=== PATIENT | male | born 1965 | race Caucasian/White ===

== ENCOUNTER 2020-06-18 17:11 | Emergency (ER) | payer OTHER ==
--- OUTSIDE RECORDS SUMMARY | 2020-06-18 17:13 | XMS REPORT | Continuity of Care Document ---
:1965 Author Organization [facility] t Address [address] [place] [address] Care Team Providers Name Role Phone Unavailable Unavailable Unavailable Payers Payer Name Policy Type Policy Number Effective Date Expiration Date S ource Problems This patient has no known problems. Allergies, Adverse Reactions, Alerts Allergy Allergy Status Severity Reaction(s) Onset Inactive Treating Comm ents Source Name Type Date Date Clinician No Known DA Active U 2018-0 [facility] [place] [facility] No Known DA Active U 2018-0 [facility] [place] [facility] Medications This patient has no known medications. Procedures This patient has no known procedures. Results Test Description Test Time Test Comments Results Result Comments Source GLUBED 2019-03-26 11:51:00 Test Item Value Reference Range Interpretation Comme nts GLUBED (test code = GLUBED) 164 mg/dL 60-125 H [id number] 07:07:00 Test Item Value Reference Range Interpretation Comments GLUBED (test code = GLUBED) 126 mg/dL 60-125 H
--- NOTE | 2020-06-18 19:21 | ER ---
Nurse's Notes [facility] Name: Arnold Roach Age: 55 yrs Sex: Male : 1965 Arrival Date: 06/18/2020 Time: 17:14 Bed Waiting Private MD: Diagnosis: Presentation: 06/18 17:21 Chief complaint: Patient states: Blood work done 06/15/2020. Potassium was high as per ca1 doctor. Complains palpitations been a while worse Thursday. Coronavirus screen: Client denies travel out of the [place] in the last 14 days. At this time, the client does not indicate any symptoms associated with coronavirus-19. Ebola Screen: Patient negative for fever greater than or equal to 101.5 degrees Fahrenheit, and additional compatible Ebola Virus Disease symptoms Patient denies exposure to infectious person. Patient denies travel to an Ebola-affected area in the 21 days before illness onset. No symptoms or risks identified at this time. Initial Sepsis Screen: Does the patient meet any 2 criteria? No. Patient's initial sepsis screen is negative. Does the patient have a suspected source of infection? No. Patient's initial sepsis screen is negative. Risk Assessment: Do you want to hurt yourself or someone else? Patient reports no desire to harm self or others. Onset of symptoms was June 18, 2020. 17:21 Method Of Arrival: Ambulatory ca1 17:21 Acuity: JOJO 3 ca1 Historical: - Allergies: 17:24 No Known Allergies; ca1 - PMHx: 17:24 Hypertension; Diabetes - NIDDM; ca1 - PSHx: 17:24 Orchiectomy; Knee surgery; shoulder Surgery; Appendectomy; ca1 - Immunization history:: Flu vaccine is up to date. - Social history:: Smoking status: Patient reports the use of cigarette tobacco products, smokes one-half pack cigarettes per day. Assessment: 18:50 Reassessment: pt not in lobby at this time. iw Vital Signs: 17:21 BP 139 / 90; Pulse 95; Resp 16 S; Temp 98.1(TE); Pulse Ox 95% on R/A; Weight 97.52 kg; ca1 Height 5 ft. 8 in. (172.72 cm) (M); Pain 0/10; 17:21 Body Mass Index 32.69 (97.52 kg, 172.72 cm) ca1 ED Course: 17:14 Patient arrived in ED. as 17:23 Triage completed. ca1 17:24 Arm band placed on right wrist. ca1 Administered Medications: No medications were administered Outcome: 19:19 Eloped from waiting room, before seeing physician Time discovered patient gone: iw June 18, 2020 at 19:20 19:20 Patient left the ED. iw Signatures: Darlyn Valdez as Brittany Corral, RN RN iw Holli Oh RN RN ca1
[2020-06-18 22:48] VITALS: BP 139/90; TEMP 98.1; O2SAT 95
--- NOTE | 2020-06-19 12:56 | EKG ---
Test Date: 2020-06-18 Test Time: 17:26:30 Value Stream Coach: MEASUREMENT RESULTS: Intervals: Rate: 90 WI: 160 QRSD: 92 QT: 354 QTc: 433 [place]: P: 71 WI: 160 QRS: 47 T: 87 INTERPRETIVE STATEMENTS: Normal sinus rhythm Normal ECG Compared to ECG 04/04/2004 01:29:00 No significant changes Electronically Signed On 06-19-20 12:53:28 DRUPAL ARCHITECT by Agapito Smith
== END 2020-06-18 19:20 | disposition left against medical advice (07) ==
LOC: ER 17:11
DX: E87.5 Hyperkalemia (principal); Z53.21 Procedure and treatment not carried out due to patient leaving prior to being seen by health care provider
CPT/HCPCS: 93005; 99281

== ENCOUNTER 2022-03-30 09:46 | Emergency (ER) | payer OTHER ==
--- OUTSIDE RECORDS SUMMARY | 2022-03-30 09:48 | XMS REPORT | Continuity of Care Document ---
:1965 Author Organization [facility] t Address [facility] [place] [address] Care Team Providers Name Role Phone MIA CHAVEZ Primary Care Physician Unavailable Shantelle Attending Clinician Unavailable DERIAN CHOU Attending Clinician Unavailable Shantelle Admitting Clinician Unavailable DERIAN CHOU Admitting Clinician Unavailable Payers Payer Name Policy Type Policy Number Effective Date Expiration Date [place] - [id number] [facility] 00:00:00 PLAN (EPO) DERIC VASQUEZ FROM [id number] [facility] 00:00:00 Problems This patient has no known problems. Allergies, Adverse Reactions, Alerts Allergy Allergy Status Severity Reaction(s) Onset Inactive Treating Comm ents Source Name Type Date Date Clinician No Known DA Active U [facility] 12[facility] [place] [facility] 00:[facility] No Known DA Active U 0 [facility] [place] [facility] 00:[facility]: [facility] NO KNOWN Drug Active [facility] Medications This patient has no known medications. Procedures This patient has no known procedures. Encounters Start End Encounter Admission Attending Care Care Encounter Source Date/Time Date/Time Type Type Clinicians Facility Department ID 2022-02-14 2022-02-14 Outpatient Tony AOSM AOSM [id number] Maggi 00:00:00 00:00:00 Gayle [id number] [facility] 2022-01-13 2022-01-13 Outpatient FOG_Burke_R AOSM AOSM [id number] Maggi 00:00:00 00:00:00 Gayle [id number] [facility] 2022-01-07 2022-01-07 Outpatient FOG_Burke_R AOSM AOSM [id number] Maggi 00:00:00 00:00:00 Gayle [id number] [facility] 2021-12-06 2021-12-06 Outpatient FOG_Burke_R AOSM AOSM [id number] Maggi 05:00:00 05:00:00 Gayle [id number] [facility] 2021-11-01 2021-11-01 Outpatient FOG_Burke_R AOSM AOSM [id number] Maggi 05:57:00 05:57:00 Gayle [id number] [facility] 2020-06-19 2020-06-19 [id number] [facility] 10:49:00 14:19:00 DERIAN tena [facility] Results Test Description Test Time Test Comments Results Result Comments Source GLUBED 2019-03-26 11:51:00 Test Item Value Reference Range Interpretation Comme nts GLUBED (test code = GLUBED) 164 mg/dL 60-125 H [id number] 07:07:00 Test Item Value Reference Range Interpretation Comments GLUBED (test code = GLUBED) 126 mg/dL 60-125 H
[2022-03-30] MEDS ORDERED: ONDANSETRON 4 MG/2 ML VIAL ONE (10:12)
[2022-03-30] MEDS ORDERED: MORPHINE 4 MG/ML SYR ONE ×2 (10:12→10:47)
[2022-03-30 10:16] LABS: Hematocrit 50.7 % (39.6-49.0); Lymphocytes % 9.3 % (15.3-44.8); MCV 89.3 fL (80-100); MPV 7.9 fL (7.6-11.3); RBC Red Blood Cell Count 5.67 M/uL (4.33-5.43)
[2022-03-30 10:20] LABS: Protime INR 0.97
[2022-03-30] MEDS ORDERED: LABETALOL 20 MG/4ML SYRINGE IV ONE (10:24)
[2022-03-30] MEDS ORDERED: FAMOTIDINE 20 MG/2 ML VIAL IV ONE (10:24)
[2022-03-30 10:37] LABS: Bilirubin Direct 0.2 mg/dL (0-0.2); Bilirubin Total 0.9 mg/dL (0.2-1.0); Protein, Total 7.2 g/dL (6.4-8.2)
[2022-03-30 10:38] LABS: Magnesium 2.2 mg/dL (1.8-2.4); Troponin High Sensitivity 4155.9 pg/mL (<58.9)
--- NOTE | 2022-03-30 10:44 | RAD REPORT ---
EXAM DESCRIPTION: CTAngio Aorta For Dissection - 03/30/2022 10:20 am CLINICAL HISTORY: cp COMPARISON: No comparisonsNo comparisons TECHNIQUE: CTA of the chest, abdomen, and pelvis was performed with IV contrast.MIPs were created. All CT scans are performed using dose optimization technique as appropriate and may include automated exposure control or mA/KV adjustment according to patient size. FINDINGS: Thorax: Chest Wall: No abnormal mass Lungs: No acute abnormality. Tiny subpleural nodule in the right middle lobe is almost certainly brody gn. Pleura: No effusions or pneumothorax. Marnie/Mediastinum: No lymphadenopathy. Aorta/Pulmonary Arteries: Unremarkable Heart: Normal size. Scattered coronary artery calcifications . Abdomen/Pelvis: Liver: No acute abnormality or suspicious lesions. Hepatic steatosis Biliary: No biliary ductal dilatation. Stomach: No significant focal abnormality. Duodenum: No significant focal abnormality. Pancreas: No significant abnormality. Spleen: No significant abnormality. Adrenal: No suspicious lesions. Kidney/ureter: No hydronephrosis. No renal calculi. Nonspecific perinephric stranding. Retroperitoneum: No retroperitoneal adenopathy. Vascular: No aneurysm. Bowel: Prior appendectomy. Diverticulosis without diverticulitis. Peritoneum: No ascites or free air.Small fat containing umbilical hernia. Bladder: Grossly unremarkable. Reproductive: No adnexal masses. Bones: No acute fracture. Disc height loss at L5-S1. IMPRESSION: No evidence of aortic aneurysm, aortic dissection, or pulmonary embolus. No other acute findings identified. Incidental findings as noted above.
[2022-03-30] MEDS ORDERED: HEPARIN 5000 UNIT/ML 1 ML VIAL ONE (10:46)
[2022-03-30] MEDS ORDERED: METOPROLOL TAR 50 MG TAB ONE (10:47)
[2022-03-30] MEDS ORDERED: ASPIRIN 81 MG CHEWABLE TABLET ONE (10:47)
[2022-03-30] MEDS ORDERED: CLOPIDOGREL 75 MG TABLET ONE (10:47)
[2022-03-30] MEDS ORDERED: ATORVASTATIN 20 MG TAB ONE (10:48)
[2022-03-30] MEDS ORDERED: HEPARIN/D5W 25,000 UNIT/500 ML BAG IV ONE (10:48)
[2022-03-30] MEDS ORDERED: METOPROLOL TARTRATE 5 MG/5 ML INJ IV ONE ×2 (10:48→11:34)
--- NOTE | 2022-03-30 10:51 | ER ---
Nurse's Notes [facility] Name: Arnold Roach Age: 56 yrs Sex: Male : 1965 Arrival Date: 03/30/2022 Time: 09:47 Bed 2 Private MD: Kamran Grande E Diagnosis: Non ST elevation MS;Unstable angina;Type 2 diabetes mellitus with hyperglycemia;Tobacco abuse counseling;Tobacco use Presentation: 03/30 10:02 Chief complaint: Patient states: mid/ upper back pain that began last night. Woke up ss this morning with pain in chest. PT states, "It feels like somebody is standing on it." Is worse when taking a deep breath. Coronavirus screen: Client denies travel out of the [place] in the last 14 days. Ebola Screen: Patient denies exposure to infectious person. Patient denies travel to an Ebola-affected area in the 21 days before illness onset. Initial Sepsis Screen: Does the patient meet any 2 criteria? No. Patient's initial sepsis screen is negative. Does the patient have a suspected source of infection? No. Patient's initial sepsis screen is negative. Risk Assessment: Do you want to hurt yourself or someone else? Patient reports no desire to harm self or others. Onset of symptoms was March 29, 2022. 10:02 Method Of Arrival: Ambulatory ss 10:02 Acuity: JOJO 2 ss Historical: - Allergies: 10:03 No Known Allergies; ss - Home Meds: 11:42 sitagliptin-metformin oral [Active]; losartan oral [Active]; jl7 - PMHx: 10:03 Diabetes - NIDDM; Hypertension; BPH; ss - Immunization history:: Client reports having NOT received the Covid vaccine. - Social history:: Smoking status: Patient reports the use of cigarette tobacco products, smokes one pack cigarettes per day. - Family history:: not pertinent. Screenin:35 Abuse screen: Denies threats or abuse. Denies injuries from another. Nutritional jl7 screening: No deficits noted. Tuberculosis screening: No symptoms or risk factors identified. Fall Risk IV access (20 points). Total Ruiz Fall Scale indicates No Risk (0-24 pts). Assessment: 10:00 Reassessment: [facility] at bedside to transport pt. General: Appears in no apparent jl7 distress. uncomfortable, Behavior is calm, cooperative, appropriate for age. Pain: Complains of pain in mid-sternal area Pain does not radiate. Pain currently is 7 out of 10 on a pain scale. Quality of pain is described as pressure, Pain began 2-3 days ago. Is continuous. Neuro: Level of Consciousness is awake, alert, obeys commands, Oriented to person, place, time, situation. Cardiovascular: Patient's skin is warm and dry. Rhythm is regular. Respiratory: Airway is patent Respiratory effort is even, unlabored, Respiratory pattern is regular, symmetrical. Derm: Skin is pink, warm \\T\\ dry. 10:14 Reassessment: pt to CT. jl7 10:15 Reassessment: Dr. Bryan notified of repeat BP, gave VO to administer 5 mg labetalol jl7 IVP then 5 mg labetalol IVP five minutes after the first if needed. Pt will be medicated on return from CT. Vital Signs: 10:02 BP 135 / 93; Pulse 107; Resp 18; Pulse Ox 97% on R/A; Weight 95.25 kg; Height 5 ft. 9 ss in. (175.26 cm); Pain 7/10; 10:10 BP 125 / 88; Pulse 102; Resp 15; Temp 97.7; Pulse Ox 95% on R/A; Pain 7/10; jl7 10:22 BP 126 / 88; Pulse 105; Resp 19; Pulse Ox 95% ; Pain 6/10; jl7 10:42 BP 117 / 79; Pulse 95; Resp 15; Pulse Ox 95% ; jl7 10:59 BP 122 / 91; Pulse 101; Resp 15; Pulse Ox 95% ; Pain 5/10; jl7 11:05 BP 131 / 99; Pulse 98; Resp 17; Pulse Ox 94% ; jl7 11:19 BP 123 / 89; Pulse 92; Resp 18; Pulse Ox 95% on R/A; jl7 11:30 BP 115 / 87; Pulse 94; Resp 15 S; Pulse Ox 97% on 2 lpm NC; Pain 3/10; jl7 11:45 BP 111 / 82; Pulse 84; Resp 16; Pulse Ox 97% on 2 lpm NC; jl7 10:02 Body Mass Index 31.01 (95.25 kg, 175.26 cm) ED Course: 09:47 Patient arrived in ED. am2 09:47 Kamran Grande MD is Private Physician. am2 09:50 Joel Bryan MD is Attending Physician. claribel 10:00 Patient has correct armband on for positive identification. Placed in gown. Bed in low jl7 position. Call light in reach. Side rails up X 1. Client placed on continuous cardiac and pulse oximetry monitoring. NIBP monitoring applied. Warm blanket given. 10:03 Triage completed. ss 10:03 Arm band placed on right wrist. ss 10:09 Vivian Neff RN is Primary Nurse. jl7 10:10 Initial lab(s) drawn, by ED staff, sent to lab. EKG done, by ED staff, reviewed by asia Bryan MD COVID swab sent to lab. 10:10 Patient maintains SpO2 saturation greater than 95% on room air. jl7 10:14 Inserted saline lock: 18 gauge in left antecubital area, using aseptic technique. Blood ss collected. 10:22 CT Aorta for Dissection In Process Unspecified. EDMS 10:36 XRAY Chest (1 view) In Process Unspecified. EDMS 10:47 initiated a transfer with Ismael Rose Rn form the [facility]. eb 11:03 connected the call worker person installation manager for [facility] with Dr. Bryan for patient eb transfer consultation. 11:37 administrative approval given by Ismael Rose Rn/ Patient has been accepted to [facility] CCU 1 2414/ Dr. Rod Fisher has accepted the patient in transfer/ report to be called to [phone]. 11:59 No provider procedures requiring assistance completed. Patient transferred, IV remains jl7 in place. intact, No redness/swelling at site. Administered Medications: 10:14 Drug: morphine 4 mg Route: IVP; Infused Over: 4 mins; Site: left antecubital; jl7 10:30 Follow up: Response: No adverse reaction; Pain is decreased jl7 10:14 Drug: Zofran (Ondansetron) 4 mg Route: IVP; Site: left antecubital; jl7 12:01 Follow up: Response: No adverse reaction jl7 10:25 Drug: Labetalol 10 mg {Note: administered [address] Bryan[address] Route: IV; Rate: jl7 per protocol; Infused Over: 2 mins; Site: left antecubital; 10:30 Follow up: Response: No adverse reaction; IV Status: Completed infusion 10:25 Drug: Pepcid (famotidine) 20 mg Route: IVP; Site: left antecubital; jl7 12:02 Follow up: Response: No adverse reaction 7 10:55 Drug: Heparin (MS-Bolus No thrombolytic) - HEParin 60 units/kg {Co-Signature: ll1 jl7 (Alejandra Serrano RN).} Route: IVP; Site: left antecubital; 12:01 Follow up: Response: No adverse reaction 11:04 Drug: Aspirin Chewable Tablet 324 mg Route: PO; 7 12:00 Follow up: Response: No adverse reaction 11:05 Drug: PlaVIX (clopidogrel) 300 mg Route: PO; 12:01 Follow up: Response: No adverse reaction 11:08 Drug: Heparin (MS Drip) 12 units/kg/hr - (HEParin 83413 units, D5W 500 ml) 7 {Co-Signature: ll1 (Alejandra Serrano RN).} Route: IV; Rate: calculated rate; Site: right hand; 12:01 Follow up: Response: No adverse reaction; IV Status: Infusion continued upon transfer 11:09 Drug: Lopressor (metoprolol) 5 mg Route: IVP; Site: left antecubital; 12:01 Follow up: Response: No adverse reaction 11:13 Drug: morphine 4 mg Route: IVP; Infused Over: 4 mins; Site: left antecubital; 7 11:20 Follow up: Response: No adverse reaction; Pain is decreased 11:18 Drug: Lopressor (metoprolol TARTRATE) 50 mg Route: PO; 12:01 Follow up: Response: No adverse reaction 7 11:18 Drug: Lipitor (atorvastatin) 40 mg Route: PO; 7 12:00 Follow up: Response: No adverse reaction 11:26 Not Given (Physician Discretion): Labetalol 10 mg IV at per protocol once 11:35 Drug: Lopressor (metoprolol) 5 mg Route: IVP; Site: left antecubital; 7 11:59 Follow up: Response: No adverse reaction jl7 11:35 Drug: NS 0.9% 500 ml Route: IV; Rate: bolus; Site: left antecubital; jl7 11:58 Follow up: IV Status: Infusion continued upon transfer jl7 11:41 Not Given (Patient Refused): Nicoderm CQ Patch 21 mg/24 hr 1 patches Transdermal once 7 11:57 Drug: NS 0.9% 1000 ml Route: IV; Rate: 125 ml/hr; Site: left antecubital; jl7 11:58 Follow up: IV Status: Infusion continued upon transfer jl7 11:57 Not Given (Patient Refused): Zofran (Ondansetron) 4 mg IVP once; over 2 minutes jl7 11:57 Not Given (Patient Refused): Semglee Pen Injector 100 unit/mL 25 units Sub-Q once 7 Medication: 10:35 VIS not applicable for this client. 7 Outcome: 10:51 ER care complete, transfer ordered by MD. sanford 12:05 Transferred by helicopter to [facility], Transfer form completed. jl7 12:05 Condition: stable 12:05 Discharge instructions given to patient, Instructed on the need for transfer, Demonstrated understanding of instructions. 12:05 Patient left the ED. 7 Signatures: Dispatcher [employer] EDMS Joel Bryan MD MD cha Smirch, Shelby, RN RN Vivian Pardo RN RN jl7 Annabel Albarran Elizabeth eb Lynsay Lewis RN ll1 Corrections: (The following items were deleted from the chart) 10:36 10:25 Labetalol 10 mg IV at per protocol in left antecubital over 2 mins jl7 jl7
--- NOTE | 2022-03-30 10:51 | EDPHYS ---
Physician Documentation [facility] Name: Arnold Roach Age: 56 yrs Sex: Male : 1965 Arrival Date: 03/30/2022 Time: 09:47 Bed 2 Private MD: Kamran Grande E ED Physician Joel Bryan HPI: 03/30 10:19 This 56 yrs old Male presents to ER via Ambulatory with complaints of Chest claribel Pain. 10:19 The patient or guardian reports chest pain that is located primarily in the substernal claribel area, anterior chest wall, bilaterally. Onset: last night, 1 day(s) ago. The pain radiates to back. Associated signs and symptoms: Pertinent positives: shortness of breath. The chest pain is described as a heaviness, causing indigestion. Duration: The patient or guardian reports a single episode, that is still ongoing, and worsening. Modifying factors: The symptoms are alleviated by nothing. the symptoms are aggravated by nothing. Severity of pain: At its worst the pain was mild moderate in the emergency department the pain is unchanged. The patient has not experienced similar symptoms in the past. Historical: - Allergies: 10:03 No Known Allergies; ss - Home Meds: 11:42 sitagliptin-metformin oral [Active]; losartan oral [Active]; jl7 - PMHx: 10:03 Diabetes - NIDDM; Hypertension; BPH; ss - Immunization history:: Client reports having NOT received the Covid vaccine. - Social history:: Smoking status: Patient reports the use of cigarette tobacco products, smokes one pack cigarettes per day. - Family history:: not pertinent. ROS: 10:19 Constitutional: Negative for fever, chills, and weight loss, Eyes: Negative for injury, claribel pain, redness, and discharge, ENT: Negative for injury, pain, and discharge, Neck: Negative for injury, pain, and swelling, Abdomen/GI: Negative for abdominal pain, nausea, vomiting, diarrhea, and constipation, Back: Negative for injury and pain, : Negative for injury, bleeding, discharge, and swelling, MS/Extremity: Negative for injury and deformity, Skin: Negative for injury, rash, and discoloration, Neuro: Negative for headache, weakness, numbness, tingling, and seizure, Psych: Negative for depression, anxiety, suicide ideation, homicidal ideation, and hallucinations, Allergy/Immunology: Negative for hives, rash, and allergies, Endocrine: Negative for neck swelling, polydipsia, polyuria, polyphagia, and marked weight changes, Hematologic/Lymphatic: Negative for swollen nodes, abnormal bleeding, and unusual bruising. 10:19 Cardiovascular: Positive for chest pain, of the chest. 10:19 Respiratory: Positive for shortness of breath, at rest. Exam: 10:19 Constitutional: This is a well developed, well nourished patient who is awake, alert, claribel and in no acute distress. Head/Face: Normocephalic, atraumatic. Eyes: Pupils equal round and reactive to light, extra-ocular motions intact. Lids and lashes normal. Conjunctiva and sclera are non-icteric and not injected. Cornea within normal limits. Periorbital areas with no swelling, redness, or edema. ENT: Nares patent. No nasal discharge, no septal abnormalities noted. Tympanic membranes are normal and external auditory canals are clear. Oropharynx with no redness, swelling, or masses, exudates, or evidence of obstruction, uvula midline. Mucous membranes moist. Neck: Trachea midline, no thyromegaly or masses palpated, and no cervical lymphadenopathy. Supple, full range of motion without nuchal rigidity, or vertebral point tenderness. No Meningismus. Chest/axilla: Normal chest wall appearance and motion. Nontender with no deformity. No lesions are appreciated. Cardiovascular: Regular rate and rhythm with a normal S1 and S2. No gallops, murmurs, or rubs. Normal PMI, no JVD. No pulse deficits. Respiratory: Lungs have equal breath sounds bilaterally, clear to auscultation and percussion. No rales, rhonchi or wheezes noted. No increased work of breathing, no retractions or nasal flaring. Abdomen/GI: Soft, non-tender, with normal bowel sounds. No distension or tympany. No guarding or rebound. No evidence of tenderness throughout. Back: No spinal tenderness. No costovertebral tenderness. Full range of motion. Male : Normal genitalia with no discharge or lesions. Skin: Warm, dry with normal turgor. Normal color with no rashes, no lesions, and no evidence of cellulitis. MS/ Extremity: Pulses equal, no cyanosis. Neurovascular intact. Full, normal range of motion. Neuro: Awake and alert, GCS 15, oriented to person, place, time, and situation. Cranial nerves II-XII grossly intact. Motor strength 5/5 in all extremities. Sensory grossly intact. Cerebellar exam normal. Normal gait. Psych: Awake, alert, with orientation to person, place and time. Behavior, mood, and affect are within normal limits. 10:19 ECG was reviewed by the Attending Physician. 10:57 ECG was reviewed by the Attending Physician. claribel Vital Signs: 10:02 BP 135 / 93; Pulse 107; Resp 18; Pulse Ox 97% on R/A; Weight 95.25 kg; Height 5 ft. 9 ss in. (175.26 cm); Pain 7/10; 10:10 BP 125 / 88; Pulse 102; Resp 15; Temp 97.7; Pulse Ox 95% on R/A; Pain 7/10; jl7 10:22 BP 126 / 88; Pulse 105; Resp 19; Pulse Ox 95% ; Pain 6/10; jl7 10:42 BP 117 / 79; Pulse 95; Resp 15; Pulse Ox 95% ; jl7 10:59 BP 122 / 91; Pulse 101; Resp 15; Pulse Ox 95% ; Pain 5/10; jl7 11:05 BP 131 / 99; Pulse 98; Resp 17; Pulse Ox 94% ; jl7 11:19 BP 123 / 89; Pulse 92; Resp 18; Pulse Ox 95% on R/A; jl7 11:30 BP 115 / 87; Pulse 94; Resp 15 S; Pulse Ox 97% on 2 lpm NC; Pain 3/10; jl7 11:45 BP 111 / 82; Pulse 84; Resp 16; Pulse Ox 97% on 2 lpm NC; jl7 10:02 Body Mass Index 31.01 (95.25 kg, 175.26 cm) ss MDM: 09:50 Patient medically screened. claribel 10:22 Differential diagnosis: abnormal EKG, acute myocardial infarction, acute pericarditis, claribel Cholelithiasis costochondritis, esophagitis, gastritis, hiatal hernia, pancreatitis, pericarditis, pneumothorax, pulmonary embolus, stable angina, thoracic aortic disection, unstable angina. HEART Score: History: Slightly Suspicious (0), ECG: Non specific repolarization disturbance / LBTB / PM (1), Age: > 45 and < 65 years (1), Risk Factors: > or = 3 Risk factors for atherosclerotic disease (2), [Hypercholesterolemia] [Hypertension] [+ Family HX] [Obesity] Troponin: < or = 1 x Normal Limit (0). The patient was given aspirin in the Emergency Department. The patient's deep vein thrombosis risk score was calculated as follows: Total Score: 0. This patient was found to be at low risk for a deep vein thrombosis by using the Well's assessment criteria. The patient's pulmonary embolism risk score was calculated as follows: the patients heart rate is greater than 100 beats per minute (1.5 Pts) Total Score: 3-6 points. This patient was found to be at moderate risk for a pulmonary embolism by using the Well's assessment criteria. XAVI Risk Score: 1 - Three or more CAD risk factors, 1 - ASA use in past 7 days, TOTAL SCORE = 2. Data reviewed: vital signs, nurses notes, lab test result(s), EKG, radiologic studies, CT scan, plain films. Data interpreted: speech correction assistant: rate is 107 beats/min, rhythm is regular, Pulse oximetry: on room air is 107 %. Test interpretation: by ED physician or midlevel provider: ECG, plain radiologic studies. Counseling: I had a detailed discussion with the patient and/or guardian regarding: the historical points, exam findings, and any diagnostic results supporting the discharge/admit diagnosis, lab results, radiology results. 03/30 10:03 Order name: Basic Metabolic Panel; Complete Time: 10:48 03/30 10:03 Order name: CBC with Diff; Complete Time: 10:39 03/30 10:03 Order name: LFT's; Complete Time: 10:48 03/30 10:03 Order name: Magnesium; Complete Time: 10:48 03/30 10:03 Order name: NT PRO-BNP; Complete Time: 10:48 03/30 10:03 Order name: PT-INR; Complete Time: 10:39 03/30 10:03 Order name: Troponin HS; Complete Time: 10:48 03/30 10:03 Order name: XRAY Chest (1 view); Complete Time: 11:04 03/30 10:03 Order name: CT Aorta for Dissection; Complete Time: 10:48 03/30 10:03 Order name: SARS RAPID; Complete Time: 11:03/30 10:03 Order name: Lipase; Complete Time: 10:48 03/30 10:03 Order name: EKG; Complete Time: 10:03 03/30 10:03 Order name: Cardiac monitoring; Complete Time: 10:03/30 10:03 Order name: EKG - Nurse/Tech; Complete Time: 10:03/30 10:03 Order name: IV Saline Lock; Complete Time: 10:03/30 10:03 Order name: Labs collected and sent; Complete Time: 10:03/30 10:03 Order name: O2 Per Protocol; Complete Time: 10:03/30 10:03 Order name: O2 Sat Monitoring; Complete Time: 10: [facility] 03/30 10:48 Order name: EKG; Complete Time: 10:48 [facility] 03/30 10:48 Order name: EKG - Nurse/Tech; Complete Time: 11:26 03/30 10:52 Order name: NPO; Complete Time: 11:21 [facility] EC:19 Rate is 106 beats/min. Rhythm is regular. QRS [place] is Normal. HI interval is normal. claribel QRS interval is normal. QT interval is normal. No Q waves. T waves are Normal. No ST changes noted. Clinical impression: Sinus tachycardia and No evidence of ischemia. Interpreted by me. Reviewed by me. 10:57 Rate is 97 beats/min. Rhythm is regular. QRS [place] is Normal. HI interval is normal. QRS claribel interval is normal. QT interval is normal. No Q waves. T waves are Normal. Clinical impression: Abnormal EKG without significant change. Interpreted by me. Reviewed by me. Administered Medications: 10:14 Drug: morphine 4 mg Route: IVP; Infused Over: 4 mins; Site: left antecubital; jl7 10:30 Follow up: Response: No adverse reaction; Pain is decreased jl7 10:14 Drug: Zofran (Ondansetron) 4 mg Route: IVP; Site: left antecubital; jl7 12:01 Follow up: Response: No adverse reaction jl7 10:25 Drug: Labetalol 10 mg {Note: administered [address] Bryan.} Route: IV; Rate: jl7 per protocol; Infused Over: 2 mins; Site: left antecubital; 10:30 Follow up: Response: No adverse reaction; IV Status: Completed infusion 7 10:25 Drug: Pepcid (famotidine) 20 mg Route: IVP; Site: left antecubital; jl7 12:02 Follow up: Response: No adverse reaction 7 10:55 Drug: Heparin (AL-Bolus No thrombolytic) - HEParin 60 units/kg {Co-Signature: ll1 jl7 (Alejandra Serrano RN).} Route: IVP; Site: left antecubital; 12:01 Follow up: Response: No adverse reaction 7 11:04 Drug: Aspirin Chewable Tablet 324 mg Route: PO; 7 12:00 Follow up: Response: No adverse reaction 7 11:05 Drug: PlaVIX (clopidogrel) 300 mg Route: PO; 12: Follow up: Response: No adverse reaction 7 11:08 Drug: Heparin (AL Drip) 12 units/kg/hr - (HEParin 79401 units, D5W 500 ml) 7 {Co-Signature: ll1 (Alejandra Serrano RN).} Route: IV; Rate: calculated rate; Site: right hand; 12: Follow up: Response: No adverse reaction; IV Status: Infusion continued upon transfer 7 11:09 Drug: Lopressor (metoprolol) 5 mg Route: IVP; Site: left antecubital; 12: Follow up: Response: No adverse reaction 7 11:13 Drug: morphine 4 mg Route: IVP; Infused Over: 4 mins; Site: left antecubital; jl7 11:20 Follow up: Response: No adverse reaction; Pain is decreased 11:18 Drug: Lopressor (metoprolol TARTRATE) 50 mg Route: PO; 7 12: Follow up: Response: No adverse reaction 7 11:18 Drug: Lipitor (atorvastatin) 40 mg Route: PO; jl7 12:00 Follow up: Response: No adverse reaction 7 11:26 Not Given (Physician Discretion): Labetalol 10 mg IV at per protocol once 11:35 Drug: Lopressor (metoprolol) 5 mg Route: IVP; Site: left antecubital; jl7 11:59 Follow up: Response: No adverse reaction 11:35 Drug: NS 0.9% 500 ml Route: IV; Rate: bolus; Site: left antecubital; jl7 11:58 Follow up: IV Status: Infusion continued upon transfer jl7 11:41 Not Given (Patient Refused): Nicoderm CQ Patch 21 mg/24 hr 1 patches Transdermal once 7 11:57 Drug: NS 0.9% 1000 ml Route: IV; Rate: 125 ml/hr; Site: left antecubital; jl7 11:58 Follow up: IV Status: Infusion continued upon transfer jl7 11:57 Not Given (Patient Refused): Zofran (Ondansetron) 4 mg IVP once; over 2 minutes jl7 11:57 Not Given (Patient Refused): Semglee Pen Injector 100 unit/mL 25 units Sub-Q once jl7 Disposition Summary: 03/30/22 10:51 Transfer Ordered Transfer Location: [facility] claribel Reason: Higher level of care claribel Condition: Serious claribel Problem: new claribel Symptoms: have worsened claribel Accepting Physician: to [facility](03/30/22 12:05) jl7 Diagnosis - Non ST elevation [place] claribel - Unstable angina claribel - Type 2 diabetes mellitus with hyperglycemia claribel - Tobacco abuse counseling claribel - Tobacco use claribel Forms: - Medication Reconciliation Form claribel - SBAR form claribel Signatures: Dispatcher [employer] EDJoel Chen MD MD cha Smirch, Shelby RN RN Vivian Pardo RN RN jl7 Alejandra Serrano RN ll1 Corrections: (The following items were deleted from the chart) 12:05 10:51 to [facility] claribel betancourt
--- NOTE | 2022-03-30 10:53 | RAD REPORT ---
EXAM DESCRIPTION: RAD - Chest Single View - 03/30/2022 10:34 am CLINICAL HISTORY: Chest pain COMPARISON: CHEST SINGLE VIEW dated 09/28/2013; CHEST SINGLE VIEW dated 04/03/2004 FINDINGS: Lines: None. Lungs: No evidence of edema or pneumonia. Pleural: No significant pleural effusions or pneumothorax. Cardiac: The heart size is within normal limits. Mediastinum: Within normal limits. Bones: No acute fractures. Other: None IMPRESSION: No acute cardiopulmonary disease.
[2022-03-30 10:57] LABS: SARS-CoV-2 Antigen Rapid Res Negative (Negative)
[2022-03-30] MEDS ORDERED: NICOTINE 21 MG/PAT TD ONE (11:33)
[2022-03-30] MEDS ORDERED: INSULIN GLARGINE 100 UNIT/ML SQ ONE (11:34)
[2022-03-30] MEDS ORDERED: NA CHLORIDE 0.9% 1,000 ML ONE (11:34)
[2022-03-30 12:26] VITALS: TEMP 97.7
[2022-03-30 12:38] VITALS: O2SAT 97
[2022-03-30 12:39] VITALS: BP 111/82
--- NOTE | 2022-03-31 15:09 | EKG ---
Test Date: 2022-03-30 Test Time: 09:58:18 Sports Equipment Repairer: DEVON MEASUREMENT RESULTS: Intervals: Rate: 106 DE: 148 QRSD: 98 QT: 320 QTc: 425 [place]: P: 74 DE: 148 QRS: 54 T: 78 INTERPRETIVE STATEMENTS: Sinus tachycardia Otherwise normal ECG Compared to ECG 06/18/2020 17:26:30 Sinus rhythm no longer present Electronically Signed On 03-31-22 15:07:51 TILE TRIMMER by Flo Smith
--- NOTE | 2022-03-31 15:09 | EKG ---
Test Date: 2022-03-30 Test Time: 10:54:00 Director Of Business Systems: NNAMDI MEASUREMENT RESULTS: Intervals: Rate: 97 AL: 148 QRSD: 96 QT: 330 QTc: 419 [place]: P: 75 AL: 148 QRS: 56 T: 86 INTERPRETIVE STATEMENTS: Normal sinus rhythm Normal ECG Compared to ECG 03/30/2022 09:58:18 Sinus tachycardia no longer present Electronically Signed On 03-31-22 15:07:[address]/MEDICAL INTERPRETER by Flo Smith
== END 2022-03-30 12:05 | disposition short-term general hospital (02) ==
LOC: ER 09:46
DX: I21.4 Non-ST elevation (NSTEMI) myocardial infarction (principal); I20.0 Unstable angina; I10 Essential (primary) hypertension; E11.65 Type 2 diabetes mellitus with hyperglycemia; F17.210 Nicotine dependence, cigarettes, uncomplicated; Z71.6 Tobacco abuse counseling; Z20.822 Contact with and (suspected) exposure to COVID-19
CPT/HCPCS: 96365; 93005 ×2; 85025; 80048; 36415; 83735; 85610; 80076; 84484; 83690; 83880; 71275; 74175; 71045; 96375; 99285; 87811; Q9967; J1644 ×2; J7030; J2405

== ENCOUNTER 2022-10-11 23:30 | Emergency (ER) | payer OTHER ==
--- OUTSIDE RECORDS SUMMARY | 2022-10-11 23:47 | XMS REPORT | Continuity of Care Document ---
:1965 Author Organization [facility] t Address [address] [place] [address] Care Team Providers Name Role Phone MIA CHAVEZ Primary Care Physician Unavailable CEDRIC BALL Attending Clinician Unavailable SRAVANTHI GAMING Attending Clinician Unavailable Benjamin Cox MD Attending Clinician MARYLU IRELAND Attending Clinician Unavailable Steve Arshad NP Attending Clinician Cedric Ball MD Attending Clinician Carine Stone RN Attending Clinician Unavailable MARCUS LLANES Attending Clinician Unavailable Marcus Llanes Attending Clinician STEVE ARSHAD Attending Clinician Unavailable Jia Parmar RN Attending Clinician Paoc Kaur Attending Clinician Myrna Poole RN Attending Clinician Unavailable JD-JIE, SUNG IN Attending Clinician Unavailable Gloria Rosas MD Attending Clinician Dilip CLINTON, Germaine Cox Attending Clinician Reginaldo CLINTON, Westley Ortiz Attending Clinician Shanna CLINTON, Rivas In Attending Clinician Franca CLINTON, Sage Attending Clinician Rufino Vyas Attending Clinician Sravanthi Gaming Attending Clinician Linda CLINTON, Joss Sandy Attending Clinician [phone] Husam CLINTON, Leonidas Robles Attending Clinician [phone] Riccardo CLINTON, Miguel Attending Clinician Ron CLINTON, Medardo Grant Attending Clinician Reginaldo Bolaños MD Attending Clinician Shantelle Attending Clinician Unavailable DERIAN CHOU Attending Clinician Unavailable GLORIA ROSAS Admitting Clinician Unavailable Shantelle Admitting Clinician Unavailable DERIAN CHOU Admitting Clinician Unavailable Payers Payer Name Policy Type Policy Number Effective Date Expiration Date Gio WALTONMINNATabitha FRYBURG [id number] 2021 00:00:00 CHRISTINA [id number] 2021 [facility] 00:00:00 [facility]RISTINA [facility] [id number] 2021 [facility] 00:00:00 PLAN (EPO) DERIC ISABELLEESTELA FROM [id number] 2020 [facility] 00:00:00 Problems Condition Condition Condition Status Onset Resolution Last Treating Co mments Source Name Details Category Date Date Treatment Clinician Date Essential Essential Disease Active 2021-[address] [facility] tremor tremor 2-19 [facility] Gastroesop Gastroesop Disease Active 2021-[address] hageal hageal 2-19 [facility] reflux reflux 00:00: Medical disease disease 00 Center Generalize Generalize Disease Active 2021-[address] d anxiety d anxiety 2-19 [facility] disorder disorder 00:00: Medica l 00 Center Hypothyroi Hypothyroi Disease Active 2021-[address] dism dism 07-06 [facility] Overweight Overweight Disease Active 2021-[address] with body with body 07-06 [facility] mass index mass index 00:00: Me dical (BMI) (BMI) 00 Center 25.0-29.9 25.0-29.9 Tobacco Tobacco Disease Active 2021-[address] [facility] [address] user user 07-06 [facility] Center GUNJAN GUNJAN Disease Active 2021-05 Last [facility] (obstructi (obstructi 07-06 [facility] ve sleep ve sleep 00:00: t & Plan: of apnea) apnea) 00 Formattin Medicin g of this e note might be different from the original. Here for GUNJAN evaluatio n.Diagnos ed with severe GUNJAN in 2013 (AHI 72.7 events/hr , SpO2 miguel 50%). He is on CPAP at 16 cmh2O since then. Reports good subjectiv e complianc e till he was admitted to the hospitl for NSTEMI s/p CABG, hospital course complicat ed by cardiac arrest (x2) and cardiogen eic shock. He then was released from the hospital and could not tolerate his CPAP. He is using her CPAP at 12 cmH2O.[place] nload showed excellent use and control of obstructi ve events with a CPAP at 16 cmH2O. I notices air leaks, I advised to use chin strap.I reviewed his CPAP settings and his RAMP is off. 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 [facility] 00:00: Medical (03/31/22) (03/31/22) 00 Ce nter Hypogonadi Hypogonadi Disease Active [facility] sm 2 [facility] Center Essential Essential Disease Active [facility] hypertensi hypertensi 1-27 [facility] on on 00:00: Medical 00 Center Diverticul Diverticul Disease Active [facility] ar disease ar disease 12-20 [facility] of colon of colon 00:00: Medica l 00 Center Type 2 Type [address] [facility] diabetes diabetes nce 12-20 [facility] mellitus mellitus 00:00: Medica l without without 00 Center complicati complicati on on Obstructiv Obstructiv Disease Active [facility] e sleep e sleep 06-18 [facility] apnea on apnea on 00:00: Medica l CPAP CPAP 00 Center Coronary Coronary Disease Active [facility] artery artery [facility] disease disease Medical involving involving Cent er coronary coronary bypass bypass graft of graft of [place] heart with 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 pectoris Acute Acute Disease Active [facility] respirator respirator [facility] y y Medical insufficie insufficie Ce nter ncy ncy Hyperglyce Hyperglyce Disease Active [facility] Acute Acute Disease Active [facility] blood loss blood loss [facility] anemia anemia [facility] Center Allergies, Adverse Reactions, Alerts Allergy Allergy Status Severity Reaction(s) Onset Inactive Treating Comm ents Source Name Type Date Date Clinician No Known DA Active [facility]09 [place] [facility] No Known DA Active [facility] 12[facility]08 [place] [facility] 00:[facility]: [facility]ope [facility] 00 dic [facility]osp[facility] l NO KNOWN Drug Active [facility] NO KNOWN Allergy Active [facility] Family History Family Member Diagnosis Comments Start Date Stop Date Source Natural father Cancer [facility] Natural mother Cancer [facility] Social History Social Habit Start Date Stop Date Quantity Comments Source History of tobacco Cigarette Smoker [facility] use of Medicine Alcohol intake 2022-08-04 2022-08-04 Ex-drinker [facility] Col lege 00:00:00 00:00:00 (finding) of Medicine Tobacco use and 2022-05-05 2022-05-05 Former smokeless [facility] exposure 00:00:00 00:00:00 tobacco user of Medicine History SDMS 2022-05-05 2022-05-05 2 [facility] Physical Activity 00:00:00 00:00:00 of [facility] DPW History [facility] 2022-05-05 2022-05-05 5 [facility] Physical Activity 00:00:00 00:00:00 of [facility] cine MPS Cigarettes smoked 2022-04-28 2022-04-[address] [facility] current (pack per 00:00:00 00:00:00 Medical Center day) - Reported Cigarette 2022-04-28 2022-04-[address] [facility] pack-years 00:00:00 00:00:00 Medical Center Sex Ass[birth year] M [facility] Co llege 00:00:00 00:00:00 of Medicine Smoking Status Start Date Stop Date Source Ex-smoker 2022-05-05 00:00:00 2022-05-05 00:00:00 [facility] ollege of Medicine Medications Ordered Filled Start Stop Current Ordering Indication Dosage Frequency Signature Comments Components Source Medication Medication Date Date Medication? Clinician (SIG) Name Name ondansetron Yes ondansetro [facility] (ZOFRAN) 8 3-20 n HCl 8 mg Col lege mg tablet 10:47: tablet of 45 Medicin e ondansetron Yes ondansetro [facility] (ZOFRAN) 8 3-20 n HCl 8 mg Col [facility] mg tablet 10:47: tablet of 45 Medicin e metformin Yes [id number] 1000mg Take 2 [facility] (GLUCOPHAGE 3-20 Tablets by Co llege -XR) 500 MG 00:00: mouth of XR tablet 00 daily. Medicin e Insulin Yes [id number] Inject up [facility] Detemir 3-20 to 30 College (LEVEMIR 00:00: units into of FLEXTOUCH) 00 the skin Medic in 100 UNIT/ML every 7 e SOPN days mexiletine Yes 150mg Take 1 [facility] (MEXITIL) 3-20 capsule by [facility] 150 MG 00:00: mouth two of capsule 00 times Medicin daily. e metformin Yes [id number] 1000mg Take 2 [facility] (GLUCOPHAGE 3-20 Tablets by Co llege -XR) 500 MG 00:00: mouth of XR tablet 00 daily. Medicin e Insulin Yes [id number] Inject up [facility] Detemir 3-20 to 30 College (LEVEMIR 00:00: units into of FLEXTOUCH) 00 the skin Medic in 100 UNIT/ML every 7 e SOPN days Insulin 2022- No [id number] 15U Inject 15 [facility] Detemir 2-01 03-20 Units into Colle (LEVEMIR 00:00: 00:00 the skin of FLEXTOUCH) 00 :00 daily for Medi lefty 100 UNIT/ML 90 days. e SOPN amiodarone Yes 200mg Q.5D Take [address] [facility] (PACERONE) 1-30 tablet [facility] 200 MG 00:00: (200 mg Medical tablet 00 total) by Center mouth 2 (two) times daily. amiodarone Yes 200mg Q.5D Take [address] [facility] (PACERONE) 1-30 tablet [facility] 200 MG 00:00: (200 mg Medical tablet 00 total) by Center mouth 2 (two) times daily. metoprolol 2023- No 25mg Q.5D Take [address] [facility] succinate 1-30 01-30 tablet (25 [facility] (Toprol XL) 00:00: 23:59 mg total) Medical 25 MG 24 hr 00 :00 by mouth 2 Ce nter tablet (two) times daily. furosemide 2023- No 40mg Q.5D Take [address] [facility] (Lasix) 40 1-30 01-30 tablet (40 [facility] MG tablet 00:00: 23:59 mg total) Me dical 00 :00 by mouth 2 Center (two) times daily. metoprolol 2023- No 25mg Q.5D Take [address] succinate 1-30 01-30 tablet (25 [facility] (Toprol XL) 00:00: 23:59 mg total) Medical 25 MG 24 hr 00 :00 by mouth 2 Ce nter tablet (two) times daily. furosemide 2023- No 40mg Q.5D Take [address] [facility] (Lasix) 40 1-30 01-30 tablet (40 [facility] MG tablet 00:00: 23:59 mg total) Me dical 00 :00 by mouth 2 Center (two) times daily. spironolact 2022- No 25mg QD Take [address] [facility] one 1-30 12-21 tablet (25 [facility] (ALDACTONE) 00:00: 23:59 mg total) Medical 25 MG 00 :00 by mouth Center tablet daily for 325 days. rosuvastati 2022-0 2022- No 20mg QD Take [address] [facility] n (CRESTOR) 1-30 12-21 tablet (20 L [facility]kes 20 MG 00:00: 23:59 mg total) Medica l tablet 00 :00 by mouth Center nightly for 325 days. apixaban 0 2022- No 5mg Q.5D Take [address] [facility] (ELIQUIS) 5 -30 12-21 tablet (5 [facility] mg Tab 00:00: 23:59 mg total) Medic al tablet 00 :00 by mouth 2 Center (two) times daily for 325 days. spironolact 2022- No 25mg QD Take [address] [facility] one 1-30 12-21 tablet (25 [facility] (ALDACTONE) 00:00: 23:59 mg total) Medical 25 MG 00 :00 by mouth Center tablet daily for 325 days. rosuvastati 2022-0 2022- No 20mg QD Take [address] [facility] n (CRESTOR) 1-30 12-21 tablet (20 L [facility] 20 MG 00:00: 23:59 mg total) Medica l tablet 00 :00 by mouth Center nightly for 325 days. apixaban 0 2022- No 5mg Q.5D Take [address] [facility] (ELIQUIS) 5 1-30 12-21 tablet (5 [facility] mg Tab 00:00: 23:59 mg total) Medic al tablet 00 :00 by mouth 2 Center (two) times daily for 325 days. clopidogreL 2022- No 75mg QD Take [address] [facility] (PLAVIX) 75 1-30 04-30 tablet (75 [facility] mg tablet 00:00: 23:59 mg total) Me dical 00 :00 by mouth Center daily for 90 days. clopidogreL 2022-0 2022- No 75mg QD Take [address] [facility] (PLAVIX) 75 1-30 04-30 tablet (75 [facility] mg tablet 00:00: 23:59 mg total) Me dical 00 :00 by mouth Center daily for 90 days. tamsulosin 2022-0 Yes .4mg QD Take 0.[address] [facility] (FLOMAX) 1-18 mg by [facility] 0.4 mg Cap 13:53: mouth Medica l 24 hr 06 daily. [place] capsule omeprazole 2022-0 Yes 40mg QD Take [address] (PriLOSEC) 1-18 by mouth [facility] 40 MG 13:53: daily. Medical capsule [address] [place] [address] tamsulosin 2022-0 Yes .4mg QD Take 0.[address] (FLOMAX) 1-18 mg by [facility] 0.4 mg Cap 13:53: mouth Medica l 24 hr 06 daily. [place] capsule omeprazole 2022-0 Yes 40mg QD Take [address] (PriLOSEC) 1-18 by mouth [facility] 40 MG 13:53: daily. Medical capsule [address] [place] [address] tamsulosin 0 Yes .4mg QD Take 0.[address] (FLOMAX) 1-18 mg by [facility] 0.4 mg Cap 13:53: mouth Medica l 24 hr 06 daily. [place] capsule omeprazole 2022-0 Yes 40mg QD Take [address] (PriLOSEC) 1-18 by mouth [facility] 40 MG 13:53: daily. Medical capsule [address] [place] [address] empaglifloz 2021-05 Yes 25mg QD Take [address] [facility] in 2-30 by mouth [facility] (Jardiance) 00:00: daily. Medi linsey 25 mg 00 Center tablet semaglutide 2021-05 Yes .25mg Inject [facility] (Ozempic) 2-30 0.25 mg [facility] 0.25 mg or 00:00: subcutaneo M edical 0.5 mg(2 00 usly every Cente r mg/1.5 mL) 7 days PnIj Inject 0.25mg into the skin every 7 days. If tolerating well after 4 doses, increase to 0.5mg every 7 days.. empaglifloz 2021-05 Yes 25mg QD Take [address] [facility] in 2-30 by mouth [facility] (Jardiance) 00:00: daily. Medi linsey 25 mg 00 Center tablet semaglutide 2021-05 Yes .25mg Inject [facility] (Ozempic) 2-30 0.25 mg [facility] 0.25 mg or 00:00: subcutaneo M edical 0.5 mg(2 00 usly every Cente r mg/1.5 mL) 7 days PnIj Inject 0.25mg into the skin every 7 days. If tolerating well after 4 doses, increase to 0.5mg every 7 days.. empaglifloz 2021-05 Yes 25mg QD Take [address] [facility] in 2-30 by mouth [facility] (Jardiance) 00:00: daily. Medi linsey 25 mg 00 Center tablet semaglutide 2021-05 Yes .25mg Inject [facility] (Ozempic) 2-30 0.25 mg [facility] 0.25 mg or 00:00: subcutaneo M edical 0.5 mg(2 00 usly every Cente r mg/1.5 mL) 7 days PnIj Inject 0.25mg into the skin every 7 days. If tolerating well after 4 doses, increase to 0.5mg every 7 days.. Empaglifloz 2021-05 Yes [id number] 25mg Take 25 mg [facility] in 2-30 by mouth College (JARDIANCE) 00:00: daily. of 25 MG TABS 00 Medicin e Semaglutide 2021-05 Yes [id number] Inject [facility] (OZEMPIC) 2-30 0.25mg College 0.25 or 0.5 00:00: into the of mg/dose 00 skin every Medici n injection 7 days. If e tolerating well after 4 doses, increase to 0.5mg every 7 days. Empaglifloz 2021-05 Yes [id number] 25mg Take 25 mg [facility] in 2-30 by mouth [facility] (JARDIANCE) 00:00: daily. of 25 MG TABS 00 Medicin e Semaglutide 2021-05 Yes [id number] Inject [facility] (OZEMPIC) 2-30 0.25mg College 0.25 or 0.5 00:00: into the of mg/dose 00 skin every Medici n injection 7 days. If e tolerating well after 4 doses, increase to 0.5mg every 7 days. Empaglifloz 2021-05 Yes [id number] 25mg Take 25 mg [facility] in 2-30 by mouth College (JARDIANCE) 00:00: daily. of 25 MG TABS 00 Medicin e Semaglutide 2021-05 Yes [id number] Inject [facility] (OZEMPIC) 2-30 0.25mg College 0.25 or 0.5 00:00: into the of mg/dose 00 skin every Medici n injection 7 days. If e tolerating well after 4 doses, increase to 0.5mg every 7 days. Testosteron 2021-05- No [id number] 75mg Inject 75 [facility] e Cypionate 2-30 01-30 mg into [facility] 200 MG/ML 00:00: 05:59 the muscle o f SOLN 00 :00 every 7 Medicin days for e 30 days. testosteron 2021-05- No 75mg Inject [address] [facility] e cypionate 2-30 01-29 mg [facility] (DEPOTESTOT 00:00: 23:59 intramuscu Medical ERONE 00 :00 larly Center CYPIONATE) every 7 200 mg/mL days. injection testosteron 2021-05- No 75mg Inject [address] [facility] e cypionate 2-30 01-29 mg [facility] (DEPOTESTOT 00:00: 23:59 intramuscu Medical ERONE 00 :00 larly Center CYPIONATE) every 7 200 mg/mL days. injection testosteron 2021-05- No 75mg Inject [address] [facility] [facility] e cypionate 2-30 01-29 mg [facility] (DEPOTESTOT 00:00: 23:59 intramuscu Medical ERONE 00 :00 larly Center CYPIONATE) every 7 200 mg/mL days. injection sildenafiL 2021-05 Yes 1{tbl} Take [address] [facility] (VIAGRA) 50 2-29 tablet by [facility] MG tablet 00:00: mouth as Medi linsey 00 needed. Center sildenafiL 2021-05 Yes 1{tbl} Take [address] [facility] (VIAGRA) 50 2-29 tablet by Evon es MG tablet 00:00: mouth as Medi linsey 00 needed. Center sildenafiL 2021-05 Yes 1{tbl} Take [address] [facility] (VIAGRA) 50 2-29 tablet by Evon es MG tablet 00:00: mouth as Medi linsey 00 needed. [place] ondansetron 2021-05 Yes ondansetro [facility] (ZOFRAN) 8 2-19 n HCl 8 mg Col lege mg tablet 15:14: tablet of 28 Medicin e ondansetron 2021-05 Yes ondansetro [facility] (ZOFRAN) 8 2-19 n HCl 8 mg Col [facility]ge mg tablet 15:14: tablet of 28 Medicin e atorvastati 2021-05- No atorvastat [facility] n (LIPITOR) 2-19 12-19 in 20 mg Col [facility]ge 20 MG 15:13: 00:00 tablet of tablet 00 :00 TAKE 1 Medicin TABLET BY e MOUTH EVERY DAY atorvastati 2021-05 Yes atorvastat [facility] n (LIPITOR) 2-19 in 20 mg [facility] 20 MG 11:25: tablet of tablet 04 TAKE 1 Medicin TABLET BY e MOUTH EVERY DAY ondansetron 2021-05 Yes ondansetro [facility] (ZOFRAN) 8 2-19 n HCl 8 mg Col lege mg tablet 11:25: tablet of 04 Medicin e budesonide- 2021-05- No 2{puff} Q.5D Inhale [address] [facility] formoteroL 2-19 12-19 puffs by Luke s (Symbicort) 00:00: 23:59 mouth via Medical 80-4.5 00 :00 inhaler 2 Center mcg/actuati (two) on inhaler times daily. furosemide 2021-05- No 40mg Q.5D Take [address] [facility] (Lasix) 40 2-19 12-19 tablet (40 [facility] MG tablet 00:00: 23:59 mg total) Me dical 00 :00 by mouth 2 Center (two) times daily. budesonide- 2021-05- No 2{puff} Q.5D Inhale [address] [facility] formoteroL 2-19 12-19 puffs by Luke s (Symbicort) 00:00: 23:59 mouth via Medical 80-4.5 00 :00 inhaler 2 Center mcg/actuati (two) on inhaler times daily. budesonide- 2021-05- No 2{puff} Q.5D Inhale [address] [facility] formoteroL 2-19 12-19 puffs by Luke s (Symbicort) 00:00: 23:59 mouth via Medical 80-4.5 00 :00 inhaler 2 Center mcg/actuati (two) on inhaler times daily. furosemide 2021-05- No 40mg Q.5D Take [address] [facility] (Lasix) 40 07-06-30 tablet (40 [facility] MG tablet 00:00: 00:00 mg total) Me dical 00 :00 by mouth 2 Center (two) times daily. furosemide 2021-05 No 40mg Q.5D Take [address] [facility] (Lasix) 40 07-06-30 tablet (40 [facility] MG tablet 00:00: 00:00 mg total) Me dical 00 :00 by mouth 2 Center (two) times daily. empaglifloz 2021-05- No 1{tbl} Q.5D Take [address] in-metformi 2-12 12-12 tablet by [facility] [place] 15:22: 00:00 mouth 2 Medical (Synjardy) 49 :00 (two) Center 12.5-1,000 times mg Tab daily. empaglifloz 2021-05- No 1{tbl} Q.5D Take [address] in-metformi 2-12 12-12 tablet by [facility] [place] 15:22: 00:00 mouth 2 Medical (Synjardy) 49 :00 (two) Center 12.5-1,000 times mg Tab daily. empaglifloz 2021-05- No 1{tbl} Q.5D Take [address] in-metformi 2-12 12-12 tablet by [facility] [place] 15:22: 00:00 mouth 2 Medical (Synjardy) 49 :00 (two) Center 12.5-1,000 times mg Tab daily. empaglifloz 2021-05- No 1{tbl} Q.5D Take [address] in-metformi 2-12 12-12 tablet by [facility] [place] 15:22: 00:00 mouth 2 Medical (Synjardy) 49 :00 (two) Center 12.5-1,000 times mg Tab daily. tamsulosin 2021-05 Yes .4mg QD Take 0.[address] [facility] (FLOMAX) 2-12 mg by [facility] 0.4 mg Cap 14:28: mouth Medica l 24 hr 33 daily. [place] capsule omeprazole 2021-05 Yes 40mg QD Take [address] (PriLOSEC) 2-12 by mouth [facility] 40 MG 14:28: daily. Medical capsule 33 [facility] 2021-05- No 10mg QD Take [address] [facility] (SINGULAIR) 2-12 12-12 by mouth Evon es 10 mg 14:28: 00:00 nightly. Medical tablet 06 :00 [facility] 2021-05- No 10mg QD Take [address] [facility] (SINGULAIR) 2-12 12-12 by mouth Evon es 10 mg 14:28: 00:00 nightly. Medical tablet 06 :00 [facility] 2021-05- No 10mg QD Take [address] [facility] (SINGULAIR) 2-12 12-12 by mouth Evon es 10 mg 14:28: 00:00 nightly. Medical tablet 06 :00 [facility] 2021-05- No 10mg QD Take [address] [facility] (SINGULAIR) 2-12 12-12 by mouth Evon es 10 mg 14:28: 00:00 nightly. Medical tablet 06 :00 [place] fLUoxetine 2021-05- No 10mg QD Take [address] [facility] (PROzac) 10 2-12 12-12 by mouth Evon es MG capsule 14:24: 00:00 daily. Medi linsey 21 :00 [place] fLUoxetine 2021-05- No 10mg QD Take [address] [facility] (PROzac) 10 2-12 12-12 by mouth Evon es MG capsule 14:24: 00:00 daily. Medi linsey 21 :00 [place] fLUoxetine 2021-05- No 10mg QD Take [address] [facility] (PROzac) 10 2-12 12-12 by mouth Evon es MG capsule 14:24: 00:00 daily. Medi linsey 21 :00 [place] fLUoxetine 2021-05- No 10mg QD Take [address] [facility] (PROzac) 10 2-12 12-12 by mouth Evon es MG capsule 14:24: 00:00 daily. Medi linsey 21 :00 [place] pen needle, 2021-05 Yes 1U Q.5D [address] [facility] diabetic 32 2-12 Miscellane [facility] gauge x 00:00: ous route Medic al 05/21" Ndle 00 2 (two) Center times daily. pen needle, 2021-05 Yes 1U Q.5D 1 Units by [facility] 32 2-12 Miscellane [facility]ura kes gauge x 00:00: ous route Medic al 05/21" Ndle 00 2 (two) Center times daily. pen needle, 2021-05 Yes 1U Q.5D 1 Units by [facility] 32 2-12 Miscellane [facility] k[facility] gauge x 00:00: ous route Medic al 05/21" Ndle 00 2 (two) Center times daily. pen needle, 2021-05 Yes 1U Q.5D 1 Units by [facility] 32 2-12 Miscellane [facility]ura kes gauge x 00:00: ous route Medic al 05/21" Ndle 00 2 (two) Center times daily. omeprazole 2021-05 Yes 40mg Take 40 mg [facility] (PRILOSEC) 2-12 by mouth. [facility] 40 MG 00:00: of capsule 00 Medicin e omeprazole 2021-05 Yes 40mg Take 1 [facility] (PRILOSEC) 2-12 capsule by Col [facility]ge 40 MG 00:00: mouth. of capsule 00 Medicin e omeprazole 2021-05 Yes 40mg Take 1 [facility] (PRILOSEC) 2-12 capsule by Col [facility]ge 40 MG 00:00: mouth. of capsule 00 Medicin e omeprazole 2021-05 Yes 40mg Take 40 mg [facility] (PRILOSEC) 2-12 by mouth. [facility] 40 MG 00:00: of capsule 00 Medicin e omeprazole 2021-05 Yes 40mg Take 40 mg [facility] (PRILOSEC) 2-12 by mouth. [facility] 40 MG 00:00: of capsule 00 Medicin e metoprolol 2021-05- No 25mg Take 25 mg [facility] (TOPROL-XL) 06-29 by mouth Col lege 25 MG XL 00:00: 05:59 two times of tablet 00 :00 daily. Medicin e metoprolol 2021-05- No 25mg Take 1 [facility] (TOPROL-XL) 06-29 Tablet by Co llege 25 MG XL 00:00: 05:59 mouth two of tablet 00 :00 times Medicin daily. e metoprolol 2021-05- No 25mg Take 1 [facility] (TOPROL-XL) 06-29 Tablet by Co llege 25 MG XL 00:00: 05:59 mouth two of tablet 00 :00 times Medicin daily. e metoprolol 2021-05- No 25mg Take 25 mg [facility] (TOPROL-XL) 06-29 by mouth. Co llege 25 MG XL 00:00: 05:59 of tablet 00 :00 Medicin e metoprolol 2021-05- No 25mg Take 25 mg [facility] (TOPROL-XL) 06-29 by mouth Col lege 25 MG XL 00:00: 05:59 two times of tablet 00 :00 daily. Medicin e metoprolol 2021-05- No 25mg Q.5D Take [address] [facility] succinate 06-29 tablet (25 [facility] (Toprol XL) 00:00: 23:59 mg total) Medical 25 MG 24 hr 00 :00 by mouth 2 Ce nter tablet (two) times daily. metoprolol 2021-05- No 25mg Q.5D Take [address] [facility] succinate 06-29 tablet (25 [facility] (Toprol XL) 00:00: 23:59 mg total) Medical 25 MG 24 hr 00 :00 by mouth 2 Ce nter tablet (two) times daily. Insulin 2021-05- No 10U Inject 10 [facility] Detemir 06-29-13 Units into Colle ge (LEVEMIR 00:00: 04:59 the skin. of FLEXTOUCH) 00 :00 Medicin 100 UNIT/ML e SOPN Insulin 2021-05- No 10U Inject 10 [facility] Detemir 06-29-13 Units into Colle ge (LEVEMIR 00:00: 04:59 the skin. of FLEXTOUCH) 00 :00 Medicin 100 UNIT/ML e SOPN Insulin 2021-05- No 10U Inject 10 [facility] Detemir 06-29-13 Units into Colle ge (LEVEMIR 00:00: 04:59 the skin. of FLEXTOUCH) 00 :00 Medicin 100 UNIT/ML e SOPN insulin 2021-05 No 10U QD Inject 0.[address] [facility] detemir 2-12 03-12 mLs (10 [facility] U-100 00:00: 23:59 Units Medical (Levemir 00 :00 total) Center FlexTouch subcutaneo U-100 usly every Insuln) 100 morning unit/mL (3 for 90 mL) InPn days. injection insulin 2021-05 No 10U QD Inject 0.[address] [facility] detemir 2-12 03-12 mLs (10 [facility] U-100 00:00: 23:59 Units Medical (Levemir 00 :00 total) Center FlexTouch subcutaneo U-100 usly every Insuln) 100 morning unit/mL (3 for 90 mL) InPn days. injection insulin 2021-05 No 10U QD Inject 0.[address] [facility] detemir 2-12 03-12 mLs (10 [facility] U-100 00:00: 23:59 Units Medical (Levemir 00 :00 total) Center FlexTouch subcutaneo U-100 usly every Insuln) 100 morning unit/mL (3 for 90 mL) InPn days. injection insulin 2021-05 No 10U QD Inject 0.[address] [facility] detemir 2-12 03-12 mLs (10 [facility] 00:00: 23:59 Units Medical (Levemir 00 :00 total) Center FlexTouch subcutaneo U-100 usly every Insuln) 100 morning unit/mL (3 for 90 mL) InPn days. injection metoprolol 2021-05 No 25mg Q.5D Take [address] [facility] succinate 06-29 01-30 tablet (25 [facility] (Toprol XL) 00:00: 00:00 mg total) Medical 25 MG 24 hr 00 :00 by mouth 2 Ce nter tablet (two) times daily. metoprolol 2021-05 No 25mg Q.5D Take [address] [facility] succinate 06-29-30 tablet (25 [facility] (Toprol XL) 00:00: 00:00 mg total) Medical 25 MG 24 hr 00 :00 by mouth 2 Ce nter tablet (two) times daily. losartan- 2021-05- No 1{tbl} QD Take [address] drochloroth 06-19 tablet by [facility] kes iazide 18:41: 00:00 mouth Medical (HYZAAR) 05 :00 daily. Center 100-12.5 mg per tablet aspirin 81 2021-05- No 81mg QD Take [address] [facility] MG EC 06-19 by mouth [facility] tablet 18:41: 00:00 daily. Medical 05 :00 [place] losartan- 2021-05- No 1{tbl} QD Take [address] drochloroth 06-19 tablet by [facility] kes iazide 18:41: 00:00 mouth Medical (HYZAAR) 05 :00 daily. Center 100-12.5 mg per tablet aspirin 81 2021-05- No 81mg QD Take [address] [facility] MG EC 06-19 by mouth [facility] tablet 18:41: 00:00 daily. Medical 05 :00 [place] losartan- 2021-05- No 1{tbl} QD Take [address] drochloroth 06-19 tablet by [facility] k[facility] iazide 18:41: 00:00 mouth Medical (HYZAAR) 05 :00 daily. [place] 100-12.5 mg per tablet aspirin 81 2021-05- No 81mg QD Take [address] [facility] MG EC 06-19 by mouth [facility] tablet 18:41: 00:00 daily. Medical 05 :00 [place] losartan- 2021-05- No 1{tbl} QD Take [address] drochloroth 06-19 tablet by [facility] kes iazide 18:41: 00:00 mouth Medical (HYZAAR) 05 :00 daily. Center 100-12.5 mg per tablet aspirin 81 2021-05- No 81mg QD Take [address] [facility] MG EC 06-19 by mouth [facility] tablet 18:41: 00:00 daily. Medical 05 :00 [place] clopidogreL 2021-05 Yes 75mg QD Take [address] [facility] (PLAVIX) 75 2-02 tablet (75 [facility] mg tablet 00:00: mg total) Med ical 00 by mouth Center daily. spironolact 2021-05 Yes 25mg QD Take [address] [facility] one 2-02 tablet (25 [facility] (ALDACTONE) 00:00: mg total) M edical 25 MG 00 by mouth Center tablet daily. colchicine 2021-05 Yes .3mg Take 0.[address] [facility] (COLCRYS) 2-02 tablets [facility] 0.6 mg 00:00: (0.3 mg Medical tablet 00 total) by Center mouth every other day. clopidogreL 2021-05 Yes 75mg QD Take [address] [facility] (PLAVIX) 75 2-02 tablet (75 [facility] mg tablet 00:00: mg total) Med ical 00 by mouth Center daily. spironolact 2021-05 Yes 25mg QD Take [address] [facility] one 2-02 tablet (25 [facility] (ALDACTONE) 00:00: mg total) M edical 25 MG 00 by mouth Center tablet daily. colchicine 2021-05 Yes .3mg Take 0.[address] [facility] (COLCRYS) 2-02 tablets [facility] 0.6 mg 00:00: (0.3 mg Medical tablet 00 total) by Center mouth every other day. colchicine 2021-05 Yes .3mg Take 0.[address] [facility] (COLCRYS) 2-02 tablets [facility] 0.6 mg 00:00: (0.3 mg Medical tablet 00 total) by Center mouth every other day. colchicine 2021-05 Yes .3mg Take 0.[address] [facility] (COLCRYS) 2-02 tablets [facility] 0.6 mg 00:00: (0.3 mg Medical tablet 00 total) by Center mouth every other day. clopidogreL 2021-05- No 75mg QD Take [address] [facility] (PLAVIX) 75 2-02 -30 tablet (75 [facility] mg tablet 00:00: 00:00 mg total) Me dical 00 :00 by mouth Center daily. spironolact 2021-05- No 25mg QD Take [address] [facility] one 2-02 01-30 tablet (25 [facility] (ALDACTONE) 00:00: 00:00 mg total) Medical 25 MG 00 :00 by mouth Center tablet daily. clopidogreL 2021-05- No 75mg QD Take [address] [facility] (PLAVIX) 75 2-02 -30 tablet (75 [facility] mg tablet 00:00: 00:00 mg total) Me dical 00 :00 by mouth Center daily. spironolact 2021-05- No 25mg QD Take [address] [facility] one 2-02 -30 tablet (25 [facility] (ALDACTONE) 00:00: 00:00 mg total) Medical 25 MG 00 :00 by mouth Center tablet daily. apixaban 2021-05 Yes 5mg Q.5D Take [address] [facility] (ELIQUIS) 5 2-01 tablet (5 [facility] mg Tab 00:00: mg total) Medica l tablet 00 by mouth 2 Center (two) times daily. rosuvastati 2021-05 Yes 20mg QD Take [address] [facility] n (CRESTOR) 2-01 tablet (20 [facility] k[facility] 20 MG 00:00: mg total) Medical tablet 00 by mouth Center nightly. amiodarone 2021-05 Yes 200mg Q.5D Take [address] [facility] (PACERONE) 2-01 tablet [facility] 200 MG 00:00: (200 mg Medical tablet 00 total) by Center mouth 2 (two) times daily. mexiletine 2021-05 Yes 150mg Take [address] [facility] (MEXITIL) 2-01 capsule [facility] 150 MG 00:00: (150 mg Medical capsule 00 total) by Center mouth every 12 (twelve) hours. furosemide 2021-05 Yes 40mg QD Take [facility] (LASIX[facility] 40 2-01 tablet (40 [facility] MG tablet 00:00: mg total) Med ical 00 by mouth Center daily. apixaban 2021-05 Yes 5mg Q.5D Take [address] [facility] (ELIQUIS) 5 2-01 tablet (5 [facility] mg Tab 00:00: mg total) Medica l tablet 00 by mouth 2 Center (two) times daily. rosuvastati 2021-05 Yes 20mg QD Take [address] [facility] n (CRESTOR) 2-01 tablet (20 [facility] 20 MG 00:00: mg total) Medical tablet 00 by mouth Center nightly. amiodarone 2021-05 Yes 200mg Q.5D Take [address] [facility] (PACERONE) 2-01 tablet [facility] 200 MG 00:00: (200 mg Medical tablet 00 total) by Center mouth 2 (two) times daily. mexiletine 2021-05 Yes 150mg Take [address] [facility] (MEXITIL) 2-01 capsule [facility] 150 MG 00:00: (150 mg Medical capsule 00 total) by Center mouth every 12 (twelve) hours. mexiletine 2021-05 Yes 150mg Take [address] [facility] (MEXITIL) 2- capsule [facility] 150 MG 00:00: (150 mg Medical capsule 00 total) by Center mouth every 12 (twelve) hours. mexiletine 2021-05 Yes 150mg Take [address] [facility] (MEXITIL) 2- capsule [facility] 150 MG 00:00: (150 mg Medical capsule 00 total) by Center mouth every 12 (twelve) hours. hydrocodone 2021-05 Yes [facility] -acetaminop 2- [facility]) 00:00: of 5-325 mg 00 Medicin tablet e hydrocodone 2021-05 Yes [facility] -acetaminop 2- [facility]) 00:00: of 5-325 mg 00 Medicin tablet e hydrocodone 2021-05 Yes [facility] -acetaminop 2- [facility]) 00:00: of 5-325 mg 00 Medicin tablet e hydrocodone 2021-05- No [facility] -acetaminop 2-08-04 [facility]) 00:00: 00:00 of 5-325 mg 00 :00 Medicin tablet e hydrocodone 2021-05- No [facility] -acetaminop 2-08-04 [facility]) 00:00: 00:00 of 5-325 mg 00 :00 Medicin tablet e apixaban 2021-05- No 5mg Q.5D Take [address] [facility] (ELIQUIS) 5 06-18 tablet (5 [facility] mg Tab 00:00: 00:00 mg total) Medic al tablet 00 :00 by mouth 2 Center (two) times daily. rosuvastati 2021-05- No 20mg QD Take [address] [facility] n (CRESTOR) 06-18 tablet (20 [facility] 20 MG 00:00: 00:00 mg total) Medica l tablet 00 :00 by mouth Center nightly. amiodarone 2021-05- No 200mg Q.5D Take [address] [facility] (PACERONE) 06-18 tablet [facility] 200 MG 00:00: 00:00 (200 mg Medical tablet 00 :00 total) by Center mouth 2 (two) times daily. apixaban 2021-05 No 5mg Q.5D Take [address] [facility] (ELIQUIS) 5 06-18 tablet (5 [facility] mg Tab 00:00: 00:00 mg total) Medic al tablet 00 :00 by mouth 2 Center (two) times daily. rosuvastati 2021-05 No 20mg QD Take [address] [facility] n (CRESTOR) 06-18 tablet (20 [facility] 20 MG 00:00: 00:00 mg total) Medica l tablet 00 :00 by mouth Center nightly. amiodarone 2021-05 No 200mg Q.5D Take [address] [facility] (PACERONE) 06-18 tablet [facility] 200 MG 00:00: 00:00 (200 mg Medical tablet 00 :00 total) by Center mouth 2 (two) times daily. furosemide 2021-05 No 40mg QD Take [address] [facility] (LASIX) 40 06-18 tablet (40 [facility] MG tablet 00:00: 00:00 mg total) Me dical 00 :00 by mouth Center daily. furosemide 2021-05 No 40mg QD Take [address] [facility] (LASIX) 40 06-18 tablet (40 [facility] MG tablet 00:00: 00:00 mg total) Me dical 00 :00 by mouth Center daily. furosemide 2021-05 No 40mg QD Take [address] [facility] (LASIX) 40 06-18 tablet (40 [facility] MG tablet 00:00: 00:00 mg total) Me dical 00 :00 by mouth Center daily. metoprolol 2021-05 No 50mg QD Take [address] [facility] succinate 06-18 tablets [facility] (TOPROL-XL) 00:00: 00:00 (50 mg Med ical 25 MG 24 hr 00 :00 total) by [address] tablet mouth daily Hold for SBP <90. metoprolol 2021-05- No 50mg QD Take [address] [facility] succinate 06-18 tablets [facility] (TOPROL-XL) 00:00: 00:00 (50 mg Med ical 25 MG 24 hr 00 :00 total) by [address] tablet mouth daily Hold for SBP <90. metoprolol 2021-05 No 50mg QD Take [address] [facility] succinate 2- 12-12 tablets [facility] (TOPROL-XL) 00:00: 00:00 (50 mg Med ical 25 MG 24 hr 00 :00 total) by [address] tablet mouth daily Hold for SBP <90. metoprolol 2021-05 50mg QD Take [address] [facility] succinate 2- 12-12 tablets [facility] (TOPROL-XL) 00:00: 00:00 (50 mg Med ical 25 MG 24 hr 00 :00 total) by [address] tablet mouth daily Hold for SBP <90. HYDROcodone 2021-05 1{tbl} Take [address] -acetaminop 2-11 tablet by Aura kirkpatrick (NORCO 00:00: 23:59 mouth Medic al 5-325) 00 :00 every 6 Center 5-325 mg (six) per tablet hours as needed for Pain for up to 10 days. Max Daily Amount: 4 tablets HYDROcodone 2021-05 No 1{tbl} Take [address] -acetaminop 2-11 tablet by Aura kirkpatrick (NORCO 00:00: 23:59 mouth Medic al 5-325) 00 :00 every 6 Center 5-325 mg (six) per tablet hours as needed for Pain for up to 10 days. Max Daily Amount: 4 tablets HYDROcodone 2021-05 No 1{tbl} Take [address] -acetaminop 2-05 29-11 tablet by Aura kirkpatrick (NORCO 00:00: 23:59 mouth Medic al 5-325) 00 :00 every 6 Center 5-325 mg (six) per tablet hours as needed for Pain for up to 10 days. Max Daily Amount: 4 tablets HYDROcodone 2021-05 No 1{tbl} Take [address] -acetaminop 2-01 12-11 tablet by Aura kirkpatrick (NORCO 00:00: 23:59 mouth Medic al 5-325) 00 :00 every 6 Center 5-325 mg (six) per tablet hours as needed for Pain for up to 10 days. Max Daily Amount: 4 tablets amiodarone 2022-1 2022- No 200mg Q.5D Take [address] [facility] (PACERONE) 06-18 tablet [facility] 200 MG 00:00: 00:00 (200 mg Medical tablet 00 :00 total) by Center mouth 2 (two) times daily. metoprolol 2021-05- No 50mg QD Take [address] [facility] succinate 06-18 tablets [facility] (TOPROL-XL) 00:00: 00:00 (50 mg Med ical 25 MG 24 hr 00 :00 total) by [address] [facility] tablet mouth daily. mexiletine 2021-05- No 150mg Take [address] [facility] (MEXITIL) 06-18 capsule [facility] 150 MG 00:00: 00:00 (150 mg Medical capsule 00 :00 total) by Center mouth every 12 (twelve) hours. furosemide 2021-05- No 40mg Q.5D Take [address] [facility] (LASIX) 40 06-18 tablet (40 [facility] kes MG tablet 00:00: 00:00 mg total) Me dical 00 :00 by mouth 2 Center (two) times daily. mexiletine 2021-05 No 150mg Take [address] [facility] (MEXITIL) 06-18 capsule [facility] 150 MG 00:00: 00:00 (150 mg Medical capsule 00 :00 total) by Center mouth every 12 (twelve) hours. amiodarone 2021-05- No 200mg Q.5D Take [address] [facility] (PACERONE) 06-18 tablet [facility] 200 MG 00:00: 00:00 (200 mg Medical tablet 00 :00 total) by Center mouth 2 (two) times daily. furosemide 2021-05- No 40mg QD Take [address] [facility] (LASIX) 40 06-18 tablet (40 [facility] MG tablet 00:00: 00:00 mg total) Me dical 00 :00 by mouth Center daily. amiodarone 2021-05- No 200mg Q.5D Take [address] [facility] (PACERONE) 06-18 tablet [facility] 200 MG 00:00: 00:00 (200 mg Medical tablet 00 :00 total) by Center mouth 2 (two) times daily. metoprolol 2021-05- No 50mg QD Take [address] [facility] succinate 06-18 tablets [facility] (TOPROL-XL) 00:00: 00:00 (50 mg Med ical 25 MG 24 hr 00 :00 total) by [address] [facility] tablet mouth daily. mexiletine 2021-05- No 150mg Take [address] [facility] (MEXITIL) 06-18 capsule [facility] 150 MG 00:00: 00:00 (150 mg Medical capsule 00 :00 total) by Center mouth every 12 (twelve) hours. furosemide 2021-05- No 40mg Q.5D Take [address] [facility] (LASIX) 40 06-18 tablet (40 [facility] kes MG tablet 00:00: 00:00 mg total) Me dical 00 :00 by mouth 2 Center (two) times daily. mexiletine 2021-05 No 150mg Take [address] [facility] (MEXITIL) 06-18 capsule [facility] 150 MG 00:00: 00:00 (150 mg Medical capsule 00 :00 total) by Center mouth every 12 (twelve) hours. amiodarone 2021-05- No 200mg Q.5D Take [address] [facility] (PACERONE) 06-18 tablet [facility] 200 MG 00:00: 00:00 (200 mg Medical tablet 00 :00 total) by Center mouth 2 (two) times daily. furosemide 2021-05 No 40mg QD Take [address] [facility] (LASIX) 40 06-18 tablet (40 [facility] k[facility] MG tablet 00:00: 00:00 mg total) Me dical 00 :00 by mouth Center daily. amiodarone 2021-05 No 200mg Q.5D Take [address] [facility] (PACERONE) 06-18 tablet [facility] 200 MG 00:00: 00:00 (200 mg Medical tablet 00 :00 total) by Center mouth 2 (two) times daily. metoprolol 2021-05 No 50mg QD Take [address] [facility] succinate 06-18 tablets [facility] (TOPROL-XL) 00:00: 00:00 (50 mg Med ical 25 MG 24 hr 00 :00 total) by [address] [facility] tablet mouth daily. mexiletine 2021-05- No 150mg Take [address] [facility] (MEXITIL) 06-18 capsule [facility] 150 MG 00:00: 00:00 (150 mg Medical capsule 00 :00 total) by Center mouth every 12 (twelve) hours. furosemide 2021-05- No 40mg Q.5D Take [address] [facility] (LASIX) 40 06-18 tablet (40 [facility] k[facility] MG tablet 00:00: 00:00 mg total) Me dical 00 :00 by mouth 2 Center (two) times daily. mexiletine 2021-05 No 150mg Take [address] [facility] (MEXITIL) 06-18 capsule [facility] 150 MG 00:00: 00:00 (150 mg Medical capsule 00 :00 total) by Center mouth every 12 (twelve) hours. amiodarone 2021-05- No 200mg Q.5D Take [address] [facility] (PACERONE) 06-18 tablet [facility] 200 MG 00:00: 00:00 (200 mg Medical tablet 00 :00 total) by Center mouth 2 (two) times daily. furosemide 2021-05 No 40mg QD Take [address] [facility] (LASIX) 40 06-18 tablet (40 [facility] k[facility] MG tablet 00:00: 00:00 mg total) Me dical 00 :00 by mouth Center daily. amiodarone 2021-05 No 200mg Q.5D Take [address] [facility] (PACERONE) 06-18 tablet [facility] 200 MG 00:00: 00:00 (200 mg Medical tablet 00 :00 total) by Center mouth 2 (two) times daily. metoprolol 2021-05- No 50mg QD Take [address] [facility] succinate 06-18 tablets [facility] (TOPROL-XL) 00:00: 00:00 (50 mg Med ical 25 MG 24 hr 00 :00 total) by [address] [facility] tablet mouth daily. mexiletine 2021-05- No 150mg Take [address] [facility] (MEXITIL) 06-18 capsule [facility] 150 MG 00:00: 00:00 (150 mg Medical capsule 00 :00 total) by Center mouth every 12 (twelve) hours. furosemide 2021-05- No 40mg Q.5D Take [address] [facility] (LASIX) 40 06-18 tablet (40 [facility] k[facility] MG tablet 00:00: 00:00 mg total) Me dical 00 :00 by mouth 2 Center (two) times daily. mexiletine 2021-05 No 150mg Take [address] [facility] (MEXITIL) 06-18 capsule [facility] 150 MG 00:00: 00:00 (150 mg Medical capsule 00 :00 total) by Center mouth every 12 (twelve) hours. amiodarone 2021-05 No 200mg Q.5D Take [address] [facility] (PACERONE) 06-18 tablet [facility] 200 MG 00:00: 00:00 (200 mg Medical tablet 00 :00 total) by Center mouth 2 (two) times daily. furosemide 2021-05- No 40mg QD Take [address] [facility] (LASIX) 40 06-18 tablet (40 [facility] k[facility] MG tablet 00:00: 00:00 mg total) Me dical 00 :00 by mouth Center daily. Apixaban 5 2021-05 Yes 5mg Take 5 mg [facility] TABS 1-30 by mouth. College 00:00: of 00 Medicin e Apixaban 5 2021-05 Yes 5mg Take 5 mg [facility] TABS 1-30 by mouth. College 00:00: of 00 Medicin e Apixaban 5 2021-05 Yes 5mg Take 5 mg [facility] TABS 1-30 by mouth. College 00:00: of 00 Medicin e Apixaban 5 2021-05 Yes 5mg Take 5 mg [facility] MG TABS 1-30 by mouth. College 00:00: of 00 Medicin e Apixaban 5 2021-05 Yes 5mg Take 5 mg [facility] TABS 1-30 by mouth. College 00:00: of 00 Medicin e clopidogrel 2021-05 Yes 75mg Take 75 mg [facility] (PLAVIX) 75 1-29 by mouth. [facility] MG Tablet 00:00: of 00 Medicin e clopidogrel 2021-05 Yes 75mg Take 1 [facility] (PLAVIX) 75 1-29 Tablet by [facility] MG Tablet 00:00: mouth. of 00 Medicin e clopidogrel 2021-05 Yes 75mg Take 1 [facility] (PLAVIX) 75 1-29 Tablet by [facility] MG Tablet 00:00: mouth. of 00 Medicin e clopidogrel 2021-05 Yes 75mg Take 75 mg [facility] (PLAVIX) 75 1-29 by mouth. Col lege MG Tablet 00:00: of Medicin e clopidogrel 2021-05 Yes 75mg Take 75 mg [facility] (PLAVIX) 75 1-29 by mouth. Col lege MG Tablet 00:00: of Medicin e furosemide 2021-05 Yes 40mg Take 40 mg [facility] (LASIX) 40 1-23 by mouth Colle ge MG tablet 00:00: two times of 00 daily. Medicin e furosemide 2021-05 Yes 40mg Take 1 [facility] (LASIX) 40 1-23 Tablet by [facility] MG tablet 00:00: mouth two of 00 times Medicin daily. e furosemide 2021-05 Yes 40mg Take 1 [facility] (LASIX) 40 1-23 Tablet by [facility] MG tablet 00:00: mouth two of 00 times Medicin daily. e furosemide 2021-05 Yes 40mg Take 40 mg [facility] (LASIX) 40 1-23 by mouth. [facility] MG tablet 00:00: of Medicin e furosemide 2021-05 Yes 40mg Take 40 mg [facility] (LASIX) 40 1-23 by mouth Colle ge MG tablet 00:00: two times of 00 daily. Medicin e mexiletine 2021-05 Yes 150mg Take 150 [facility] (MEXITIL) 1-20 mg by [place] 150 MG 00:00: mouth two of capsule 00 times Medicin daily. e rosuvastati 2021-05 Yes 20mg Take 20 mg [facility] n (CRESTOR) 1-20 by mouth. Col lege 20 MG 00:00: of tablet 00 Medicin e amiodarone 2021-05 Yes 200mg Take 1 [facility] (PACERONE) 1-20 Tablet by [facility] 200 MG 00:00: mouth. of tablet 00 Medicin e rosuvastati 2021-05 Yes 20mg Take 1 [facility] (CRESTOR) 1-20 Tablet by [facility] 20 MG 00:00: mouth. of tablet 00 Medicin e amiodarone 2021-05 Yes 200mg Take 200 [facility] (PACERONE) 1-20 mg by [facility] 200 MG 00:00: mouth. of tablet 00 Medicin e amiodarone 2021-05 Yes 200mg Take 1 [facility] (PACERONE) 1-20 Tablet by [facility] 200 MG 00:00: mouth. of tablet 00 Medicin e rosuvastati 2021-05 Yes 20mg Take 1 [facility] (CRESTOR) 1-20 Tablet by [facility] 20 MG 00:00: mouth. of tablet 00 Medicin e mexiletine 2021-05 Yes 150mg Take 150 [facility] (MEXITIL) 1-20 mg by [place] 150 MG 00:00: mouth. of capsule 00 Medicin e rosuvastati 2021-05 Yes 20mg Take 20 mg [facility] (CRESTOR) 1-20 by mouth. [facility] lege 20 MG 00:00: of tablet 00 Medicin e amiodarone 2021-05 Yes 200mg Take 200 [facility] (PACERONE) 1-20 mg by [place] 200 MG 00:00: mouth. of tablet 00 Medicin e mexiletine 2021-05 Yes 150mg Take 150 [facility] (MEXITIL) 1-20 mg by [place] 150 MG 00:00: mouth two of capsule 00 times Medicin daily. e rosuvastati 2021-05 Yes 20mg Take 20 mg [facility] (CRESTOR) 1-20 by mouth. [facility] 20 MG 00:00: of tablet 00 Medicin e amiodarone 2021-05 Yes 200mg Take 200 [facility] (PACERONE) 1-20 mg by [place] 200 MG 00:00: mouth. of tablet 00 Medicin e mexiletine 2021-05- No 150mg Take 1 [facility] (MEXITIL) 1-20 03-20 capsule by [facility] 150 MG 00:00: 00:00 mouth two of capsule 00 :00 times Medicin daily. e mexiletine 2021-05- No 150mg Take 1 [facility] (MEXITIL) 1-20 03-20 capsule by [facility] 150 MG 00:00: 00:00 mouth two of capsule 00 :00 times Medicin daily. e COLCHICINE 2021-05 Yes .3mg Take 0.3 [facility] OR 1-14 mg by [facility] 00:00: mouth. of 00 Medicin e spironolact 2021-05 Yes 25mg Take 25 mg [facility] one 1-14 by mouth. College (ALDACTONE) 00:00: of 25 MG 00 Medicin tablet e spironolact 2021-05 Yes 25mg Take 1 [facility] one 1-14 Tablet by [place] (ALDACTONE) 00:00: mouth. of 25 MG 00 Medicin tablet e spironolact 2021-05 Yes 25mg Take 1 [facility] one 1-14 Tablet by [place] (ALDACTONE) 00:00: mouth. of 25 MG 00 Medicin tablet e colchicine 2021-05 Yes .3mg Take 0.3 [facility] 0.6 MG 1-14 mg by [facility] tablet 00:00: mouth. of 00 Medicin e spironolact 2021-05 Yes 25mg Take 25 mg [facility] one 1-14 by mouth. [place] (ALDACTONE) 00:00: of 25 MG 00 Medicin tablet e COLCHICINE 2021-05 Yes .3mg Take 0.3 [facility] OR 1-14 mg by [place] 00:00: mouth. of 00 Medicin e spironolact 2021-05 Yes 25mg Take 25 mg [facility] one 1-14 by mouth. [place] (ALDACTONE) 00:00: of 25 MG 00 Medicin tablet e COLCHICINE 2021-05- No .3mg Take 0.3 [facility] OR 1-14 03-20 mg by [place] 00:00: 00:00 mouth. of 00 :00 Medicin e COLCHICINE 2021-05- No .3mg Take 0.3 [facility] OR 1-14 03-20 mg by [place] 00:00: 00:00 mouth. of 00 :00 Medicin e zolpidem 0 Yes 1{tbl} QD [facility] 10 9-21 tablet by [facility] mg tablet 00:00: mouth Medical 00 nightly. [place] zolpidem Yes 1{tbl} QD [facility] 10 9-21 tablet by [facility] mg tablet 00:00: mouth Medical 00 nightly. [place] zolpidem Yes 1{tbl} QD Take [facility] (AM[facility]EN[facility] 10 9-21 tablet by [facility] mg tablet 00:00: mouth Medical 00 nightly. [place] zolpidem Yes 1{tbl} QD Take [facility] (AM[facility]EN[facility] 10 9-21 tablet by [facility] mg tablet 00:00: mouth Medical 00 nightly. Center zolpidem 2-0 Yes 1{tbl} Take 1 [facility] (AMBIEN) 10 9-21 Tablet by [facility] MG tablet 00:00: mouth. of 00 Medicin e zolpidem 2021-0 Yes 10mg Take 1 [facility] (AMBIEN) 10 9-21 Tablet by [facility] MG tablet 00:00: mouth. of 00 Medicin e zolpidem 2021-0 Yes 10mg Take 1 [facility] (AMBIEN) 10 9-21 Tablet by [facility] MG tablet 00:00: mouth. of 00 Medicin e zolpidem 2021-0 Yes 1{tbl} Take 1 [facility] (AMBIEN) 10 9-21 Tablet by [facility] MG tablet 00:00: mouth. of 00 Medicin e zolpidem 2-0 Yes 1{tbl} Take 1 [facility] (AMBIEN) 10 9-21 Tablet by [facility] MG tablet 00:00: mouth. of Medicin e Tamsulosin 2018-0 Yes tamsulosin [facility] HCl 0.4 MG 1-01 0.4 mg [facility] 00:00: capsule of 00 Medicin e Tamsulosin 2018-0 Yes tamsulosin [facility] HCl 0.4 MG 1-01 0.4 mg [facility] 00:00: capsule of 00 Medicin e Tamsulosin 2018-0 Yes tamsulosin [facility] HCl 0.4 MG 1-01 0.4 mg [place] CAPS 00:00: capsule of 00 Medicin e Tamsulosin 2018-0 Yes tamsulosin [facility] HCl 0.4 MG 1-01 0.4 mg [facility] CAPS 00:00: capsule of 00 Medicin e Tamsulosin 2018-0 Yes tamsulosin [facility] HCl 0.4 MG 1-01 0.4 mg [facility] 00:00: capsule of 00 Medicin e Vital Signs Vital Name Observation Time Observation Value Comments Source HEIGHT 2022-09-03 13:36:00 172.7 cm WEIGHT 2022-09-03 13:36:00 92.987 kg HEIGHT 2022-09-03 13:36:00 172.7 cm WEIGHT 2022-09-03 13:36:00 92.987 kg Systolic blood 2022-08-04 15:49:00 114 mm[Hg] [facility] pressure Medicine Diastolic blood 2022-08-04 15:49:00 75 mm[Hg] [facility] pressure Medicine Heart rate 2022-08-04 15:49:00 69 /min [facility] Body height 2022-08-04 15:49:00 172.7 cm [facility] Body weight 2022-08-04 15:49:00 95.709 kg [facility] BMI 2022-08-04 15:49:00 32.08 kg/m2 [facility] of [facility] Oxygen saturation in 2022-08-04 15:49:00 93 /min [facility] Arterial blood by [facility] Pulse oximetry Systolic blood 2022-08-04 14:33:00 96 mm[Hg] [facility] pressure Medicine Diastolic blood 2022-08-04 14:33:00 58 mm[Hg] [facility] Medicine Heart rate 2022-08-04 14:33:00 88 /min [facility] Body height 2022-08-04 14:33:00 172.7 cm [facility] Body weight 2022-08-04 14:33:00 96.072 kg [facility] BMI 2022-08-04 14:33:00 32.20 kg/m2 [facility] HEIGHT 2022-06-04 13:36:00 172.7 cm WEIGHT 2022-06-04 13:36:00 90.719 kg HEIGHT 2022-06-04 13:36:00 172.7 cm WEIGHT 2022-06-04 13:36:00 90.719 kg Systolic blood 2022-05-16 19:50:00 125 mm[Hg] [facility] pressure Medicine Diastolic blood 2022-05-16 19:50:00 60 mm[Hg] [facility] pressure Medicine Heart rate 2022-05-16 19:50:00 78 /min [facility] Respiratory rate 2022-05-16 19:50:00 19 /min [facility] Body height 2022-05-16 19:50:00 172.7 cm [facility] Body weight 2022-05-16 19:50:00 92.987 kg [facility] BMI 2022-05-16 19:50:00 31.17 kg/m2 [facility] Systolic blood 2022-05-05 21:12:00 124 mm[Hg] [facility] pressure Medicine Diastolic blood 2022-05-05 21:12:00 87 mm[Hg] [facility] pressure Medicine Heart rate 2022-05-05 21:12:00 72 /min [facility] Respiratory rate 2022-05-05 21:12:00 18 /min [facility] Oxygen saturation in 2022-05-05 21:12:00 97 /min [facility] blood by [facility] Pulse oximetry Body height 2022-05-05 21:11:00 172.7 cm [facility] [employer] Body weight 2022-05-05 21:11:00 94.348 kg [facility] [employer] [facility] [employer] BMI 2022-05-05 21:11:00 31.63 kg/m2 [facility] [employer] Systolic blood 2022-05-05 17:16:00 118 mm[Hg] [facility] pressure Medicine Diastolic blood 2022-05-05 17:16:00 78 mm[Hg] [facility] Medicine Heart rate 2022-05-05 17:16:00 80 /min [facility] [employer] [facility] [employer] Body height 2022-05-05 17:16:00 172.7 cm [facility] Medicine Body weight 2022-05-05 17:16:00 96.072 kg [facility] [employer] BMI 2022-05-05 17:16:00 32.20 kg/m2 [facility] [employer] [employer] HEIGHT 2022-05-05 12:31:00 170.2 cm WEIGHT 2022-05-05 12:31:00 94.802 kg HEIGHT 2022-05-05 12:31:00 170.2 cm WEIGHT 2022-05-05 12:31:00 94.802 kg HEIGHT 2022-04-28 13:33:00 170.2 cm WEIGHT 2022-04-28 13:33:00 87.091 kg WEIGHT 2022-04-28 13:33:00 87.091 kg HEIGHT 2022-04-28 13:33:00 170.2 cm WEIGHT 2022-04-28 13:33:00 87.091 kg WEIGHT 2022-04-28 13:33:00 87.091 kg WEIGHT 2022-04-15 04:00:00 90.402 kg WEIGHT 2022-04-13 05:22:00 94.167 kg WEIGHT 2022-04-12 06:00:00 92.806 kg WEIGHT 2022-04-11 06:00:00 94 kg HEIGHT 2022-04-10 14:12:00 172.7 cm WEIGHT 2022-04-10 14:12:00 92.9 kg WEIGHT 2022-04-09 06:00:00 96.1 kg WEIGHT 2022-04-08 05:58:00 96.3 kg WEIGHT 2022-04-07 06:00:00 95.4 kg WEIGHT 2022-04-05 06:00:00 95.2 kg HEIGHT 2022-03-30 14:16:00 172.7 cm WEIGHT 2022-03-30 14:16:00 95.255 kg WEIGHT 2022-04-15 04:00:00 90.402 kg WEIGHT 2022-04-13 05:22:00 94.167 kg WEIGHT 2022-04-12 06:00:00 92.806 kg WEIGHT 2022-04-11 06:00:00 94 kg HEIGHT 2022-04-10 14:12:00 172.7 cm WEIGHT 2022-04-10 14:12:00 92.9 kg WEIGHT 2022-04-09 06:00:00 96.1 kg WEIGHT 2022-04-08 05:58:00 96.3 kg WEIGHT 2022-04-07 06:00:00 95.4 kg WEIGHT 2022-04-05 06:00:00 95.2 kg HEIGHT 2022-03-30 14:16:00 172.7 cm WEIGHT 2022-03-30 14:16:00 95.255 kg Systolic blood 2022-06-04 13:36:00 124 mm[Hg] [facility] Diastolic blood 2022-06-04 13:36:00 78 mm[Hg] [facility] Heart rate 2022-06-04 13:36:00 71 /min [facility] Body temperature 2022-06-04 13:36:00 35.94 Angela [facility] Respiratory rate 2022-06-04 13:36:00 14 /min [facility] Body height 2022-06-04 13:36:00 172.7 cm [facility] Body weight 2022-06-04 13:36:00 90.719 kg [facility] BMI 2022-06-04 13:36:00 30.41 kg/m2 [facility] Oxygen saturation in 2022-06-04 13:36:00 96 /min [facility] Arterial blood by Medical Ce nter Pulse oximetry Systolic blood 2022-04-28 13:33:00 102 mm[Hg] [facility] Diastolic blood 2022-04-28 13:33:00 69 mm[Hg] [facility] Heart rate 2022-04-28 13:33:00 83 /min [facility] Body temperature 2022-04-28 13:33:00 36.11 Angela [facility] Respiratory rate 2022-04-28 13:33:00 16 /min [facility] Body height 2022-04-28 13:33:00 170.2 cm [facility] Body weight 2022-04-28 13:33:00 87.091 kg [facility] BMI 2022-04-28 13:33:00 30.07 kg/m2 [facility] Oxygen saturation in 2022-04-28 13:33:00 97 /min [facility] Arterial blood by Medical Ce nter Pulse oximetry Procedures Procedure Date / Time Performing Clinician Source Performed BASIC METABOLIC PANEL 2022-06-04 15:05:00 [facility] B-TYPE NATRIURETIC FACTOR 2022-06-04 15:05:[address] [facility] (BNP) [facility] MAGNESIUM 2022-06-04 15:05:00 [place] mendy [facility] ECG 12-LEAD 2022-06-04 13:39:10 Unknown, Hl7 Doctor [facility] ECG 12-LEAD 2022-06-04 13:39:10 Unknown, Hl7 Doctor [facility] ELECTROCARDIOGRAM COMPLETE 2022-05-05 21:31:00 Brooke Corcoran [facility]ly [facility] ELECTROCARDIOGRAM COMPLETE 2022-05-05 16:20:16 Gianna [facility] ELECTROCARDIOGRAM COMPLETE 2022-05-05 15:31:00 Gianna [facility] BASIC METABOLIC PANEL 2022-05-05 13:33:00 [facility] B-TYPE NATRIURETIC FACTOR 2022-05-05 13:33:00 [facility] (BNP) [facility] MAGNESIUM 2022-05-05 13:33:00 [facility] XR CHEST 2 VIEWS 2022-05-05 12:50:00 [facility] BASIC METABOLIC PANEL 2022-04-28 13:43:00 [facility] HEPATIC FUNCTION PANEL 2022-04-28 13:43:00 [facility] XR CHEST 2 VIEWS 2022-04-28 13:15:00 Paco Munson [facility] 2D ECHO W/ DOPPLER 2022-04-17 14:43:26 Mary Levy [facility] (CW/PW/COLOR) [facility] POCT-GLUCOSE METER 2022-04-17 11:43:00 Rivas Otero In [facility] POCT-GLUCOSE METER 2022-04-17 07:45:00 Rivas Otero In [facility] BASIC METABOLIC PANEL 2022-04-17 03:25:00 [facility] CALCIUM, IONIZED 2022-04-17 03:25:00 [facility] CBC W/PLT COUNT & AUTO 2022-04-17 03:25:00 [facility] Columba [facility] MAGNESIUM 2022-04-17 03:25:00 [facility] PHOSPHORUS 2022-04-17 03:25:00 WarrenMollyColumba [facility] CBC W/PLT COUNT & AUTO 2022-04-17 03:25:[address] POCT-GLUCOSE METER 2022-04-16 17:43:00 PeggyJieRivas [facility] XR CHEST 2 VIEWS 2022-04-16 16:37:00 Eric Zarate [facility] POTASSIUM 2022-04-16 13:59:00 Rylee Lopez [facility] POCT-GLUCOSE METER 2022-04-16 12:24:00 JdKaranRivas [facility] XR CHEST 1 VIEW PORTABLE / 2022-04-16 10:40:[address] [facility] ECG 12-LEAD 2022-04-16 09:25:09 Quintin Lock [facility] ECG 12-LEAD 2022-04-16 09:25:09 Unknown, Hl7 Doctor [facility] POCT-GLUCOSE METER 2022-04-16 06:39:00 Westley Hair [facility] CALCIUM, IONIZED 2022-04-16 04:48:00 [facility] PT/APTT 2022-04-16 04:19:00 [facility] BASIC METABOLIC PANEL 2022-04-16 04:19:00 Warren [facility] CBC W/PLT COUNT & AUTO 2022-04-16 04:19:[address] [facility] MAGNESIUM 2022-04-16 04:19:00 Warren [facility] PHOSPHORUS 2022-04-16 04:19:00 Warren [facility] CBC W/PLT COUNT & AUTO 2022-04-16 04:19:[address] [facility] POCT-GLUCOSE METER 2022-04-15 21:17:00 Westley Hair [facility] XR CHEST 1 VIEW PORTABLE / 2022-04-15 16:52:[address] [facility] ECG 12-LEAD 2022-04-15 14:14:10 Tessa Eric [facility] POCT-GLUCOSE METER 2022-04-15 13:34:00 Westley Hair [facility] INSERTION, ELECTRODE LEAD 2022-04-15 10:45:[address] [facility] AND PULSE GENERATOR, ICD, [facility] WITH FUNCTION TESTING HEMOGLOBIN AND HEMATOCRIT 2022-04-15 09:08:00 Westley Hair [facility] POCT-GLUCOSE METER 2022-04-15 07:58:00 Westley Hair [facility] PT/APTT 2022-04-15 04:03:00 [facility] BASIC METABOLIC PANEL 2022-04-15 04:03:00 [facility] CALCIUM, IONIZED 2022-04-15 04:03:00 [facility] Columba [facility] CBC W/PLT COUNT & AUTO 2022-04-15 04:03:00 [facility] Columba [facility] MAGNESIUM 2022-04-15 04:03:00 [facility] PHOSPHORUS 2022-04-15 04:03:00 [facility] PH, VENOUS 2022-04-15 04:03:00 Rylee Lopez [facility] URIC ACID 2022-04-15 04:03:00 Rylee Lopez [facility] APTT 2022-04-15 04:03:00 [facility] CBC W/PLT COUNT & AUTO 2022-04-15 04:03:00 [facility] POCT-GLUCOSE METER 2022-04-14 20:36:00 Westley Hair [facility] POCT-GLUCOSE METER 2022-04-14 17:23:00 Reginaldo Vivianakeon Angel [facility] POCT-GLUCOSE METER 2022-04-14 11:23:00 Westley Hair Angel [facility] POCT-GLUCOSE METER 2022-04-14 07:32:00 Reginaldo Vivianakeon Angel [facility] PT/APTT 2022-04-14 05:02:00 [facility] BASIC METABOLIC PANEL 2022-04-14 05:02:00 [facility] CALCIUM, IONIZED 2022-04-14 05:02:00 [facility] CBC W/PLT COUNT & AUTO 2022-04-14 05:02:00 [facility] MAGNESIUM 2022-04-14 05:02:00 [facility] PHOSPHORUS 2022-04-14 05:02:00 [facility] APTT 2022-04-14 05:02:00 [facility] CBC W/PLT COUNT & AUTO 2022-04-14 05:02:00 [facility] POCT-GLUCOSE METER 2022-04-13 21:09:00 Westley Hair Angel [facility] POCT-GLUCOSE METER 2022-04-13 17:21:00 [facility] POCT-GLUCOSE METER 2022-04-13 11:55:00 [facility] APTT 2022-04-13 11:03:00 [facility] POCT-GLUCOSE METER 2022-04-13 08:15:00 [facility] Angel [facility] PT/APTT 2022-04-13 03:55:00 [facility] BASIC METABOLIC PANEL 2022-04-13 03:55:00 WarrenColumba [facility] CALCIUM, IONIZED 2022-04-13 03:55:[address] [facility] CBC W/PLT COUNT & AUTO 2022-04-13 03:55:[address] [facility] MAGNESIUM 2022-04-13 03:55:00 Molly Mulliganghan [facility] PHOSPHORUS 2022-04-13 03:55:00 Molly Mulliganghan [facility] CBC W/PLT COUNT & AUTO 2022-04-13 03:55:[address] [facility] S t [facility] DIFFERENTIAL [facility] APTT 2022-04-12 21:22:00 Warren [facility] POCT-GLUCOSE METER 2022-04-12 20:20:00 Dilip [facility] POCT-GLUCOSE METER 2022-04-12 17:31:00 Dilip Germaineeliezer Cox [facility] HEPARIN ASSAY - 2022-04-12 16:58:00 Warren [facility] [place] POCT-GLUCOSE METER 2022-04-12 11:43:00 Gloria Rosas [facility] APTT 2022-04-12 11:41:00 Warren [facility] HEPARIN ASSAY - 2022-04-12 11:41:00 Warren [facility] [place] POCT-GLUCOSE METER 2022-04-12 08:22:00 Gloria Rosas [facility] APTT 2022-04-12 04:27:00 WarrenMollyColumba [facility] BASIC METABOLIC PANEL 2022-04-12 04:27:00 Kvng Quiroz [facility] PT/APTT 2022-04-12 04:27:00 WarrenMollyColumba [facility] FIBRINOGEN 2022-04-12 04:27:[address] [facility] PHOSPHORUS 2022-04-12 04:27:00 Serlatasha [facility] MAGNESIUM 2022-04-12 04:27:00 [facility] OXYGEN SATURATION, MEASURED 2022-04-12 04:27:00 [facility] CBC W/PLT COUNT & AUTO 2022-04-12 04:27:00 [facility] CALCIUM, IONIZED 2022-04-12 04:27:00 [facility] LACTATE DEHYDROGENASE (LDH) 2022-04-12 04:27:00 Jess Hall [facility] CBC W/PLT COUNT & AUTO 2022-04-12 04:27[facility]00 [facility] 2022-04-11 21:11:00 [facility] APTT 2022-04-11 20:18:00 Columba Mulligan [facility] POCT-GLUCOSE METER 2022-04-11 16:30:00 [facility] BASIC METABOLIC PANEL 2022-04-11 16:15:00 Kvng Quiroz [facility] PHOSPHORUS 2022-04-11 16:15:00 [facility] MAGNESIUM 2022-04-11 16:15:00 [facility] CALCIUM, IONIZED 2022-04-11 16:15:00 [facility] POCT-GLUCOSE METER 2022-04-11 10:56:00 [facility] POCT-GLUCOSE METER 2022-04-11 07:05:00 [facility] OXYGEN SATURATION, MEASURED 2022-04-11 02:48:00 [facility]OLIC PANEL 2022-04-11 02:43:00 Kvng Quiroz [facility] PT/APTT 2022-04-11 02:43:00 Columba Mulligan [facility] FIBRINOGEN 2022-04-11 02:43:00 [facility] PH[facility]US 2022-04-11 02:43:00 [facility] MAGNESIUM 2022-04-11 02:43:00 [facility] CBC W/PLT COUNT & AUTO 2022-04-11 02:43:00 [facility] CALCIUM, IONIZED 2022-04-11 02:43:00 Formerly [facility] LACTATE DEHYDROGENASE (LDH) 2022-04-11 02:43:00 Maggie Downs [facility] CBC W/PLT COUNT & AUTO 2022-04-11 02:43:00 [facility] XR CHEST 1 VIEW PORTABLE / 2022-04-11 01:19:[address] [facility] POCT-GLUCOSE METER 2022-04-10 22:14:00 Gloria Rosas [facility] BASIC METABOLIC PANEL 2022-04-10 16:01:00 Kvng Quiroz [facility] PHOSPHORUS 2022-04-10 16:01:00 [facility] MAGNESIUM 2022-04-10 16:01:00 [facility] CBC (HEMOGRAM ONLY) 2022-04-10 16:01:00 [facility] CALCIUM, IONIZED 2022-04-10 16:01:00 [facility] XR CHEST 1 VIEW PORTABLE / 2022-04-10 15:19:[address] [facility] AFB CULTURE + SMEAR 2022-04-10 13:53:17 [facility] FUNGUS CULTURE + SMEAR 2022-04-10 13:53:17 Champ [facility] BRONCHIAL CULTURE + GRAM 2022-04-10 13:53:17 Champ [facility] SPIN/CONCENTRATION CHARGE 2022-04-10 13:53:00 Marcus Llanes I [facility] ANESTHESIA KEVEN 2022-04-10 12:40:07 Rei Neil [facility] REMOVAL, CARDIAC ASSIST 2022-04-10 11:23:00 Champ [facility], [facility] ECHOCARDIOGRAM, 3D, 2022-04-10 11:23:00 Champ [facility] TRANSESOPHAGEAL [facility] BRONCHOSCOPY 2022-04-10 11:23:00 Champ [facility] POTASSIUM 2022-04-10 08:58:00 Gabriella Kvng [facility] PHOSPHORUS 2022-04-10 08:58:00 Gabriella Kvng [facility] MAGNESIUM 2022-04-10 08:58:00 Gabriella [facility] XR CHEST 1 VIEW PORTABLE / 2022-04-10 02:41:[address] [facility] TYPE AND SCREEN, AUTOMATED 2022-04-10 02:40:00 Mariajose Baird [facility] LACTATE DEHYDROGENASE (LDH) 2022-04-10 02:30:00 Gloria Rosas [facility] BLOOD GAS, ARTERIAL 2022-04-10 02:30:00 Kvng Quiroz [facility] BASIC METABOLIC PANEL 2022-04-10 02:30:00 Gabriella Kvng [facility] PT/APTT 2022-04-10 02:30:00 Columba Mulligan [facility] FIBRINOGEN 2022-04-10 02:30:[address] [facility] PHOSPHORUS 2022-04-10 02:30:[address] Tony [facility] MAGNESIUM 2022-04-10 02:30:00 [facility] OXYGEN SATURATION, MEASURED 2022-04-10 02:30:00 [facility] CBC W/PLT COUNT & AUTO 2022-04-10 02:30:00 [facility] CALCIUM, IONIZED 2022-04-10 02:30:00 [facility] CBC W/PLT COUNT & AUTO 2022-04-10 02:30:00 Formerly [facility] DIFFERENTIAL [facility] POTASSIUM 2022-04-09 22:51:00 Kvng Quiroz [facility] APTT 2022-04-09 22:50:00 Louise Frias [facility] POCT-GLUCOSE METER 2022-04-09 22:36:00 Gloria Rosas [facility] BASIC METABOLIC PANEL 2022-04-09 15:53:00 Kvng Quiroz [facility] PHOSPHORUS 2022-04-09 15:53:00 [facility]UM 2022-04-09 15:53:00 [facility] CBC (HEMOGRAM ONLY) 2022-04-09 15:53:00 [facility] CALCIUM, IONIZED 2022-04-09 15:53:00 [facility] BASIC METABOLIC PANEL 2022-04-09 10:25:00 Rylee Lopez [facility] POCT-GLUCOSE METER 2022-04-09 05:47:00 Gloria Rosas [facility] XR CHEST 1 VIEW PORTABLE / 2022-04-09 02:52:[address] [facility] BLOOD GAS, ARTERIAL 2022-04-09 02:15:00 Kvng Quiroz [facility] BASIC METABOLIC PANEL 2022-04-09 02:15:00 Kvng Quiroz [facility] PT/APTT 2022-04-09 02:15:00 Columba Mulligan [facility] FIBRINOGEN 2022-04-09 02:15:00 Serlatasha [facility] PHOSPHORUS 2022-04-09 02:15:00 Toñito [facility] MAGNESIUM 2022-04-09 02:15:00 [facility] OXYGEN SATURATION, MEASURED 2022-04-09 02:15:00 Toñito [facility] CBC W/PLT COUNT & AUTO 2022-04-09 02:15:00 Toñito [facility] DIFFERENTIAL [facility] CALCIUM, IONIZED 2022-04-09 02:15:00 Toñito [facility] HIGH SENSITIVITY TROPONIN I 2022-04-09 02:15:00 Miguel Gu [facility] LACTATE DEHYDROGENASE (LDH) 2022-04-09 02:15:00 Toñito [facility] CBC W/PLT COUNT & AUTO 2022-04-09 02:15:00 Toñito [facility] DIFFERENTIAL [facility] (CELLAVISION MANUAL DIFF) 2022-04-09 02:15:00 Toñito [facility] I [facility] POCT-GLUCOSE METER 2022-04-09 00:07:00 Gloria Rosas [facility] BASIC METABOLIC PANEL 2022-04-08 21:33:00 Toñito [facility] APTT 2022-04-08 19:42:00 Molly Mulliganghan [facility] RRL CRITICAL LABS 2022-04-08 19:42:00 Toñito [facility] es (ABG,NA,K,H&H,GLUCOSE) [facility] enter BLOOD GAS, ARTERIAL 2022-04-08 19:42:00 Toñito [facility] SODIUM NA-STAT LAB 2022-04-08 19:42:00 [facility] POTASSIUM-STAT LAB 2022-04-08 19:42:00 [facility] GLUCOSE-STAT LAB 2022-04-08 19:42:00 Former[facility] HGB/HCT (H&H) - STAT LAB 2022-04-08 19:42:00 [facility] BASIC METABOLIC PANEL 2022-04-08 15:41:00 Kvng Quiroz [facility] PHOSPHORUS 2022-04-08 15:41:00 [facility] MAGNESIUM 2022-04-08 15:41:00 [facility] CBC (HEMOGRAM ONLY) 2022-04-08 15:41:00 [facility] CALCIUM, IONIZED 2022-04-08 15:41:00 [facility] BLOOD GAS, ARTERIAL 2022-04-08 11:30:00 Sterling Diaz [facility] APTT 2022-04-08 11:30:00 Louise Frias [facility] POTASSIUM-STAT LAB 2022-04-08 11:30:00 Jess Hall [facility] GLUCOSE-STAT LAB 2022-04-08 11:30:00 Chintan Downs [facility] OXYGEN SATURATION, MEASURED 2022-04-08 11:30:00 Kvng Quiroz [facility] POCT-GLUCOSE METER 2022-04-08 05:42:00 Gloria Rosas [facility] LACTATE DEHYDROGENASE (LDH) 2022-04-08 02:10:00 Zion Piedra [facility] CBC W/PLT COUNT & AUTO 2022-04-08 02:10:00 Tony Sibley [facility] DIFFERENTIAL [facility] (CELLAVISION MANUAL DIFF) 2022-04-08 02:10:00 Tony Sibley I [facility] BLOOD GAS, ARTERIAL 2022-04-08 02:10:00 Sterling Diaz [facility] BASIC METABOLIC PANEL 2022-04-08 02:10:00 Kvng Quiroz [facility] PHOSPHORUS 2022-04-08 02:10:00 Toñito [facility] MAGNESIUM 2022-04-08 02:10:00 [facility] OXYGEN SATURATION, MEASURED 2022-04-08 02:10:00 Toñito [facility] CBC W/PLT COUNT & AUTO 2022-04-08 02:10:00 Toñito [facility] DIFFERENTIAL [facility] CALCIUM, IONIZED 2022-04-08 02:10:00 Toñito [facility] HIGH SENSITIVITY TROPONIN I 2022-04-08 02:10:00 Miguel Gu [facility] LIDOCAINE LEVEL 2022-04-08 02:10:00 Julien Lauren [facility] TRIGLYCERIDES 2022-04-08 02:10:00 [facility] XR CHEST 1 VIEW PORTABLE / 2022-04-08 00:54:[address] [facility] PT/APTT 2022-04-08 00:45:00 Columba Mulligan [facility] FIBRINOGEN 2022-04-08 00:45:00 [facility] POCT-GLUCOSE METER 2022-04-08 00:01:00 Gloria Rosas [facility] BLOOD GAS, ARTERIAL 2022-04-07 22:54:00 Toñito [facility] OXYGEN SATURATION, MEASURED 2022-04-07 21:40:00 Doliner, Kvng [facility] RRL CRITICAL LABS 2022-04-07 21:40:00 [facility] (ABG,NA,K,H&H,GLUCOSE) [facility] enter BLOOD GAS, ARTERIAL 2022-04-07 21:40:00 [facility] SODIUM NA-STAT LAB 2022-04-07 21:40:00 [facility] POTASSIUM-STAT LAB 2022-04-07 21:40:00 [facility] GLUCOSE-STAT LAB 2022-04-07 21:40:00 Former[facility] HGB/HCT (H&H) - STAT LAB 2022-04-07 21:40:00 [facility] LACTIC ACID, ARTERIAL 2022-04-07 21:40:00 Gabriella Kvng [facility] BASIC METABOLIC PANEL 2022-04-07 16:11:00 Kvng Quiroz [facility] PHOSPHORUS 2022-04-07 16:11:00 [facility] MAGNESIUM 2022-04-07 16:11:00 [facility] CBC (HEMOGRAM ONLY) 2022-04-07 16:11:00 [facility] CALCIUM, IONIZED 2022-04-07 16:11:00 [facility] APTT 2022-04-07 16:11:00 Louise Frias [facility] 2D ECHO W/ DOPPLER 2022-04-07 13:33:18 Miguel Gu [facility] (CW/PW/COLOR) [facility] POCT-GLUCOSE METER 2022-04-07 12:35:00 Gloria Rosas [facility] HIGH SENSITIVITY TROPONIN I 2022-04-07 08:21:00 Miguel Gu [facility] PT/APTT 2022-04-07 06:04:00 Columba Mulligan [facility] FIBRINOGEN 2022-04-07 06:04:00 Ameena [facility] POCT-GLUCOSE METER 2022-04-07 05:58:00 [facility] B-TYPE NATRIURETIC FACTOR 2022-04-07 04:44:00 [facility] (BNP) [facility] CBC W/PLT COUNT & AUTO 2022-04-07 04:36:00 Toñito [facility] DIFFERENTIAL [facility] (CELLAVISION MANUAL DIFF) 2022-04-07 04:36:00 Toñito [facility] CBC W/PLT COUNT & AUTO 2022-04-07 04:36:00 Toñito [facility] DIFFERENTIAL [facility] POCT-GLUCOSE METER 2022-04-07 04:34:00 [facility] XR CHEST 1 VIEW PORTABLE / 2022-04-07 02:40:00 Kvng Quiroz [facility] POCT-GLUCOSE METER 2022-04-07 02:24:00 [facility] BLOOD GAS, ARTERIAL 2022-04-07 02:20:00 Kvng Quiroz [facility] LACTIC ACID, ARTERIAL 2022-04-07 02:20:00 [facility] OXYGEN SATURATION, MEASURED 2022-04-07 02:20:00 [facility] CALCIUM, IONIZED 2022-04-07 02:20:00 [facility] BASIC METABOLIC PANEL 2022-04-07 02:19:00 Kvng Quiroz [facility] LIDOCAINE LEVEL 2022-04-07 02:19:00 Louise Frias [facility] VANCOMYCIN LEVEL, RANDOM 2022-04-07 02:19:00 Gail Wall [facility] PHOSPHORUS 2022-04-07 02:19:00 Serlatasha [facility] MAGNESIUM 2022-04-07 02:19:00 [facility] 2022-04-06 23:43:00 Toñito [facility] APTT 2022-04-06 23:43:[address] [facility] POCT-GLUCOSE METER 2022-04-06 23:42:00 Maag [facility] POCT-GLUCOSE METER 2022-04-06 22:13:00 Maag, [facility] POCT-GLUCOSE METER 2022-04-06 20:31:00 Mamagda, [facility] POCT-GLUCOSE METER 2022-04-06 18:44:00 Maag, [facility] POCT-GLUCOSE METER 2022-04-06 18:24:00 Mamagda [facility] ARTERIAL BLOOD GAS 2022-04-06 17:50:58 Altagracia [facility] POCT-GLUCOSE METER 2022-04-06 17:12:00 Phillip [facility] BASIC METABOLIC PANEL 2022-04-06 15:13:00 Kvng Quiroz [facility] PT/APTT 2022-04-06 15:13:[address] [facility] B-TYPE NATRIURETIC FACTOR 2022-04-06 15:13:00 Sterling Diaz I [facility] (BNP) [facility] MRSA SCREEN 2022-04-06 13:38:[address] [facility] VANCOMYCIN LEVEL, TROUGH 2022-04-06 13:38:[address] [facility] ECG 12-LEAD 2022-04-06 12:57:47 Eric Zarate [facility] ECG 12-LEAD 2022-04-06 12:57:47 Unknown, Hl7 [facility] CBC W/PLT COUNT & AUTO 2022-04-06 12:02:00 Sterling Diaz [facility] CBC W/PLT COUNT & AUTO 2022-04-06 12:02:00 Sterling Diaz [facility] COMPREHENSIVE METABOLIC 2022-04-06 12:02:00 Sterling Diaz [facility] PANEL [facility] MAGNESIUM 2022-04-06 12:02:00 Sterling Diaz [facility] PHOSPHORUS 2022-04-06 12:02:00 Sterling Diaz [facility] PROTHROMBIN TIME/INR 2022-04-06 12:02:00 Sterling Diaz [facility] APTT 2022-04-06 12:02:00 Sterling Diaz [facility] FIBRINOGEN 2022-04-06 12:02:00 Sterling Diaz [facility] LACTIC ACID, ARTERIAL 2022-04-06 12:02:00 Sterling Diaz [facility] OXYGEN SATURATION, MEASURED 2022-04-06 12:02:00 Sterling Diaz [facility] BLOOD GAS, ARTERIAL 2022-04-06 12:02:00 Sterling Diaz [facility] CALCIUM, IONIZED 2022-04-06 12:02:00 Sterling Diaz [facility] XR CHEST 1 VIEW PORTABLE / 2022-04-06 11:57:00 Sterling Diaz [facility] BEDSIDE [facility] POCT-ACT 2022-04-06 10:08:00 Phillip Gloria [facility] POCT-GLUCOSE METER 2022-04-06 09:49:00 Phillip [facility] POCT-ACT 2022-04-06 09:47:00 Phillip [facility] ANGIOGRAM, CORONARY, WITH 2022-04-06 08:57:00 Miguel Gu CH, I [facility] LEFT HEART CATHETERIZATION Medic vt Center AND LEFT VENTRICULOGRAM, WITH PTCA IF INDICATED XR CHEST 1 VIEW PORTABLE / 2022-04-06 07:48:[address] Victor[address] Sanders romulo [facility] 2D ECHO W/ DOPPLER 2022-04-06 07:09:32 Rainer, [facility] (CW/PW/COLOR) [facility] CBC W/PLT COUNT & AUTO 2022-04-06 06:11:00 Rainer, [facility] CBC W/PLT COUNT & AUTO 2022-04-06 06:11:00 Kvng Quiroz [facility] LACTIC ACID, ARTERIAL 2022-04-06 06:11:00 Rainer, [facility] SODIUM NA-STAT LAB 2022-04-06 06:11:00 Rainer, [facility] POTASSIUM-STAT LAB 2022-04-06 06:11:00 Rainer, [facility] GLUCOSE-STAT LAB 2022-04-06 06:11:00 Rainer, [facility] HGB/HCT (H&H) - STAT LAB 2022-04-06 06:11:00 Rainer, [facility] COMPREHENSIVE METABOLIC 2022-04-06 06:11:00 Rainer, [facility] APTT 2022-04-06 06:11:00 Rainer, [facility] FIBRINOGEN 2022-04-06 06:11:00 Rainer, [facility] PROTHROMBIN TIME/INR 2022-04-06 06:11:00 Rainer, [facility] PHOSPHORUS 2022-04-06 06:11:00 Polk, [facility] OXYGEN SATURATION, MEASURED 2022-04-06 06:11:00 Polk, [facility] MAGNESIUM 2022-04-06 06:11:00 Polk, [facility] CALCIUM, IONIZED 2022-04-06 06:11:00 Polk, [facility] RRL CRITICAL LABS 2022-04-06 06:10:00 Rainer, [facility] (ABG,NA,K,H&H,GLUCOSE) Medical C enter BLOOD GAS, ARTERIAL 2022-04-06 06:10:00 Rainer [facility] VENOUS DOPPLER ARMS 2022-04-06 05:53:00 Gabriella Kvng [facility] BILATERAL [facility] VENOUS DOPPLER LEGS 2022-04-06 05:52:00 Kvng Quiroz [facility] ECG 12-LEAD 2022-04-06 04:33:47 Unknown, Hl7 [facility] ECG 12-LEAD 2022-04-06 04:33:47 Sterling Diaz [facility] POCT-BLOOD GASES, ARTERIAL 2022-04-06 04:18:00 Maag, [facility] POCT-SODIUM 2022-04-06 04:18:00 Maag, [facility] POCT-POTASSIUM 2022-04-06 04:18:00 Maag, [facility] POCT-HEMOGLOBIN 2022-04-06 04:18:00 Maag, [facility] POCT-HEMATOCRIT 2022-04-06 04:18:00 Maag, [facility] POCT-GLUCOSE 2022-04-06 04:18:00 Maag, [facility] XR CHEST 1 VIEW PORTABLE / 2022-04-06 04:05:[address] [facility] ECG 12-LEAD 2022-04-06 04:04:40 Unknown, Hl7 [facility] ECG 12-LEAD 2022-04-06 04:04:40 Unknown, Hl7 [facility] CBC W/PLT COUNT & AUTO 2022-04-06 03:55:00 Rainer [facility] (CELLAVISION MANUAL DIFF) 2022-04-06 03:55:00 Gerardo Spear [facility] MAGNESIUM 2022-04-06 03:55:00 Rainer [facility] PHOSPHORUS 2022-04-06 03:55:00 Rainer [facility] CALCIUM, IONIZED 2022-04-06 03:55:00 Rainer, [facility] COMPREHENSIVE METABOLIC 2022-04-06 03:55:00 Rainer, [facility] APTT 2022-04-06 03:55:00 Polk, [facility] CBC W/PLT COUNT & AUTO 2022-04-06 03:55:00 Kvng Quiroz [facility] FIBRINOGEN 2022-04-06 03:55:00 Rainer, [facility] LACTIC ACID, ARTERIAL 2022-04-06 03:55:00 Rainer, [facility] PROTHROMBIN TIME/INR 2022-04-06 03:55:00 Polk, [facility] RRL CRITICAL LABS 2022-04-06 03:55:00 Polk, [facility] (ABG,NA,K,H&H,GLUCOSE) Medical C enter SODIUM NA-STAT LAB 2022-04-06 03:55:00 Rainer, [facility] POTASSIUM-STAT LAB 2022-04-06 03:55:00 Rainer, [facility] GLUCOSE-STAT LAB 2022-04-06 03:55:00 Rainer, [facility] HGB/HCT (H&H) - STAT LAB 2022-04-06 03:55:00 Rainer, [facility] POCT-BLOOD GASES, ARTERIAL 2022-04-06 03:54:00 Gloria Rosas [facility] POCT-SODIUM 2022-04-06 03:54:00 Mamagda, [facility] POCT-POTASSIUM 2022-04-06 03:54:00 Maag, [facility] POCT-HEMOGLOBIN 2022-04-06 03:54:00 Mamagda, [facility] POCT-HEMATOCRIT 2022-04-06 03:54:00 Maag, [facility] POCT-GLUCOSE 2022-04-06 03:54:00 Mamagda, [facility] ECG 12-LEAD 2022-04-06 02:34:19 Unknown, Hl7 [facility] ECG 12-LEAD 2022-04-06 02:34:19 Unknown, Hl7 [facility] ECG 12-LEAD 2022-04-06 02:31:46 Unknown, Hl7 [facility] ECG 12-LEAD 2022-04-06 02:31:46 Unknown, Hl7 [facility] XR CHEST 1 VIEW PORTABLE / 2022-04-06 01:19:00 Kvng Quiroz [facility] BLOOD GAS, ARTERIAL 2022-04-06 01:03:00 Gabriella [facility] CBC W/PLT COUNT & AUTO 2022-04-06 00:51:00 Tony Sibley [facility] (CELLAVISION MANUAL DIFF) 2022-04-06 00:51:00 Tony Sibley CH I [facility] BASIC METABOLIC PANEL 2022-04-06 00:51:00 Gabriella [facility] CBC W/PLT COUNT & AUTO 2022-04-06 00:51:00 Gabriella [facility] MAGNESIUM 2022-04-06 00:51:00 Gabriella [facility] PHOSPHORUS 2022-04-06 00:51:00 [facility] CALCIUM, IONIZED 2022-04-06 00:51:00 Gabriella Kvng [facility] OXYGEN SATURATION, MEASURED 2022-04-06 00:51:00 Gabriella [facility] POCT-GLUCOSE METER 2022-04-05 17:21:00 Gloria Rosas [facility] XR CHEST 1 VIEW PORTABLE / 2022-04-05 11:13:00 Louise Frias [facility] OXYGEN SATURATION, MEASURED 2022-04-05 11:04:00 Betty Marroquin [facility] LACTIC ACID, ARTERIAL 2022-04-05 11:04:00 Vanna Friasnaz [facility] RRL CRITICAL LABS 2022-04-05 11:04:00 Kvng Quiroz [facility] (ABG,NA,K,H&H,GLUCOSE) Medical C enter BLOOD GAS, ARTERIAL 2022-04-05 11:04:00 Toñito [facility] SODIUM NA-STAT LAB 2022-04-05 11:04:00 [facility] 2022-04-05 11:04:00 [facility] GLU[facility]SE-STAT [facility] 2022-04-05 11:04:00 [facility]&H) - STAT LAB 2022-04-05 11:04:00 Toñito [facility] CALCIUM, IONIZED 2022-04-05 11:04:00 Kvng Quiroz [facility] POCT-GLUCOSE METER 2022-04-05 06:29:00 Phillip [facility] POCT-GLUCOSE METER 2022-04-05 04:30:00 Phillip [facility] CBC W/PLT COUNT & AUTO 2022-04-05 02:37:00 Toñito [facility] (CELLAVISION MANUAL DIFF) 2022-04-05 02:37:00 Toñito [facility] CBC W/PLT COUNT & AUTO 2022-04-05 02:37:00 Gabriella Kvng [facility] MAGNESIUM 2022-04-05 02:37:00 Kvng Quiroz [facility] PHOSPHORUS 2022-04-05 02:37:00 Gabriella Kvng [facility] CALCIUM, IONIZED 2022-04-05 02:37:00 Gabriella Kvng [facility] BLOOD GAS, ARTERIAL 2022-04-05 02:37:00 Kvng Quiroz [facility] HEPATIC FUNCTION PANEL 2022-04-05 02:37:00 Serlatasha [facility] OXYGEN SATURATION, MEASURED 2022-04-05 02:37:00 Kvng Quiroz [facility] BASIC METABOLIC PANEL 2022-04-05 02:37:00 Gabriella Kvng [facility] LACTIC ACID, ARTERIAL 2022-04-05 02:37:00 Toñito [facility] POCT-GLUCOSE METER 2022-04-05 02:32:00 Phillip [facility] XR CHEST 1 VIEW PORTABLE / 2022-04-05 01:45:00 Gabriella Kvng [facility] VANCOMYCIN LEVEL, TROUGH 2022-04-05 01:04:00 Becky Harrington [facility] POCT-GLUCOSE METER 2022-04-04 23:27:00 Phillip [facility] POCT-GLUCOSE METER 2022-04-04 21:15:00 Phillip [facility] POCT-GLUCOSE METER 2022-04-04 18:22:00 Phillip [facility] POCT-GLUCOSE METER 2022-04-04 15:07:00 Phlilip [facility] BASIC METABOLIC PANEL 2022-04-04 15:01:00 Kvng Quiroz [facility] OXYGEN SATURATION, MEASURED 2022-04-04 15:01:00 Mauro Grover [facility] POCT-GLUCOSE METER 2022-04-04 13:55:00 Phillip [facility] BLOOD GAS, ARTERIAL 2022-04-04 13:52:00 Mauro Grover [facility] POCT-GLUCOSE METER 2022-04-04 13:17:00 Phillip [facility] POCT-GLUCOSE METER 2022-04-04 12:41:00 Phillip [facility] BLOOD GAS, ARTERIAL 2022-04-04 12:29:00 Mauro Grover [facility] POCT-GLUCOSE METER 2022-04-04 06:03:00 Phillip [facility] POCT-GLUCOSE METER 2022-04-04 04:18:00 Phillip [facility] XR CHEST 1 VIEW PORTABLE / 2022-04-04 02:36:00 Gabriella Kvng [facility] CBC W/PLT COUNT & AUTO 2022-04-04 02:17:00 Tony Sibley [facility] DIFFERENTIAL [facility] (CELLAVISION MANUAL DIFF) 2022-04-04 02:17:00 Tony Sibley I [facility] CBC W/PLT COUNT & AUTO 2022-04-04 02:17:00 Gabriella [facility] MAGNESIUM 2022-04-04 02:17:00 Gabriella [facility] PHOSPHORUS 2022-04-04 02:17:[facility] BLOOD [facility], ARTERIAL 2022-04-04 02:17:00 [facility] OXYGEN SATURATION, MEASURED 2022-04-04 02:17:00 [facility] METABOLIC PANEL 2022-04-04 02:17[facility] PO[facility]-GLUCOSE METER 2022-04-04 02:12:00 Phillip [facility] MAGNESIUM 2022-04-03 23:04:00 Gabriella [facility] PHOSPHORUS 2022-04-03 23:04:00 [facility] POT[facility]SIUM 2022-04-03 23:04:00 [facility] CALCIUM, IONIZED 2022-04-03 23:04:[facility]ER 2022-04-03 23:03:00 Phillip [facility] XR CHEST 1 VIEW PORTABLE / 2022-04-03 22:03:00 Lucy Araiza [facility] LACTIC ACID, ARTERIAL 2022-04-03 20:35:00 Lucy Araiza [facility] POCT-GLUCOSE METER 2022-04-03 20:33:00 Phillip [facility] POCT-GLUCOSE METER 2022-04-03 18:25:00 Phillip [facility] POCT-GLUCOSE METER 2022-04-03 17:20:00 Phillip [facility] SPUTUM CULTURE + GRAM STAIN 2022-04-03 16:36:00 Zion Piedra [facility] POCT-GLUCOSE METER 2022-04-03 15:54:00 Phillip [facility] OXYGEN SATURATION, MEASURED 2022-04-03 15:08:00 Mauro Grover [facility] BLOOD GAS, ARTERIAL 2022-04-03 15:08:00 [facility] BASIC METABOLIC PANEL 2022-04-03 15:08:00 Kvng Quiroz [facility] POCT-GLUCOSE METER 2022-04-03 14:59:00 Phillip [facility] POCT-GLUCOSE METER 2022-04-03 14:20:00 Phillip [facility] BLOOD CULTURE 2022-04-03 12:42:00 Js [facility] POCT-GLUCOSE METER 2022-04-03 12:14:00 Phillip [facility] POCT-GLUCOSE METER 2022-04-03 09:59:00 Phillip [facility] OXYGEN SATURATION, MEASURED 2022-04-03 09:56:00 Mauro Grover [facility] BLOOD GAS, ARTERIAL 2022-04-03 09:56:00 [facility] POCT-GLUCOSE METER 2022-04-03 08:08:00 Phillip [facility] POCT-GLUCOSE METER 2022-04-03 06:41:00 Phillip [facility] POCT-GLUCOSE METER 2022-04-03 04:11:00 Phillip [facility] CALCIUM, IONIZED 2022-04-03 01:52:00 Kvng Quiroz [facility] CBC W/PLT COUNT & AUTO 2022-04-03 01:51:00 Toñito Tony [facility] (CELLAVISION MANUAL DIFF) 2022-04-03 01:51:00 Tony Sibley I [facility] VANCOMYCIN LEVEL, TROUGH 2022-04-03 01:51:00 Cindy Ibrahim [facility] CBC W/PLT COUNT & AUTO 2022-04-03 01:51:00 Gabriella [facility] PT/APTT 2022-04-03 01:51:[address] [facility] MAGNESIUM 2022-04-03 01:51:00 Gabriella [facility] PHOSPHORUS 2022-04-03 01:51:00 Gabriella [facility] BLOOD GAS, ARTERIAL 2022-04-03 01:51:00 [facility] HEPAT[facility] FUNCTION PANEL 2022-04-03 01:51:00 Toñito [facility] OXYGEN SATURATION, MEASURED 2022-04-03 01:51:00 Gabriella [facility] BASIC METABOLIC PANEL 2022-04-03 01:51:00 Gabriella Kvng [facility] POCT-GLUCOSE METER 2022-04-03 01:43:00 Phillip [facility] XR CHEST 1 VIEW PORTABLE / 2022-04-03 00:20:00 [facility] 2022-04-02 22:22:00 [facility] (ABG,NA,K,H&H,GLUCOSE) Medical C enter BLOOD GAS, ARTERIAL 2022-04-02 22:22:00 Edwardjudy [facility] SODIUM NA-STAT LAB 2022-04-02 22:22:00 Ameena [facility] POTASSIUM-STAT LAB 2022-04-02 22:22:00 [facility] 2022-04-02 22:22:00 [facility]H&H) - STAT LAB 2022-04-02 22:22:00 [facility], [facility] 2022-04-02 22:22:00 Kvng Quiroz [facility] POCT-GLUCOSE METER 2022-04-02 22:17:00 Phillip [facility] POCT-GLUCOSE METER 2022-04-02 20:28:00 Phillip [facility] OXYGEN SATURATION, MEASURED 2022-04-02 18:10:00 Sterling Diaz [facility] GLUCOSE-STAT LAB 2022-04-02 18:10:00 Breanna [facility] BASIC METABOLIC PANEL 2022-04-02 15:56:00 Kvng Quiroz [facility] PHOSPHORUS 2022-04-02 15:56:00 Kvng Quiroz [facility] MAGNESIUM 2022-04-02 15:56:00 Kvng Quiroz [facility] POCT-GLUCOSE METER 2022-04-02 14:05:00 Phillip [facility] POTASSIUM-STAT LAB 2022-04-02 08:58:00 [facility] 2022-04-02 08:58:00 Sera Carlos [facility] POCT-GLUCOSE METER 2022-04-02 06:03:00 Phillip [facility] POCT-GLUCOSE METER 2022-04-02 02:42:00 [facility] W/PLT COUNT & AUTO 2022-04-02 02:40:00 Toñito [facility] (CELLAVISION MANUAL DIFF) 2022-04-02 02:40:00 Tony Sibley I [facility] FIBRINOGEN 2022-04-02 02:40:00 Toñito [facility] CBC W/PLT COUNT & AUTO 2022-04-02 02:40:00 Gabriella [facility] PT/APTT 2022-04-02 02:40:00 Toñito [facility] MAGNESIUM 2022-04-02 02:40:00 Gabriella [facility] PHOSPHORUS 2022-04-02 02:40:00 Gabriella [facility] CALCIUM, IONIZED 2022-04-02 02:40:00 [facility] BLOOD [facility], ARTERIAL 2022-04-02 02:40:00 [facility] OXYGEN SATURATION, MEASURED 2022-04-02 02:40:00 Gabriella [facility] BASIC METABOLIC PANEL 2022-04-02 02:40:00 [facility] POCT-GLUCOSE METER 2022-04-02 01:07:00 Phillip [facility] XR CHEST 1 VIEW PORTABLE / 2022-04-02 00:20:00 Gabriella [facility] POCT-GLUCOSE METER 2022-04-02 00:05:00 Phillip [facility] PREPARE PLASMA 2022-04-01 23:54:00 [facility] 2022-04-01 23:54:00 [facility] PO[facility]-GLUCOSE METER 2022-04-01 22:45:00 Phillip [facility] URINE CULTURE 2022-04-01 22:40:00 [facility]ma [facility] RRL CRITICAL LABS 2022-04-01 22:40:00 Elma [facility] (ABG,NA,K,H&H,GLUCOSE) [facility] enter CALCIUM, IONIZED 2022-04-01 22:40:00 Elma, [facility] MAGNESIUM 2022-04-01 22:40:00 [facility], ARTERIAL 2022-04-01 22:40:00 [facility], [facility] 2022-04-01 22:40:00 [facility] SODI[facility] NA-STAT LAB 2022-04-01 22:40:[address] [facility] POTASSIUM-STAT LAB 2022-04-01 22:40:00 [facility] 2022-04-01 22:40:00 [facility] (H&H) - STAT LAB 2022-04-01 22:40:00 [facility] W/ REFLEX URINE 2022-04-01 22:40:00 Elma Ducjarekmargarito [facility] POCT-GLUCOSE METER 2022-04-01 20:13:00 Phillip [facility] POCT-GLUCOSE METER 2022-04-01 18:14:00 Phillip [facility] MAGNESIUM 2022-04-01 15:29:00 Kvng Quiroz [facility] PHOSPHORUS 2022-04-01 15:29:00 Kvng Quiroz [facility] BASIC METABOLIC PANEL 2022-04-01 15:29:00 Kvng Quiroz [facility] POCT-GLUCOSE METER 2022-04-01 12:04:00 Phillip [facility] POCT-GLUCOSE METER 2022-04-01 10:04:00 Phillip [facility] XR CHEST 1 VIEW PORTABLE / 2022-04-01 09:18:[address] [facility] C-REACTIVE PROTEIN 2022-04-01 09:18:00 Ashvin [facility] ECG 12-LEAD 2022-04-01 09:10:02 Ashvin [facility] ECG 12-LEAD 2022-04-01 09:10:02 Unknown, Hl7 [facility] POTASSIUM-STAT LAB 2022-04-01 08:24:00 Breanna [facility] GLUCOSE-STAT LAB 2022-04-01 08:24:00 Breanna [facility] PLATELET AGGREGATION: 2022-04-01 06:14:00 Ashvin [facility] POCT-GLUCOSE METER 2022-04-01 06:12:00 Phillip [facility] POCT-GLUCOSE METER 2022-04-01 05:16:00 Phillip [facility] RRL CRITICAL LABS 2022-04-01 05:12:00 Kvng Quiroz [facility] (ABG,NA,K,H&H,GLUCOSE) Medical C enter BLOOD GAS, ARTERIAL 2022-04-01 05:12:00 [facility] NA-STAT LAB 2022-04-01 05:12:00 [facility] POTASSIUM-STAT LAB 2022-04-01 05:12:00 [facility] GLUCOSE-STAT LAB 2022-04-01 05:12:00 [facility] HGB/HCT (H&H) - STAT LAB 2022-04-01 05:12:00 [facility] POCT-GLUCOSE METER 2022-04-01 04:11:00 [facility] OXYGEN SATURATION, MEASURED 2022-04-01 03:26:00 Gabriella Kvng [facility] CBC W/PLT COUNT & AUTO 2022-04-01 03:11:00 Toñito [facility] (CELLAVISION MANUAL DIFF) 2022-04-01 03:11:00 Toñito [facility] FIBRINOGEN 2022-04-01 03:11:00 Toñito [facility] CBC W/PLT COUNT & AUTO 2022-04-01 03:11:00 Gabriella [facility] PT/APTT 2022-04-01 03:11:00 [facility] BASIC METABOLIC PANEL 2022-04-01 03:11:00 Toñito [facility] MAGNESIUM 2022-04-01 03:11:00 Kvng Quiroz [facility] PHOSPHORUS 2022-04-01 03:11:00 [facility] CALCIUM, IONIZED 2022-04-01 03:11:00 Gabriella [facility] BLOOD GAS, ARTERIAL 2022-04-01 03:11:00 Gabriella [facility] HEPATIC FUNCTION PANEL 2022-04-01 03:11:00 [facility] LACT[facility]ID, ARTERIAL 2022-04-01 03:11:00 [facility] LACTATE DEHYDROGENASE (LDH) 2022-04-01 03:11:00 Lucy Araiza [facility] POCT-GLUCOSE METER 2022-04-01 03:10:00 [facility] POCT-GLUCOSE METER 2022-04-01 02:18:00 Phillip [facility] POCT-GLUCOSE METER 2022-04-01 01:33:00 Maag, [facility] BLOOD GAS, ARTERIAL 2022-04-01 00:24:00 Toñito [facility] POCT-GLUCOSE METER 2022-04-01 00:23:00 Phillip [facility] PREPARE RBC 2022-04-01 00:22:00 Marcus Llanes [facility] CALCIUM, IONIZED 2022-03-31 23:30:00 Kvng Quiroz [facility] RRL CRITICAL LABS 2022-03-31 23:29:00 Kvng Quiroz [facility] (ABG,NA,K,H&H,GLUCOSE) [facility] enter BLOOD GAS, ARTERIAL 2022-03-31 23:29:00 Toñito [facility] GLUCOSE-STAT LAB 2022-03-31 23:29:00 Toñito [facility] POCT-GLUCOSE METER 2022-03-31 23:19:00 Phillip [facility] XR CHEST 1 VIEW PORTABLE / 2022-03-31 23:02:00 Ezra Patterson [facility] POCT-GLUCOSE METER 2022-03-31 22:12:00 [facility] XR CHEST 1 VIEW PORTABLE / 2022-03-31 21:55:00 Tony Sibley [facility] BEDSIDE [facility] BLOOD GAS, ARTERIAL 2022-03-31 21:48:00 Toñito [facility] CBC W/PLT COUNT & AUTO 2022-03-31 21:44:00 Toñito Tony [facility] DIFFERENTIAL [facility] FIBRINOGEN 2022-03-31 21:44:00 Toñito [facility] CBC W/PLT COUNT & AUTO 2022-03-31 21:44:00 Toñito [facility] DIFFERENTIAL [facility] BASIC METABOLIC PANEL 2022-03-31 21:44:00 [facility] MAGNESIUM 2022-03-31 21:44:00 [facility] PHOSPHORUS 2022-03-31 21:44:00 [facility] HEPATIC FUNCTION PANEL 2022-03-31 21:44:00 [facility] LACTIC ACID, ARTERIAL 2022-03-31 21:44:00 [facility] HGB/HCT (H&H) - STAT LAB 2022-03-31 21:44:00 [facility] SODIUM NA-STAT LAB 2022-03-31 21:44:00 [facility] POTASSIUM-STAT LAB 2022-03-31 21:44:00 [facility] CALCIUM, IONIZED 2022-03-31 21:44:00 [facility] [facility] OXYGEN SATURATION, MEASURED 2022-03-31 21:44:00 [facility] THROMBOELASTOGRAPH (TEG) 2022-03-31 21:44:00 [facility] PT/APTT 2022-03-31 21:44:00 [facility] POCT-ACT 2022-03-31 19:34:00 Gloria Rosas [facility] RRL CRITICAL LABS 2022-03-31 19:33:35 [facility] (ABG,NA,K,H&H,GLUCOSE) [facility] enter CALCIUM, IONIZED 2022-03-31 19:33:35 Ron [facility] PROTHROMBIN TIME/INR 2022-03-31 19:33:35 Ron [facility] FIBRINOGEN 2022-03-31 19:33:35 [facility] COUNT 2022-03-31 19:33:35 [facility] BLOOD GAS, ARTERIAL 2022-03-31 19:33:35 [facility] NA-STAT LAB 2022-03-31 19:33:35 [facility] 2022-03-31 19:33:35 Ron [facility] GLUCOSE-STAT LAB 2022-03-31 19:33:35 [facility] - STAT LAB 2022-03-31 19:33:35 [facility] LEUKO-REDUCED 2022-03-31 19:25:00 [facility] 2022-03-31 19:21[facility]00 [facility] MISCELLANEOUS [facility] ORDER 2022-03-31 19:17:39 [facility] LEUKO-REDUCED 2022-03-31 19:17:00 [facility] LACTIC ACID, ARTERIAL 2022-03-31 18:53:10 [facility] 2022-03-31 18:51:43 [facility] (ABG,NA,K,H&H,GLUCOSE) Medical C enter BLOOD GAS, ARTERIAL 2022-03-31 18:51:[facility] 2022-03-31 18:51[facility] 2022-03-31 18:51[facility] 2022-03-31 18:51[facility]43 [facility] 2022-03-31 18:51:43 [facility] 2022-03-31 18:46:00 Phillip [facility] RRL CRITICAL LABS 2022-03-31 18:42:24 Champ [facility] (ABG,NA,K,H&H,GLUCOSE) Medical C enter BLOOD GAS, ARTERIAL 2022-03-31 18:42:24 [facility] 2022-03-31 18:42[facility]22-03-31 18:42[facility] 2022-03-31 18:42:24 [facility] HGB/HCT (H&H) - STAT LAB 2022-03-31 18:42:24 [facility] PO[facility]-ACT 2022-03-31 18:21:00 Phillip [facility] LACTIC ACID, ARTERIAL 2022-03-31 18:18:47 [facility] 2022-03-31 18:18:42 Champ [facility] (ABG,NA,K,H&H,GLUCOSE) Medical C enter BLOOD GAS, ARTERIAL 2022-03-31 18:18:42 [facility] 2022-03-31 18:18:42 [facility] POTASSIUM-STAT LAB 2022-03-31 18:18:42 [facility] GLUCOSE-STAT LAB 2022-03-31 18:18:42 [facility] HGB/HCT (H&H) - STAT LAB 2022-03-31 18:18:42 [facility] POCT-ACT 2022-03-31 18:09:00 [facility] 2022-03-31 18:09:00 Velasquez Med[facility] POCT-ACT 2022-03-31 17:54:00 [facility] 2022-03-31 17:45:03 [facility] (ABG,NA,K,H&H,GLUCOSE) Medical C enter BLOOD GAS, ARTERIAL 2022-03-31 17:45:03 [facility] SODIUM NA-STAT LAB 2022-03-31 17:45:03 [facility] POTASSIUM-STAT LAB 2022-03-31 17:45:03 [facility] GLUCOSE-STAT LAB 2022-03-31 17:45:03 [facility] HGB/HCT (H&H) - STAT LAB 2022-03-31 17:45:03 [facility] POCT-ACT 2022-03-31 17:34:00 [facility] BLOOD GAS, VENOUS 2022-03-31 17:20:07 [facility] LACTIC ACID, ARTERIAL 2022-03-31 17:20:03 [facility] RRL CRITICAL LABS 2022-03-31 17:19:55 [facility] (ABG,NA,K,H&H,GLUCOSE) Medical C enter BLOOD GAS, ARTERIAL 2022-03-31 17:19:55 [facility] SODIUM NA-STAT LAB 2022-03-31 17:19:55 [facility] POTASSIUM-STAT LAB 2022-03-31 17:19:55 [facility] GLUCOSE-STAT LAB 2022-03-31 17:19:55 [facility] HGB/HCT (H&H) - STAT LAB 2022-03-31 17:19:55 Marcus Llanes [facility] POCT-ACT 2022-03-31 17:06:00 Gloria Rosas [facility] POCT-ACT 2022-03-31 16:30:00 [facility] ANESTHESIA KEVEN 2022-03-31 16:27:50 TulioYanira soliz [facility] RRL CRITICAL LABS 2022-03-31 16:26:31 [facility] (ABG,NA,K,H&H,GLUCOSE) [facility] enter CALCIUM, IONIZED 2022-03-31 16:26:31 [facility] BLOOD GAS, ARTERIAL 2022-03-31 16:26:31 [facility] NA-STAT LAB 2022-03-31 16:26:31 [facility] POTASSIUM-STAT LAB 2022-03-31 16:26:31 [facility] GLUCOSE-STAT LAB 2022-03-31 16:26:31 [facility] HGB/HCT (H&H) - STAT LAB 2022-03-31 16:26:31 [facility] POCT-ACT 2022-03-31 16:01:00 Phillip [facility] RRL CRITICAL LABS 2022-03-31 15:22:57 [facility] (ABG,NA,K,H&H,GLUCOSE) [facility] enter CALCIUM, IONIZED 2022-03-31 15:22:57 [facility] BLOOD [facility], ARTERIAL 2022-03-31 15:22:57 [facility] SODIUM NA-STAT LAB 2022-03-31 15:22:57 [facility]OT[facility] 2022-03-31 15:22:57 [facility] GLUCOSE-STAT LAB 2022-03-31 15:22:57 Steven [facility] HGB/HCT (H&H) - STAT LAB 2022-03-31 15:22:57 [facility] RRL CRITICAL LABS 2022-03-31 14:21:02 [facility] (ABG,NA,K,H&H,GLUCOSE) Medical C enter CALCIUM, IONIZED 2022-03-31 14:21:02 Steven [facility] BLOOD GAS, ARTERIAL 2022-03-31 14:21:02 Steven [facility] SODIUM NA-STAT LAB 2022-03-31 14:21:02 [facility] POTASSIUM-STAT LAB 2022-03-31 14:21:02 [facility] GLUCOSE-STAT LAB 2022-03-31 14:21:02 [facility] HGB/HCT (H&H) - STAT LAB 2022-03-31 14:21:02 Steven [facility] CABG, USING INTERNAL 2022-03-31 13:08:00 Champ [facility] THORACIC ARTERY AND Medical Cent er SAPHENOUS VEIN GRAFT SURGICAL PROCUREMENT, VEIN, 2022-03-31 13:08:00 Champ, [facility] ENDOSCOPIC [facility] ECHOCARDIOGRAM, 2022-03-31 13:08:00 [facility] TRANSESOPHAGEAL [facility] 2D ECHO W/ DOPPLER 2022-03-31 10:09:59 Phillip [facility] (CW/PW/COLOR) [facility] POCT-GLUCOSE METER 2022-03-31 09:05:00 [facility] VEIN MAPPING LEGS BILATERAL 2022-03-31 08:18:00 Ramos Garsia [facility] CAROTID DOPPLER BILATERAL 2022-03-31 07:49:00 Ramos Garsia [facility] APTT 2022-03-31 06:50:00 Favian Alicia [facility] SARS-COV2/RT-PCR (SLHS & REF 2022-03-31 03:43:[address] [facility] CBC W/PLT COUNT & AUTO 2022-03-31 03:42:00 Elida Leonardo [facility] (CELLAVISION MANUAL DIFF) 2022-03-31 03:42:00 Elida Leonardo [facility] APTT 2022-03-31 03:42:00 Williamtesfaye MartinezFavian [facility] COMPREHENSIVE METABOLIC 2022-03-31 03:42:[address] [facility] CBC W/PLT COUNT & AUTO 2022-03-31 03:42:00 Elida Leonardo [facility] MAGNESIUM 2022-03-31 03:42:00 Elida Leonardo [facility] PROTHROMBIN TIME/INR 2022-03-31 03:42:00 Elida Leonardo [facility] XR CHEST 1 VIEW PORTABLE / 2022-03-31 00:19:00 Favian Alicia [facility] BEDSIDE [facility] HIGH SENSITIVITY TROPONIN I 2022-03-30 23:43:00 Elida Leonardo [facility] APTT 2022-03-30 23:43:00 Favian Alicia [facility] POCT-GLUCOSE METER 2022-03-30 22:42:00 Gloria Rosas [facility] ABORH, MANUAL 2022-03-30 21:59:00 Daylin Harrington [facility] TYPE AND SCREEN, AUTOMATED 2022-03-30 21:44:00 Ramos Garsia [facility] PROTHROMBIN TIME/INR 2022-03-30 21:43:00 Ramos Garsia [facility] ECG 12-LEAD 2022-03-30 21:35:19 Elida Leonardo [facility] POCT-GLUCOSE METER 2022-03-30 19:40:00 Gloria Rosas [facility] PLATELET AGGREGATION: 2022-03-30 18:02:00 Ramos Garsia [facility] FUNCTION SCREEN [facility] XR CHEST 1 VIEW PORTABLE / 2022-03-30 17:41:[address] [facility] HIGH SENSITIVITY TROPONIN I 2022-03-30 17:07:00 Elida Leonardo [facility] APTT 2022-03-30 17:07:00 Favian Alicia [facility] POCT-ACT 2022-03-30 14:56:00 Gloria Rosas [facility] ANGIOGRAM, CORONARY, WITH 2022-03-30 14:08:00 Cedric Ball [facility] LEFT HEART CATHETERIZATION [facility] ECG 12-LEAD 2022-03-30 13:21:28 Elida Leonardo [facility] ECG 12-LEAD 2022-03-30 13:21:28 Unknown, Hl7 Doctor [facility] CBC W/PLT COUNT & AUTO 2022-03-30 13:06:00 Elida Leonardo [facility] COMPREHENSIVE METABOLIC 2022-03-30 13:06:[address] [facility] MAGNESIUM 2022-03-30 13:06:00 Elida Leonardo [facility] PHOSPHORUS 2022-03-30 13:06:00 [facility] HIGH SENSITIVITY TROPONIN I 2022-03-30 13:06:00 Elida Leonardo [facility] B-TYPE NATRIURETIC FACTOR 2022-03-30 13:06:00 Elida Leonardo [facility] (BNP) [facility] T4, FREE 2022-03-30 13:06:00 Elida Leonardo [facility] TSH 2022-03-30 13:06:00 Elida Leonardo [facility] CBC W/PLT COUNT & AUTO 2022-03-30 13:06:00 Elida Leonardo [facility] HEMOGLOBIN A1C 2022-03-30 13:06:00 [facility] LIPID [facility]EL 2022-03-30 13:06:00 Elida Leonardo [facility] CARDIAC CATH REPORT - SCAN 2022-03-30 00:00:00 Provider, Default [facility] EKG-SCANNED 2022-03-30 00:00:00 Provider, Default [facility] VASCULAR DIAGRAM -SCAN 2022-03-30 00:00:00 Provider, Default [facility] Plan of Care Planned Activity Planned Date Details Comments Source Future Scheduled 2025-03-30 Lipid panel (procedure) [facility] Test 00:00:00 [code = 07231512] Medical Ce nter Future Scheduled 2025-03-30 Lipid panel (procedure) [facility] Test 00:00:00 [code = 37216335] Medical Ce nter Future Scheduled 2025-03-30 Lipid panel (procedure) [facility] Test 00:00:00 [code = 45990476] Medical Ce nter Future Scheduled 2025-03-30 Lipid panel (procedure) [facility] Test 00:00:00 [code = 44249506] Medical Ce nter Future Scheduled 2023-05-[address] [facility] Test 00:00:00 Counseling and Screening Med ical Center (12+) [code = Tobacco Cessation Counseling and Screening (12+)] Future Scheduled 2023-05-[address] [facility] Test 00:00:00 Counseling and Screening Med ical Center (12+) [code = Tobacco Cessation Counseling and Screening (12+)] Future Scheduled 2023-05-[address] [facility] Test 00:00:00 Counseling and Screening Med ical Center (12+) [code = Tobacco Cessation Counseling and Screening (12+)] Future Scheduled 2023-04-[address] [facility] Test 00:00:00 Counseling and Screening Med ical Center (12+) [code = Tobacco Cessation Counseling and Screening (12+)] Future Scheduled 2022-08-04 Screening for malignant [facility] Test 10:46:10 neoplasm of colon of Medicin e (procedure) [code = 025893608] Future Scheduled 2022-08-04 COVID-19 Vaccine (#1) [facility] Test 10:46:10 [code = COVID-19 Vaccine of Medicine (#1)] Future Scheduled 2022-08-04 Pneumococcal Combined (1 [facility] Test 10:46:10 - PCV) [code = of Medicine Pneumococcal Combined (1 - PCV)] Future Scheduled 2022-08-04 TETANUS SHOT (ADULT) [facility] Test 10:46:10 [code = TETANUS SHOT of Medi cine (ADULT)] Future Scheduled 2022-08-04 Diabetic foot [facility] Col lege Test 10:46:10 examination of Medicine (regime/therapy) [code = 897007057] Future Scheduled 2022-08-04 Annual Diabetic [facility] C ollege Test 10:46:10 Retinopathy Screening of Med icine [code = Annual Diabetic Retinopathy Screening] Future Scheduled 2022-08-04 BMI Follow Up Plan [code [facility] Test 10:46:10 = BMI Follow Up Plan] of Med icine Future Scheduled 2022-08-04 Human immunodeficiency [facility] Test 10:46:10 virus screening of Medicine (procedure) [code = 634750566] Future Scheduled 2022-08-04 Hepatitis C screening [facility] Test 10:46:10 (procedure) [code = of Medic ine 513773111] Future Scheduled 2022-08-04 ZOSTER VACCINE (1 of 2) [facility] Test 10:46:10 [code = ZOSTER VACCINE of Me dicine (1 of 2)] Future Scheduled 2022-08-04 FLU VACCINE > 6 MONTHS Postponed from [facility] Test 10:46:10 [code = FLU VACCINE > 6 12/16/2021 of M edicine MONTHS] (Postpone Reason: Patient declined today) Future Scheduled 2022-08-04 Hemoglobin A1c [facility] 10:46:10 measurement (procedure) of M edicine [code = 20498393] Future Scheduled 2022-08-04 Screening for malignant [facility] Test 10:46:10 neoplasm of colon of Medicin e (procedure) [code = 197213974] Future Scheduled 2022-08-04 COVID-19 Vaccine (#1) [facility] Test 10:46:10 [code = COVID-19 Vaccine of Medicine (#1)] Future Scheduled 2022-08-04 Pneumococcal Combined (1 [facility] Test 10:46:10 - PCV) [code = of Medicine Pneumococcal Combined (1 - PCV)] Future Scheduled 2022-08-04 TETANUS SHOT (ADULT) [facility] Test 10:46:10 [code = TETANUS SHOT of Medi cine (ADULT)] Future Scheduled 2022-08-04 Diabetic foot [facility] Col [facility]ge Test 10:46:10 examination of Medicine (regime/therapy) [code = 743522341] Future Scheduled 2022-08-04 Annual Diabetic [facility] C ollege Test 10:46:10 Retinopathy Screening of Med icine [code = Annual Diabetic Retinopathy Screening] Future Scheduled 2022-08-04 BMI Follow Up Plan [code [facility] Test 10:46:10 = BMI Follow Up Plan] of Med icine Future Scheduled 2022-08-04 Human immunodeficiency [facility] Test 10:46:10 virus screening of Medicine (procedure) [code = 673647430] Future Scheduled 2022-08-04 Hepatitis C screening [facility] Test 10:46:10 (procedure) [code = of Medic ine 220540677] Future Scheduled 2022-08-04 ZOSTER VACCINE (1 of 2) [facility] Test 10:46:10 [code = ZOSTER VACCINE of Wa dicine (1 of 2)] Future Scheduled 2022-08-04 FLU VACCINE > 6 MONTHS Postponed from [facility] Test 10:46:10 [code = FLU VACCINE > 6 12/16/2021 of Abdoul torresicine MONTHS] (Postpone Reason: Patient declined today) Future Scheduled 2022-08-04 Hemoglobin A1c [facility] Test 10:46:10 measurement (procedure) of Abdoul hernandez [code = 69559055] Future Scheduled 2022-08-04 TESTOSTERONE [code = Ordered: [facility] Test 10:04:05 2986-8] 08/04/2022 of Medicine Future Scheduled 2022-08-04 HEMOGLOBIN AND Ordered: [facility] llege Test 10:04:05 HEMATOCRIT, BLOOD [code 08/04/2022 of M edicine = 53106-8] Future Scheduled 2022-08-04 PSA [code = 2857-1] Ordered: [facility] Test 10:04:05 08/04/2022 of Medicine Future Scheduled 2022-08-04 MICROALBUMIN/CREAT URINE Ordered: [facility] Test 10:04:05 RATIO [code = 9318-7] 08/04/2022 of Med icine Future Scheduled 2022-07-15 TESTOSTERONE, FREE,BIO Expected: [facility] Test 00:00:00 AND TOTAL, LC/MS/MS 07/15/2022 of Medic ine [code = NOCPT] (Approximate), Expires: 11/14/2022 Future Scheduled 2022-07-15 CBC W/AUTO DIFF WITH Expected: [facility] Test 00:00:00 PLATELETS [code = 07/15/2022 of Medicin e 73992-0] (Approximate), Expires: 11/14/2022 Future Scheduled 2022-07-15 HEMOGLOBIN A1C [code = Expected: [facility] Test 00:00:00 4548-4] 07/15/2022 of Medicine (Approximate), Expires: 11/14/2022 Future Scheduled 2022-07-15 PSA [code = 2857-1] Expected: [facility] Test 00:00:00 07/15/2022 of Medicine (Approximate), Expires: 11/14/2022 Future Scheduled 2022-05-16 Screening for malignant [facility] Test 19:11:19 neoplasm of colon of Medicin e (procedure) [code = 835296375] Future Scheduled 2022-05-16 COVID-19 Vaccine (#1) [facility] Test 19:11:19 [code = COVID-19 Vaccine of Medicine (#1)] Future Scheduled 2022-05-16 Pneumococcal Combined (1 [facility] Test 19:11:19 - PCV) [code = of Medicine Pneumococcal Combined (1 - PCV)] Future Scheduled 2022-05-16 TETANUS SHOT (ADULT) [facility] Test 19:11:19 [code = TETANUS SHOT of Medi cine (ADULT)] Future Scheduled 2022-05-16 Diabetic foot [facility] Col [facility]ge Test 19:11:19 examination of Medicine (regime/therapy) [code = 043368875] Future Scheduled 2022-05-16 ANNUAL DIABETIC [facility] C ollege Test 19:11:19 RETINOPATHY SCREENING of Med icine [code = ANNUAL DIABETIC RETINOPATHY SCREENING] Future Scheduled 2022-05-16 BMI FOLLOW UP PLAN [code [facility] Test 19:11:19 = BMI FOLLOW UP PLAN] of Med icine Future Scheduled 2022-05-16 Hepatitis C screening [facility] Test 19:11:19 (procedure) [code = of Medic ine 044665512] Future Scheduled 2022-05-16 Human immunodeficiency [facility] Test 19:11:19 virus screening of Medicine (procedure) [code = 217906021] Future Scheduled 2022-05-16 ZOSTER VACCINE (1 of 2) [facility] Test 19:11:19 [code = ZOSTER VACCINE of Me dicine (1 of 2)] Future Scheduled 2022-05-16 FLU VACCINE > 6 MONTHS Postponed from [facility] Test 19:11:19 [code = FLU VACCINE > 6 12/16/2021 of M edicine MONTHS] (Postpone Reason: Patient declined today) Future Scheduled 2022-05-16 Hemoglobin A1c [facility] llege Test 19:11:19 measurement (procedure) of M edicine [code = 84947118] Future Scheduled 2022-05-05 Screening for malignant [facility] Test 16:15:25 neoplasm of colon of Medicin e (procedure) [code = 801430377] Future Scheduled 2022-05-05 COVID-19 Vaccine (#1) [facility] Test 16:15:25 [code = COVID-19 Vaccine of Medicine (#1)] Future Scheduled 2022-05-05 Pneumococcal Combined (1 [facility] Test 16:15:25 - PCV) [code = of Medicine Pneumococcal Combined (1 - PCV)] Future Scheduled 2022-05-05 TETANUS SHOT (ADULT) [facility] Test 16:15:25 [code = TETANUS SHOT of Medi cine (ADULT)] Future Scheduled 2022-05-05 BMI FOLLOW UP PLAN [code [facility] Test 16:15:25 = BMI FOLLOW UP PLAN] of Med icine Future Scheduled 2022-05-05 Hepatitis C screening [facility] Test 16:15:25 (procedure) [code = of Medic ine 212310862] Future Scheduled 2022-05-05 Human immunodeficiency [facility] Test 16:15:25 virus screening of Medicine (procedure) [code = 995234290] Future Scheduled 2022-05-05 ZOSTER VACCINE (1 of 2) [facility] Test 16:15:25 [code = ZOSTER VACCINE of Me dicine (1 of 2)] Future Scheduled 2022-05-05 FLU VACCINE > 6 MONTHS Postponed from [facility] Test 16:15:25 [code = FLU VACCINE > 6 12/16/2021 of M edicine MONTHS] (Postpone Reason: Patient declined today) Future Scheduled 2022-05-05 ELECTROCARDIOGRAM [facility] Test 15:23:42 COMPLETE [code = 85661] of M edicine Future Scheduled 2022-05-05 Screening for malignant [facility] Test 11:33:23 neoplasm of colon of Medicin e (procedure) [code = 097463800] Future Scheduled 2022-05-05 COVID-19 Vaccine (#1) [facility] Test 11:33:23 [code = COVID-19 Vaccine of Medicine (#1)] Future Scheduled 2022-05-05 Pneumococcal Combined (1 [facility] Test 11:33:23 - PCV) [code = of Medicine Pneumococcal Combined (1 - PCV)] Future Scheduled 2022-05-05 TETANUS SHOT (ADULT) [facility] Test 11:33:23 [code = TETANUS SHOT of Medi cine (ADULT)] Future Scheduled 2022-05-05 Hepatitis C screening [facility] Test 11:33:23 (procedure) [code = of Medic ine 815993456] Future Scheduled 2022-05-05 Human immunodeficiency [facility] Test 11:33:23 virus screening of Medicine (procedure) [code = 474254383] Future Scheduled 2022-05-05 ZOSTER VACCINE (1 of 2) [facility] Test 11:33:23 [code = ZOSTER VACCINE of Me dicine (1 of 2)] Future Scheduled 2022-05-05 FLU VACCINE > 6 MONTHS Postponed from [facility] Test 11:33:23 [code = FLU VACCINE > 6 12/16/2021 of [facility] MONTHS] (Postpone Reason: Patient declined today) Future Scheduled 2022-05-[address] [facility] Test 00:00:00 measurement (procedure) [facility] [code = 07361543] Future Scheduled 2022-05-[address] [facility] Test 00:00:00 measurement (procedure) [facility] [code = 98309499] Future Scheduled 2022-05-[address] [facility] Test 00:00:00 measurement (procedure) [facility] [code = 68750370] Future Scheduled 2022-03-[address] [facility] Test 00:00:00 measurement (procedure) [facility] [code = 31134560] Future Scheduled 2022-01-16 INFLUENZA VACCINE (#1[facility] [code = INFLUENZA Medical Ce nter VACCINE (#1)] Future Scheduled 2022-01-16 INFLUENZA VACCINE (#1) [facility] 00:00:00 [code = INFLUENZA Medical Ce nter VACCINE (#1)] Future Scheduled 2022-01-16 INFLUENZA VACCINE (#1) [facility] 00:00:00 [code = INFLUENZA Medical Ce nter VACCINE (#1)] Future Scheduled 2022-01-16 INFLUENZA VACCINE (#1) [facility] 00:00:00 [code = INFLUENZA Medical Ce nter VACCINE (#1)] Future Scheduled 2021-05-[address] [facility] Test 00:00:00 (12+) [code = DEPRESSION [facility] Center SCREENING (12+)] Future Scheduled 2013 SHINGLES VACCINES ([address] [facility] Test 00:00:00 2) [code = SHINGLES Medical Center VACCINES (1 of 2)] Future Scheduled 2013 SHINGLES VACCINES ([address] [facility] Test 00:00:00 2) [code = SHINGLES Medical Center VACCINES (1 of 2)] Future Scheduled 2013 SHINGLES VACCINES ([address] [facility] Test 00:00:00 2) [code [facility] (1 of 2)] Future Scheduled 2013 SHINGLES VACCINES ([address] [facility] 00:00:00 2) [code = [facility]ES (1 of 2)] Future Scheduled 1982 DTAP/TDAP/TD VACCINES ([address] [facility] 00:00:00 - Tdap) [code = Medical Cent er DTAP/TDAP/TD VACCINES (1 - Tdap)] Future Scheduled 1982 DTAP/TDAP/TD VACCINES ([address] [facility] 00:00:00 - Tdap) [code = Medical Cent er DTAP/TDAP/TD VACCINES (1 - Tdap)] Future Scheduled 1982 DTAP/TDAP/TD VACCINES ([address] [facility] 00:00:00 - Tdap) [code = Medical Cent er DTAP/TDAP/TD VACCINES (1 - Tdap)] Future Scheduled 1982 DTAP/TDAP/TD VACCINES ([address] [facility] 00:00:00 - Tdap) [code = Medical Cent er DTAP/TDAP/TD VACCINES (1 - Tdap)] Future Scheduled 1981 HE[facility]ITIS [facility] [code = HEPATITIS C [facility] Center SCREENING] Future Scheduled 1981 HEPATITIS C [facility] 00:[facility] [code = HEPATITIS C [facility] Center SCREENING] Future Scheduled 1981 HE[facility]ITIS C [facility] 00:[facility] [code = HEPATITIS C Medical Center SCREENING] Future Scheduled 1981 HEPATITIS C [facility] 00:00[facility]00 [code = HEPATITIS C Medical Center SCREENING] Future Scheduled 1973 DIABETIC EYE EXAM [code [facility] 00:00:00 = DIABETIC EYE EXAM] Medical Center Future Scheduled [address] [facility] examination Medical Center (regime/therapy) [code = 404406371] Future Scheduled 1973 Urine screening for [facility] 00:00:00 protein (procedure) Medical Center [code = 566100037] Future Scheduled 1973 DIABETIC EYE EXAM [code [facility] 00:00:00 = DIABETIC EYE EXAM] Medical Center Future Scheduled [address] [facility] 00[facility] examination Medical Center (regime/therapy) [code = 864221065] Future Scheduled 1973 Urine screening for [facility] 00:00:00 protein (procedure) Medical Center [code = 636894981] Future Scheduled 1973 DIABETIC EYE EXAM [code [facility] 00:00:00 = DIABETIC EYE EXAM] Medical Center Future Scheduled [address] [facility] 00:[facility]:00 examination Medical Center (regime/therapy) [code = 893913342] Future Scheduled 1973 Urine screening for [facility] 00:00:00 protein (procedure) Medical Center [code = 614746343] Future Scheduled 1973 DIABETIC EYE EXAM [code [facility] 00:00:00 = DIABETIC EYE EXAM] Medical Center Future Scheduled [address] [facility] 00:[facility]:00 examination Medical Center (regime/therapy) [code = 056116001] Future Scheduled 1973 Urine screening for [facility] 00:00:00 protein (procedure) Medical Center [code = 777947989] Future Scheduled [address] [facility] 00:00:00 0-64 YRS (1 - PCV) [code Med ical Center = PNEUMOCOCCAL VACCINE 0-64 YRS (1 - PCV)] Future Scheduled [address] [facility] 00:00:00 0-64 YRS (1 - PCV) [code Med ical Center = PNEUMOCOCCAL VACCINE 0-64 YRS (1 - PCV)] Future Scheduled [address] [facility] 00:00:00 0-64 YRS (1 - PCV) [code Med ical Center = PNEUMOCOCCAL VACCINE 0-64 YRS (1 - PCV)] Future Scheduled [address] [facility] 00:00:00 0-64 YRS (1 - PCV) [code Med ical Center = PNEUMOCOCCAL VACCINE 0-64 YRS (1 - PCV)] Future Scheduled 1963 COVID-19 VACCINE (#1[facility] 00:[facility] [code = COVID-19 VACCINE Med ical Center (#1)] Future Scheduled 1963 COVID-19 VACCINE (#1) [facility] 00:00:00 [code = COVID-19 VACCINE Med ical Center (#1)] Future Scheduled 1963 COVID-19 VACCINE (#1) [facility] 00:00:00 [code = COVID-19 VACCINE Med ical Center (#1)] Future Scheduled 1963 COVID-19 VACCINE (#1) [facility] 00:00:00 [code = COVID-19 VACCINE Med ical Center (#1)] Future Scheduled 1963 CT Colonography (combo) [facility] 00:00:00 [code = CT Colonography Medi [facility] (combo)] Future Scheduled 1963 Screening for malignant [facility] 00:00:00 neoplasm of colon Medical Ce nter (procedure) [code = 004731499] Future Scheduled 1963 Screening for malignant [facility] 00:00:00 neoplasm of colon Medical Ce nter (procedure) [code = 834983395] Future Scheduled 1963 Screening for malignant [facility] 00:00:00 neoplasm of colon Medical Ce nter (procedure) [code = 121558676] Future Scheduled 1963 Screening for malignant [facility] 00:00:00 neoplasm of colon Medical Ce nter (procedure) [code = 520310355] Future Scheduled 1965 Sigmoidoscopy [code = [facility]] [facility] Colonography (combo) [facility] 00:00:00 [code = CT Colonography [facility] (combo)] Future Scheduled 1963 Screening for malignant [facility] 00:00:00 neoplasm of colon Medical Ce nter (procedure) [code = 218961198] Future Scheduled 1963 Screening for malignant [facility] 00:00:00 neoplasm of colon Medical Ce nter (procedure) [code = 314969302] Future Scheduled 1963 Screening for malignant [facility] 00:00:00 neoplasm of colon Medical Ce nter (procedure) [code = 232755202] Future Scheduled 1963 Screening for malignant [facility] 00:00:00 neoplasm of colon Medical Ce nter (procedure) [code = 067269806] Future Scheduled 1965 Sigmoidoscopy [code = [facility] Sigmoidoscopy] Medical Cente r Future Scheduled 1963 CT Colonography (combo) [facility] 00:00:00 [code = CT [facility] ([facility])] Future Scheduled 1963 Screening for malignant [facility] 00:00:00 neoplasm of colon Medical Ce nter (procedure) [code = 916740628] Future Scheduled 1963 Screening for malignant [facility] 00:00:00 neoplasm of colon Medical Ce nter (procedure) [code = 195746379] Future Scheduled 1963 Screening for malignant [facility] 00:00:00 neoplasm of colon Medical Ce nter (procedure) [code = 516311919] Future Scheduled 1963 Screening for malignant [facility] 00:00:00 neoplasm of colon Medical Ce nter (procedure) [code = 109607565] Future Scheduled 1965 Sigmoidoscopy [code = [facility] 00:[facility] Sigmoidoscopy] Medical Cente r Future Scheduled 1963 CT Colonography (combo) [facility] 00:00:00 [code = CT Colonography [facility] (combo)] Future Scheduled 1963 Screening for malignant [facility] 00:00:00 neoplasm of colon Medical Ce nter (procedure) [code = 025715906] Future Scheduled 1963 Screening for malignant [facility] 00:00:00 neoplasm of colon Medical Ce nter (procedure) [code = 905952354] Future Scheduled 1963 Screening for malignant [facility] 00:00:00 neoplasm of colon Medical Ce nter (procedure) [code = 249068253] Future Scheduled 1963 Screening for malignant [facility] 00:00:00 neoplasm of colon Medical Ce nter (procedure) [code = 330459154] Future Scheduled 1965 Sigmoidoscopy [code [facility] 00:[facility] Sigmoidoscopy] Medical Cente r Encounters Start End Encounter Admission Attending Care Care Encounter Source Date/Time Date/Time Type Type Clinicians Facility Department ID 2022-12-03 2022-12-03 Outpatient [facility] [id number] SLE 00:00:00 00:00:00 2022-12-03 2022-12-03 [facility] [id number] [facility] 00:00[facility]00 [facility]00[facility]22-[facility]03 2022-09-03 Outpatient BUFFY BALL [facility] [id number] SLE 13:33:20 13:33:20 [facility] 2022-08-04 2022-08-04 Office LILO GAMING [id number] [facility] 10:37:46 12:10:03 Visit MIHAIL AMBULATOR 350.1.13.21 College Y 0.2.7.2.686 of [id number] Medi lefty 375 e 2022-08-04 2022-08-04 Office Deal, Benjamin [facility] [id number] [facility] 09:15:00 10:12:23 Visit AMBULATOR 350.1.13.21 College Y 0.2.7.2.686 of [id number] [facility] lefty 310 e 2022-08-04 2022-08-04 Outpatient SOLIS [facility] [id number] [facility] 00:00:00 00:00:00 Asia BUSH MARYLU of Medicin e 2022-08-04 2022-08-04 Outpatient DARCYU, [facility] [id number] [facility] 00:00:00 00:00:00 MIHAIL Colleg e of Medicin e 2022-06-16 2022-06-16 Telephone Jeancarlos [facility] [id number] 00:00:00 00:00:00 [facility] 2022-06-09 2022-06-09 Outpatient AMBERLY, [facility] [id number] [facility] 00:00:00 00:00:00 MIHAIL [facility] 2022-06-04 2022-06-04 Office BUFFY Ball [facility] [id number] 13:30:00 13:45:00 Visit [facility] 2022-06-04 2022-06-04 Outpatient BUFFY BALL, [facility] SLE [id number] [facility] 13:10:18 13:10:18 [facility] 2022-06-04 2022-06-04 Orders [facility] [id number] 00:00:00 00:00:00 [facility] 2022-05-26 2022-05-26 Telephone Chase [facility] [id number] 00:00:00 00:00:00 [facility] 2022-05-16 2022-05-16 Office Deal, Benjamin [facility] 1.2.840.114 [id number] [facility] 14:30:00 15:00:00 Visit AMBULATOR 350.1.13.21 College Y 0.2.7.2.686 of [id number] [facility] lefty 310 e 2022-05-13 2022-05-13 Kennedi Arshad [facility] [id number] 00:00:00 00:00:00 [facility] 2022-05-05 2022-05-05 Outpatient LUPILLO CHOUDHURY SLE [id number] [facility] 12:35:47 23:59:[address] [facility] 2022-05-05 2022-05-05 [facility] Champ [facility] [id number] 12:35:47 23:59:00 Encounter [facility] 2022-05-05 2022-05-05 Office LILO GAMING 1.2.840.114 [id number] [facility] 14:54:15 16:24:20 Visit AMYL AMBULATOR 350.1.13.21 College Y 0.2.7.2.686 of [id number] [facility] 375 e 2022-05-05 2022-05-05 Office BUFFY Llanes [facility] [id number] 13:30:00 13:45:00 Visit [facility] 2022-05-05 2022-05-05 Office SOLIS [facility] 1.2.840.114 [id number] [facility] 11:08:55 13:03:37 Visit RACHELLE, AMBULATOR 350.1.13.21 College MARYLU Y 0.2.7.2.686 of [id number] [facility] lefty 340 e 2022-05-05 2022-05-05 Outpatient LUPILLO CHOUDHURY [facility] [id number] [facility] 12:25:58 12:25:[address] [facility] 2022-05-05 2022-05-05 Outpatient LUPILLO OSULLIVAN SLE [id number] [facility] 12:25:12 12:25:12 [facility] 2022-05-05 2022-05-05 Office BUFFY Arshad [facility] [id number] 11:30:00 12:00:00 Visit [facility] 2022-04-28 2022-04-28 Outpatient LUPILLO CHOUDHURY [facility] [id number] [facility] 13:01:01 23:59:[address] [facility] 2022-04-28 2022-04-28 [facility] Champ [facility] [id number] 12:45:00 23:59:00 Encounter [facility] 2022-04-28 2022-04-28 Office BUFFY Arshad [facility] [id number] 13:30:00 14:00:00 Visit [facility] 2022-04-28 2022-04-28 Office BUFFY Llanes [facility] [id number] 13:00:00 13:30:00 Visit [facility] 2022-04-28 2022-04-28 Outpatient LUPILLO OSULLIVAN SLE [id number] [facility] 13:24:42 13:24:42 [facility] 2022-04-28 2022-04-28 Outpatient LUPILLO CHOUDHURY SLE [id number] [facility] 13:23:57 13:23:[address] [facility] 2022-04-28 2022-04-28 Outpatient AMBERLY [facility] [id number] [facility] 00:00:00 00:00:00 SRAVANTHI Gautam 2022-04-24 2022-04-24 Telephone Ghulam [facility] [id number] 00:00:00 00:00:00 [facility] 2022-04-22 2022-04-22 Outpatient LUPILLO ARSHAD SLE [id number] [facility] 00:00:00 00:00:00 [facility] 2022-04-21 2022-04-21 Orders Arpit [facility] [id number] 00:00:00 00:00:00 Only [facility] 2022-04-21 2022-04-21 [id number] 00:00:00 00:00:00 Only [facility] 2022-04-21 2022-04-21 Documentat Virgilio [facility] [id number] 00:00:00 00:00:00 ion Myrna Herbert [facility] 2022-03-30 2022-04-17 Inpatient ER SHANNA [facility] Surgery [id number] SLE 12:31:00 18:41:00 SUN 2022-03-30 2022-04-17 Hospital ER Gloria Rosas [facility] [id number] 12:31:00 18:41:00 [facility] 2022-04-15 2022-04-15 Anesthesia Sage Schulte [facility] [id number] 10:47:00 13:30:00 Event Rufino Padilla [facility] 2022-04-15 2022-04-15 Surgery Amberly [facility] [id number] 09:56:00 13:20:00 [facility] 2022-04-15 2022-04-15 Outpatient JEANCARLOS [facility] [id number] SLE 00:00:00 00:00:00 [facility] 2022-04-10 2022-04-10 Anesthesia Joss Mckeon [facility] [id number] [facility] 11:20:00 13:51:00 Event Leonidas Weiner [facility] 2022-04-10 2022-04-10 Surgery Champ [facility] [id number] 11:30:00 13:23:00 [facility] 2022-04-08 2022-04-08 Outpatient EL JEANCARLOS [facility] [id number] SLE 00:00:00 00:00:00 [facility] 2022-04-06 2022-04-06 Surgery Riccardo [facility] [id number] 09:35:00 11:55:00 [facility] 2022-03-31 2022-03-31 Outpatient [facility] [id number] [facility] 00:00:00 23:59:00 Dain 2022-03-31 2022-03-31 Anesthesia Medardo Velasquez [facility] [id number] 13:09:00 21:44:00 [facility] 2022-03-31 2022-03-31 Surgery Champ, [facility] [id number] 11:30:00 17:15:00 [facility] 2022-03-30 2022-03-30 Outpatient [facility] [id number] [facility] 12:31:00 23:59:00 [facility]in [facility] 2022-03-30 2022-03-30 Surgery Eze, [facility] [id number] 11:50:00 14:19:00 [facility] 2022-03-30 2022-03-30 Outpatient [facility] [id number] [facility] 12:31:00 12:31:00 Colleg e [facility] Medicin e 2022-03-30 2022-03-30 Outpatient [facility] [id number] [facility] 12:31:00 12:31:00 Colleg e [facility] Medicin e 2022-03-30 2022-03-30 Orders [facility] [id number] 00:00:00 00:00:00 [facility] 2022-02-14 2022-02-14 Outpatient FOG_Burke_R AOSM AOSM [id number] [id number] Maggi 00:00:00 00:00:00 Gayle [id number] [facility] 2022-01-13 2022-01-13 Outpatient FOG_Burke_R AOSM AOSM 567 [id number] Maggi 00:00:00 00:00:00 Gayle [id number] [facility] 2022-01-07 2022-01-07 Outpatient FOG_Burke_R AOSM AOSM 567 4922-20 Maggi 00:00:00 00:00:00 Gayle [id number] [facility] 2021-12-06 2021-12-06 Outpatient FOG_Burke_R AOSM AOSM 567 4922-20 Maggi 05:00:00 05:00:00 Gayle [id number] [facility] 2021-11-01 2021-11-01 Outpatient FOG_Burke_R AOSM AOSM 567 4922-20 Maggi 05:57:00 05:57:00 Gayle [id number] [facility] 2020-06-19 2020-06-19 Emergency X JOSÉ ANTONIO, [facility] ERT [id number] [facility] 10:49:00 14:19:00 DERIAN tena [facility] Results Test Description Test Time Test Comments Results Result Comments Source B-TYPE NATRIURETIC FACTOR (BNP) 2022-09-03 14:30:17 Test Item Value Reference Range Interpretation Comme nts B-TYPE NATRIURETIC PEPTIDE (BEAKER) (test code = 700) 40 pg/mL 0-100 Roofer Apprentice ID - ADMINBASIC METABOLIC [id number] 14:27:35 Test Item Value Reference Range Interpretation Comments SODIUM (BEAKER) 134 meq/L 136-145 L (test code = 381) POTASSIUM 4.0 meq/L 3.5-5.1 (BEAKER) (test code = 379) CHLORIDE (BEAKER) 99 meq/L 98-107 (test code = 382) CO2 (BEAKER) 27 meq/L 22-29 (test code = 355) BLOOD UREA 18 mg/dL 7-21 NITROGEN (BEAKER) (test code = 354) CREATININE 1.37 mg/dL 0.57-1.25 H (BEAKER) (test code = 358) GLUCOSE RANDOM 148 mg/dL 70-105 H (BEAKER) (test code = 652) CALCIUM (BEAKER) 9.4 mg/dL 8.4-10.2 (test code = 697) EGFR (BEAKER) 60 Interpretatio n of eGFR (test code = mL/min/1.73 values Stage De scription 1092) sq m Result G1 Idania l or high >=90 G2 Mildly decreased 60-89 G3a Mildl y to moderately 45-5 9 G3b Moderately to s everely 30-44 G4 Severl y decreased 15-29 G5 Kidney failure <15Reported eGF R is based on the CKD-EPI 2020 equation that d oes not use a race coefficientEsti mated GFR is not as accur ate as Creatinine Ai pato in predicting glom erular filtration rate . Estimated GFR is not appl icable for dialysis patien ts Roofer Apprentice ID - [id number] 14:27:35 Test Item Value Reference Range Interpretation Comments MAGNESIUM (BEAKER) (test code = 2.0 mg/dL 1.6-2.6 627) Roofer Apprentice ID - ADMINLIPID [id number] 14:27:35 Test Item Value Reference Range Interpretation Comments TRIGLYCERIDES (BEAKER) (test code = 182 mg/dL 540) CHOLESTEROL (BEAKER) (test code = 136 mg/dL 631) HDL CHOLESTEROL (BEAKER) (test code 34 mg/dL = 976) LDL CHOLESTEROL CALCULATED (BEAKER) 66 mg/dL (test code = 633) Triglyceride Reference Range: Low Risk <150 Borderline 150-199 High Risk 200- 499 Very High Risk >=500Cholesterol Reference Range: Low Risk <200 Borderline 200-239 High Risk >240HDL Cholesterol Reference Range: Low Risk >=60 High Risk <40LDL Cholesterol Reference Range: Optimal <100 Near Optimal 100-129 Borderline 130-159 High 160-189 Very High >=190 Roofer Apprentice ID - ADMINB-TYPE NATRIURETIC FACTOR (BNP)2022-06-04 15:37:18 Test Item Value Reference Range Interpretation Comments B-TYPE NATRIURETIC PEPTIDE (BEAKER) 168 pg/mL 0-100 H (test code = 700) Roofer Apprentice ID - BSBASIC METABOLIC [id number] 15:30:18 Test Item Value Reference Range Interpretation Comments SODIUM (BEAKER) 137 meq/L 136-145 (test code = 381) POTASSIUM 4.6 meq/L 3.5-5.1 (BEAKER) (test code = 379) CHLORIDE (BEAKER) 98 meq/L 98-107 (test code = 382) CO2 (BEAKER) 31 meq/L 22-29 H (test code = 355) BLOOD UREA 31 mg/dL 7-21 H NITROGEN (BEAKER) (test code = 354) CREATININE 1.54 mg/dL 0.57-1.25 H (BEAKER) (test code = 358) GLUCOSE RANDOM 137 mg/dL 70-105 H (BEAKER) (test code = 652) CALCIUM (BEAKER) 10.3 mg/dL 8.4-10.2 H (test code = 697) EGFR (BEAKER) 53 Interpretatio n of eGFR (test code = mL/min/1.73 values Stage De scription 1092) sq m Result G1 Idania l or high >=90 G2 Mildly decreased 60-89 G3a Mildl y to moderately 45-5 9 G3b Moderately to s everely 30-44 G4 Severl y decreased 15-29 G5 Kidney failure <15Reported eGF R is based on the CKD-EPI 2020 equation that d oes not use a race coefficientEsti mated GFR is not as accur ate as Creatinine Ai ptao in predicting glom erular filtration rate . Estimated GFR is not appl icable for dialysis patien ts Roofer Apprentice ID Aleksey CRONIN [id number] 15:30:18 Test Item Value Reference Range Interpretation Comments MAGNESIUM (BEAKER) (test code = 2.6 mg/dL 1.6-2.6 627) Roofer Apprentice ID Aleksey CRONIN WAFB culture + smear (non-sputum)2022-05-28 11:16:23 Test Item Value Reference Range Interpretation Comments Result (test code = No acid-fast bacilli 6463-4) isolated in 42 days AFB Smear (test code = No acid fast bacilli 29479-1) [facility]2022-05-28 11:16:23 Test Item Value Reference Range Interpretation Comments Result (test code = No acid-fast bacilli 6463-4) isolated in 42 days AFB Smear (test code = No acid fast bacilli 19084-4) [facility]-sputum)2022-05-28 11:16:23 Test Item Value Reference Range Interpretation Comments Result (test code = No acid-fast bacilli 6463-4) isolated in 42 days AFB Smear (test code = No acid fast bacilli 75676-4) [facility] (NON-SPUTUM)2022-05-28 11:16:23 Test Item Value Reference Range Interpretation Comments CULTURE (BEAKER) (test No acid-fast bacilli code = 1095) isolated in 42 days AFB SMEAR (BEAKER) No acid fast bacilli (test code = 994) seen BASIC METABOLIC [id number] 14:08:56 Test Item Value Reference Range Interpretation Comments SODIUM (BEAKER) 133 meq/L 136-145 L (test code = 381) POTASSIUM 4.6 meq/L 3.5-5.1 (BEAKER) (test code = 379) CHLORIDE (BEAKER) 99 meq/L 98-107 (test code = 382) CO2 (BEAKER) 28 meq/L 22-29 (test code = 355) BLOOD UREA 23 mg/dL 7-21 H NITROGEN (BEAKER) (test code = 354) CREATININE 1.35 mg/dL 0.57-1.25 H (BEAKER) (test code = 358) GLUCOSE RANDOM 159 mg/dL 70-105 H (BEAKER) (test code = 652) CALCIUM (BEAKER) 9.4 mg/dL 8.4-10.2 (test code = 697) EGFR (BEAKER) 62 Interpretatio n of eGFR (test code = mL/min/1.73 values Stage De scription 1092) sq m Result G1 Idania l or high >=90 G2 Mildly decreased 60-89 G3a Mildl y to moderately 45-5 9 G3b Moderately to s everely 30-44 G4 Severl y decreased 15-29 G5 Kidney failure <15Reported eGF R is based on the CKD-EPI 2020 equation that d oes not use a race coefficientEsti mated GFR is not as accur ate as Creatinine Ai pato in predicting glom erular filtration rate . Estimated GFR is not appl icable for dialysis patien ts Roofer Apprentice ID - [id number] 14:08:56 Test Item Value Reference Range Interpretation Comments MAGNESIUM (BEAKER) (test code = 1.9 mg/dL 1.6-2.6 627) Roofer Apprentice ID - ADMINB-TYPE NATRIURETIC FACTOR (BNP)2022-05-05 14:05:14 Test Item Value Reference Range Interpretation Comments B-TYPE NATRIURETIC PEPTIDE (BEAKER) 327 pg/mL 0-100 H (test code = 700) Roofer Apprentice ID - ADMINRAD, CHEST, 2 [id number] 13:08:00Reason for Exam:- >post op, shortness of breath [facility] CENTERName: TREASURE ROACH : 1965 Sex: MFINAL REPORT CHEST PA AND LATERAL COMPARISON STUDY: 04/28/2022 History provided: Shortness of breath, postop evaluation Heart size normal. Lungs hyperexpanded, with chronic pleural/parenchymal scarring at the left base. Normal vascularity. Multilead left subclavian ICD. Signed: Jermaine Reed MDReport Verified Date/Time: 05/05/2022 13:08:56 Reading Location: [facility] Reading Room [place] [address] 1.310.12 HEPATIC FUNCTION [id number] 17:34:48 Test Item Value Reference Range Interpretation Comments TOTAL PROTEIN (BEAKER) (test code = 7.6 gm/dL 6.0-8.3 770) ALBUMIN (BEAKER) (test code = 1145) 3.8 g/dL 3.5-5.0 BILIRUBIN TOTAL (BEAKER) (test code 0.3 mg/dL 0.2-1.2 = 377) BILIRUBIN DIRECT (BEAKER) (test 0.2 mg/dL 0.1-0.5 code = 706) ALKALINE PHOSPHATASE (BEAKER) (test 139 U/L 40-150 code = 346) AST (SGOT) (BEAKER) (test code = 21 U/L 5-34 353) ALT (SGPT) (BEAKER) (test code = 26 U/L 6-55 347) [employer] App[employer]ice ID - SAMANTHA BBASIC METABOLIC [id number] 14:04:33 Test Item Value Reference Range Interpretation Comments SODIUM (BEAKER) 134 meq/L 136-145 L (test code = 381) POTASSIUM 4.1 meq/L 3.5-5.1 (BEAKER) (test code = 379) CHLORIDE (BEAKER) 95 meq/L 98-107 L (test code = 382) CO2 (BEAKER) 29 meq/L 22-29 (test code = 355) BLOOD UREA 25 mg/dL 7-21 H NITROGEN (BEAKER) (test code = 354) CREATININE 2.01 mg/dL 0.57-1.25 H (BEAKER) (test code = 358) GLUCOSE RANDOM 158 mg/dL 70-105 H (BEAKER) (test code = 652) CALCIUM (BEAKER) 9.0 mg/dL 8.4-10.2 (test code = 697) EGFR (BEAKER) 38 Interpretatio n of eGFR (test code = mL/min/1.73 values Stage De scription 1092) sq m Result G1 Idania l or high >=90 G2 Mildly decreased 60-89 G3a Mildl y to moderately 45-5 9 G3b Moderately to s everely 30-44 G4 Severl y decreased 15-29 G5 Kidney failure <15Reported eGF R is based on the CKD-EPI 2020 equation that d oes not use a race coefficientEsti mated GFR is not as accur ate as Creatinine Ai pato in predicting glom erular filtration rate . Estimated GFR is not appl icable for dialysis patien ts Roofer Apprentice ID - SAMANTHA ALISHA, CHEST, 2 [id number] 13:33:00Reason for Exam:- >post [facility] 1965 Sex: MFINAL REPORT INDICATION: post surgical follow up COMPARISON: None TECHNIQUE: AP and lateral view of the chest. FINDINGS: Lungs and pleura: Clear lungs. No effusion.Heart and mediastinum: Normal heart size. Unremarkable mediastinal contours.Osseous structures: No acute abnormality.Other: Pacer. IMPRESSION: No acute intrathoracic abnormality. Signed: Sruthi Barahona Verified Date/Time: 04/28/2022 13:33:27 Reading Location: [address] Reading Room Fungus culture + [id number] 00:26:02 Test Item Value Reference Range Interpretation Comments Result (test code = <1+ Bernice A 6463-4) tropicalis Fungus Smear (test code = No fungi seen 1406) Lab Interpretation (test Abnormal code = 39315-2) [facility] [id number] 00:26:02 Test Item Value Reference Range Interpretation Comments Result (test code = <1+ Bernice A 6463-4) tropicalis Fungus Smear (test code = No fungi seen 1406) Lab Interpretation (test Abnormal code = 87321-7) [facility] [id number] 00:26:02 Test Item Value Reference Range Interpretation Comments Result (test code = <1+ Bernice A 6463-4) tropicalis Fungus Smear (test code = No fungi seen 1406) Lab Interpretation (test Abnormal code = 92439-5) [facility] [id number] 00:26:02 Test Item Value Reference Range Interpretation Comments Result (test code = <1+ Bernice A 6463-4) tropicalis Fungus Smear (test code = No fungi seen 1406) Lab Interpretation (test Abnormal code = 45943-7) [facility] [id number] 00:26:02 Test Item Value Reference Range Interpretation Comments CULTURE (BEAKER) A <1+ Bernice (test code = 1095) tropicali s FUNGUS SMEAR No fungi seen (BEAKER) (test code = 1406) 2D Echo W/Doppler(CW/PW/Color)2022-04-18 16:35:27Ejection FractionSLEH ECHO HEARTLAB [facility] W/Doppler(CW/PW/Color)2022-04-18 16:35:27Ejection FractionSLEH ECHO HEARTLAB [facility] Echo W/Doppler(CW/PW/Color) 2022-04-18 16:35:27Ejection FractionSLEH ECHO HEARTLAB [facility] Echo W/Doppler(CW/PW/Color)2022-04-18 16:35:27Ejection FractionSLE ECHO HEARTLAB [facility]ucose [id number] 12:19:53 Test Item Value Reference Range Interpretation Comments POC-Glucose Meter (test 263 mg/dL 70-110 H : TE STED AT [facility] code = 1538) [address] [place] [address], 770 30: Roofer Apprentice/Techni earnest ID = [id number] for ORPHEY, HOA Lab Interpretation (test Abnormal code = 03726-5) [facility]-Glucose [id number] 12:19:53 Test Item Value Reference Range Interpretation Comments POC-Glucose Meter (test 263 mg/dL 70-110 H : TE STED AT [facility] code = 1538) [address] [place] [address], 770 30: Roofer Apprentice/Techni earnest ID = [id number] for ORPHEY, HOA Lab Interpretation (test Abnormal code = 73212-8) [facility]-Glucose [id number] 12:19:53 Test Item Value Reference Range Interpretation Comments POC-Glucose Meter (test 263 mg/dL 70-110 H : TE STED AT [facility] code = 1538) [address] [place] [address], 770 30: Roofer Apprentice/Techni earnest ID = [id number] for ORPHEY, HOA Lab Interpretation (test Abnormal code = 07358-8) [facility]-Glucose [id number] 12:19:53 Test Item Value Reference Range Interpretation Comments POC-Glucose Meter (test 263 mg/dL 70-110 H : TE STED AT [facility] code = 1538) [address] [place] [address], 770 30: Roofer Apprentice/Techni earnest ID = [id number] for ORPHEY, HOA Lab Interpretation (test Abnormal code = 63934-2) [facility]-GLUCOSE [id number] 12:19:53 Test Item Value Reference Range Interpretation Comments POC-GLUCOSE METER 263 mg/dL 70-110 H : TESTED A T [facility] 6720 (BEAKER) (test code = [address] [place], 1538) [address]: Roofer Apprentice/Techni earnest ID = [id number] for OR HOA BERNAL POCT-GLUCOSE [id number] 08:03:13 Test Item Value Reference Range Interpretation Comments POC-GLUCOSE METER 154 mg/dL 70-110 H : TESTED A T [facility] 6720 (BEAKER) (test code = [address] [place], 1538) [address]: Roofer Apprentice/Techni earnest ID = [id number] for OR HOA BERNAL CBC W/PLT COUNT & AUTO [id number] 04:34:26 Test Item Value Reference Range Interpretation Comments WHITE BLOOD CELL COUNT (BEAKER) 10.0 K/ L 3.5-10.5 (test code = 775) RED BLOOD CELL COUNT (BEAKER) 3.42 M/ L 4.63-6.08 L (test code = 761) HEMOGLOBIN (BEAKER) (test code = 10.1 GM/DL 13.7-17.5 L 410) HEMATOCRIT (BEAKER) (test code = 32.0 % 40.1-51.0 L 411) MEAN CORPUSCULAR VOLUME (BEAKER) 94 fL 79-92 H (test code = 753) MEAN CORPUSCULAR HEMOGLOBIN 29.5 pg 25.7-32.2 (BEAKER) (test code = 751) MEAN CORPUSCULAR HEMOGLOBIN CONC 31.6 GM/DL 32.3-36.5 L (BEAKER) (test code = 752) RED CELL DISTRIBUTION WIDTH 19.4 % 11.6-14.4 H (BEAKER) (test code = 412) PLATELET COUNT (BEAKER) (test 619 K/CU MM 150-450 H code = 756) MEAN PLATELET VOLUME (BEAKER) 9.7 fL 9.4-12.4 (test code = 754) NUCLEATED RED BLOOD CELLS 0 /100 WBC 0-0 (BEAKER) (test code = 413) NEUTROPHILS RELATIVE PERCENT 68 % (BEAKER) (test code = 429) LYMPHOCYTES RELATIVE PERCENT 17 % (BEAKER) (test code = 430) MONOCYTES RELATIVE PERCENT 11 % (BEAKER) (test code = 431) EOSINOPHILS RELATIVE PERCENT 3 % (BEAKER) (test code = 432) BASOPHILS RELATIVE PERCENT 1 % (BEAKER) (test code = 437) NEUTROPHILS ABSOLUTE COUNT 6.86 K/ L 1.78-5.38 H (BEAKER) (test code = 670) LYMPHOCYTES ABSOLUTE COUNT 1.66 K/ L 1.32-3.57 (BEAKER) (test code = 414) MONOCYTES ABSOLUTE COUNT (BEAKER) 1.08 K/ L 0.30-0.82 H (test code = 415) EOSINOPHILS ABSOLUTE COUNT 0.25 K/ L 0.04-0.54 (BEAKER) (test code = 416) BASOPHILS ABSOLUTE COUNT (BEAKER) 0.11 K/ L 0.01-0.08 H (test code = 417) IMMATURE GRANULOCYTES-RELATIVE 0.80 % 0.00-1.00 PERCENT (BEAKER) (test code = 2801) [id number] 04:30:40 Test Item Value Reference Range Interpretation Comments MAGNESIUM (BEAKER) (test code = 1.6 mg/dL 1.6-2.6 627) Roofer Apprentice ID - CRISTIAN [id number] 04:30:40 Test Item Value Reference Range Interpretation Comments PHOSPHORUS (BEAKER) (test code = 3.0 mg/dL 2.3-4.7 604) Roofer Apprentice ID - CRISTIAN MBASIC METABOLIC [id number] 04:30:39 Test Item Value Reference Range Interpretation Comments SODIUM (BEAKER) 135 meq/L 136-145 L (test code = 381) POTASSIUM 4.6 meq/L 3.5-5.1 (BEAKER) (test code = 379) CHLORIDE (BEAKER) 102 meq/L 98-107 (test code = 382) CO2 (BEAKER) 26 meq/L 22-29 (test code = 355) BLOOD UREA 27 mg/dL 7-21 H NITROGEN (BEAKER) (test code = 354) CREATININE 1.85 mg/dL 0.57-1.25 H (BEAKER) (test code = 358) GLUCOSE RANDOM 153 mg/dL 70-105 H (BEAKER) (test code = 652) CALCIUM (BEAKER) 8.3 mg/dL 8.4-10.2 L (test code = 697) EGFR (BEAKER) 42 Interpretati on of eGFR (test code = mL/min/1.73 values Stage De scription 1092) sq m Result G1 Idania l or high >=90 G2 Mildly decreased 60-89 G3a Mildl y to moderately 45-5 9 G3b Moderately to s everely 30-44 G4 Severl y decreased 15-29 G5 Kidney failure <15Reported eGF R is based on the CKD-EPI 2020 equation that d oes not use a race coefficientEsti mated GFR is not as accur ate as Creatinine Ai pato in predicting glom erular filtration rate . Estimated GFR is not appl icable for dialysis patien ts Roofer Apprentice ID - CRISTIAN MCALCIUM, [id number] 04:03:44 Test Item Value Reference Range Interpretation Comments CALCIUM IONIZED (BEAKER) (test 1.08 mmol/L 1.12-1.27 L code = 698) PH, BLOOD (BEAKER) (test code = 7.40 1810) RAD, CHEST, 2 [id number] 22:58:00Reason for exam:->post icdShould this be performed at the bedside?->Yes [facility] 1965 Sex: MFINAL REPORT TECHNIQUE: Frontal and lateral views of the chest. INDICATION: posticd COMPARISON: 04/16/2022 at 10:40 AM FINDINGS: LINES/TUBES: None. LUNGS: Linear atelectasis or scarring within the left lower lung, as before. No pulmonary edema. PLEURA: Small bilateral pleural effusions, unchanged. No pneumothorax. HEART AND MEDIASTINUM: The cardiomediastinal contour stable. Priormedian sternotomy CABG. Dual-chamber pacer/ICD device with electrodes projecting over the right atrium and right ventricle, as before. SOFT TISSUES AND BONES: Unremarkable. IMPRESSION: 1. Dual chamber pacer/ICD device with electrodes projecting over the right atrium and right ventricle, unchanged. No pneumothorax.2. Persistent small bilateral pleural effusions and bibasilar atelectatic changes. No pulmonary edema. Signed: Kingsley Segal MDReport Verified Date/Time: 04/16/2022 22:58:43 POCT-GLUCOSE [id number] 17:57:17 Test Item Value Reference Range Interpretation Comments POC-GLUCOSE METER 150 mg/dL 70-110 H : TESTED A T [facility] 6720 (BEAKER) (test [facility] = [facility], 1538) [address]: Roofer Apprentice/Techni earnest ID = [id number] for OR PHEY, HOA [id number] 14:55:20 Test Item Value Reference Range Interpretation Comments POTASSIUM (BEAKER) 3.2 meq/L 3.5-5.1 L Specimen slightly (test code = 379) hemolyzed Roofer Apprentice ID - MARCOPOCT-GLUCOSE [id number] 12:35:55 Test Item Value Reference Range Interpretation Comments POC-GLUCOSE METER 198 mg/dL 70-110 H : TESTED A T [facility] 6720 (BEAKER) (test code = [address] Lu [facility], 1538) [address]: Roofer Apprentice/Techni earnest ID = [id number] for OR PHEY, HOA RAD, CHEST, 1 VIEW, NON [id number] 12:34:00Reason for exam:->post device Should this be performed at the bedside?->Yes [facility] : 1965 Sex: MFINAL REPORT RAD, CHEST, 1 VIEW, NON DEPT INDICATION: post device COMPARISON: Prior day's exam TECHNIQUE: Portable frontal view of the chest. FINDINGS: Support Lines and Devices: Stable. Lungs and pleura: Unchanged airspace and pleural opacities. No pneumothorax identified. Heart and mediastinum: Stable contours. Stable surgical changes. Additional findings: Large osteophytes at the bilateral AC joints. Suture anchors in the bilateral humeral heads. IMPRESSION: 1.No significant change from prior exam.2.Small bilateral pleural effusions. Signed: Guero Dean Verified Date/Time: 04/16/2022 12:34:00 Reading Location: [address] Reading Room POCT- GLUCOSE [id number] 06:52:06 Test Item Value Reference Range Interpretation Comments POC-GLUCOSE METER 170 mg/dL 70-110 H : TESTED A T [facility] 6720 ([employer] (test code = [place], 1538) [address]: Roofer Apprentice/Techni earnest ID = [id number] for Emelia Sanchez se PT/[id number] 05:20:54 Test Item Value Reference Range Interpretation Comments PROTIME ([employer] (test 13.8 seconds 11.9-14.2 code = 759) INR ([employer] (test 1.08 See_Comment [Automat ed code = 370) message] The sy stem which generated this result transmitted reference range : <=5.90. The reference range was not used to interpret this result as normal/abnormal . PARTIAL THROMBOPLASTIN 22.7 seconds 22.5-36.0 TIME (Wish DaysJUAN) (test code = 760) RECOMMENDED COUMADIN/WARFARIN INR THERAPY RANGESSTANDARD DOSE: 2.0 - 3.0 Includes: PROPHYLAXIS for venous thrombosis, systemic embolization; TREATMENT for venous thrombosis and/or pulmonary embolus.HIGH RISK: Target INR is 2.5-3.5 for patients with mechanical heart valves.[id number] 05:02:23 Test Item Value Reference Range Interpretation Comments PHOSPHORUS (BEAKER) (test code = 3.3 mg/dL 2.3-4.7 604) Roofer Apprentice ID Aleksey FOSTER [id number] 05:02:22 Test Item Value Reference Range Interpretation Comments MAGNESIUM (BEAKER) (test code = 1.5 mg/dL 1.6-2.6 L 627) Roofer Apprentice ID - CRISTIAN MBASIC METABOLIC [id number] 05:02:22 Test Item Value Reference Range Interpretation Comments SODIUM (BEAKER) 137 meq/L 136-145 (test code = 381) POTASSIUM 4.4 meq/L 3.5-5.1 (BEAKER) (test code = 379) CHLORIDE (BEAKER) 104 meq/L 98-107 (test code = 382) CO2 (BEAKER) 24 meq/L 22-29 (test code = 355) BLOOD UREA 26 mg/dL 7-21 H NITROGEN (BEAKER) (test code = 354) CREATININE 1.90 mg/dL 0.57-1.25 H (BEAKER) (test code = 358) GLUCOSE RANDOM 147 mg/dL 70-105 H (BEAKER) (test code = 652) CALCIUM (BEAKER) 8.3 mg/dL 8.4-10.2 L (test code = 697) EGFR (BEAKER) 41 Interpretatio n of eGFR (test code = mL/min/1.73 values Stage De scription 1092) sq m Result G1 Idania l or high >=90 G2 Mildly decreased 60-89 G3a Mildl y to moderately 45-5 9 G3b Moderately to s everely 30-44 G4 Severl y decreased 15-29 G5 Kidney failure <15Reported eGF R is based on the CKD-EPI 1 equation that d oes not use a race coefficientEsti mated GFR is not as accur ate as Creatinine Ai pato in predicting glom erular filtration rate . Estimated GFR is not appl icable for dialysis patien ts Roofer Apprentice ID Aleksey FOSTER MCALCIUM, [id number] 04:59:25 Test Item Value Reference Range Interpretation Comments CALCIUM IONIZED (BEAKER) (test 1.08 mmol/L 1.12-1.27 L code = 698) PH, BLOOD (BEAKER) (test code = 7.45 1810) CBC W/PLT COUNT & AUTO [id number] 04:35:32 Test Item Value Reference Range Interpretation Comments WHITE BLOOD CELL COUNT (BEAKER) 10.0 K/ L 3.5-10.5 (test code = 775) RED BLOOD CELL COUNT (BEAKER) 3.52 M/ L 4.63-6.08 L (test code = 761) HEMOGLOBIN (BEAKER) (test code = 10.0 GM/DL 13.7-17.5 L 410) HEMATOCRIT (BEAKER) (test code = 32.9 % 40.1-51.0 L 411) MEAN CORPUSCULAR VOLUME (BEAKER) 94 fL 79-92 H (test code = 753) MEAN CORPUSCULAR HEMOGLOBIN 28.4 pg 25.7-32.2 (BEAKER) (test code = 751) MEAN CORPUSCULAR HEMOGLOBIN CONC 30.4 GM/DL 32.3-36.5 L (BEAKER) (test code = 752) RED CELL DISTRIBUTION WIDTH 19.2 % 11.6-14.4 H (BEAKER) (test code = 412) PLATELET COUNT (BEAKER) (test 487 K/CU MM 150-450 H code = 756) MEAN PLATELET VOLUME (BEAKER) 10.4 fL 9.4-12.4 (test code = 754) NUCLEATED RED BLOOD CELLS 0 /100 WBC 0-0 (BEAKER) (test code = 413) NEUTROPHILS RELATIVE PERCENT 73 % (BEAKER) (test code = 429) LYMPHOCYTES RELATIVE PERCENT 14 % (BEAKER) (test code = 430) MONOCYTES RELATIVE PERCENT 8 % (BEAKER) (test code = 431) EOSINOPHILS RELATIVE PERCENT 2 % (BEAKER) (test code = 432) BASOPHILS RELATIVE PERCENT 1 % (BEAKER) (test code = 437) NEUTROPHILS ABSOLUTE COUNT 7.34 K/ L 1.78-5.38 H (BEAKER) (test code = 670) LYMPHOCYTES ABSOLUTE COUNT 1.45 K/ L 1.32-3.57 (BEAKER) (test code = 414) MONOCYTES ABSOLUTE COUNT (BEAKER) 0.84 K/ L 0.30-0.82 H (test code = 415) EOSINOPHILS ABSOLUTE COUNT 0.24 K/ L 0.04-0.54 (BEAKER) (test code = 416) BASOPHILS ABSOLUTE COUNT (BEAKER) 0.10 K/ L 0.01-0.08 H (test code = 417) IMMATURE GRANULOCYTES-RELATIVE 0.70 % 0.00-1.00 PERCENT (BEAKER) (test code = 2801) POCT-GLUCOSE [id number] 21:28:15 Test Item Value Reference Range Interpretation Comments POC-GLUCOSE METER 291 mg/dL 70-110 H : TESTED A T [facility] 6720 (JOSE) (test code = [place], 1538) [address]: Roofer Apprentice/Techni earnest ID = [id number] for Br istol, Adwoaa RAD, CHEST, 1 VIEW, NON [id number] 19:24:00Reason for exam:->s/p CABG/Chest Compression/ IABP placement and removal/impella placement and rem ovalShould this be performed at the bedside?->Yes [facility] 1965 Sex: MFINAL REPORT EXAM/TECHNIQUE: Single view frontal radiograph of the chest. INDICATION: Status post CABG, chest compressionCOMPARISON: 04/11/2022 FINDINGS: Devices/Objects: Status post left pectoral AICD. Lungs: Hazy left greater than right basilar pulmonary opacities and small bilateral pleural effusions. Heart/Mediastinum: Similar cardiac prominence with increased interstitial thickening. Osseous: No acute osseous process. No suspicious osseous lesion. Upper abdomen: Unremarkable. Impression: Slightly increased pulmonary edema. Signed: Anatoly [facility] Verified Date/Time: 04/15/2022 19:24:09 -GLUCOSE [id number] 13:46:51 Test Item Value Reference Range Interpretation Comments POC-GLUCOSE METER 191 mg/dL 70-110 H : TESTED A T [facility] 6720 (BEAKER) (test code = [address] Lu [facility], 1538) [address]: Roofer Apprentice/Techni earnest ID = [id number] for IBARRA LEELEE HEMOGLOBIN AND [id number] 09:32:43 Test Item Value Reference Range Interpretation Comments HEMOGLOBIN (BEAKER) (test code = 11.2 GM/DL 13.7-17.5 L 410) HEMATOCRIT (BEAKER) (test code = 35.7 % 40.1-51.0 L 411) Roofer Apprentice ID - 6000POCT-GLUCOSE [id number] 08:09:46 Test Item Value Reference Range Interpretation Comments POC-GLUCOSE METER 162 mg/dL 70-110 H : TESTED A T [facility] 6720 (BEAKER) (test code [facility], = 1538) [address]: Roofer Apprentice/Techni earnest ID = [id number] for Adamaris Nj URIC [id number] 05:20:35 Test Item Value Reference Range Interpretation Comments URIC ACID (BEAKER) (test code = 3.2 mg/dL 2.6-7.2 773) Roofer Apprentice ID - MEHRDAD [id number] 05:20:34 Test Item Value Reference Range Interpretation Comments MAGNESIUM (BEAKER) (test code = 1.5 mg/dL 1.6-2.6 L 627) Roofer Apprentice ID - MEHRDAD [id number] 05:20:34 Test Item Value Reference Range Interpretation Comments PHOSPHORUS (BEAKER) (test code = 2.7 mg/dL 2.3-4.7 604) Roofer Apprentice ID - MEHRDAD WBASIC METABOLIC [id number] 05:20:33 Test Item Value Reference Range Interpretation Comments SODIUM (BEAKER) 138 meq/L 136-145 (test code = 381) POTASSIUM 3.9 meq/L 3.5-5.1 (BEAKER) (test code = 379) CHLORIDE (BEAKER) 106 meq/L 98-107 (test code = 382) CO2 (BEAKER) 25 meq/L 22-29 (test code = 355) BLOOD UREA 31 mg/dL 7-21 H NITROGEN (BEAKER) (test code = 354) CREATININE 1.94 mg/dL 0.57-1.25 H (BEAKER) (test code = 358) GLUCOSE RANDOM 160 mg/dL 70-105 H (BEAKER) (test code = 652) CALCIUM (BEAKER) 8.0 mg/dL 8.4-10.2 L (test code = 697) EGFR (BEAKER) 40 Interpretatio n of eGFR (test code = mL/min/1.73 values Stage De scription 1092) sq m Result G1 Idania l or high >=90 G2 Mildly decreased 60-89 G3a Mildl y to moderately 45-5 9 G3b Moderately to s everely 30-44 G4 Severl y decreased 15-29 G5 Kidney failure <15Reported eGF R is based on the CKD-EPI 2020 equation that d oes not use a race coefficientEsti mated GFR is not as accur ate as Creatinine Ai pato in predicting glom erular filtration rate . Estimated GFR is not appl icable for dialysis patien ts Roofer Apprentice ID Aleksey CRONIN WPT/[id number] 05:05:52 Test Item Value Reference Range Interpretation Comments PROTIME (BEAKER) (test 13.6 seconds 11.9-14.2 code = 759) INR (BEAKER) (test 1.06 See_Comment [Automat ed code = 370) message] The sy stem which generated this result transmitted reference range : <=5.90. The reference range was not used to interpret this result as normal/abnormal . PARTIAL THROMBOPLASTIN 90.1 seconds 22.5-36.0 H TIME (BEAKER) (test code = 760) RECOMMENDED COUMADIN/WARFARIN INR THERAPY RANGESSTANDARD DOSE: 2.0 - 3.0 Includes: PROPHYLAXIS for venous thrombosis, systemic embolization; TREATMENT for venous thrombosis and/or pulmonary embolus.HIGH RISK: Target INR is 2.5-3.5 for patients with mechanical heart valves.[id number] 05:05:51 Test Item Value Reference Range Interpretation Comments PARTIAL THROMBOPLASTIN TIME 90.1 seconds 22.5-36.0 H (BEAKER) (test code = 760) CBC W/PLT COUNT & AUTO [id number] 05:00:12 Test Item Value Reference Range Interpretation Comments WHITE BLOOD CELL COUNT (BEAKER) 9.8 K/ L 3.5-10.5 (test code = 775) RED BLOOD CELL COUNT (BEAKER) 3.46 M/ L 4.63-6.08 L (test code = 761) HEMOGLOBIN (BEAKER) (test code = 9.9 GM/DL 13.7-17.5 L 410) HEMATOCRIT (BEAKER) (test code = 32.1 % 40.1-51.0 L 411) MEAN CORPUSCULAR VOLUME (BEAKER) 93 fL 79-92 H (test code = 753) MEAN CORPUSCULAR HEMOGLOBIN 28.6 pg 25.7-32.2 (BEAKER) (test code = 751) MEAN CORPUSCULAR HEMOGLOBIN CONC 30.8 GM/DL 32.3-36.5 L (BEAKER) (test code = 752) RED CELL DISTRIBUTION WIDTH 18.8 % 11.6-14.4 H (BEAKER) (test code = 412) PLATELET COUNT (BEAKER) (test 627 K/CU MM 150-450 H code = 756) MEAN PLATELET VOLUME (BEAKER) 10.1 fL 9.4-12.4 (test code = 754) NUCLEATED RED BLOOD CELLS 0 /100 WBC 0-0 (BEAKER) (test code = 413) NEUTROPHILS RELATIVE PERCENT 66 % (BEAKER) (test code = 429) LYMPHOCYTES RELATIVE PERCENT 21 % (BEAKER) (test code = 430) MONOCYTES RELATIVE PERCENT 9 % (BEAKER) (test code = 431) EOSINOPHILS RELATIVE PERCENT 3 % (BEAKER) (test code = 432) BASOPHILS RELATIVE PERCENT 1 % (BEAKER) (test code = 437) NEUTROPHILS ABSOLUTE COUNT 6.40 K/ L 1.78-5.38 H (BEAKER) (test code = 670) LYMPHOCYTES ABSOLUTE COUNT 2.00 K/ L 1.32-3.57 (BEAKER) (test code = 414) MONOCYTES ABSOLUTE COUNT (BEAKER) 0.87 K/ L 0.30-0.82 H (test code = 415) EOSINOPHILS ABSOLUTE COUNT 0.28 K/ L 0.04-0.54 (BEAKER) (test code = 416) BASOPHILS ABSOLUTE COUNT (BEAKER) 0.10 K/ L 0.01-0.08 H (test code = 417) IMMATURE GRANULOCYTES-RELATIVE 1.20 % 0.00-1.00 H PERCENT (BEAKER) (test code = 2801) PH, [id number] 04:48:41 Test Item Value Reference Range Interpretation Comments PH VENOUS (BEAKER) (test code = 701) 7.44 7.32-7.42 H CALCIUM, [id number] 04:48:40 Test Item Value Reference Range Interpretation Comments CALCIUM IONIZED (BEAKER) (test 1.06 mmol/L 1.12-1.27 L code = 698) PH, BLOOD (BEAKER) (test code = 7.44 1810) POCT-GLUCOSE [id number] 20:48:15 Test Item Value Reference Range Interpretation Comments POC-GLUCOSE METER 202 mg/dL 70-110 H : TESTED A T [facility] 6720 (BEAKER) ([facility], 1538) 10326: Roofer Apprentice/Techni earnest ID = [id number] for CARRINGTNO BAZZI POCT-GLUCOSE [id number] 17:35:36 Test Item Value Reference Range Interpretation Comments POC-GLUCOSE METER 218 mg/dL 70-110 H : TESTED A T [facility] 6720 (BEAKER) (test code [facility], = 1538) 09792: Roofer Apprentice/Techni earnest ID = [id number] for Harsha rs, Adamaris POCT-GLUCOSE [id number] 11:34:37 Test Item Value Reference Range Interpretation Comments POC-GLUCOSE METER 196 mg/dL 70-110 H : TESTED A T [facility] 6720 (BEAKER) (test code [facility], = 1538) 63142: Roofer Apprentice/Techni earnest ID = [id number] for Harsha rs, Adamaris POCT-GLUCOSE [id number] 07:43:32 Test Item Value Reference Range Interpretation Comments POC-GLUCOSE METER 175 mg/dL 70-110 H : TESTED A T [facility] 6720 (BEAKER) (test code [facility], = 1538) 99338: Roofer Apprentice/Techni earnest ID = [id number] for Harsha rs, Adamaris [id number] 06:32:19 Test Item Value Reference Range Interpretation Comments PHOSPHORUS (BEAKER) (test code = 2.5 mg/dL 2.3-4.7 604) Roofer Apprentice ID - CRISTIAN [employer]AS[employer] [id number] 06:32:18 Test Item Value Reference Range Interpretation Comments SODIUM (BEAKER) 137 meq/L 136-145 (test code = 381) POTASSIUM 3.9 meq/L 3.5-5.1 (BEAKER) (test code = 379) CHLORIDE (BEAKER) 109 meq/L 98-107 H (test code = 382) CO2 (BEAKER) 23 meq/L 22-29 (test code = 355) BLOOD UREA 39 mg/dL 7-21 H NITROGEN (BEAKER) (test code = 354) CREATININE 1.93 mg/dL 0.57-1.25 H (BEAKER) (test code = 358) GLUCOSE RANDOM 182 mg/dL 70-105 H (BEAKER) (test code = 652) CALCIUM (BEAKER) 8.3 mg/dL 8.4-10.2 L (test code = 697) EGFR (BEAKER) 40 Interpretatio n of eGFR (test code = mL/min/1.73 values Stage De scription 1092) sq m Result G1 Idania l or high >=90 G2 Mildly decreased 60-89 G3a Mildl y to moderately 45-5 9 G3b Moderately to s everely 30-44 G4 Severl y decreased 15-29 G5 Kidney failure <15Reported eGF R is based on the CKD-EPI 2020 equation that d oes not use a race coefficientEsti mated GFR is not as accur ate as Creatinine Ai pato in predicting glom erular filtration rate . Estimated GFR is not appl icable for dialysis patien ts Roofer Apprentice ID - CRISTIAN [id number] 06:32:18 Test Item Value Reference Range Interpretation Comments MAGNESIUM (BEAKER) (test code = 1.8 mg/dL 1.6-2.6 627) Roofer Apprentice ID - CRISTIAN [id number] 05:34:53 Test Item Value Reference Range Interpretation Comments PROTIME (BEAKER) (test 12.8 seconds 11.9-14.2 code = 759) INR (BEAKER) (test 0.98 See_Comment [Automat ed code = 370) message] The sy stem which generated this result transmitted reference range : <=5.90. The reference range was not used to interpret this result as normal/abnormal . PARTIAL THROMBOPLASTIN 83.8 seconds 22.5-36.0 H TIME (BEAKER) (test code = 760) RECOMMENDED COUMADIN/WARFARIN INR THERAPY RANGESSTANDARD DOSE: 2.0 - 3.0 Includes: PROPHYLAXIS for venous thrombosis, systemic embolization; TREATMENT for venous thrombosis and/or pulmonary embolus.HIGH RISK: Target INR is 2.5-3.5 for patients with mechanical heart valves.[id number] 05:34:52 Test Item Value Reference Range Interpretation Comments PARTIAL THROMBOPLASTIN TIME 83.8 seconds 22.5-36.0 H (BEAKER) (test code = 760) CBC W/PLT COUNT & AUTO [id number] 05:18:43 Test Item Value Reference Range Interpretation Comments WHITE BLOOD CELL COUNT (BEAKER) 11.0 K/ L 3.5-10.5 H (test code = 775) RED BLOOD CELL COUNT (BEAKER) 3.96 M/ L 4.63-6.08 L (test code = 761) HEMOGLOBIN (BEAKER) (test code = 11.1 GM/DL 13.7-17.5 L 410) HEMATOCRIT (BEAKER) (test code = 36.4 % 40.1-51.0 L 411) MEAN CORPUSCULAR VOLUME (BEAKER) 92 fL 79-92 (test code = 753) MEAN CORPUSCULAR HEMOGLOBIN 28.0 pg 25.7-32.2 (BEAKER) (test code = 751) MEAN CORPUSCULAR HEMOGLOBIN CONC 30.5 GM/DL 32.3-36.5 L (BEAKER) (test code = 752) RED CELL DISTRIBUTION WIDTH 18.6 % 11.6-14.4 H (BEAKER) (test code = 412) PLATELET COUNT (BEAKER) (test 633 K/CU MM 150-450 H code = 756) MEAN PLATELET VOLUME (BEAKER) 9.8 fL 9.4-12.4 (test code = 754) NUCLEATED RED BLOOD CELLS 0 /100 WBC 0-0 (BEAKER) (test code = 413) NEUTROPHILS RELATIVE PERCENT 73 % (BEAKER) (test code = 429) LYMPHOCYTES RELATIVE PERCENT 15 % (BEAKER) (test code = 430) MONOCYTES RELATIVE PERCENT 7 % (BEAKER) (test code = 431) EOSINOPHILS RELATIVE PERCENT 2 % (BEAKER) (test code = 432) BASOPHILS RELATIVE PERCENT 1 % (BEAKER) (test code = 437) NEUTROPHILS ABSOLUTE COUNT 7.97 K/ L 1.78-5.38 H (BEAKER) (test code = 670) LYMPHOCYTES ABSOLUTE COUNT 1.68 K/ L 1.32-3.57 (BEAKER) (test code = 414) MONOCYTES ABSOLUTE COUNT (BEAKER) 0.80 K/ L 0.30-0.82 (test code = 415) EOSINOPHILS ABSOLUTE COUNT 0.26 K/ L 0.04-0.54 (BEAKER) (test code = 416) BASOPHILS ABSOLUTE COUNT (BEAKER) 0.09 K/ L 0.01-0.08 H (test code = 417) IMMATURE GRANULOCYTES-RELATIVE 1.70 % 0.00-1.00 H PERCENT (BEAKER) (test code = 2801) CALCIUM, [id number] 05:16:25 Test Item Value Reference Range Interpretation Comments CALCIUM IONIZED (BEAKER) (test 1.10 mmol/L 1.12-1.27 L code = 698) PH, BLOOD (BEAKER) (test code = 7.41 1810) POCT-GLUCOSE [id number] 21:51:13 Test Item Value Reference Range Interpretation Comments POC-GLUCOSE METER 156 mg/dL 70-110 H : TESTED A T [facility] 6720 (BEAKER) (test code = [facility], 153) [id number]: Roofer Apprentice/Techni earnest ID = [id number] for Ma Meera mayfield POCT-GLUCOSE [id number] 17:41:21 Test Item Value Reference Range Interpretation Comments POC-GLUCOSE METER 214 mg/dL 70-110 H : TESTED A T [facility] 6720 (BEAKER) (test code = [facility], 153) [id number]: Roofer Apprentice/Techni earnest ID = [id number] for OR PHEY, HOA POCT-GLUCOSE [id number] 12:12:04 Test Item Value Reference Range Interpretation Comments POC-GLUCOSE METER 227 mg/dL 70-110 H : TESTED A T [facility] 6720 (BEAKER) (test code = [facility], 153) [id number]: Roofer Apprentice/Techni earnest ID = [id number] for OR PHEY, HOA [id number] 11:30:52 Test Item Value Reference Range Interpretation Comments PARTIAL THROMBOPLASTIN TIME 69.5 seconds 22.5-36.0 H (BEAKER) (test code = 760) Bronchial Culture + Gram [id number] 09:27:59 Test Item Value Reference Range Interpretation Comments Result (test code = <1+ Normal respiratory 6463-4) denise present Gram Stain Result No organisms seen (test code = 1123) [facility] [id number] 09:27:59 Test Item Value Reference Range Interpretation Comments Result (test code = <1+ Normal respiratory 6463-4) denise present Gram Stain Result No organisms seen (test code = 1123) [facility] [id number] 09:27:59 Test Item Value Reference Range Interpretation Comments Result (test code = <1+ Normal respiratory 6463-4) denise present Gram Stain Result No organisms seen (test code = 1123) [facility] [id number] 09:27:59 Test Item Value Reference Range Interpretation Comments Result (test code = <1+ Normal respiratory 6463-4) denise present Gram Stain Result No organisms seen (test code = 1123) [facility]AM [id number] 09:27:59 Test Item Value Reference Range Interpretation Comments CULTURE (BEAKER) <1+ Normal respiratory (test code = 1095) denise present GRAM STAIN RESULT 2+ White blood cells (BEAKER) (test code = seen 1123) GRAM STAIN RESULT No organisms seen (BEAKER) (test code = 19357) POCT-GLUCOSE [id number] 08:28:31 Test Item Value Reference Range Interpretation Comments POC-GLUCOSE METER 189 mg/dL 70-110 H : TESTED A T [facility] 6720 (BEAKER) (test code = [place], 1538) [id number]: Roofer Apprentice/Techni earnest ID = [id number] for OR HOA BERNAL CALCIUM, [id number] 07:14:05 Test Item Value Reference Range Interpretation Comments CALCIUM IONIZED (BEAKER) (test 1.15 mmol/L 1.12-1.27 code = 698) PH, BLOOD (BEAKER) (test code = 7.27 1810) [id number] 05:07:29 Test Item Value Reference Range Interpretation Comments MAGNESIUM (BEAKER) (test code = 2.1 mg/dL 1.6-2.6 627) Roofer Apprentice ID - LING [id number] 05:07:29 Test Item Value Reference Range Interpretation Comments PHOSPHORUS (BEAKER) (test code = 2.5 mg/dL 2.3-4.7 604) Roofer Apprentice ID - LING LBASIC METABOLIC [id number] 05:07:28 Test Item Value Reference Range Interpretation Comments SODIUM (BEAKER) 134 meq/L 136-145 L (test code = 381) POTASSIUM 4.4 meq/L 3.5-5.1 (BEAKER) (test code = 379) CHLORIDE (BEAKER) 103 meq/L 98-107 (test code = 382) CO2 (BEAKER) 19 meq/L 22-29 L (test code = 355) BLOOD UREA 54 mg/dL 7-21 H NITROGEN (BEAKER) (test code = 354) CREATININE 2.48 mg/dL 0.57-1.25 H (BEAKER) (test code = 358) GLUCOSE RANDOM 166 mg/dL 70-105 H (BEAKER) (test code = 652) CALCIUM (BEAKER) 8.7 mg/dL 8.4-10.2 (test code = 697) EGFR (BEAKER) 30 Interpretatio n of eGFR (test code = mL/min/1.73 values Stage De scription 1092) sq m Result G1 Idania l or high >=90 G2 Mildly decreased 60-89 G3a Mildl y to moderately 45-5 9 G3b Moderately to s everely 30-44 G4 Severl y decreased 15-29 G5 Kidney failure <15Reported eGF R is based on the CKD-EPI 1 equation that d oes not use a race coefficientEsti mated GFR is not as accur ate as Creatinine Ai whyte in predicting glom erular filtration rate . Estimated GFR is not appl icable for dialysis patien ts Roofer Apprentice ID - LING LCBC W/PLT COUNT & AUTO [id number] 04:58:48 Test Item Value Reference Range Interpretation Comments WHITE BLOOD CELL COUNT (BEAKER) 13.5 K/ L 3.5-10.5 H (test code = 775) RED BLOOD CELL COUNT (BEAKER) 4.13 M/ L 4.63-6.08 L (test code = 761) HEMOGLOBIN (BEAKER) (test code = 11.6 GM/DL 13.7-17.5 L 410) HEMATOCRIT (BEAKER) (test code = 38.1 % 40.1-51.0 L 411) MEAN CORPUSCULAR VOLUME (BEAKER) 92 fL 79-92 (test code = 753) MEAN CORPUSCULAR HEMOGLOBIN 28.1 pg 25.7-32.2 (BEAKER) (test code = 751) MEAN CORPUSCULAR HEMOGLOBIN CONC 30.4 GM/DL 32.3-36.5 L (BEAKER) (test code = 752) RED CELL DISTRIBUTION WIDTH 18.3 % 11.6-14.4 H (BEAKER) (test code = 412) PLATELET COUNT (BEAKER) (test 642 K/CU MM 150-450 H code = 756) MEAN PLATELET VOLUME (BEAKER) 10.0 fL 9.4-12.4 (test code = 754) NUCLEATED RED BLOOD CELLS 0 /100 WBC 0-0 (BEAKER) (test code = 413) NEUTROPHILS RELATIVE PERCENT 71 % (BEAKER) (test code = 429) LYMPHOCYTES RELATIVE PERCENT 14 % (BEAKER) (test code = 430) MONOCYTES RELATIVE PERCENT 8 % (BEAKER) (test code = 431) EOSINOPHILS RELATIVE PERCENT 3 % (BEAKER) (test code = 432) BASOPHILS RELATIVE PERCENT 1 % (BEAKER) (test code = 437) NEUTROPHILS ABSOLUTE COUNT 9.60 K/ L 1.78-5.38 H (BEAKER) (test code = 670) LYMPHOCYTES ABSOLUTE COUNT 1.94 K/ L 1.32-3.57 (BEAKER) (test code = 414) MONOCYTES ABSOLUTE COUNT (BEAKER) 1.03 K/ L 0.30-0.82 H (test code = 415) EOSINOPHILS ABSOLUTE COUNT 0.38 K/ L 0.04-0.54 (BEAKER) (test code = 416) BASOPHILS ABSOLUTE COUNT (BEAKER) 0.15 K/ L 0.01-0.08 H (test code = 417) IMMATURE GRANULOCYTES-RELATIVE 2.80 % 0.00-1.00 H PERCENT (BEAKER) (test code = 2801) [id number] 04:43:04 Test Item Value Reference Range Interpretation Comments PROTIME (JOSE) (test 13.3 seconds 11.9-14.2 code = 759) INR (JOSE) (test 1.07 See_Comment [Automat ed code = 370) message] The sy stem which generated this result transmitted reference range : <=5.90. The reference range was not used to interpret this result as normal/abnormal . PARTIAL THROMBOPLASTIN 71.2 seconds 22.5-36.0 H TIME (JOSE) (test code = 760) RECOMMENDED COUMADIN/WARFARIN INR THERAPY RANGESSTANDARD DOSE: 2.0 - 3.0 Includes: PROPHYLAXIS for venous thrombosis, systemic embolization; TREATMENT for venous thrombosis and/or pulmonary embolus.HIGH RISK: Target INR is 2.5-3.5 for patients with mechanical heart valves.[id number] 21:38:43 Test Item Value Reference Range Interpretation Comments PARTIAL THROMBOPLASTIN TIME 41.7 seconds 22.5-36.0 H (JOSE) (test code = 760) POCT-GLUCOSE [id number] 20:31:34 Test Item Value Reference Range Interpretation Comments POC-GLUCOSE METER 325 mg/dL 70-110 H : TESTED A T [facility] 6720 ([employer] (test code = [facility] [place], 1538) [id number]: Roofer Apprentice/Techni earnest ID = [id number] for Br isAdwoa diegoa HEPARIN ASSAY - [id number] 17:51:08 Test Item Value Reference Range Interpretation Comments UNFRACTIONATED HEPARIN-ANTI 10A 0.25 u/ml 0.30-0.70 L ([employer] (test code = 1606) Recommendations for Monitoring Unfractionated Heparin Therapeutic Range: 0.3-0.7 u/mL with continuous IV infusionPOCT-GLUCOSE [id number] 17:43:08 Test Item Value Reference Range Interpretation Comments POC-GLUCOSE METER 194 mg/dL 70-110 H : TESTED A T [facility] 6720 ([employer] (test code = [facility] [place], 1538) [address]: Roofer Apprentice/Techni earnest ID = [id number] for OR HOA BERNAL HEPARIN ASSAY - [id number] 15:02:31 Test Item Value Reference Range Interpretation Comments UNFRACTIONATED HEPARIN-ANTI 10A 0.14 u/ml 0.30-0.70 L (BEAKER) (test code = 1606) Recommendations for Monitoring Unfractionated Heparin Therapeutic Range: 0.3-0.7 u/mL with continuous IV [id number] 12:28:33 Test Item Value Reference Range Interpretation Comments PARTIAL THROMBOPLASTIN TIME 46.4 seconds 22.5-36.0 H (BEAKER) (test code = 760) POCT-GLUCOSE [id number] 11:54:58 Test Item Value Reference Range Interpretation Comments POC-GLUCOSE METER 136 mg/dL 70-110 H : TESTED A T [facility] 6720 (BEAKER) (test code = [facility], 1538) [id number]: Roofer Apprentice/Techni earnest ID = [id number] for BE RNABE, HORTENCIA POCT-GLUCOSE [id number] 08:34:59 Test Item Value Reference Range Interpretation Comments POC-GLUCOSE METER 260 mg/dL 70-110 H : TESTED A T [facility] 6720 (BEAKER) (test code = [facility] [employer] [facility], 1538) [address]: Roofer Apprentice/Techni earnest ID = [id number] for BE RNABE, HORTENCIA BASIC METABOLIC [id number] 06:07:21 Test Item Value Reference Range Interpretation Comments SODIUM (BEAKER) 135 meq/L 136-145 L (test code = 381) POTASSIUM 3.4 meq/L 3.5-5.1 L (BEAKER) (test code = 379) CHLORIDE (BEAKER) 105 meq/L 98-107 (test code = 382) CO2 (BEAKER) 21 meq/L 22-29 L (test code = 355) BLOOD UREA 60 mg/dL 7-21 H NITROGEN (BEAKER) (test code = 354) CREATININE 2.70 mg/dL 0.57-1.25 H (BEAKER) (test code = 358) GLUCOSE RANDOM 177 mg/dL 70-105 H (BEAKER) (test code = 652) CALCIUM (BEAKER) 8.3 mg/dL 8.4-10.2 L (test code = 697) EGFR (BEAKER) 27 Interpretatio n of eGFR (test code = mL/min/1.73 values Stage De scription 1092) sq m Result G1 Idania l or high >=90 G2 Mildly decreased 60-89 G3a Mildl y to moderately 45-5 9 G3b Moderately to s everely 30-44 G4 Severl y decreased 15-29 G5 Kidney failure <15Reported eGF R is based on the CKD-EPI 2020 equation that d oes not use a race coefficientEsti mated GFR is not as accur ate as Creatinine Ai pato in predicting glom erular filtration rate . Estimated GFR is not appl icable for dialysis patien ts Roofer Apprentice ID - PIAYA LCALCIUM, [id number] 05:46:37 Test Item Value Reference Range Interpretation Comments CALCIUM IONIZED (BEAKER) (test 1.10 mmol/L 1.12-1.27 L code = 698) PH, BLOOD (BEAKER) (test code = 7.37 1810) OXYGEN SATURATION, [id number] 05:44:45 Test Item Value Reference Range Interpretation Comments O2 SATURATION (MEASURED) (BEAKER) 74.1 % (test code = 1455) CBC W/PLT COUNT & AUTO [id number] 05:38:53 Test Item Value Reference Range Interpretation Comments WHITE BLOOD CELL COUNT (BEAKER) 13.0 K/ L 3.5-10.5 H (test code = 775) RED BLOOD CELL COUNT (BEAKER) 3.77 M/ L 4.63-6.08 L (test code = 761) HEMOGLOBIN (BEAKER) (test code = 10.6 GM/DL 13.7-17.5 L 410) HEMATOCRIT (BEAKER) (test code = 33.9 % 40.1-51.0 L 411) MEAN CORPUSCULAR VOLUME (BEAKER) 90 fL 79-92 (test code = 753) MEAN CORPUSCULAR HEMOGLOBIN 28.1 pg 25.7-32.2 (BEAKER) (test code = 751) MEAN CORPUSCULAR HEMOGLOBIN CONC 31.3 GM/DL 32.3-36.5 L (BEAKER) (test code = 752) RED CELL DISTRIBUTION WIDTH 18.2 % 11.6-14.4 H (BEAKER) (test code = 412) PLATELET COUNT (BEAKER) (test 540 K/CU MM 150-450 H code = 756) MEAN PLATELET VOLUME (BEAKER) 10.0 fL 9.4-12.4 (test code = 754) NUCLEATED RED BLOOD CELLS 0 /100 WBC 0-0 (BEAKER) (test code = 413) NEUTROPHILS RELATIVE PERCENT 70 % (BEAKER) (test code = 429) LYMPHOCYTES RELATIVE PERCENT 14 % (BEAKER) (test code = 430) MONOCYTES RELATIVE PERCENT 9 % (BEAKER) (test code = 431) EOSINOPHILS RELATIVE PERCENT 3 % (BEAKER) (test code = 432) BASOPHILS RELATIVE PERCENT 1 % (BEAKER) (test code = 437) NEUTROPHILS ABSOLUTE COUNT 9.09 K/ L 1.78-5.38 H (BEAKER) (test code = 670) LYMPHOCYTES ABSOLUTE COUNT 1.77 K/ L 1.32-3.57 (BEAKER) (test code = 414) MONOCYTES ABSOLUTE COUNT (BEAKER) 1.16 K/ L 0.30-0.82 H (test code = 415) EOSINOPHILS ABSOLUTE COUNT 0.44 K/ L 0.04-0.54 (BEAKER) (test code = 416) BASOPHILS ABSOLUTE COUNT (BEAKER) 0.11 K/ L 0.01-0.08 H (test code = 417) IMMATURE GRANULOCYTES-RELATIVE 3.10 % 0.00-1.00 H PERCENT (BEAKER) (test code = 2801) [id number] 05:35:59 Test Item Value Reference Range Interpretation Comments PHOSPHORUS (BEAKER) (test code = 3.0 mg/dL 2.3-4.7 604) Roofer Apprentice ID Aleksey DUBON LLACTATE DEHYDROGENASE (LDH)2022-04-12 05:35:59 Test Item Value Reference Range Interpretation Comments LACTATE DEHYDROGENASE (BEAKER) (test 520 U/L 125-220 H code = 635) Roofer Apprentice ID - LING [id number] 05:35:58 Test Item Value Reference Range Interpretation Comments MAGNESIUM (BEAKER) (test code = 2.0 mg/dL 1.6-2.6 627) Roofer Apprentice ID - LING [id number] 05:16:32 Test Item Value Reference Range Interpretation Comments PARTIAL THROMBOPLASTIN TIME 42.0 seconds 22.5-36.0 H (BEAKER) (test code = 760) [id number] 05:16:32 Test Item Value Reference Range Interpretation Comments PROTIME (BEAKER) (test 13.3 seconds 11.9-14.2 code = 759) INR (BEAKER) (test 1.03 See_Comment [Automat ed code = 370) message] The sy stem which generated this result transmitted reference range : <=5.90. The reference range was not used to interpret this result as normal/abnormal . PARTIAL THROMBOPLASTIN 42.0 seconds 22.5-36.0 H TIME (BEAKER) (test code = 760) RECOMMENDED COUMADIN/WARFARIN INR THERAPY RANGESSTANDARD DOSE: 2.0 - 3.0 Includes: PROPHYLAXIS for venous thrombosis, systemic embolization; TREATMENT for venous thrombosis and/or pulmonary embolus.HIGH RISK: Target INR is 2.5-3.5 for patients with mechanical heart valves.[id number] 05:15:54 Test Item Value Reference Range Interpretation Comments FIBRINOGEN LEVEL (BEAKER) (test 465 mg/dl 225-434 H code = 658) [id number] 21:58:05 Test Item Value Reference Range Interpretation Comments PARTIAL THROMBOPLASTIN TIME 26.7 seconds 25.8-34.5 (BEAKER) (test code = 760) POCT-GLUCOSE [id number] 21:22:42 Test Item Value Reference Range Interpretation Comments POC-GLUCOSE METER 168 mg/dL 70-110 H : TESTED A T [facility] 6720 (BEAKER) (test code = [place], 1538) [address]: Roofer Apprentice/Techni earnest ID = [id number] for KATE RAMOS BASIC METABOLIC [id number] 16:59:29 Test Item Value Reference Range Interpretation Comments SODIUM (BEAKER) 135 meq/L 136-145 L (test code = 381) POTASSIUM 4.0 meq/L 3.5-5.1 Specimen modera tely (BEAKER) (test hemolyzed code = 379) CHLORIDE (BEAKER) 104 meq/L 98-107 (test code = 382) CO2 (BEAKER) 23 meq/L 22-29 (test code = 355) BLOOD UREA 64 mg/dL 7-21 H NITROGEN (BEAKER) (test code = 354) CREATININE 2.89 mg/dL 0.57-1.25 H Specimen modera tely (BEAKER) (test hemolyzed code = 358) GLUCOSE RANDOM 213 mg/dL 70-105 H (BEAKER) (test code = 652) CALCIUM (BEAKER) 8.3 mg/dL 8.4-10.2 L (test code = 697) EGFR (BEAKER) 25 Interpretatio n of eGFR (test code = mL/min/1.73 values Stage De scription 1092) sq m Result G1 Idania l or high >=90 G2 Mildly decreased 60-89 G3a Mildl y to moderately 45-5 9 G3b Moderately to s everely 30-44 G4 Severl y decreased 15-29 G5 Kidney failure <15Reported eGF R is based on the CKD-EPI 2020 equation that d oes not use a race coefficientEsti mated GFR is not as accur ate as Creatinine Ai pato in predicting glom erular filtration rate . Estimated GFR is not appl icable for dialysis patien ts Roofer Apprentice ID - [id number] 16:55:15 Test Item Value Reference Range Interpretation Comments PHOSPHORUS (BEAKER) 2.8 mg/dL 2.3-4.7 Specimen moderately (test code = 604) hemolyzed Roofer Apprentice ID - [id number] 16:55:14 Test Item Value Reference Range Interpretation Comments MAGNESIUM (BEAKER) 2.2 mg/dL 1.6-2.6 Specimen moderately (test code = 627) hemolyzed Roofer Apprentice ID - BSPOCT-GLUCOSE [id number] 16:44:04 Test Item Value Reference Range Interpretation Comments POC-GLUCOSE METER 182 mg/dL 70-110 H : TESTED A T [facility] 6720 (BEAKER) (test code = [facility], 1538) [address]: Roofer Apprentice/Techni earnest ID = [id number] for KEERTHI NARVAEZ CALCIUM, [id number] 16:24:08 Test Item Value Reference Range Interpretation Comments CALCIUM IONIZED (BEAKER) (test 1.13 mmol/L 1.12-1.27 code = 698) PH, BLOOD (BEAKER) (test code = 7.39 1810) SPIN/CONCENTRATION [id number] 15:42:43 Test Item Value Reference Range Interpretation Comments Concentration charged (test code = Done 2657) [facility] [id number] 15:42:43 Test Item Value Reference Range Interpretation Comments Concentration charged (test code = Done 265) [facility] [id number] 15:42:43 Test Item Value Reference Range Interpretation Comments Concentration charged (test code = Done 2656) [facility] [id number] 15:42:43 Test Item Value Reference Range Interpretation Comments Concentration charged (test code = Done 2656) [facility] [id number] 15:42:43 Test Item Value Reference Range Interpretation Comments CONCENTRATION CHARGED (BEAKER) (test Done code = 2657) POCT-GLUCOSE [id number] 11:10:15 Test Item Value Reference Range Interpretation Comments POC-GLUCOSE METER 202 mg/dL 70-110 H : Verify w / Lab Draw: (BEAKER) (test code = Pt. re fused rpt tst: 1538) Pt. on IV insul in: TESTED AT [address], [address]: Roofer Apprentice/Techni earnest ID = [id number] for BE RNABE, HORTENCIA RAD, CHEST, 1 VIEW, NON [id number] 09:27:00Reason for exam:->s/p CV surgeryShould this be performed at the bedside?->Yes [facility] : 1965 Sex: MFINAL REPORT CLINICAL HISTORY: s/p CV surgery TECHNIQUE: 1 view of the chest. COMPARISON: 04/10/2022 IMPRESSION: [place] catheter remains in the pulmonary outflow tract. Patchy left mid and lower lung airspace opacity is slightly more prominent. Minimal right lung base airspace opacity is unchanged. Blunting of both costophrenic angles unchanged. The cardiomediastinal silhouette is magnified by technique with sternotomy wires. Signed: Elida Vega MDReport Verified Date/Time: 04/11/2022 09:27:46 POCT-GLUCOSE [id number] 07:45:13 Test Item Value Reference Range Interpretation Comments POC-GLUCOSE METER 151 mg/dL 70-110 H : TESTED A T [facility] 6720 (BEAKER) (test code = [place], 1538) [id number]: Roofer Apprentice/Techni earnest ID = [id number] for HORTENCIA GOLDMAN CALCIUM, [id number] 05:04:40 Test Item Value Reference Range Interpretation Comments CALCIUM IONIZED (BEAKER) (test 1.07 mmol/L 1.12-1.27 L code = 698) PH, BLOOD (BEAKER) (test code = 7.36 1810) OXYGEN SATURATION, [id number] 05:02:36 Test Item Value Reference Range Interpretation Comments O2 SATURATION (MEASURED) (BEAKER) 91.9 % (test code = 1455) BASIC METABOLIC [id number] 03:58:38 Test Item Value Reference Range Interpretation Comments SODIUM (BEAKER) 135 meq/L 136-145 L (test code = 381) POTASSIUM 4.1 meq/L 3.5-5.1 (BEAKER) (test code = 379) CHLORIDE (BEAKER) 104 meq/L 98-107 (test code = 382) CO2 (BEAKER) 21 meq/L 22-29 L (test code = 355) BLOOD UREA 66 mg/dL 7-21 H NITROGEN (BEAKER) (test code = 354) CREATININE 3.42 mg/dL 0.57-1.25 H (BEAKER) (test code = 358) GLUCOSE RANDOM 165 mg/dL 70-105 H (BEAKER) (test code = 652) CALCIUM (BEAKER) 8.3 mg/dL 8.4-10.2 L (test code = 697) EGFR (BEAKER) 20 Interpretatio n of eGFR (test code = mL/min/1.73 values Stage De scription 1092) sq m Result G1 Idania l or high >=90 G2 Mildly decreased 60-89 G3a Mildl y to moderately 45-5 9 G3b Moderately to s everely 30-44 G4 Severl y decreased 15-29 G5 Kidney failure <15Reported eGF R is based on the CKD-EPI 2020 equation that d oes not use a race coefficientEsti mated GFR is not as accur ate as Creatinine Ai pato in predicting glom erular filtration rate . Estimated GFR is not appl icable for dialysis patien ts Roofer Apprentice ID - LING [id number] 03:52:56 Test Item Value Reference Range Interpretation Comments PHOSPHORUS (BEAKER) (test code = 4.1 mg/dL 2.3-4.7 604) Roofer Apprentice ID - LING LLACTATE DEHYDROGENASE (LDH)2022-04-11 03:52:56 Test Item Value Reference Range Interpretation Comments LACTATE DEHYDROGENASE (BEAKER) (test 604 U/L 125-220 H code = 635) Roofer Apprentice ID - LING [id number] 03:52:55 Test Item Value Reference Range Interpretation Comments MAGNESIUM (BEAKER) (test code = 2.2 mg/dL 1.6-2.6 627) Roofer Apprentice ID - LING LCBC W/PLT COUNT & AUTO [id number] 03:26:24 Test Item Value Reference Range Interpretation Comments WHITE BLOOD CELL COUNT (BEAKER) 14.7 K/ L 3.5-10.5 H (test code = 775) RED BLOOD CELL COUNT (BEAKER) 3.79 M/ L 4.63-6.08 L (test code = 761) HEMOGLOBIN (BEAKER) (test code = 10.7 GM/DL 13.7-17.5 L 410) HEMATOCRIT (BEAKER) (test code = 34.0 % 40.1-51.0 L 411) MEAN CORPUSCULAR VOLUME (BEAKER) 90 fL 79-92 (test code = 753) MEAN CORPUSCULAR HEMOGLOBIN 28.2 pg 25.7-32.2 (BEAKER) (test code = 751) MEAN CORPUSCULAR HEMOGLOBIN CONC 31.5 GM/DL 32.3-36.5 L (BEAKER) (test code = 752) RED CELL DISTRIBUTION WIDTH 17.9 % 11.6-14.4 H (BEAKER) (test code = 412) PLATELET COUNT (BEAKER) (test 506 K/CU MM 150-450 H code = 756) MEAN PLATELET VOLUME (BEAKER) 10.1 fL 9.4-12.4 (test code = 754) NUCLEATED RED BLOOD CELLS 0 /100 WBC 0-0 (BEAKER) (test code = 413) NEUTROPHILS RELATIVE PERCENT 81 % (BEAKER) (test code = 429) LYMPHOCYTES RELATIVE PERCENT 7 % (BEAKER) (test code = 430) MONOCYTES RELATIVE PERCENT 8 % (BEAKER) (test code = 431) EOSINOPHILS RELATIVE PERCENT 1 % (BEAKER) (test code = 432) BASOPHILS RELATIVE PERCENT 1 % (BEAKER) (test code = 437) NEUTROPHILS ABSOLUTE COUNT 11.91 K/ L 1.78-5.38 H (BEAKER) (test code = 670) LYMPHOCYTES ABSOLUTE COUNT 1.01 K/ L 1.32-3.57 L (BEAKER) (test code = 414) MONOCYTES ABSOLUTE COUNT (BEAKER) 1.16 K/ L 0.30-0.82 H (test code = 415) EOSINOPHILS ABSOLUTE COUNT 0.09 K/ L 0.04-0.54 (BEAKER) (test code = 416) BASOPHILS ABSOLUTE COUNT (BEAKER) 0.09 K/ L 0.01-0.08 H (test code = 417) IMMATURE GRANULOCYTES-RELATIVE 2.70 % 0.00-1.00 H PERCENT (BEAKER) (test code = 2801) [id number] 03:14:28 Test Item Value Reference Range Interpretation Comments PROTIME (BEAKER) (test 14.2 seconds 11.9-14.2 code = 759) INR (BEAKER) (test 1.12 See_Comment [Automat ed code = 370) message] The sy stem which generated this result transmitted reference range : <=5.90. The reference range was not used to interpret this result as normal/abnormal . PARTIAL THROMBOPLASTIN 29.9 seconds 22.5-36.0 TIME (BEAKER) (test code = 760) RECOMMENDED COUMADIN/WARFARIN INR THERAPY RANGESSTANDARD DOSE: 2.0 - 3.0 Includes: PROPHYLAXIS for venous thrombosis, systemic embolization; TREATMENT for venous thrombosis and/or pulmonary embolus.HIGH RISK: Target INR is 2.5-3.5 for patients with mechanical heart valves.[id number] 03:14:07 Test Item Value Reference Range Interpretation Comments FIBRINOGEN LEVEL (BEAKER) (test 516 mg/dl 225-434 H code = 658) POCT-GLUCOSE [id number] 22:26:36 Test Item Value Reference Range Interpretation Comments POC-GLUCOSE METER 177 mg/dL 70-110 H : TESTED A T [facility] 6720 (BEAKER) (test code [facility], = 1538) [address]: Roofer Apprentice/Techni earnest ID = [id number] for DEANDRE NICOLE (Марина)SHAWNA RAD, CHEST, 1 VIEW, NON [id number] 17:29:00Reason for exam:->s/p chest tube removal Should this be performed at the bedside?->Yes [facility] : 1965 Sex: MFINAL REPORT RAD, CHEST, 1 VIEW, NON DEPT INDICATION: s/p chest tube removal COMPARISON: Prior day's exam FINDINGS: Portable frontal view of the chest. IMPRESSION: Support Lines: Chest tubes have been removed. [place] tip overlies the pulmonary outflow tract. Prior sternotomy. Lungs and pleura: Trace bilateral effusions persists. Focal airspace disease within the left lower lung, formerly obscured by overlying chest tube. Remainder of the lung parenchyma is predominantly clear.No significant pneumothorax. Heart and mediastinum: Stable contours. Stable surgical changes. Additional findings: None. Signed: Sruthi Barahona Verified Date/Time: 04/10/2022 17:29:56 BASI METABOLIC PANEL 2022-04-10 16:41:12 Test Item Value Reference Range Interpretation Comments SODIUM (BEAKER) 136 meq/L 136-145 (test code = 381) POTASSIUM 4.4 meq/L 3.5-5.1 Specimen slight ly (BEAKER) (test hemolyzed code = 379) CHLORIDE (BEAKER) 103 meq/L 98-107 (test code = 382) CO2 (BEAKER) 21 meq/L 22-29 L (test code = 355) BLOOD UREA 70 mg/dL 7-21 H NITROGEN (BEAKER) (test code = 354) CREATININE 3.98 mg/dL 0.57-1.25 H Specimen slight ly (BEAKER) (test hemolyzed code = 358) GLUCOSE RANDOM 224 mg/dL 70-105 H (BEAKER) (test code = 652) CALCIUM (BEAKER) 8.7 mg/dL 8.4-10.2 (test code = 697) EGFR (BEAKER) 17 Interpretatio n of eGFR (test code = mL/min/1.73 values Stage De scription 1092) sq m Result G1 Idania l or high >=90 G2 Mildly decreased 60-89 G3a Mildl y to moderately 45-5 9 G3b Moderately to s everely 30-44 G4 Severl y decreased 15-29 G5 Kidney failure <15Reported eGF R is based on the CKD-EPI 2020 equation that d oes not use a race coefficientEsti mated GFR is not as accur ate as Creatinine Ai pato in predicting glom erular filtration rate . Estimated GFR is not appl icable for dialysis patien ts Roofer Apprentice ID - BSOperator ID - [id number] 16:26:06 Test Item Value Reference Range Interpretation Comments PHOSPHORUS (BEAKER) 4.6 mg/dL 2.3-4.7 Specimen slightly (test code = 604) hemolyzed Roofer Apprentice ID - [id number] 16:26:05 Test Item Value Reference Range Interpretation Comments MAGNESIUM (BEAKER) 2.4 mg/dL 1.6-2.6 Specimen slightly (test code = 627) hemolyzed Roofer Apprentice ID - BSCBC (HEMOGRAM ONLY)2022-04-10 16:15:29 Test Item Value Reference Range Interpretation Comments WHITE BLOOD CELL COUNT (BEAKER) 14.6 K/ L 3.5-10.5 H (test code = 775) RED BLOOD CELL COUNT (BEAKER) 4.13 M/ L 4.63-6.08 L (test code = 761) HEMOGLOBIN (BEAKER) (test code = 11.4 GM/DL 13.7-17.5 L 410) HEMATOCRIT (BEAKER) (test code = 36.6 % 40.1-51.0 L 411) MEAN CORPUSCULAR VOLUME (BEAKER) 89 fL 79-92 (test code = 753) MEAN CORPUSCULAR HEMOGLOBIN 27.6 pg 25.7-32.2 (BEAKER) (test code = 751) MEAN CORPUSCULAR HEMOGLOBIN CONC 31.1 GM/DL 32.3-36.5 L (BEAKER) (test code = 752) RED CELL DISTRIBUTION WIDTH 18.2 % 11.6-14.4 H (BEAKER) (test code = 412) PLATELET COUNT (BEAKER) (test 517 K/CU MM 150-450 H code = 756) MEAN PLATELET VOLUME (BEAKER) 10.2 fL 9.4-12.4 (test code = 754) NUCLEATED RED BLOOD CELLS 0 /100 WBC 0-0 (BEAKER) (test code = 413) CALCIUM, [id number] 16:08:03 Test Item Value Reference Range Interpretation Comments CALCIUM IONIZED (BEAKER) (test 1.17 mmol/L 1.12-1.27 code = 698) PH, BLOOD (BEAKER) (test code = 7.36 1810) [id number] 09:50:42 Test Item Value Reference Range Interpretation Comments PHOSPHORUS (BEAKER) 3.4 mg/dL 2.3-4.7 Specimen slightly (test code = 604) hemolyzed Roofer Apprentice ID - [id number] 09:50:42 Test Item Value Reference Range Interpretation Comments POTASSIUM (BEAKER) 3.8 meq/L 3.5-5.1 Specimen slightly (test code = 379) hemolyzed Roofer Apprentice ID - [id number] 09:50:41 Test Item Value Reference Range Interpretation Comments MAGNESIUM (BEAKER) 2.4 mg/dL 1.6-2.6 Specimen slightly (test code = 627) hemolyzed Roofer Apprentice ID - AAHAMIDRAD, CHEST, 1 VIEW, NON [id number] 06:55:00Reason for exam:->s/p CV surgeryShould this be performed at the bedside?->Yes [facility] 1965 Sex: MFINAL REPORT RAD, CHEST, 1 VIEW, NON DEPT INDICATION: s/p CV surgery COMPARISON:Prior day's exam FINDINGS: Portable frontal view of the chest. IMPRESSION: Support Lines: [place] tip overlies the pulmonary outflow tract. Bilateral chest tubes remain. Impella. Lungs and pleura: Stress trace bilateral effusions. Mild lower lobe interstitial thickening. No significant pneumothorax. Heart and mediastinum: Normal contours. Additional findings: None. Signed: Sruthi Barahona MDRepw[facility] Verified Date/Time: 04/10/2022 06:55:39 BASIC METABOLIC [id number] 03:30:39 Test Item Value Reference Range Interpretation Comments SODIUM (BEAKER) 135 meq/L 136-145 L (test code = 381) POTASSIUM 3.4 meq/L 3.5-5.1 L (BEAKER) (test code = 379) CHLORIDE (BEAKER) 104 meq/L 98-107 (test code = 382) CO2 (BEAKER) 22 meq/L 22-29 (test code = 355) BLOOD UREA 64 mg/dL 7-21 H NITROGEN (BEAKER) (test code = 354) CREATININE 4.12 mg/dL 0.57-1.25 H (BEAKER) (test code = 358) GLUCOSE RANDOM 167 mg/dL 70-105 H (BEAKER) (test code = 652) CALCIUM (BEAKER) 8.1 mg/dL 8.4-10.2 L (test code = 697) EGFR (BEAKER) 16 Interpretatio n of eGFR (test code = mL/min/1.73 values Stage De scription 1092) sq m Result G1 Idania l or high >=90 G2 Mildly decreased 60-89 G3a Mildl y to moderately 45-5 9 G3b Moderately to s everely 30-44 G4 Severl y decreased 15-29 G5 Kidney failure <15Reported eGF R is based on the CKD-EPI 2020 equation that d oes not use a race coefficientEsti mated GFR is not as accur ate as Creatinine Ai pato in predicting glom erular filtration rate . Estimated GFR is not appl icable for dialysis patien ts Roofer Apprentice ID - CRISTIAN [id number] 03:23:39 Test Item Value Reference Range Interpretation Comments PHOSPHORUS (BEAKER) (test code = 4.2 mg/dL 2.3-4.7 604) Roofer Apprentice ID - CRISTIAN MLACTATE DEHYDROGENASE (LDH)2022-04-10 03:23:39 Test Item Value Reference Range Interpretation Comments LACTATE DEHYDROGENASE (BEAKER) (test 670 U/L 125-220 H code = 635) Roofer Apprentice ID - CRISTIAN [id number] 03:23:38 Test Item Value Reference Range Interpretation Comments MAGNESIUM (BEAKER) (test code = 2.3 mg/dL 1.6-2.6 627) Roofer Apprentice ID - CRISTIAN [id number] 03:10:14 Test Item Value Reference Range Interpretation Comments PROTIME (BEAKER) (test 14.8 seconds 11.9-14.2 H code = 759) INR (BEAKER) (test 1.24 See_Comment [Automat ed code = 370) message] The sy stem which generated this result transmitted reference range : <=5.90. The reference range was not used to interpret this result as normal/abnormal . PARTIAL THROMBOPLASTIN 54.8 seconds 22.5-36.0 H TIME (BEAKER) (test code = 793) RECOMMENDED COUMADIN/WARFARIN INR THERAPY RANGESSTANDARD DOSE: 2.0 - 3.0 Includes: PROPHYLAXIS for venous thrombosis, systemic embolization; TREATMENT for venous thrombosis and/or pulmonary embolus.HIGH RISK: Target INR is 2.5-3.5 for patients with mechanical heart valves.[id number] 03:09:52 Test Item Value Reference Range Interpretation Comments FIBRINOGEN LEVEL (BEAKER) (test 563 mg/dl 225-434 H code = 658) CBC W/PLT COUNT & AUTO [id number] 02:54:10 Test Item Value Reference Range Interpretation Comments WHITE BLOOD CELL COUNT (BEAKER) 13.5 K/ L 3.5-10.5 H (test code = 775) RED BLOOD CELL COUNT (BEAKER) 3.84 M/ L 4.63-6.08 L (test code = 761) HEMOGLOBIN (BEAKER) (test code = 10.8 GM/DL 13.7-17.5 L 410) HEMATOCRIT (BEAKER) (test code = 34.2 % 40.1-51.0 L 411) MEAN CORPUSCULAR VOLUME (BEAKER) 89 fL 79-92 (test code = 753) MEAN CORPUSCULAR HEMOGLOBIN 28.1 pg 25.7-32.2 (BEAKER) (test code = 751) MEAN CORPUSCULAR HEMOGLOBIN CONC 31.6 GM/DL 32.3-36.5 L (BEAKER) (test code = 752) RED CELL DISTRIBUTION WIDTH 18.0 % 11.6-14.4 H (BEAKER) (test code = 412) PLATELET COUNT (BEAKER) (test 460 K/CU MM 150-450 H code = 756) MEAN PLATELET VOLUME (BEAKER) 9.8 fL 9.4-12.4 (test code = 754) NUCLEATED RED BLOOD CELLS 0 /100 WBC 0-0 (BEAKER) (test code = 413) NEUTROPHILS RELATIVE PERCENT 72 % (BEAKER) (test code = 429) LYMPHOCYTES RELATIVE PERCENT 9 % (BEAKER) (test code = 430) MONOCYTES RELATIVE PERCENT 10 % (BEAKER) (test code = 431) EOSINOPHILS RELATIVE PERCENT 4 % (BEAKER) (test code = 432) BASOPHILS RELATIVE PERCENT 1 % (BEAKER) (test code = 437) NEUTROPHILS ABSOLUTE COUNT 9.68 K/ L 1.78-5.38 H (BEAKER) (test code = 670) LYMPHOCYTES ABSOLUTE COUNT 1.15 K/ L 1.32-3.57 L (BEAKER) (test code = 414) MONOCYTES ABSOLUTE COUNT (BEAKER) 1.40 K/ L 0.30-0.82 H (test code = 415) EOSINOPHILS ABSOLUTE COUNT 0.59 K/ L 0.04-0.54 H (BEAKER) (test code = 416) BASOPHILS ABSOLUTE COUNT (BEAKER) 0.10 K/ L 0.01-0.08 H (test code = 417) IMMATURE GRANULOCYTES-RELATIVE 4.20 % 0.00-1.00 H PERCENT (BEAKER) (test code = 2801) CALCIUM, [id number] 02:40:25 Test Item Value Reference Range Interpretation Comments CALCIUM IONIZED (BEAKER) (test 1.15 mmol/L 1.12-1.27 code = 698) PH, BLOOD (BEAKER) (test code = 7.43 1810) Blood gas, [id number] 02:38:35 Test Item Value Reference Range Interpretation Comments pH, Arterial (test code 7.45 7.35-7.45 = 2744-1) pCO2, Arterial (test 32 See_Comment L [Autom ated code = 2019-8) message] The system which generated this result transmitted reference range : 35 - 45 mm Hg. The reference range was not used to interpret this result as normal/abnormal . pO2, Arterial (test 161 See_Comment H [Automa leonel code = 2703-7) message] The system which generated this result transmitted reference range : 80 - 90 mm Hg. The reference range was not used to interpret this result as normal/abnormal . O2 Sat, Arterial (test 99.2 % 96.0-97.0 H code = 2708-6) HCO3, Arterial (test 22 mmol/L 21-29 code = 1960-4) Base Excess, Arterial -1.7 mmol/L -2.0-3.0 (test code = 1925-7) Patient Temperature 35.9 (test code = 8310-5) FIO2 (test code = 1819) 60 Lab Interpretation Abnormal (test code = 26765-9) [facility] [id number] 02:38:35 Test Item Value Reference Range Interpretation Comments pH, Arterial (test code 7.45 7.35-7.45 = 2744-1) pCO2, Arterial (test 32 See_Comment L [Autom ated code = 2019-) message] The system which generated this result transmitted reference range : 35 - 45 mm Hg. The reference range was not used to interpret this result as normal/abnormal . pO2, Arterial (test 161 See_Comment H [Automa leonel code = 2703-7) message] The system which generated this result transmitted reference range : 80 - 90 mm Hg. The reference range was not used to interpret this result as normal/abnormal . O2 Sat, Arterial (test 99.2 % 96.0-97.0 H code = 2708-6) HCO3, Arterial (test 22 mmol/L 21-29 code = 1960-4) Base Excess, Arterial -1.7 mmol/L -2.0-3.0 (test code = 1925-7) Patient Temperature 35.9 (test code = 8310-5) FIO2 (test code = 1819) 60 Lab Interpretation Abnormal (test code = 56245-8) [facility] [id number] 02:38:35 Test Item Value Reference Range Interpretation Comments pH, Arterial (test code 7.45 7.35-7.45 = 2744-1) pCO2, Arterial (test 32 See_Comment L [Autom ated code = 2018-12) message] The system which generated this result transmitted reference range : 35 - 45 mm Hg. The reference range was not used to interpret this result as normal/abnormal . pO2, Arterial (test 161 See_Comment H [Automa leonel code = 2703-7) message] The system which generated this result transmitted reference range : 80 - 90 mm Hg. The reference range was not used to interpret this result as normal/abnormal . O2 Sat, Arterial (test 99.2 % 96.0-97.0 H code = 2708-6) HCO3, Arterial (test 22 mmol/L 21-29 code = 1960-4) Base Excess, Arterial -1.7 mmol/L -2.0-3.0 (test code = 1925-7) Patient Temperature 35.9 (test code = 8310-5) FIO2 (test code = 1819) 60 Lab Interpretation Abnormal (test code = 46844-2) [facility] [id number] 02:38:35 Test Item Value Reference Range Interpretation Comments pH, Arterial (test code 7.45 7.35-7.45 = 2744-1) pCO2, Arterial (test 32 See_Comment L [Autom ated code = 2019-8) message] The system which generated this result transmitted reference range : 35 - 45 mm Hg. The reference range was not used to interpret this result as normal/abnormal . pO2, Arterial (test 161 See_Comment H [Automa leonel code = 2703-7) message] The system which generated this result transmitted reference range : 80 - 90 mm Hg. The reference range was not used to interpret this result as normal/abnormal . O2 Sat, Arterial (test 99.2 % 96.0-97.0 H code = 2708-6) HCO3, Arterial (test 22 mmol/L 21-29 code = 1960-4) Base Excess, Arterial -1.7 mmol/L -2.0-3.0 (test code = 1925-7) Patient Temperature 35.9 (test code = 8310-5) FIO2 (test code = 1819) 60 Lab Interpretation Abnormal (test code = 68990-5) [facility] [id number] 02:38:35 Test Item Value Reference Range Interpretation Comments PH ARTERIAL (BEAKER) (test code = 7.45 7.35-7.45 383) PCO2 ARTERIAL (BEAKER) (test code 32 mm Hg 35-45 L = 384) PO2 ARTERIAL (BEAKER) (test code 161 mm Hg 80-90 H = 385) O2 SATURATION ARTERIAL (BEAKER) 99.2 % 96.0-97.0 H (test code = 386) HCO3 ARTERIAL (BEAKER) (test code 22 mmol/L 21-29 = 388) BASE EXCESS ARTERIAL (BEAKER) -1.7 mmol/L -2.0-3.0 (test code = 387) PATIENT TEMPERATURE (BEAKER) 35.9 (test code = 1818) FIO2 (BEAKER) (test code = 1819) 60.0 OXYGEN SATURATION, [id number] 02:38:07 Test Item Value Reference Range Interpretation Comments O2 SATURATION (MEASURED) (BEAKER) 75.4 % (test code = 1455) [id number] 23:47:01 Test Item Value Reference Range Interpretation Comments PARTIAL THROMBOPLASTIN TIME 46.7 seconds 22.5-36.0 H (BEAKER) (test code = 760) [id number] 23:21:38 Test Item Value Reference Range Interpretation Comments POTASSIUM (BEAKER) (test code = 3.2 meq/L 3.5-5.1 L 379) Roofer Apprentice ID - BSPOCT-GLUCOSE [id number] 22:52:26 Test Item Value Reference Range Interpretation Comments POC-GLUCOSE METER 130 mg/dL 70-110 H : TESTED A T [facility] 6720 (BEAKER) (test code = SOLANGE Lu [facility], 1538) [address]: Roofer Apprentice/Techni earnest ID = [id number] for MIA SAEED BASIC METABOLIC [id number] 16:34:07 Test Item Value Reference Range Interpretation Comments SODIUM (BEAKER) 135 meq/L 136-145 L (test code = 381) POTASSIUM 3.7 meq/L 3.5-5.1 (BEAKER) (test code = 379) CHLORIDE (BEAKER) 104 meq/L 98-107 (test code = 382) CO2 (BEAKER) 22 meq/L 22-29 (test code = 355) BLOOD UREA 65 mg/dL 7-21 H NITROGEN (BEAKER) (test code = 354) CREATININE 4.42 mg/dL 0.57-1.25 H (BEAKER) (test code = 358) GLUCOSE RANDOM 232 mg/dL 70-105 H (BEAKER) (test code = 652) CALCIUM (BEAKER) 8.1 mg/dL 8.4-10.2 L (test code = 697) EGFR (BEAKER) 15 Interpretatio n of eGFR (test code = mL/min/1.73 values Stage De scription 1092) sq m Result G1 Idania l or high >=90 G2 Mildly decreased 60-89 G3a Mildl y to moderately 45-5 9 G3b Moderately to s everely 30-44 G4 Severl y decreased 15-29 G5 Kidney failure <15Reported eGF R is based on the CKD-EPI 2021 equation that d oes not use a race coefficientEsti mated GFR is not as accur ate as Creatinine Ai pato in predicting glom erular filtration rate . Estimated GFR is not appl icable for dialysis patien ts Roofer Apprentice ID - [id number] 16:33:56 Test Item Value Reference Range Interpretation Comments PHOSPHORUS (BEAKER) (test code = 3.2 mg/dL 2.3-4.7 604) Roofer Apprentice ID - [id number] 16:33:55 Test Item Value Reference Range Interpretation Comments MAGNESIUM (BEAKER) (test code = 2.4 mg/dL 1.6-2.6 627) Roofer Apprentice ID - BSCBC (HEMOGRAM ONLY)2022-04-09 16:21:04 Test Item Value Reference Range Interpretation Comments WHITE BLOOD CELL COUNT (BEAKER) 13.9 K/ L 3.5-10.5 H (test code = 775) RED BLOOD CELL COUNT (BEAKER) 3.83 M/ L 4.63-6.08 L (test code = 761) HEMOGLOBIN (BEAKER) (test code = 10.8 GM/DL 13.7-17.5 L 410) HEMATOCRIT (BEAKER) (test code = 33.0 % 40.1-51.0 L 411) MEAN CORPUSCULAR VOLUME (BEAKER) 86 fL 79-92 (test code = 753) MEAN CORPUSCULAR HEMOGLOBIN 28.2 pg 25.7-32.2 (BEAKER) (test code = 751) MEAN CORPUSCULAR HEMOGLOBIN CONC 32.7 GM/DL 32.3-36.5 (BEAKER) (test code = 752) RED CELL DISTRIBUTION WIDTH 18.1 % 11.6-14.4 H (BEAKER) (test code = 412) PLATELET COUNT (BEAKER) (test 480 K/CU MM 150-450 H code = 756) MEAN PLATELET VOLUME (BEAKER) 10.2 fL 9.4-12.4 (test code = 754) NUCLEATED RED BLOOD CELLS 0 /100 WBC 0-0 (BEAKER) (test code = 413) CALCIUM, [id number] 16:01:24 Test Item Value Reference Range Interpretation Comments CALCIUM IONIZED (BEAKER) (test 1.10 mmol/L 1.12-1.27 L code = 698) PH, BLOOD (BEAKER) (test code = 7.50 1810) BASIC METABOLIC [id number] 11:13:40 Test Item Value Reference Range Interpretation Comments SODIUM (BEAKER) 136 meq/L 136-145 (test code = 381) POTASSIUM 3.6 meq/L 3.5-5.1 (BEAKER) (test code = 379) CHLORIDE (BEAKER) 104 meq/L 98-107 (test code = 382) CO2 (BEAKER) 22 meq/L 22-29 (test code = 355) BLOOD UREA 65 mg/dL 7-21 H NITROGEN (BEAKER) (test code = 354) CREATININE 4.59 mg/dL 0.57-1.25 H (BEAKER) (test code = 358) GLUCOSE RANDOM 176 mg/dL 70-105 H (BEAKER) (test code = 652) CALCIUM (BEAKER) 8.4 mg/dL 8.4-10.2 (test code = 697) EGFR (BEAKER) 14 Interpretatio n of eGFR (test code = mL/min/1.73 values Stage De scription 1092) sq m Result G1 Idania l or high >=90 G2 Mildly decreased 60-89 G3a Mildl y to moderately 45-5 9 G3b Moderately to s everely 30-44 G4 Severl y decreased 15-29 G5 Kidney failure <15Reported eGF R is based on the CKD-EPI 2021 equation that d oes not use a race coefficientEsti mated GFR is not as accur ate as Creatinine Ai whyte in predicting glom erular filtration rate . Estimated GFR is not appl icable for dialysis patien ts Roofer Apprentice ID - CRISTIAN CARBALLO, CHEST, 1 VIEW, NON [id number] 10:06:00Reason for exam:->s/p CV surgeryShould this be performed at the bedside?->Yes [facility] 1965 Sex: MFINAL REPORT CLINICAL HISTORY: s/p CV surgery TECHNIQUE: 1 view of the chest. COMPARISON: 04/08/2022 IMPRESSION: The ETT and NGT have been removed. The other lines and tubes remain.No pneumothorax. Hazy diffuse bilateral air space opacities are unchanged. Blunting of the costophrenic angles is unchanged. The cardiomediastinal silhouette is magnified by technique with sternotomy wires. Signed: Elida Vega MDReport Verified Date/Time: 04/09/2022 10:06:21 MRSA screen 2022-04-09 09:31:34 Test Item Value Reference Range Interpretation Comments Result (test code = 6463-4) [id number] 09:31:34 Test Item Value Reference Range Interpretation Comments Result (test code = 6463-4) No [facility] [id number] 09:31:34 Test Item Value Reference Range Interpretation Comments Result (test code = 6463-4) No [facility] [id number] 09:31:34 Test Item Value Reference Range Interpretation Comments Result (test code = 6463-4) No [facility] [id number] 09:31:34 Test Item Value Reference Range Interpretation Comments CULTURE (BEAKER) (test code No MRSA isolated = 1095) LACTATE DEHYDROGENASE (LDH)2022-04-09 07:29:53 Test Item Value Reference Range Interpretation Comments LACTATE DEHYDROGENASE (BEAKER) (test 1390 U/L 125-220 H code = 635) Roofer Apprentice ID - CRISTIAN M(CELLAVISION MANUAL DIFF)2022-04-09 06:58:02 Test Item Value Reference Range Interpretation Comments NEUTROPHILS - REL 68 % (CELLAVISION)(BEAKER) (test code = 2816) LYMPHOCYTES - REL 14 % (CELLAVISION)(BEAKER) (test code = 2817) MONOCYTES - REL 7 % (CELLAVISION)(BEAKER) (test code = 2818) EOSINOPHILS - REL 8 % (CELLAVISION)(BEAKER) (test code = 2819) BASOPHILS - REL 1 % (CELLAVISION)(BEAKER) (test code = 2820) METAMYELOCYTES - REL 1 % 0-0 H (CELLAVISION)(BEAKER) (test code = 2821) MYELOCYTES - REL 1 % 0-0 H (CELLAVISION)(BEAKER) (test code = 2822) NEUTROPHILS - ABS 11.15 K/ul 1.78-5.38 H (CELLAVISION)(BEAKER) (test code = 2830) LYMPHOCYTES - ABS 2.30 K/ul 1.32-3.57 (CELLAVISION)(BEAKER) (test code = 2831) MONOCYTES - ABS 1.15 K/uL 0.30-0.82 H (CELLAVISION)(BEAKER) (test code = 2832) EOSINOPHILS - ABS 1.31 K/uL 0.04-0.54 H (CELLAVISION)(BEAKER) (test code = 2834) BASOPHILS - ABS 0.16 K/uL 0.01-0.08 H (CELLAVISION)(BEAKER) (test code = 2835) METAMYELOCYTES - ABS 0.16 K/uL 0.00-0.00 H (CELLAVISION)(BEAKER) (test code = 2836) MYELOCYTES-ABS 0.16 K/uL 0.00-0.00 H (CELLAVISION)(BEAKER) (test code = 2837) TOTAL COUNTED (BEAKER) (test code 100 = 1351) WBC MORPHOLOGY (BEAKER) (test code Normal = 487) PLT MORPHOLOGY (BEAKER) (test code Normal = 486) POLYCHROMATOPHILLIC RBCS(BEAKER) 1+ few (test code = 478) ANISOCYTOSIS (BEAKER) (test code = 1+ few 961) POIKILOCYTES (BEAKER) (test code = 1+ few 966) ARTIFACT (CELLAVISION)(BEAKER) Present (test code = 3432) PLATELET CONCENTRATION Adequate (CELLAVISION)(BEAKER) (test code = 3438) Roofer Apprentice ID - Emily OverholtUser comments: Slide comments:CBC W/PLT COUNT & AUTO [id number] 06:57:52 Test Item Value Reference Range Interpretation Comments WHITE BLOOD CELL COUNT (BEAKER) 16.4 K/ L 3.5-10.5 H (test code = 775) RED BLOOD CELL COUNT (BEAKER) 3.77 M/ L 4.63-6.08 L (test code = 761) HEMOGLOBIN (BEAKER) (test code = 10.7 GM/DL 13.7-17.5 L 410) HEMATOCRIT (BEAKER) (test code = 34.4 % 40.1-51.0 L 411) MEAN CORPUSCULAR VOLUME (BEAKER) 91 fL 79-92 (test code = 753) MEAN CORPUSCULAR HEMOGLOBIN 28.4 pg 25.7-32.2 (BEAKER) (test code = 751) MEAN CORPUSCULAR HEMOGLOBIN CONC 31.1 GM/DL 32.3-36.5 L (BEAKER) (test code = 752) RED CELL DISTRIBUTION WIDTH 18.5 % 11.6-14.4 H (BEAKER) (test code = 412) PLATELET COUNT (BEAKER) (test 435 K/CU MM 150-450 code = 756) MEAN PLATELET VOLUME (BEAKER) 10.4 fL 9.4-12.4 (test code = 754) NUCLEATED RED BLOOD CELLS 0 /100 WBC 0-0 (BEAKER) (test code = 413) POCT-GLUCOSE [id number] 05:58:27 Test Item Value Reference Range Interpretation Comments POC-GLUCOSE METER 181 mg/dL 70-110 H : TESTED A T [facility] 6720 (BEAKER) (test code = [place], 1538) [address]: Roofer Apprentice/Techni earnest ID = [id number] for ZELDA KRAUSE HIGH SENSITIVITY TROPONIN [id number] 03:10:58 Test Item Value Reference Range Interpretation Comments HIGH SENSITIVITY 1577 pg/ml See_Comment HH [Automated message] TROPONIN I (test code The sy stem which = [id number]) generated this result transmitted ref erence range: <=35. Th e reference range was not used to int erpret this result as normal/abnormal . Roofer Apprentice ID - BSThe ASP NET PROGRAMMER STAT High Sensitivity Troponin-I results should be used in conjunctionwith other diagnostic information such as ECG, clinical observations and information, and patient symptoms to aid in the diagnosis of ME.BASIC METABOLIC [id number] 03:06:54 Test Item Value Reference Range Interpretation Comments SODIUM (BEAKER) 133 meq/L 136-145 L (test code = 381) POTASSIUM 3.7 meq/L 3.5-5.1 (BEAKER) (test code = 379) CHLORIDE (BEAKER) 102 meq/L 98-107 (test code = 382) CO2 (BEAKER) 18 meq/L 22-29 L (test code = 355) BLOOD UREA 63 mg/dL 7-21 H NITROGEN (BEAKER) (test code = 354) CREATININE 4.76 mg/dL 0.57-1.25 H (BEAKER) (test code = 358) GLUCOSE RANDOM 172 mg/dL 70-105 H (BEAKER) (test code = 652) CALCIUM (BEAKER) 8.2 mg/dL 8.4-10.2 L (test code = 697) EGFR (BEAKER) 14 Interpretatio n of eGFR (test code = mL/min/1.73 values Stage De scription 1092) sq m Result G1 Idania l or high >=90 G2 Mildly decreased 60-89 G3a Mildl y to moderately 45-5 9 G3b Moderately to s everely 30-44 G4 Severl y decreased 15-29 G5 Kidney failure <15Reported eGF R is based on the CKD-EPI 2020 equation that d oes not use a race coefficientEsti mated GFR is not as accur ate as Creatinine Ai pato in predicting glom erular filtration rate . Estimated GFR is not appl icable for dialysis patien ts Roofer Apprentice ID - [id number] 02:53:21 Test Item Value Reference Range Interpretation Comments PHOSPHORUS (BEAKER) (test code = 4.7 mg/dL 2.3-4.7 604) Roofer Apprentice ID - [id number] 02:53:20 Test Item Value Reference Range Interpretation Comments MAGNESIUM (BEAKER) (test code = 2.7 mg/dL 1.6-2.6 H 627) Roofer Apprentice ID - [id number]/[id number] 02:38:59 Test Item Value Reference Range Interpretation Comments PROTIME (BEAKER) (test 15.5 seconds 11.9-14.2 H code = 759) INR (BEAKER) (test 1.31 See_Comment [Automat ed code = 370) message] The sy stem which generated this result transmitted reference range : <=5.90. The reference range was not used to interpret this result as normal/abnormal . PARTIAL THROMBOPLASTIN 62.5 seconds 22.5-36.0 H TIME (BEAKER) (test code = 760) RECOMMENDED COUMADIN/WARFARIN INR THERAPY RANGESSTANDARD DOSE: 2.0 - 3.0 Includes: PROPHYLAXIS for venous thrombosis, systemic embolization; TREATMENT for venous thrombosis and/or pulmonary embolus.HIGH RISK: Target INR is 2.5-3.5 for patients with mechanical heart valves.[id number] 02:38:15 Test Item Value Reference Range Interpretation Comments FIBRINOGEN LEVEL (BEAKER) (test 639 mg/dl 225-434 H code = 658) OXYGEN SATURATION, [id number] 02:24:31 Test Item Value Reference Range Interpretation Comments O2 SATURATION (MEASURED) (BEAKER) 81.9 % (test code = 1455) CALCIUM, [id number] 02:23:44 Test Item Value Reference Range Interpretation Comments CALCIUM IONIZED (BEAKER) (test 1.09 mmol/L 1.12-1.27 L code = 698) PH, BLOOD (BEAKER) (test code = 7.41 1810) BLOOD GAS, [id number] 02:23:38 Test Item Value Reference Range Interpretation Comments PH ARTERIAL (BEAKER) (test code = 7.41 7.35-7.45 383) PCO2 ARTERIAL (BEAKER) (test code 35 mm Hg 35-45 = 384) PO2 ARTERIAL (BEAKER) (test code 156 mm Hg 80-90 H = 385) O2 SATURATION ARTERIAL (BEAKER) 99.0 % 96.0-97.0 H (test code = 386) HCO3 ARTERIAL (BEAKER) (test code 21 mmol/L 21-29 = 388) BASE EXCESS ARTERIAL (BEAKER) -2.9 mmol/L -2.0-3.0 L (test code = 387) PATIENT TEMPERATURE (BEAKER) 37.1 (test code = 1818) FIO2 (BEAKER) (test code = 1819) 60.0 POCT-GLUCOSE [id number] 00:19:21 Test Item Value Reference Range Interpretation Comments POC-GLUCOSE METER 163 mg/dL 70-110 H : TESTED A T [facility] 6720 (BEAKER) (test code = [place], 1538) [address]: Roofer Apprentice/Techni earnest ID = [id number] for ZELDA KRAUSE BASIC METABOLIC [id number] 22:04:28 Test Item Value Reference Range Interpretation Comments SODIUM (BEAKER) 133 meq/L 136-145 L (test code = 381) POTASSIUM 3.6 meq/L 3.5-5.1 Specimen slight ly (BEAKER) (test hemolyzed code = 379) CHLORIDE (BEAKER) 104 meq/L 98-107 (test code = 382) CO2 (BEAKER) 20 meq/L 22-29 L (test code = 355) BLOOD UREA 62 mg/dL 7-21 H NITROGEN (BEAKER) (test code = 354) CREATININE 4.56 mg/dL 0.57-1.25 H Specimen slight ly (BEAKER) (test hemolyzed code = 358) GLUCOSE RANDOM 200 mg/dL 70-105 H (BEAKER) (test code = 652) CALCIUM (BEAKER) 8.1 mg/dL 8.4-10.2 L (test code = 697) EGFR (BEAKER) 14 Interpretatio n of eGFR (test code = mL/min/1.73 values Stage De scription 1092) sq m Result G1 Idania l or high >=90 G2 Mildly decreased 60-89 G3a Mildl y to moderately 45-5 9 G3b Moderately to s everely 30-44 G4 Severl y decreased 15-29 G5 Kidney failure <15Reported eGF R is based on the CKD-EPI 2020 equation that d oes not use a race coefficientEsti mated GFR is not as accur ate as Creatinine Ai pato in predicting glom erular filtration rate . Estimated GFR is not appl icable for dialysis patien ts Roofer Apprentice ID - [id number] 20:12:53 Test Item Value Reference Range Interpretation Comments PARTIAL THROMBOPLASTIN TIME 50.8 seconds 22.5-36.0 H (BEAKER) (test code = 760) HGB/HCT (H&H)-Stat [id number] 19:49:49 Test Item Value Reference Range Interpretation Comments Hemoglobin (test code = 11.2 See_Comment L [Au tomated message] 718-7) The system [employer] generated this result transmitted ref erence range: 13.0 - 1 6.8 GM/DL. The refe rence range was not u sed to interpret this result as normal/abnor mal. Hematocrit (test code = 33.0 % 40.0-50.0 L 4544-3) Lab Interpretation (test Abnormal code = 42095-8) [facility] [id number] 19:49:49 Test Item Value Reference Range Interpretation Comments Potassium (test code = 2823-3) 3.4 meq/L 3.6-5.5 L Lab Interpretation (test code = Abnormal 71436-9) [facility] [id number] 19:49:49 Test Item Value Reference Range Interpretation Comments Hemoglobin (test code = 11.2 See_Comment L [Au tomated message] 770-7) The system [employer] generated this result transmitted ref erence range: 13.0 - 1 6.8 GM/DL. The refe rence range was not u sed to interpret this result as normal/abnor mal. Hematocrit (test code = 33.0 % 40.0-50.0 L 4544-3) Lab Interpretation (test Abnormal code = 53236-4) [facility] [id number] 19:49:49 Test Item Value Reference Range Interpretation Comments Potassium (test code = 2823-3) 3.4 meq/L 3.6-5.5 L Lab Interpretation (test code = Abnormal 72822-5) [facility] [id number] 19:49:49 Test Item Value Reference Range Interpretation Comments Hemoglobin (test code = 11.2 See_Comment L [Au tomated message] 168-7) The system [employer] generated this result transmitted ref erence range: 13.0 - 1 6.8 GM/DL. The refe rence range was not u sed to interpret this result as normal/abnor mal. Hematocrit (test code = 33.0 % 40.0-50.0 L 4544-3) Lab Interpretation (test Abnormal code = 90654-5) [facility]Stat [id number] 19:49:49 Test Item Value Reference Range Interpretation Comments Potassium (test code = 2823-3) 3.4 meq/L 3.6-5.5 L Lab Interpretation (test code = Abnormal 38617-5) [facility] [id number] 19:49:49 Test Item Value Reference Range Interpretation Comments Hemoglobin (test code = 11.2 See_Comment L [Au tomated message] 718-7) The system [employer] generated this result transmitted ref erence range: 13.0 - 1 6.8 GM/DL. The refe rence range was not u sed to interpret this result as normal/abnor mal. Hematocrit (test code = 33.0 % 40.0-50.0 L 4544-3) Lab Interpretation (test Abnormal code = 69903-5) [facility] [id number] 19:49:49 Test Item Value Reference Range Interpretation Comments Potassium (test code = 2823-3) 3.4 meq/L 3.6-5.5 L Lab Interpretation (test code = Abnormal 38306-5) [facility] [id number] 19:49:49 Test Item Value Reference Range Interpretation Comments POTASSIUM (BEAKER) (test code = 3.4 meq/L 3.6-5.5 L 379) HGB/HCT (H&H) - STAT [id number] 19:49:49 Test Item Value Reference Range Interpretation Comments HEMOGLOBIN (BEAKER) (test code = 11.2 GM/DL 13.0-16.8 L 410) HEMATOCRIT (BEAKER) (test code = 33.0 % 40.0-50.0 L 411) Sodium Na-Stat [id number] 19:49:48 Test Item Value Reference Range Interpretation Comments Sodium (test code = 2951-2) 130 meq/L 136-145 L Lab Interpretation (test code = Abnormal 40525-3) [facility] [id number] 19:49:48 Test Item Value Reference Range Interpretation Comments Sodium (test code = 2951-2) 130 meq/L 136-145 L Lab Interpretation (test code = Abnormal 41052-0) [facility] [id number] 19:49:48 Test Item Value Reference Range Interpretation Comments Sodium (test code = 2951-2) 130 meq/L 136-145 L Lab Interpretation (test code = Abnormal 07864-3) [facility] [id number] 19:49:48 Test Item Value Reference Range Interpretation Comments Sodium (test code = 2951-2) 130 meq/L 136-145 L Lab Interpretation (test code = Abnormal 30973-5) [facility], [id number] 19:49:48 Test Item Value Reference Range Interpretation Comments PH ARTERIAL (BEAKER) (test code = 7.44 7.35-7.45 383) PCO2 ARTERIAL (BEAKER) (test code 30 mm Hg 35-45 L = 384) PO2 ARTERIAL (BEAKER) (test code 76 mm Hg 80-90 L = 385) O2 SATURATION ARTERIAL (BEAKER) 95.5 % 96.0-97.0 L (test code = 386) HCO3 ARTERIAL (BEAKER) (test code 20 mmol/L 21-29 L = 388) BASE EXCESS ARTERIAL (BEAKER) -3.2 mmol/L -2.0-3.0 L (test code = 387) PATIENT TEMPERATURE (BEAKER) 37.7 (test code = 1818) FIO2 (BEAKER) (test code = 1819) 36.0 SODIUM NA-STAT [id number] 19:49:48 Test Item Value Reference Range Interpretation Comments SODIUM (BEAKER) (test code = 381) 130 meq/L 136-145 L Glucose-Stat [id number] 19:49:15 Test Item Value Reference Range Interpretation Comments Glucose (test code = 2345-7) 209 mg/dL 70-110 H Lab Interpretation (test code = Abnormal 28811-1) [facility] [id number] 19:49:15 Test Item Value Reference Range Interpretation Comments Glucose (test code = 2345-7) 209 mg/dL 70-110 H Lab Interpretation (test code = Abnormal 67794-7) [facility] [id number] 19:49:15 Test Item Value Reference Range Interpretation Comments Glucose (test code = 2345-7) 209 mg/dL 70-110 H Lab Interpretation (test code = Abnormal 73857-2) [facility] [id number] 19:49:15 Test Item Value Reference Range Interpretation Comments Glucose (test code = 2345-7) 209 mg/dL 70-110 H Lab Interpretation (test code = Abnormal 27226-6) [facility] [id number] 19:49:15 Test Item Value Reference Range Interpretation Comments GLUCOSE RANDOM (BEAKER) (test code 209 mg/dL 70-110 H = 652) BASIC METABOLIC [id number] 16:11:13 Test Item Value Reference Range Interpretation Comments SODIUM (BEAKER) 136 meq/L 136-145 (test code = 381) POTASSIUM 4.2 meq/L 3.5-5.1 Specimen slight ly (BEAKER) (test hemolyzed code = 379) CHLORIDE (BEAKER) 104 meq/L 98-107 (test code = 382) CO2 (BEAKER) 19 meq/L 22-29 L (test code = 355) BLOOD UREA 64 mg/dL 7-21 H NITROGEN (BEAKER) (test code = 354) CREATININE 4.82 mg/dL 0.57-1.25 H Specimen slight ly (BEAKER) (test hemolyzed code = 358) GLUCOSE RANDOM 201 mg/dL 70-105 H (BEAKER) (test code = 652) CALCIUM (BEAKER) 8.3 mg/dL 8.4-10.2 L (test code = 697) EGFR (BEAKER) 13 Interpretatio n of eGFR (test code = mL/min/1.73 values Stage De scription 1092) sq m Result G1 Idania l or high >=90 G2 Mildly decreased 60-89 G3a Mildl y to moderately 45-5 9 G3b Moderately to s everely 30-44 G4 Severl y decreased 15-29 G5 Kidney failure <15Reported eGF R is based on the CKD-EPI 2020 equation that d oes not use a race coefficientEsti mated GFR is not as accur ate as Creatinine Ai pato in predicting glom erular filtration rate . Estimated GFR is not appl icable for dialysis patien ts Roofer Apprentice ID - [id number] 16:08:54 Test Item Value Reference Range Interpretation Comments MAGNESIUM (BEAKER) 2.8 mg/dL 1.6-2.6 H Specimen slightly (test code = 627) hemolyzed Roofer Apprentice ID - [id number] 16:08:54 Test Item Value Reference Range Interpretation Comments PHOSPHORUS (BEAKER) 4.8 mg/dL 2.3-4.7 H Specimen slightly (test code = 604) hemolyzed Roofer Apprentice ID - BSCBC (HEMOGRAM ONLY)2022-04-08 15:52:09 Test Item Value Reference Range Interpretation Comments WHITE BLOOD CELL COUNT (BEAKER) 15.0 K/ L 3.5-10.5 H (test code = 775) RED BLOOD CELL COUNT (BEAKER) 3.86 M/ L 4.63-6.08 L (test code = 761) HEMOGLOBIN (BEAKER) (test code = 10.9 GM/DL 13.7-17.5 L 410) HEMATOCRIT (BEAKER) (test code = 34.8 % 40.1-51.0 L 411) MEAN CORPUSCULAR VOLUME (BEAKER) 90 fL 79-92 (test code = 753) MEAN CORPUSCULAR HEMOGLOBIN 28.2 pg 25.7-32.2 (BEAKER) (test code = 751) MEAN CORPUSCULAR HEMOGLOBIN CONC 31.3 GM/DL 32.3-36.5 L (BEAKER) (test code = 752) RED CELL DISTRIBUTION WIDTH 18.5 % 11.6-14.4 H (BEAKER) (test code = 412) PLATELET COUNT (BEAKER) (test 422 K/CU MM 150-450 code = 756) MEAN PLATELET VOLUME (BEAKER) 10.1 fL 9.4-12.4 (test code = 754) NUCLEATED RED BLOOD CELLS 0 /100 WBC 0-0 (BEAKER) (test code = 413) CALCIUM, [id number] 15:48:05 Test Item Value Reference Range Interpretation Comments CALCIUM IONIZED (BEAKER) (test 1.13 mmol/L 1.12-1.27 code = 698) PH, BLOOD (BEAKER) (test code = 7.44 1810) BLOOD [id number] 14:06:15 Test Item Value Reference Range Interpretation Comments CULTURE (BEAKER) (test No growth in 5 days code = 1095) BLOOD [id number] 14:06:14 Test Item Value Reference Range Interpretation Comments CULTURE (BEAKER) (test No growth in 5 days code = 1095) 2D Echo W/Doppler(CW/PW/Color)2022-04-08 13:03:44Ejection FractionSLEH ECHO [facility] Echo W/Doppler(CW/PW/Color)2022-04-08 13:03:44Ejection FractionSLEH ECHO HEARTLAB [facility] Echo W/Doppler(CW/PW/Color) 2022-04-08 13:03:44Ejection FractionSLEH ECHO HEARTLAB [facility] Echo W/Doppler(CW/PW/Color)2022-04-08 13:03:44Ejection FractionSLEH ECHO [facility]ARTLAB [facility] 2022-04-08 12:10:03 Test Item Value Reference Range Interpretation Comments PARTIAL THROMBOPLASTIN TIME 43.5 seconds 22.5-36.0 H (BEAKER) (test code = 760) BLOOD GAS, [id number] 12:05:18 Test Item Value Reference Range Interpretation Comments PH ARTERIAL (BEAKER) (test code = 7.38 7.35-7.45 383) PCO2 ARTERIAL (BEAKER) (test code 42 mm Hg 35-45 = 384) PO2 ARTERIAL (BEAKER) (test code 78 mm Hg 80-90 L = 385) O2 SATURATION ARTERIAL (BEAKER) 95.1 % 96.0-97.0 L (test code = 386) HCO3 ARTERIAL (BEAKER) (test code 25 mmol/L 21-29 = 388) BASE EXCESS ARTERIAL (BEAKER) -0.5 mmol/L -2.0-3.0 (test code = 387) PATIENT TEMPERATURE (BEAKER) 37.4 (test code = 1818) FIO2 (BEAKER) (test code = 1819) 36.0 POTASSIUM-STAT [id number] 12:04:24 Test Item Value Reference Range Interpretation Comments POTASSIUM (BEAKER) (test code = 3.7 meq/L 3.6-5.5 379) GLUCOSE-STAT [id number] 12:04:23 Test Item Value Reference Range Interpretation Comments GLUCOSE RANDOM (BEAKER) (test code 107 mg/dL 70-110 = 652) OXYGEN SATURATION, [id number] 12:01:04 Test Item Value Reference Range Interpretation Comments O2 SATURATION (MEASURED) (BEAKER) 68.5 % (test code = 1455) LACTATE DEHYDROGENASE (LDH)2022-04-08 07:47:00 Test Item Value Reference Range Interpretation Comments LACTATE DEHYDROGENASE (BEAKER) (test 820 U/L 125-220 H code = 635) Roofer Apprentice ID - PIAYA LPOCT-GLUCOSE [id number] 05:53:48 Test Item Value Reference Range Interpretation Comments POC-GLUCOSE METER 174 mg/dL 70-110 H : [facility] (BE[facility]ER) (test code = [place], 1538) [address]: Roofer Apprentice/Techni earnest ID = [id number] for ZELDA KRAUSE LIDOCAINE [id number] 05:17:59 Test Item Value Reference Range Interpretation Comments LIDOCAINE LEVEL (BEAKER) (test code 3.2 ug/mL 1.5-5.0 = 732) CBC W/PLT COUNT & AUTO [id number] 04:13:29 Test Item Value Reference Range Interpretation Comments WHITE BLOOD CELL COUNT (BEAKER) 14.5 K/ L 3.5-10.5 H (test code = 775) RED BLOOD CELL COUNT (BEAKER) 3.98 M/ L 4.63-6.08 L (test code = 761) HEMOGLOBIN (BEAKER) (test code = 11.1 GM/DL 13.7-17.5 L 410) HEMATOCRIT (BEAKER) (test code = 36.6 % 40.1-51.0 L 411) MEAN CORPUSCULAR VOLUME (BEAKER) 92 fL 79-92 (test code = 753) MEAN CORPUSCULAR HEMOGLOBIN 27.9 pg 25.7-32.2 (BEAKER) (test code = 751) MEAN CORPUSCULAR HEMOGLOBIN CONC 30.3 GM/DL 32.3-36.5 L (BEAKER) (test code = 752) RED CELL DISTRIBUTION WIDTH 18.7 % 11.6-14.4 H (BEAKER) (test code = 412) PLATELET COUNT (BEAKER) (test 413 K/CU MM 150-450 code = 756) MEAN PLATELET VOLUME (BEAKER) 10.4 fL 9.4-12.4 (test code = 754) NUCLEATED RED BLOOD CELLS 0 /100 WBC 0-0 (BEAKER) (test code = 413) (CELLAVISION MANUAL DIFF)2022-04-08 04:13:29 Test Item Value Reference Range Interpretation Comments NEUTROPHILS - REL 72 % (CELLAVISION)(BEAKER) (test code = 2816) LYMPHOCYTES - REL 10 % (CELLAVISION)(BEAKER) (test code = 2817) MONOCYTES - REL 14 % (CELLAVISION)(BEAKER) (test code = 2818) EOSINOPHILS - REL 2 % (CELLAVISION)(BEAKER) (test code = 2819) MYELOCYTES - REL 1 % 0-0 H (CELLAVISION)(BEAKER) (test code = 2822) ATYPICAL LYMPHOCYTES - REL 1 % 0-0 H (CELLAVISION)(BEAKER) (test code = 2829) NEUTROPHILS - ABS 10.44 K/ul 1.78-5.38 H (CELLAVISION)(BEAKER) (test code = 2830) LYMPHOCYTES - ABS 1.45 K/ul 1.32-3.57 (CELLAVISION)(BEAKER) (test code = 2831) MONOCYTES - ABS 2.03 K/uL 0.30-0.82 H (CELLAVISION)(BEAKER) (test code = 2832) EOSINOPHILS - ABS 0.29 K/uL 0.04-0.54 (CELLAVISION)(BEAKER) (test code = 2834) MYELOCYTES-ABS 0.15 K/uL 0.00-0.00 H (CELLAVISION)(BEAKER) (test code = 2837) ATYPICAL LYMPHOCYTES - ABS 0.15 K/uL 0.00-0.00 H (CELLAVISION)(BEAKER) (test code = 2858) TOTAL COUNTED (BEAKER) (test code 100 = 1351) SMUDGE CELLS (BEAKER) (test code = Present 1371) GIANT PLATELETS (BEAKER) (test Present code = 313) POLYCHROMATOPHILLIC RBCS(BEAKER) 3+ many (test code = 478) ANISOCYTOSIS (BEAKER) (test code = 1+ few 961) ARTIFACT (CELLAVISION)(BEAKER) Present (test code = 3432) PLATELET CONCENTRATION Adequate (CELLAVISION)(BEAKER) (test code = 3438) Roofer Apprentice ID - Esa DeshpandeJeanine comments: Slide comments:BASIC METABOLIC [id number] 03:13:42 Test Item Value Reference Range Interpretation Comments SODIUM (BEAKER) 137 meq/L 136-145 (test code = 381) POTASSIUM 3.8 meq/L 3.5-5.1 (BEAKER) (test code = 379) CHLORIDE (BEAKER) 106 meq/L 98-107 (test code = 382) CO2 (BEAKER) 21 meq/L 22-29 L (test code = 355) BLOOD UREA 55 mg/dL 7-21 H NITROGEN (BEAKER) (test code = 354) CREATININE 4.12 mg/dL 0.57-1.25 H (BEAKER) (test code = 358) GLUCOSE RANDOM 208 mg/dL 70-105 H (BEAKER) (test code = 652) CALCIUM (BEAKER) 7.9 mg/dL 8.4-10.2 L (test code = 697) EGFR (BEAKER) 16 Interpretatio n of eGFR (test code = mL/min/1.73 values Stage De scription 1092) sq m Result G1 Idania l or high >=90 G2 Mildly decreased 60-89 G3a Mildl y to moderately 45-5 9 G3b Moderately to s everely 30-44 G4 Severl y decreased 15-29 G5 Kidney failure <15Reported eGF R is based on the CKD-EPI 1 equation that d oes not use a race coefficientEsti mated GFR is not as accur ate as Creatinine Ai whyte in predicting glom erular filtration rate . Estimated GFR is not appl icable for dialysis patien ts Roofer Apprentice ID - LING LHIGH SENSITIVITY TROPONIN [id number] 03:13:21 Test Item Value Reference Range Interpretation Comments HIGH SENSITIVITY 2452 pg/ml See_Comment HH [Automated message] TROPONIN I (test code The sy stem which = [id number]) generated this result transmitted ref erence range: <=35. Th e reference range was not used to int erpret this result as normal/abnormal . Roofer Apprentice ID - LING LThe [employer] NET PROGRAMMER STAT High Sensitivity Troponin-I results should be used in conjunction with other diagnostic information such as ECG, clinical observations and information, and patient symptoms to aid in the diagnosis of ME.RAD, CHEST, 1 VIEW, NON [id number] 03:11:00While IABP in place and following each repositioning of IABPReason for exam:->Post cardiotomyShould this be performed at the bedside?->Yes [facility] : 1965 Sex: MFINAL REPORT CLINICAL INDICATION: Post cardiotomy Comparison: 04/07/2022 The cardiomediastinal contours are stable. Left greater than right parenchymal opacities are similar to previous. There is no pneumothorax. Support lines are stable. Signed: Malia Leigh MDReport Verified Date/Time: 04/08/2022 03:11:19 MAGNESIUM 2022-04-08 03:10:04 Test Item Value Reference Range Interpretation Comments MAGNESIUM (BEAKER) (test code = 2.9 mg/dL 1.6-2.6 H 627) Roofer Apprentice ID - LING [id number] 03:10:04 Test Item Value Reference Range Interpretation Comments PHOSPHORUS (BEAKER) (test code = 4.7 mg/dL 2.3-4.7 604) Roofer Apprentice ID - PIENDER [id number] 03:10:04 Test Item Value Reference Range Interpretation Comments TRIGLYCERIDES (BEAKER) (test code = 269 mg/dL 540) TRIGLYCERIDE REFERENCE RANGELow Risk <150Borderline Risk 150-199High Risk 200-499Very High Risk >=500Operator ID - LING LCALCIUM, [id number] 02:24:41 Test Item Value Reference Range Interpretation Comments CALCIUM IONIZED (BEAKER) (test 1.08 mmol/L 1.12-1.27 L code = 698) PH, BLOOD (BEAKER) (test code = 7.36 1810) BLOOD GAS, [id number] 02:24:40 Test Item Value Reference Range Interpretation Comments PH ARTERIAL (BEAKER) (test code = 7.35 7.35-7.45 383) PCO2 ARTERIAL (BEAKER) (test code 47 mm Hg 35-45 H = 384) PO2 ARTERIAL (BEAKER) (test code 132 mm Hg 80-90 H = 385) O2 SATURATION ARTERIAL (BEAKER) 98.4 % 96.0-97.0 H (test code = 386) HCO3 ARTERIAL (BEAKER) (test code 26 mmol/L 21-29 = 388) BASE EXCESS ARTERIAL (BEAKER) -0.3 mmol/L -2.0-3.0 (test code = 387) PATIENT TEMPERATURE (BEAKER) 37.5 (test code = 1818) FIO2 (BEAKER) (test code = 1819) 40.0 OXYGEN SATURATION, [id number] 02:19:56 Test Item Value Reference Range Interpretation Comments O2 SATURATION (MEASURED) (BEAKER) 83.5 % (test code = 1455) [id number] 01:33:09 Test Item Value Reference Range Interpretation Comments PROTIME (BEAKER) (test 15.4 seconds 11.9-14.2 H code = 759) INR (BEAKER) (test 1.24 See_Comment [Automat ed code = 370) message] The sy stem which generated this result transmitted reference range : <=5.90. The reference range was not used to interpret this result as normal/abnormal . PARTIAL THROMBOPLASTIN 40.7 seconds 22.5-36.0 H TIME (BEAKER) (test code = 760) RECOMMENDED COUMADIN/WARFARIN INR THERAPY RANGESSTANDARD DOSE: 2.0 - 3.0 Includes: PROPHYLAXIS for venous thrombosis, systemic embolization; TREATMENT for venous thrombosis and/or pulmonary embolus.HIGH RISK: Target INR is 2.5-3.5 for patients with mechanical heart valves.[id number] 01:32:52 Test Item Value Reference Range Interpretation Comments FIBRINOGEN LEVEL (BEAKER) (test 736 mg/dl 225-434 H code = 658) POCT-GLUCOSE [id number] 00:12:33 Test Item Value Reference Range Interpretation Comments POC-GLUCOSE METER 197 mg/dL 70-110 H : TESTED A T [facility] 6720 (BEAKER) (test code = SOLANGE Lu [facility], 1538) [address]: Roofer Apprentice/Techni earnest ID = [id number] for [place] BLOOD GAS, [id number] 23:01:59 Test Item Value Reference Range Interpretation Comments PH ARTERIAL (BEAKER) (test code = 7.34 7.35-7.45 L 383) PCO2 ARTERIAL (BEAKER) (test code 47 mm Hg 35-45 H = 384) PO2 ARTERIAL (BEAKER) (test code 103 mm Hg 80-90 H = 385) O2 SATURATION ARTERIAL (BEAKER) 97.2 % 96.0-97.0 H (test code = 386) HCO3 ARTERIAL (BEAKER) (test code 25 mmol/L 21-29 = 388) BASE EXCESS ARTERIAL (BEAKER) -1.0 mmol/L -2.0-3.0 (test code = 387) PATIENT TEMPERATURE (BEAKER) 37.7 (test code = 1818) FIO2 (BEAKER) (test code = 1819) 40.0 Lactic Acid, [id number] 22:08:01 Test Item Value Reference Range Interpretation Comments Lactate, Art (test code = 0.8 mmol/L 0.5-2.2 2874) ADAM (test code = ADAM) Roofer Apprentice ID - [place] Lab Interpretation (test Normal code = 53758-8) [facility] [id number] 22:08:01 Test Item Value Reference Range Interpretation Comments Lactate, Art (test code = 0.8 mmol/L 0.5-2.2 2874) ADAM (test code = ADAM) Roofer Apprentice ID - [place] Lab Interpretation (test Normal code = 83245-7) [facility], [id number] 22:08:01 Test Item Value Reference Range Interpretation Comments Lactate, Art (test code = 0.8 mmol/L 0.5-2.2 2874) ADAM (test code = ADAM) Roofer Apprentice ID - [place] Lab Interpretation (test Normal code = 63626-4) [facility], [id number] 22:08:01 Test Item Value Reference Range Interpretation Comments Lactate, Art (test code = 0.8 mmol/L 0.5-2.2 2874) ADAM (test code = ADAM) Roofer Apprentice ID - [place] Lab Interpretation (test Normal code = 56089-2) [facility], [id number] 22:08:01 Test Item Value Reference Range Interpretation Comments LACTATE BLOOD ARTERIAL (2) 0.8 mmol/L 0.5-2.2 (BEAKER) (test code = 2874) Roofer Apprentice ID - AZBLOOD GAS, [id number] 21:45:21 Test Item Value Reference Range Interpretation Comments PH ARTERIAL (BEAKER) (test code = 7.31 7.35-7.45 L 383) PCO2 ARTERIAL (BEAKER) (test code 52 mm Hg 35-45 H = 384) PO2 ARTERIAL (BEAKER) (test code 110 mm Hg 80-90 H = 385) O2 SATURATION ARTERIAL (BEAKER) 97.4 % 96.0-97.0 H (test code = 386) HCO3 ARTERIAL (BEAKER) (test code 25 mmol/L 21-29 = 388) BASE EXCESS ARTERIAL (BEAKER) -1.0 mmol/L -2.0-3.0 (test code = 387) PATIENT TEMPERATURE (BEAKER) 37.8 (test code = 1818) FIO2 (BEAKER) (test code = 1819) 40.0 HGB/HCT (H&H) - STAT [id number] 21:45:21 Test Item Value Reference Range Interpretation Comments HEMOGLOBIN (BEAKER) (test code = 12.2 GM/DL 13.0-16.8 L 410) HEMATOCRIT (BEAKER) (test code = 36.0 % 40.0-50.0 L 411) POTASSIUM-STAT [id number] 21:45:04 Test Item Value Reference Range Interpretation Comments POTASSIUM (BEAKER) (test code = 3.9 meq/L 3.6-5.5 379) GLUCOSE-STAT [id number] 21:45:03 Test Item Value Reference Range Interpretation Comments GLUCOSE RANDOM (BEAKER) (test code 185 mg/dL 70-110 H = 652) SODIUM NA-STAT [id number] 21:45:03 Test Item Value Reference Range Interpretation Comments SODIUM (BEAKER) (test code = 381) 137 meq/L 136-145 OXYGEN SATURATION, [id number] 21:44:58 Test Item Value Reference Range Interpretation Comments O2 SATURATION (MEASURED) (BEAKER) 73.9 % (test code = 1455) BASIC METABOLIC [id number] 17:18:58 Test Item Value Reference Range Interpretation Comments SODIUM (BEAKER) 140 meq/L 136-145 (test code = 381) POTASSIUM 4.0 meq/L 3.5-5.1 (BEAKER) (test code = 379) CHLORIDE (BEAKER) 107 meq/L 98-107 (test code = 382) CO2 (BEAKER) 24 meq/L 22-29 (test code = 355) BLOOD UREA 44 mg/dL 7-21 H NITROGEN (BEAKER) (test code = 354) CREATININE 3.45 mg/dL 0.57-1.25 H (BEAKER) (test code = 358) GLUCOSE RANDOM 177 mg/dL 70-105 H (BEAKER) (test code = 652) CALCIUM (BEAKER) 8.2 mg/dL 8.4-10.2 L (test code = 697) EGFR (BEAKER) 20 Interpretatio n of eGFR (test code = mL/min/1.73 values Stage De scription 1092) sq m Result G1 Idania l or high >=90 G2 Mildly decreased 60-89 G3a Mildl y to moderately 45-5 9 G3b Moderately to s everely 30-44 G4 Severl y decreased 15-29 G5 Kidney failure <15Reported eGF R is based on the CKD-EPI 2021 equation that d oes not use a race coefficientEsti mated GFR is not as accur ate as Creatinine Ai pato in predicting glom erular filtration rate . Estimated GFR is not appl icable for dialysis patien ts Roofer Apprentice ID - [id number] 17:18:16 Test Item Value Reference Range Interpretation Comments MAGNESIUM (BEAKER) (test code = 2.8 mg/dL 1.6-2.6 H 627) Roofer Apprentice ID - [id number] 17:18:16 Test Item Value Reference Range Interpretation Comments PHOSPHORUS (BEAKER) (test code = 3.9 mg/dL 2.3-4.7 604) Roofer Apprentice ID - [id number] 16:46:23 Test Item Value Reference Range Interpretation Comments PARTIAL THROMBOPLASTIN TIME 32.1 seconds 22.5-36.0 (BEAKER) (test code = 760) CBC (HEMOGRAM ONLY)2022-04-07 16:43:25 Test Item Value Reference Range Interpretation Comments WHITE BLOOD CELL COUNT (BEAKER) 14.5 K/ L 3.5-10.5 H (test code = 775) RED BLOOD CELL COUNT (BEAKER) 4.04 M/ L 4.63-6.08 L (test code = 761) HEMOGLOBIN (BEAKER) (test code = 11.5 GM/DL 13.7-17.5 L 410) HEMATOCRIT (BEAKER) (test code = 36.5 % 40.1-51.0 L 411) MEAN CORPUSCULAR VOLUME (BEAKER) 90 fL 79-92 (test code = 753) MEAN CORPUSCULAR HEMOGLOBIN 28.5 pg 25.7-32.2 (BEAKER) (test code = 751) MEAN CORPUSCULAR HEMOGLOBIN CONC 31.5 GM/DL 32.3-36.5 L (BEAKER) (test code = 752) RED CELL DISTRIBUTION WIDTH 18.6 % 11.6-14.4 H (BEAKER) (test code = 412) PLATELET COUNT (BEAKER) (test 404 K/CU MM 150-450 code = 756) MEAN PLATELET VOLUME (BEAKER) 10.4 fL 9.4-12.4 (test code = 754) NUCLEATED RED BLOOD CELLS 0 /100 WBC 0-0 (BEAKER) (test code = 413) CALCIUM, [id number] 16:20:35 Test Item Value Reference Range Interpretation Comments CALCIUM IONIZED (BEAKER) (test 1.09 mmol/L 1.12-1.27 L code = 698) PH, BLOOD (BEAKER) (test code = 7.36 1810) POCT-GLUCOSE [id number] 12:47:22 Test Item Value Reference Range Interpretation Comments POC-GLUCOSE METER 183 mg/dL 70-110 H : TESTED A T [facility] 6720 (BEAKER) (test code = [place], 1538) [address]: Roofer Apprentice/Techni earnest ID = [id number] for Laura cortés (contract), Amb er HIGH SENSITIVITY TROPONIN [id number] 09:18:51 Test Item Value Reference Range Interpretation Comments HIGH SENSITIVITY 2936 pg/ml See_Comment HH [Automated message] TROPONIN I (test code The sy stem which = [id number]) generated this result transmitted ref erence range: <=35. Th e reference range was not used to int erpret this result as normal/abnormal . Roofer Apprentice ID - ROSALIO GThe [employer] NET PROGRAMMER STAT High Sensitivity Troponin-I results should be used in conjunction with other diagnostic information such as ECG, clinical observations and information, and patient symptoms to aid in the diagnosis of ME.(CELLAVISION MANUAL DIFF)2022-04-07 07:52:55 Test Item Value Reference Range Interpretation Comments NEUTROPHILS - REL 68 % (CELLAVISION)(BEAKER) (test code = 2816) LYMPHOCYTES - REL 6 % (CELLAVISION)(BEAKER) (test code = 2817) MONOCYTES - REL 17 % (CELLAVISION)(BEAKER) (test code = 2818) EOSINOPHILS - REL 6 % (CELLAVISION)(BEAKER) (test code = 2819) BASOPHILS - REL 1 % (CELLAVISION)(BEAKER) (test code = 2820) METAMYELOCYTES - REL 1 % 0-0 H (CELLAVISION)(BEAKER) (test code = 2821) NEUTROPHILS - ABS 9.66 K/ul 1.78-5.38 H (CELLAVISION)(BEAKER) (test code = 2830) LYMPHOCYTES - ABS 0.85 K/ul 1.32-3.57 L (CELLAVISION)(BEAKER) (test code = 2831) MONOCYTES - ABS 2.41 K/uL 0.30-0.82 H (CELLAVISION)(BEAKER) (test code = 2832) EOSINOPHILS - ABS 0.85 K/uL 0.04-0.54 H (CELLAVISION)(BEAKER) (test code = 2834) BASOPHILS - ABS 0.14 K/uL 0.01-0.08 H (CELLAVISION)(BEAKER) (test code = 2835) METAMYELOCYTES - ABS 0.14 K/uL 0.00-0.00 H (CELLAVISION)(BEAKER) (test code = 2836) TOTAL COUNTED (BEAKER) (test code 100 = 1351) MANUAL NRBC PER 100 CELLS (BEAKER) 2 /100 WBC 0-0 H (test code = 1353) WBC MORPHOLOGY (BEAKER) (test code Normal = 487) GIANT PLATELETS (BEAKER) (test Present code = 313) POLYCHROMATOPHILLIC RBCS(BEAKER) 3+ many (test code = 478) ARTIFACT (CELLAVISION)(BEAKER) Present (test code = 3432) PLATELET CONCENTRATION Adequate (CELLAVISION)(BEAKER) (test code = 3438) Roofer Apprentice ID - samantha Larkin comments: Slide comments:CBC W/PLT COUNT & AUTO [id number] 07:52:54 Test Item Value Reference Range Interpretation Comments WHITE BLOOD CELL COUNT (BEAKER) 14.2 K/ L 3.5-10.5 H (test code = 775) RED BLOOD CELL COUNT (BEAKER) 4.01 M/ L 4.63-6.08 L (test code = 761) HEMOGLOBIN (BEAKER) (test code = 11.5 GM/DL 13.7-17.5 L 410) HEMATOCRIT (BEAKER) (test code = 37.3 % 40.1-51.0 L 411) MEAN CORPUSCULAR VOLUME (BEAKER) 93 fL 79-92 H (test code = 753) MEAN CORPUSCULAR HEMOGLOBIN 28.7 pg 25.7-32.2 (BEAKER) (test code = 751) MEAN CORPUSCULAR HEMOGLOBIN CONC 30.8 GM/DL 32.3-36.5 L (BEAKER) (test code = 752) RED CELL DISTRIBUTION WIDTH 18.3 % 11.6-14.4 H (BEAKER) (test code = 412) PLATELET COUNT (BEAKER) (test 367 K/CU MM 150-450 code = 756) MEAN PLATELET VOLUME (BEAKER) 10.5 fL 9.4-12.4 (test code = 754) NUCLEATED RED BLOOD CELLS 0 /100 WBC 0-0 (BEAKER) (test code = 413) [id number] 06:19:37 Test Item Value Reference Range Interpretation Comments PROTIME (BEAKER) (test 15.5 seconds 11.9-14.2 H code = 759) INR (BEAKER) (test 1.30 See_Comment [Automat ed code = 370) message] The sy stem which generated this result transmitted reference range : <=5.90. The reference range was not used to interpret this result as normal/abnormal . PARTIAL THROMBOPLASTIN 32.8 seconds 22.5-36.0 TIME (BEAKER) (test code = 760) RECOMMENDED COUMADIN/WARFARIN INR THERAPY RANGESSTANDARD DOSE: 2.0 - 3.0 Includes: PROPHYLAXIS for venous thrombosis, systemic embolization; TREATMENT for venous thrombosis and/or pulmonary embolus.HIGH RISK: Target INR is 2.5-3.5 for patients with mechanical heart valves.[id number] 06:19:13 Test Item Value Reference Range Interpretation Comments FIBRINOGEN LEVEL (BEAKER) (test 725 mg/dl 225-434 H code = 658) POCT-GLUCOSE [id number] 06:09:49 Test Item Value Reference Range Interpretation Comments POC-GLUCOSE METER 130 mg/dL 70-110 H : TESTED A T [facility] 6720 (BEAKER) (test code = [facility], 1538) [id number]: Roofer Apprentice/Techni earnest ID = [id number] for MO RALES, ADYANY B-TYPE NATRIURETIC FACTOR (BNP)2022-04-07 05:23:47 Test Item Value Reference Range Interpretation Comments B-TYPE NATRIURETIC PEPTIDE 1061 pg/mL 0-100 H (BEAKER) (test code = 700) Roofer Apprentice ID - PIAYA LPOCT-GLUCOSE [id number] 04:46:46 Test Item Value Reference Range Interpretation Comments POC-GLUCOSE METER 140 mg/dL 70-110 H : TESTED A T [facility] 6720 (AKER) (test code = [facility], 1538) [address]: Roofer Apprentice/Techni earnest ID = [id number] for MO RALES, ADYANY RAD, CHEST, 1 VIEW, NON [id number] 04:37:00While IABP in place and following each repositioning of IABPReason for exam:->Post cardiotomyShould this be performed at the bedside?->Yes [facility] 1965 Sex: MFINAL REPORT RAD, CHEST, 1 VIEW, NON DEPT CLINICAL STATEMENT: Postoperative changes. COMPARISON: 04/06/2022 FINDINGS: Heart is moderately enlarged. Status post median sternotomy. Endotracheal tube is in place. Bilateral chest tubes. No pneumothorax. No pleural effusion. Right IJ [place] catheter in place. IMPRESSION: Stable findings. Signed: Tc Hwang Verified Date/Time: 04/07/2022 04:37:15 LIDOCAINE [id number] 04:15:32 Test Item Value Reference Range Interpretation Comments LIDOCAINE LEVEL (BEAKER) (test code 5.2 ug/mL 1.5-5.0 H = 732) [id number] 03:07:29 Test Item Value Reference Range Interpretation Comments MAGNESIUM (BEAKER) (test code = 2.8 mg/dL 1.6-2.6 H 627) Roofer Apprentice ID - ROSALIO [id number] 03:07:29 Test Item Value Reference Range Interpretation Comments PHOSPHORUS (BEAKER) (test code = 3.4 mg/dL 2.3-4.7 604) Roofer Apprentice ID - ROSALIO GBASIC METABOLIC [id number] 03:07:28 Test Item Value Reference Range Interpretation Comments SODIUM (BEAKER) 141 meq/L 136-145 (test code = 381) POTASSIUM 3.6 meq/L 3.5-5.1 (BEAKER) (test code = 379) CHLORIDE (BEAKER) 110 meq/L 98-107 H (test code = 382) CO2 (BEAKER) 23 meq/L 22-29 (test code = 355) BLOOD UREA 36 mg/dL 7-21 H NITROGEN (BEAKER) (test code = 354) CREATININE 2.27 mg/dL 0.57-1.25 H (BEAKER) (test code = 358) GLUCOSE RANDOM 143 mg/dL 70-105 H (BEAKER) (test code = 652) CALCIUM (BEAKER) 8.0 mg/dL 8.4-10.2 L (test code = 697) EGFR (BEAKER) 33 Interpretatio n of eGFR (test code = mL/min/1.73 values Stage De scription 1092) sq m Result G1 Idania l or high >=90 G2 Mildly decreased 60-89 G3a Mildl y to moderately 45-5 9 G3b Moderately to s everely 30-44 G4 Severl y decreased 15-29 G5 Kidney failure <15Reported eGF R is based on the CKD-EPI 2020 equation that d oes not use a race coefficientEsti mated GFR is not as accur ate as Creatinine Ai whyte in predicting glom erular filtration rate . Estimated GFR is not appl icable for dialysis patien ts Roofer Apprentice ID - ROSALIO GVANCOMYCIN LEVEL, [id number] 03:03:29 Test Item Value Reference Range Interpretation Comments VANCOMYCIN RANDOM (BEAKER) (test 19.2 ug/mL code = 523) Reference Range: No NormalsOperator ID - ROSALIO GLACTIC ACID, [id number] 03:01:10 Test Item Value Reference Range Interpretation Comments LACTATE BLOOD 1.0 mmol/L 0.5-2.2 Specimen sligh tly ARTERIAL (2) (BEAKER) hemoly zed (test code = 2874) Roofer Apprentice ID - ROSALIO GPOCT-GLUCOSE [id number] 02:35:57 Test Item Value Reference Range Interpretation Comments POC-GLUCOSE METER 134 mg/dL 70-110 H : TESTED A T [facility] 6720 (BEAKER) (test code = [place], 1538) [address]: Roofer Apprentice/Techni earnest ID = [id number] for MO RALES, ADYANY CALCIUM, [id number] 02:28:00 Test Item Value Reference Range Interpretation Comments CALCIUM IONIZED (BEAKER) (test 1.09 mmol/L 1.12-1.27 L code = 698) PH, BLOOD (BEAKER) (test code = 7.38 1810) BLOOD GAS, [id number] 02:27:55 Test Item Value Reference Range Interpretation Comments PH ARTERIAL (BEAKER) (test code = 7.37 7.35-7.45 383) PCO2 ARTERIAL (BEAKER) (test code 47 mm Hg 35-45 H = 384) PO2 ARTERIAL (BEAKER) (test code = 152 mm Hg 80-90 H 385) O2 SATURATION ARTERIAL (BEAKER) 98.9 % 96.0-97.0 H (test code = 386) HCO3 ARTERIAL (BEAKER) (test code 27 mmol/L 21-29 = 388) BASE EXCESS ARTERIAL (BEAKER) 1.2 mmol/L -2.0-3.0 (test code = 387) PATIENT TEMPERATURE (BEAKER) (test 37.2 code = 1818) FIO2 (BEAKER) (test code = 1819) 60.0 OXYGEN SATURATION, [id number] 02:27:43 Test Item Value Reference Range Interpretation Comments O2 SATURATION (MEASURED) (BEAKER) 82.1 % (test code = 1455) [id number] 00:34:47 Test Item Value Reference Range Interpretation Comments PARTIAL THROMBOPLASTIN TIME 30.6 seconds 22.5-36.0 (BEAKER) (test code = 760) CBC (HEMOGRAM ONLY)2022-04-06 23:56:02 Test Item Value Reference Range Interpretation Comments WHITE BLOOD CELL COUNT (BEAKER) 13.5 K/ L 3.5-10.5 H (test code = 775) RED BLOOD CELL COUNT (BEAKER) 4.33 M/ L 4.63-6.08 L (test code = 761) HEMOGLOBIN (BEAKER) (test code = 12.1 GM/DL 13.7-17.5 L 410) HEMATOCRIT (BEAKER) (test code = 38.9 % 40.1-51.0 L 411) MEAN CORPUSCULAR VOLUME (BEAKER) 90 fL 79-92 (test code = 753) MEAN CORPUSCULAR HEMOGLOBIN 27.9 pg 25.7-32.2 (BEAKER) (test code = 751) MEAN CORPUSCULAR HEMOGLOBIN CONC 31.1 GM/DL 32.3-36.5 L (BEAKER) (test code = 752) RED CELL DISTRIBUTION WIDTH 18.0 % 11.6-14.4 H (BEAKER) (test code = 412) PLATELET COUNT (AKER) (test 382 K/CU MM 150-450 code = 756) MEAN PLATELET VOLUME (BEAKER) 10.2 fL 9.4-12.4 (test code = 754) NUCLEATED RED BLOOD CELLS 0 /100 WBC 0-0 (AKER) (test code = 413) POCT-GLUCOSE [id number] 23:53:44 Test Item Value Reference Range Interpretation Comments POC-GLUCOSE METER 153 mg/dL 70-110 H : TESTED A T [facility] 6720 ([facility]) (test code = [facility], [facility]) [address]: Roofer Apprentice/Techni earnest ID = [id number] for SAMRA MCKINNEY, MARCIAYANY POCT-GLUCOSE [id number] 22:24:42 Test Item Value Reference Range Interpretation Comments POC-GLUCOSE METER 167 mg/dL 70-110 H : TESTED A T [facility] 6720 ([facility]) (test code = [facility], [facility]) [address]: Roofer Apprentice/Techni earnest ID = [id number] for Harsha Saeed POCT-GLUCOSE [id number] 20:42:44 Test Item Value Reference Range Interpretation Comments POC-GLUCOSE METER 157 mg/dL 70-110 H : TESTED A T [facility] 6720 ([facility]) (test code = [facility], 153) [address]: Roofer Apprentice/Techni earnest ID = [id number] for MO RALES, ADYANY POCT-GLUCOSE [id number] 19:20:11 Test Item Value Reference Range Interpretation Comments POC-GLUCOSE METER 159 mg/dL 70-110 H : TESTED A T [facility] 6720 ([facility]) (test code = [facility], 153) [address]: Roofer Apprentice/Techni earnest ID = [id number] for JONATHAN DEL TORO POCT-GLUCOSE [id number] 18:53:59 Test Item Value Reference Range Interpretation Comments POC-GLUCOSE METER 164 mg/dL 70-110 H : TESTED A T [facility] 6720 (BEAKER) (test code = [place] [facility], 1538) [address]: Roofer Apprentice/Techni earnest ID = [id number] for JONATHAN DEL TORO POCT-GLUCOSE [id number] 18:33:17 Test Item Value Reference Range Interpretation Comments POC-GLUCOSE METER 168 mg/dL 70-110 H : TESTED A T [facility] 6720 (BEAKER) (test code = [place] [facility], 1538) [address]: Roofer Apprentice/Techni earnest ID = [id number] for JONATHAN DEL TORO B-TYPE NATRIURETIC FACTOR (BNP)2022-04-06 16:43:04 Test Item Value Reference Range Interpretation Comments B-TYPE NATRIURETIC PEPTIDE 1271 pg/mL 0-100 H (BEAKER) (test code = 700) Roofer Apprentice ID - BSBASIC METABOLIC [id number] 16:38:02 Test Item Value Reference Range Interpretation Comments SODIUM (BEAKER) 137 meq/L 136-145 (test code = 381) POTASSIUM 4.0 meq/L 3.5-5.1 Specimen slight ly (BEAKER) (test hemolyzed code = 379) CHLORIDE (BEAKER) 105 meq/L 98-107 (test code = 382) CO2 (BEAKER) 21 meq/L 22-29 L (test code = 355) BLOOD UREA 33 mg/dL 7-21 H NITROGEN (BEAKER) (test code = 354) CREATININE 2.10 mg/dL 0.57-1.25 H Specimen slight ly (BEAKER) (test hemolyzed code = 358) GLUCOSE RANDOM 206 mg/dL 70-105 H (BEAKER) (test code = 652) CALCIUM (BEAKER) 8.0 mg/dL 8.4-10.2 L (test code = 697) EGFR (BEAKER) 36 Interpretatio n of eGFR (test code = mL/min/1.73 values Stage De scription 1092) sq m Result G1 Idania l or high >=90 G2 Mildly decreased 60-89 G3a Mildl y to moderately 45-5 9 G3b Moderately to s everely 30-44 G4 Severl y decreased 15-29 G5 Kidney failure <15Reported eGF R is based on the CKD-EPI 2020 equation that d oes not use a race coefficientEsti mated GFR is not as accur ate as Creatinine Ai pato in predicting glom erular filtration rate . Estimated GFR is not appl icable for dialysis patien ts Roofer Apprentice ID - [id number] 16:31:21 Test Item Value Reference Range Interpretation Comments PROTIME (BEAKER) (test 15.3 seconds 11.9-14.2 H code = 759) INR (BEAKER) (test 1.28 See_Comment [Automat ed code = 370) message] The Compute stem which generated this result transmitted reference range : <=5.90. The reference range was not used to interpret this result as normal/abnormal . PARTIAL THROMBOPLASTIN 38.8 seconds 22.5-36.0 H TIME (BEAKER) (test code = 760) RECOMMENDED COUMADIN/WARFARIN INR THERAPY RANGESSTANDARD DOSE: 2.0 - 3.0 Includes: PROPHYLAXIS for venous thrombosis, systemic embolization; TREATMENT for venous thrombosis and/or pulmonary embolus.HIGH RISK: Target INR is 2.5-3.5 for patients with mechanical heart valves.2D Echo W/Doppler(CW/PW/Color) 2022-04-06 15:01:26Ejection FractionSLEH ECHO [facility]ART[facility] W/Doppler(CW/PW/Color)2022-04-06 15:01:26Ejection FractionSLEH ECHO HEARTLAB [facility] Echo W/Doppler(CW/PW/Color)2022-04-06 15:01:26Ejection FractionSLEH ECHO HEARTLAB [facility] W/Doppler(CW/PW/Color) 2022-04-06 15:01:26Ejection FractionSLEH ECHO HEARTLAB [facility] HospitalVANCOMYCIN LEVEL, [id number] 14:17:22 Test Item Value Reference Range Interpretation Comments VANCOMYCIN TROUGH (BEAKER) (test 27.1 ug/mL 10.0-20.0 H code = 522) Roofer Apprentice ID - [id number] 12:52:11 Test Item Value Reference Range Interpretation Comments PHOSPHORUS (BEAKER) (test code = 4.8 mg/dL 2.3-4.7 H 604) Roofer Apprentice ID - ROSALIO GCOMPREHENSIVE METABOLIC [id number] 12:52:10 Test Item Value Reference Range Interpretation Comments TOTAL PROTEIN 5.6 gm/dL 6.0-8.3 L (BEAKER) (test code = 770) ALBUMIN (BEAKER) 2.5 g/dL 3.5-5.0 L (test code = 1145) ALKALINE 129 U/L 40-150 PHOSPHATASE (BEAKER) (test code = 346) BILIRUBIN TOTAL 0.8 mg/dL 0.2-1.2 (BEAKER) (test code = 377) SODIUM (BEAKER) 138 meq/L 136-145 (test code = 381) POTASSIUM (BEAKER) 4.1 meq/L 3.5-5.1 (test code = 379) CHLORIDE (BEAKER) 106 meq/L 98-107 (test code = 382) CO2 (BEAKER) (test 21 meq/L 22-29 L code = 355) BLOOD UREA 32 mg/dL 7-21 H NITROGEN (BEAKER) (test code = 354) CREATININE 2.06 mg/dL 0.57-1.25 H (BEAKER) (test code = 358) GLUCOSE RANDOM 260 mg/dL 70-105 H (BEAKER) (test code = 652) CALCIUM (BEAKER) 8.2 mg/dL 8.4-10.2 L (test code = 697) AST (SGOT) 70 U/L 5-34 H (BEAKER) (test code = 353) ALT (SGPT) 42 U/L 6-55 (BEAKER) (test code = 347) EGFR (BEAKER) 37 Interpretatio n of eGFR (test code = 1092) mL/min/1.[address] age Description sq m Result G1 Idania l or high >=90 G2 Mildly decreased 60-89 G3a Mildl y to moderately 45-5 9 G3b Moderately to s everely 30-44 G4 Severl y decreased 15-29 G5 Kidney failure <15Reported eGF R is based on the CKD-EPI 2020 equation that d oes not use a race coefficientEsti mated GFR is not as accur ate as Creatinine Ai pato in predicting glom erular filtration rate . Estimated GFR is not appl icable for dialysis patien ts Roofer Apprentice ID - ROSALIO [id number] 12:52:10 Test Item Value Reference Range Interpretation Comments MAGNESIUM (BEAKER) (test code = 2.9 mg/dL 1.6-2.6 H 627) Roofer Apprentice ID - ROSALIO GLACTIC ACID, [id number] 12:36:22 Test Item Value Reference Range Interpretation Comments LACTATE BLOOD ARTERIAL (2) 0.9 mmol/L 0.5-2.2 (BEAKER) (test code = 2874) Roofer Apprentice ID - [id number] 12:33:49 Test Item Value Reference Range Interpretation Comments PARTIAL THROMBOPLASTIN TIME 131.3 seconds 22.5-36.0 H (BEAKER) (test code = 760) [id number] 12:30:23 Test Item Value Reference Range Interpretation Comments FIBRINOGEN LEVEL (BEAKER) (test 787 mg/dl 225-434 H code = 658) PROTHROMBIN [id number] 12:29:39 Test Item Value Reference Range Interpretation Comments PROTIME (BEAKER) 15.8 seconds 11.9-14.2 H (test code = 759) INR (BEAKER) (test 1.29 See_Comment [Automat ed message] code = 370) The system [employer] generated this result transmitted ref erence range: <=5.90. The reference range was not used to int erpret this result as normal/abnormal . RECOMMENDED COUMADIN/WARFARIN INR THERAPY RANGESSTANDARD DOSE: 2.0 - 3.0 Includes: PROPHYLAXIS for venous thrombosis, systemic embolization; TREATMENT for venous thrombosis and/or pulmonary embolus.HIGH RISK: Target INR is 2.5-3.5 for patients with mechanical heart valves.CBC W/PLT COUNT & AUTO [id number] 12:27:52 Test Item Value Reference Range Interpretation Comments WHITE BLOOD CELL COUNT (BEAKER) 12.6 K/ L 3.5-10.5 H (test code = 775) RED BLOOD CELL COUNT (BEAKER) 4.37 M/ L 4.63-6.08 L (test code = 761) HEMOGLOBIN (BEAKER) (test code = 12.3 GM/DL 13.7-17.5 L 410) HEMATOCRIT (BEAKER) (test code = 39.3 % 40.1-51.0 L 411) MEAN CORPUSCULAR VOLUME (BEAKER) 90 fL 79-92 (test code = 753) MEAN CORPUSCULAR HEMOGLOBIN 28.1 pg 25.7-32.2 (BEAKER) (test code = 751) MEAN CORPUSCULAR HEMOGLOBIN CONC 31.3 GM/DL 32.3-36.5 L (BEAKER) (test code = 752) RED CELL DISTRIBUTION WIDTH 18.0 % 11.6-14.4 H (BEAKER) (test code = 412) PLATELET COUNT (BEAKER) (test 359 K/CU MM 150-450 code = 756) MEAN PLATELET VOLUME (BEAKER) 10.6 fL 9.4-12.4 (test code = 754) NUCLEATED RED BLOOD CELLS 0 /100 WBC 0-0 (BEAKER) (test code = 413) RAD, CHEST, 1 VIEW, NON [id number] 12:23:00Reason for exam:->Pulmonary edema, Impella positionShould this be performed at the bedside?->Yes [facility] 1965 Sex: MFINAL REPORT Chest, 1 view. History: Pulmonary edema. Comparison: 04/06/2022. Impression: Endotracheal tube and right IJ pulmonary arterial catheter identified in place. Femoral approach Impella device identified with tip projecting towards the left ventricle/cardiac apex. Bilateral chest/mediastinal tubes identified in stable position. Postsurgical changes from median sternotomy again noted. Stable appearing bibasilar opacities again noted. There is no evidence for pneumothorax or significant volume pleural effusion. The cardiomediastinal silhouette is stable in appearance. No acute osseous abnormality is identified. Signed: Jose G Helton MDReport Verified Date/Time: 04/06/2022 12:23:36 Reading Location: [facility] C0X Ortho Consult Reading Room BLOOD GAS, [id number] 12:21:16 Test Item Value Reference Range Interpretation Comments PH ARTERIAL (BEAKER) (test code = 7.38 7.35-7.45 383) PCO2 ARTERIAL (BEAKER) (test code 38 mm Hg 35-45 = 384) PO2 ARTERIAL (BEAKER) (test code 137 mm Hg 80-90 H = 385) O2 SATURATION ARTERIAL (BEAKER) 98.7 % 96.0-97.0 H (test code = 386) HCO3 ARTERIAL (BEAKER) (test code 22 mmol/L 21-29 = 388) BASE EXCESS ARTERIAL (BEAKER) -2.8 mmol/L -2.0-3.0 L (test code = 387) PATIENT TEMPERATURE (BEAKER) 36.7 (test code = 1818) FIO2 (BEAKER) (test code = 1819) 60.0 CALCIUM, [id number] 12:21:16 Test Item Value Reference Range Interpretation Comments CALCIUM IONIZED (BEAKER) (test 1.10 mmol/L 1.12-1.27 L code = 698) PH, BLOOD (BEAKER) (test code = 7.38 1810) OXYGEN SATURATION, [id number] 12:20:38 Test Item Value Reference Range Interpretation Comments O2 SATURATION (MEASURED) (BEAKER) 74.1 % (test code = 1455) Venous doppler legs [id number] 11:27:00Ejection FractionSLEH ECHO HEARTLAB [facility] 2022-04-06 11:27:00Ejection FractionSLEH ECHO HEARTLAB [facility] [id number] 11:27:00Ejection FractionSLEH ECHO HEARTLAB [facility] [id number] 11:27:00Ejection FractionSLEH ECHO HEARTLAB MKCK[facility] arms bilateral 2022-04-06 11:26:37Ejection FractionSLEH ECHO HEARTLAB CKESSON [facility] [id number] 11:26:37Ejection FractionSLEH ECHO HEARTLAB MKCK[facility]ON [facility] [id number] 11:26:37Ejection FractionSLEH ECHO HEARTLAB [facility] bilateral 2022-04-06 11:26:37Ejection FractionSLEH ECHO HEARTLAB [facility]AM [id number] 10:46:29 Test Item Value Reference Range Interpretation Comments CULTURE (BEAKER) PSEUDOMONAS A <1+ Pseudom onas (test code = 1095) AERUGINOSA aeruginos a Amikacin (test code See_Comment S [Automa leonel = 1) message] The system which generated this result transmitted reference range : Susceptible 0-1 6 , Resistant <0 or >16 . The reference range was not used to interpret this result as normal/abnormal . Aztreonam (test code See_Comment S [Autom ated = 32) message] The system which generated this result transmitted reference range : Susceptible 0-8 , Resistant <0 or >8 . The reference range was not used to interpret this result as normal/abnormal . Cefepime (test code See_Comment S [Automa leonel = 51) message] The system which generated this result transmitted reference range : Susceptible 0-8 , Resistant <0 or >8 . The reference range was not used to interpret this result as normal/abnormal . Ceftazidime (test See_Comment S [Automate d code = 27) message] The system which generated this result transmitted reference range : Susceptible 0-8 , Resistant <0 or >8 . The reference range was not used to interpret this result as normal/abnormal . Ciprofloxacin (test See_Comment S [Automa leonel code = 7) message] The system which generated this result transmitted reference range : Susceptible 0-0 .5 , Resistant <0 or >.5 . The reference range was not used to interpret this result as normal/abnormal . Gentamicin (test See_Comment S [Automated code = 18) message] The system which generated this result transmitted reference range : Susceptible 0-4 , Resistant <0 or >4 . The reference range was not used to interpret this result as normal/abnormal . Levofloxacin (test See_Comment S [Automat ed code = 22) message] The system which generated this result transmitted reference range : Susceptible 0-1 , Resistant <0 or >1 . The reference range was not used to interpret this result as normal/abnormal . Meropenem (test code See_Comment S [Autom ated = 34) message] The system which generated this result transmitted reference range : Susceptible 0-2 , Resistant <0 or >2 . The reference range was not used to interpret this result as normal/abnormal . Piperacillin (test See_Comment S [Automat ed code = 24) message] The system which generated this result transmitted reference range : Susceptible 0-1 6 , Resistant <0 or >16 . The reference range was not used to interpret this result as normal/abnormal . Piperacillin + See_Comment S [Automated Tazobactam (test message] Th e code = 29) system which generated this result transmitted reference range : Susceptible 0-1 6 , Resistant <0 or >16 . The reference range was not used to interpret this result as normal/abnormal . Tobramycin (test See_Comment S [Automated code = 25) message] The system which generated this result transmitted reference range : Susceptible 0-4 , Resistant <0 or >4 . The reference range was not used to interpret this result as normal/abnormal . GRAM STAIN RESULT 4+ WBCs (BEAKER) (test code = 1123) GRAM STAIN RESULT <1+ gram negative (BEAKER) (test code rods = 349111) GRAM STAIN RESULT 1+ gram positive (BEAKER) (test code rods = 031493) GRAM STAIN RESULT 1+ gram positive (BEAKER) (test code cocci in pairs = 424837) GRAM STAIN RESULT 1+ budding yeast (BEAKER) (test code = 179602) 4+ Normal respiratory denise presentPO ACTIVATED CLOTTING [id number] 10:24:46 Test Item Value Reference Range Interpretation Comments Activated Clotting Time 260 sec : 74 -137 seconds, (test code = 3184-9) Baselin e: TESTED AT [facility] [address] [facility], [address]: Roofer Apprentice/Techni earnest ID = [id number] for Do corine, Ernesto [facility] ACTIVATED CLOTTING [id number] 10:24:46 Test Item Value Reference Range Interpretation Comments Activated Clotting Time 260 sec : 74 -137 seconds, (test code = 3184-9) Baselin e: TESTED AT [address], [address]: Roofer Apprentice/Techni earnest ID = [id number] for Do corine, Ernesto [facility] ACTIVATED CLOTTING [id number] 10:24:46 Test Item Value Reference Range Interpretation Comments Activated Clotting Time 260 sec : 74 -137 seconds, (test code = 3184-9) Baselin e: TESTED AT [address], [facility] 30: Roofer Apprentice/Techni earnest ID = [id number] for Do corine, Ernesto [facility] ACTIVATED CLOTTING [id number] 10:24:46 Test Item Value Reference Range Interpretation Comments Activated Clotting Time 260 sec : 74 -137 seconds, (test code = 3184-9) Baselin e: TESTED AT [address], [facility] 30: Roofer Apprentice/Techni earnest ID = [id number] for Do corine, [id number] 10:24:46 Test Item Value Reference Range Interpretation Comments ACTIVATED CLOTTING TIME 260 sec : 74 -137 seconds, (BEAKER) (test code = Baseli ne: TESTED AT 441) [address], [address]: Roofer Apprentice/Techni earnest ID = [id number] for Do corine, Ernesto [id number] 10:04:23 Test Item Value Reference Range Interpretation Comments ACTIVATED CLOTTING TIME 196 sec : 74 -137 seconds, (BEAKER) (test code = Baseli ne: TESTED AT 441) [address], [address]: Roofer Apprentice/Techni earnest ID = [id number] for Do corine, Ernesto POCT-GLUCOSE [id number] 10:00:58 Test Item Value Reference Range Interpretation Comments POC-GLUCOSE METER 267 mg/dL 70-110 H : TESTED [place] [address] (BEAKER) (test code [facility], = 1538) [address]: Roofer Apprentice/Techni earnest ID = [id number] for KELECHI YAO, CHEST, 1 VIEW, NON [id number] 08:26:00Reason for exam:- >IntubationShould this be performed at the bedside?->Yes [facility] 1965 Sex: MFINAL REPORT Chest, 1 view. History: Intubation. Comparison: 04/06/2022 at 0405.Impression: There is been interval intubation with endotracheal tube terminating 5.7 cm above the guy. Right IJ pulmonary arterial catheter and chest/mediastinal tubes identified in stable position.There are stable appearing left lower lung zone and retrocardiac opacities. There is blunting of theright costophrenic angle and a small effusion is suspected. There is no evidence for pneumothorax. The cardiomediastinal silhouette is stable in appearance. No acute osseous abnormality is identified. Signed: Jose G Helton MDReport Verified Date/Time: 04/06/2022 08:26:43 Reading Location: [facility] K600SSchto Consult Reading Room CALCIUM, [id number] 08:07:05 Test Item Value Reference Range Interpretation Comments CALCIUM IONIZED (BEAKER) (test 1.09 mmol/L 1.12-1.27 L code = 698) PH, BLOOD (BEAKER) (test code = 7.42 1810) SODIUM NA-STAT [id number] 08:06:49 Test Item Value Reference Range Interpretation Comments SODIUM (BEAKER) (test code = 381) 134 meq/L 136-145 L POTASSIUM-STAT [id number] 08:06:04 Test Item Value Reference Range Interpretation Comments POTASSIUM (BEAKER) (test code = 3.8 meq/L 3.6-5.5 379) HGB/HCT (H&H) - STAT [id number] 08:06:04 Test Item Value Reference Range Interpretation Comments HEMOGLOBIN (BEAKER) (test code = 13.8 GM/DL 13.0-16.8 410) HEMATOCRIT (BEAKER) (test code = 41.0 % 40.0-50.0 411) GLUCOSE-STAT [id number] 08:06:03 Test Item Value Reference Range Interpretation Comments GLUCOSE RANDOM (BEAKER) (test code 244 mg/dL 70-110 H = 652) BLOOD GAS, [id number] 08:05:53 Test Item Value Reference Range Interpretation Comments PH ARTERIAL (BEAKER) (test code = 7.41 7.35-7.45 383) PCO2 ARTERIAL (BEAKER) (test code 34 mm Hg 35-45 L = 384) PO2 ARTERIAL (BEAKER) (test code 79 mm Hg 80-90 L = 385) O2 SATURATION ARTERIAL (BEAKER) 95.5 % 96.0-97.0 L (test code = 386) HCO3 ARTERIAL (BEAKER) (test code 21 mmol/L 21-29 = 388) BASE EXCESS ARTERIAL (BEAKER) -3.0 mmol/L -2.0-3.0 L (test code = 387) PATIENT TEMPERATURE (BEAKER) 37.7 (test code = 1818) FIO2 (BEAKER) (test code = 1819) 21.0 OXYGEN SATURATION, [id number] 08:01:01 Test Item Value Reference Range Interpretation Comments O2 SATURATION (MEASURED) (BEAKER) 74.6 % (test code = 1455) COMPREHENSIVE METABOLIC [id number] 07:46:02 Test Item Value Reference Range Interpretation Comments TOTAL PROTEIN 5.7 gm/dL 6.0-8.3 L (BEAKER) (test code = 770) ALBUMIN (BEAKER) 2.5 g/dL 3.5-5.0 L (test code = 1145) ALKALINE 132 U/L 40-150 PHOSPHATASE (BEAKER) (test code = 346) BILIRUBIN TOTAL 1.0 mg/dL 0.2-1.2 (BEAKER) (test code = 377) SODIUM (BEAKER) 138 meq/L 136-145 (test code = 381) POTASSIUM (BEAKER) 4.0 meq/L 3.5-5.1 (test code = 379) CHLORIDE (BEAKER) 105 meq/L 98-107 (test code = 382) CO2 (BEAKER) (test 19 meq/L 22-29 L code = 355) BLOOD UREA 27 mg/dL 7-21 H NITROGEN (BEAKER) (test code = 354) CREATININE 1.89 mg/dL 0.57-1.25 H (BEAKER) (test code = 358) GLUCOSE RANDOM 261 mg/dL 70-105 H (BEAKER) (test code = 652) CALCIUM (BEAKER) 8.2 mg/dL 8.4-10.2 L (test code = 697) AST (SGOT) 79 U/L 5-34 H (BEAKER) (test code = 353) ALT (SGPT) 44 U/L 6-55 (BEAKER) (test code = 347) EGFR (BEAKER) 41 Interpretatio n of eGFR (test code = 1092) mL/min/1.[address] age Description sq m Result G1 Idania l or high >=90 G2 Mildly decreased 60-89 G3a Mildl y to moderately 45-5 9 G3b Moderately to s everely 30-44 G4 Severl y decreased 15-29 G5 Kidney failure <15Reported eGF R is based on the CKD-EPI 2021 equation that d oes not use a race coefficientEsti mated GFR is not as accur ate as Creatinine Ai whyte in predicting glom erular filtration rate . Estimated GFR is not appl icable for dialysis patien ts Roofer Apprentice ID - ROSALIO [id number] 07:46:02 Test Item Value Reference Range Interpretation Comments MAGNESIUM (BEAKER) (test code = 2.7 mg/dL 1.6-2.6 H 627) Roofer Apprentice ID - ROSALIO [id number] 07:46:02 Test Item Value Reference Range Interpretation Comments PHOSPHORUS (BEAKER) (test code = 3.9 mg/dL 2.3-4.7 604) Roofer Apprentice ID - ROSALIO GCALCIUM, [id number] 07:38:32 Test Item Value Reference Range Interpretation Comments CALCIUM IONIZED (BEAKER) (test 1.20 mmol/L 1.12-1.27 code = 698) PH, BLOOD (BEAKER) (test code = 7.14 1810) HGB/HCT (H&H) - STAT [id number] 07:36:58 Test Item Value Reference Range Interpretation Comments HEMOGLOBIN (BEAKER) (test code = 13.7 GM/DL 13.0-16.8 410) HEMATOCRIT (BEAKER) (test code = 40.0 % 40.0-50.0 411) GLUCOSE-STAT [id number] 07:36:57 Test Item Value Reference Range Interpretation Comments GLUCOSE RANDOM (BEAKER) (test code 273 mg/dL 70-110 H = 652) SODIUM NA-STAT [id number] 07:36:57 Test Item Value Reference Range Interpretation Comments SODIUM (BEAKER) (test code = 381) 138 meq/L 136-145 POTASSIUM-STAT [id number] 07:36:57 Test Item Value Reference Range Interpretation Comments POTASSIUM (BEAKER) (test code = 3.5 meq/L 3.6-5.5 L 379) CBC W/PLT COUNT & AUTO [id number] 07:34:30 Test Item Value Reference Range Interpretation Comments WHITE BLOOD CELL COUNT (BEAKER) 12.4 K/ L 3.5-10.5 H (test code = 775) RED BLOOD CELL COUNT (BEAKER) 4.45 M/ L 4.63-6.08 L (test code = 761) HEMOGLOBIN (BEAKER) (test code = 12.5 GM/DL 13.7-17.5 L 410) HEMATOCRIT (BEAKER) (test code = 40.1 % 40.1-51.0 411) MEAN CORPUSCULAR VOLUME (BEAKER) 90 fL 79-92 (test code = 753) MEAN CORPUSCULAR HEMOGLOBIN 28.1 pg 25.7-32.2 (BEAKER) (test code = 751) MEAN CORPUSCULAR HEMOGLOBIN CONC 31.2 GM/DL 32.3-36.5 L (BEAKER) (test code = 752) RED CELL DISTRIBUTION WIDTH 17.8 % 11.6-14.4 H (BEAKER) (test code = 412) PLATELET COUNT (BEAKER) (test 344 K/CU MM 150-450 code = 756) MEAN PLATELET VOLUME (BEAKER) 10.5 fL 9.4-12.4 (test code = 754) NUCLEATED RED BLOOD CELLS 0 /100 WBC 0-0 (BEAKER) (test code = 413) (CELLAVISION MANUAL DIFF)2022-04-06 07:25:10 Test Item Value Reference Range Interpretation Comments NEUTROPHILS - REL 51 % (CELLAVISION)(BEAKER) (test code = 2816) LYMPHOCYTES - REL 29 % (CELLAVISION)(BEAKER) (test code = 2817) MONOCYTES - REL 13 % (CELLAVISION)(BEAKER) (test code = 2818) EOSINOPHILS - REL 2 % (CELLAVISION)(BEAKER) (test code = 2819) METAMYELOCYTES - REL 2 % 0-0 H (CELLAVISION)(BEAKER) (test code = 2821) MYELOCYTES - REL 1 % 0-0 H (CELLAVISION)(BEAKER) (test code = 2822) BANDS - REL (CELLAVISION)(BEAKER) 1 % 0-10 (test code = 2826) ATYPICAL LYMPHOCYTES - REL 1 % 0-0 H (CELLAVISION)(BEAKER) (test code = 2829) NEUTROPHILS - ABS 8.52 K/ul 1.78-5.38 H (CELLAVISION)(BEAKER) (test code = 2830) LYMPHOCYTES - ABS 4.84 K/ul 1.32-3.57 H (CELLAVISION)(BEAKER) (test code = 2831) MONOCYTES - ABS 2.17 K/uL 0.30-0.82 H (CELLAVISION)(BEAKER) (test code = 2832) EOSINOPHILS - ABS 0.33 K/uL 0.04-0.54 (CELLAVISION)(BEAKER) (test code = 2834) METAMYELOCYTES - ABS 0.33 K/uL 0.00-0.00 H (CELLAVISION)(BEAKER) (test code = 2836) MYELOCYTES-ABS 0.17 K/uL 0.00-0.00 H (CELLAVISION)(BEAKER) (test code = 2837) BANDS - ABS (CELLAVISION)(BEAKER) 0.17 K/uL 0.00-0.80 (test code = 2840) ATYPICAL LYMPHOCYTES - ABS 0.17 K/uL 0.00-0.00 H (CELLAVISION)(BEAKER) (test code = 2858) TOTAL COUNTED (BEAKER) (test code = 100 1351) WBC MORPHOLOGY (BEAKER) (test code Normal = 487) GIANT PLATELETS (BEAKER) (test code Present = 313) POLYCHROMATOPHILLIC RBCS(BEAKER) 3+ many (test code = 478) ANISOCYTOSIS (BEAKER) (test code = 1+ few 961) POIKILOCYTES (BEAKER) (test code = 1+ few 966) ELLIPTOCYTES (BEAKER) (test code = 1+ few 962) ARTIFACT (CELLAVISION)(BEAKER) Present (test code = 3432) PLATELET CONCENTRATION Adequate (CELLAVISION)(BEAKER) (test code = 3438) Roofer Apprentice ID - samantha Larkin comments: Slide comments:CBC W/PLT COUNT & AUTO [id number] 07:25:09 Test Item Value Reference Range Interpretation Comments WHITE BLOOD CELL COUNT (BEAKER) 16.7 K/ L 3.5-10.5 H (test code = 775) RED BLOOD CELL COUNT (BEAKER) 4.60 M/ L 4.63-6.08 L (test code = 761) HEMOGLOBIN (BEAKER) (test code = 13.0 GM/DL 13.7-17.5 L 410) HEMATOCRIT (BEAKER) (test code = 42.4 % 40.1-51.0 411) MEAN CORPUSCULAR VOLUME (BEAKER) 92 fL 79-92 (test code = 753) MEAN CORPUSCULAR HEMOGLOBIN 28.3 pg 25.7-32.2 (BEAKER) (test code = 751) MEAN CORPUSCULAR HEMOGLOBIN CONC 30.7 GM/DL 32.3-36.5 L (BEAKER) (test code = 752) RED CELL DISTRIBUTION WIDTH 18.2 % 11.6-14.4 H (BEAKER) (test code = 412) PLATELET COUNT (BEAKER) (test 379 K/CU MM 150-450 code = 756) MEAN PLATELET VOLUME (BEAKER) 10.7 fL 9.4-12.4 (test code = 754) NUCLEATED RED BLOOD CELLS 0 /100 WBC 0-0 (BEAKER) (test code = 413) CBC W/PLT COUNT & AUTO [id number] 07:25:05 Test Item Value Reference Range Interpretation Comments WHITE BLOOD CELL COUNT (BEAKER) 12.1 K/ L 3.5-10.5 H (test code = 775) RED BLOOD CELL COUNT (BEAKER) 4.63 M/ L 4.63-6.08 (test code = 761) HEMOGLOBIN (BEAKER) (test code = 13.1 GM/DL 13.7-17.5 L 410) HEMATOCRIT (BEAKER) (test code = 41.2 % 40.1-51.0 411) MEAN CORPUSCULAR VOLUME (BEAKER) 89 fL 79-92 (test code = 753) MEAN CORPUSCULAR HEMOGLOBIN 28.3 pg 25.7-32.2 (BEAKER) (test code = 751) MEAN CORPUSCULAR HEMOGLOBIN CONC 31.8 GM/DL 32.3-36.5 L (BEAKER) (test code = 752) RED CELL DISTRIBUTION WIDTH 17.7 % 11.6-14.4 H (BEAKER) (test code = 412) PLATELET COUNT (BEAKER) (test 362 K/CU MM 150-450 code = 756) MEAN PLATELET VOLUME (BEAKER) 10.5 fL 9.4-12.4 (test code = 754) NUCLEATED RED BLOOD CELLS 0 /100 WBC 0-0 (BEAKER) (test code = 413) (CELLAVISION MANUAL DIFF)2022-04-06 07:25:05 Test Item Value Reference Range Interpretation Comments NEUTROPHILS - REL 68 % (CELLAVISION)(BEAKER) (test code = 2816) LYMPHOCYTES - REL 10 % (CELLAVISION)(BEAKER) (test code = 2817) MONOCYTES - REL 17 % (CELLAVISION)(BEAKER) (test code = 2818) EOSINOPHILS - REL 3 % (CELLAVISION)(BEAKER) (test code = 2819) ATYPICAL LYMPHOCYTES - REL 1 % 0-0 H (CELLAVISION)(BEAKER) (test code = 2829) NEUTROPHILS - ABS 8.23 K/ul 1.78-5.38 H (CELLAVISION)(BEAKER) (test code = 2830) LYMPHOCYTES - ABS 1.21 K/ul 1.32-3.57 L (CELLAVISION)(BEAKER) (test code = 2831) MONOCYTES - ABS 2.06 K/uL 0.30-0.82 H (CELLAVISION)(BEAKER) (test code = 2832) EOSINOPHILS - ABS 0.36 K/uL 0.04-0.54 (CELLAVISION)(BEAKER) (test code = 2834) ATYPICAL LYMPHOCYTES - ABS 0.12 K/uL 0.00-0.00 H (CELLAVISION)(BEAKER) (test code = 2858) TOTAL COUNTED (BEAKER) (test code 100 = 1351) MANUAL NRBC PER 100 CELLS (BEAKER) 3 /100 WBC 0-0 H (test code = 1353) WBC MORPHOLOGY (BEAKER) (test code Normal = 487) GIANT PLATELETS (BEAKER) (test Present code = 313) POLYCHROMATOPHILLIC RBCS(BEAKER) 1+ few (test code = 478) ANISOCYTOSIS (BEAKER) (test code = 1+ few 961) ARTIFACT (CELLAVISION)(BEAKER) Present (test code = 3432) PLATELET CONCENTRATION Adequate (CELLAVISION)(BEAKER) (test code = 3438) Roofer Apprentice ID - samantha Larkin comments: Slide comments:PROTHROMBIN TIME/INR 2022-04-06 07:22:33 Test Item Value Reference Range Interpretation Comments PROTIME (BEAKER) 14.7 seconds 11.9-14.2 H (test code = 759) INR (BEAKER) (test 1.22 See_Comment [Automat ed message] code = 370) The system [employer] generated this result transmitted ref erence range: <=5.90. The reference range was not used to int erpret this result as normal/abnormal . RECOMMENDED COUMADIN/WARFARIN INR THERAPY RANGESSTANDARD DOSE: 2.0 - 3.0 Includes: PROPHYLAXIS for venous thrombosis, systemic embolization; TREATMENT for venous thrombosis and/or pulmonary embolus.HIGH RISK: Target INR is 2.5-3.5 for patients with mechanical heart valves.[id number] 07:22:32 Test Item Value Reference Range Interpretation Comments PARTIAL THROMBOPLASTIN TIME 30.7 seconds 22.5-36.0 (BEAKER) (test code = 760) [id number] 07:22:14 Test Item Value Reference Range Interpretation Comments FIBRINOGEN LEVEL (BEAKER) (test 821 mg/dl 225-434 H code = 658) LACTIC ACID, [id number] 07:19:53 Test Item Value Reference Range Interpretation Comments LACTATE BLOOD ARTERIAL (2) 1.1 mmol/L 0.5-2.2 (BEAKER) (test code = 2874) Roofer Apprentice ID - ROSALIO GRAD, CHEST, 1 VIEW, NON [id number] 05:05:00Reason for exam:->s/ codeShould this be performed at the bedside?->Yes [facility] 1965 Sex: MFINAL REPORT RAD, CHEST, 1 VIEW, NON DEPT CLINICAL STATEMENT: Respiratory distress. COMPARISON: 04/06/2022 FINDINGS: Heart is moderately enlarged. Status post median sternotomy. Right IJ [place] catheter. Bilateral chest tubes. No pneumothorax. No pleural effusions. IMPRESSION: Stable findings. Signed: Tc Hwang Verified Date/Time: 04/06/2022 05:05:47 PHOSPHORUS 2022-04-06 04:57:24 Test Item Value Reference Range Interpretation Comments PHOSPHORUS (BEAKER) 4.3 mg/dL 2.3-4.7 Specimen moderately (test code = 604) hemolyzed Roofer Apprentice ID - BSCOMPREHENSIVE METABOLIC [id number] 04:57:24 Test Item Value Reference Range Interpretation Comments TOTAL PROTEIN 6.5 gm/dL 6.0-8.3 Specimen moder ately (BEAKER) (test hemolyzed code = 770) ALBUMIN (BEAKER) 2.7 g/dL 3.5-5.0 L Specimen mo derately (test code = 1145) hemolyzed ALKALINE 153 U/L 40-150 H PHOSPHATASE (BEAKER) (test code = 346) BILIRUBIN TOTAL 1.0 mg/dL 0.2-1.2 Specimen mod erately (BEAKER) (test hemolyzed code = 377) SODIUM (BEAKER) 137 meq/L 136-145 (test code = 381) POTASSIUM (BEAKER) 4.1 meq/L 3.5-5.1 Specimen moderately (test code = 379) hemolyzed CHLORIDE (BEAKER) 101 meq/L 98-107 (test code = 382) CO2 (BEAKER) (test 18 meq/L 22-29 L code = 355) BLOOD UREA 27 mg/dL 7-21 H NITROGEN (BEAKER) (test code = 354) CREATININE 2.11 mg/dL 0.57-1.25 H Specimen modera tely (BEAKER) (test hemolyzed code = 358) GLUCOSE RANDOM 303 mg/dL 70-105 H (BEAKER) (test code = 652) CALCIUM (BEAKER) 8.7 mg/dL 8.4-10.2 (test code = 697) AST (SGOT) 74 U/L 5-34 H Specimen modera tely (BEAKER) (test hemolyzed code = 353) ALT (SGPT) 41 U/L 6-55 Specimen modera tely (BEAKER) (test hemolyzed code = 347) EGFR (BEAKER) 36 Interpretatio n of eGFR (test code = 1092) mL/min/1.[address] age Description sq m Result G1 Idania l or high >=90 G2 Mildly decreased 60-89 G3a Mildl y to moderately 45-5 9 G3b Moderately to s everely 30-44 G4 Severl y decreased 15-29 G5 Kidney failure <15Reported eGF R is based on the CKD-EPI 2020 equation that d oes not use a race coefficientEsti mated GFR is not as accur ate as Creatinine Ai whyte in predicting glom erular filtration rate . Estimated GFR is not appl icable for dialysis patien ts Roofer Apprentice ID - [id number] 04:57:23 Test Item Value Reference Range Interpretation Comments MAGNESIUM (BEAKER) 2.9 mg/dL 1.6-2.6 H Specimen moderately (test code = 627) hemolyzed Roofer Apprentice ID - BSLACTIC ACID, [id number] 04:51:48 Test Item Value Reference Range Interpretation Comments LACTATE BLOOD 7.3 mmol/L 0.5-2.2 HH Specimen sligh tly ARTERIAL (2) (BEAKER) hemoly zed (test code = 2874) Roofer Apprentice ID - [id number] 04:34:01 Test Item Value Reference Range Interpretation Comments FIBRINOGEN LEVEL (BEAKER) (test 822 mg/dl 225-434 H code = 658) [id number] 04:33:37 Test Item Value Reference Range Interpretation Comments PARTIAL THROMBOPLASTIN TIME 30.3 seconds 22.5-36.0 (BEAKER) (test code = 760) PROTHROMBIN [id number] 04:32:57 Test Item Value Reference Range Interpretation Comments PROTIME (BEAKER) 15.6 seconds 11.9-14.2 H (test code = 759) INR (BEAKER) (test 1.32 See_Comment [Automat ed message] code = 370) The system [employer]el[employer] generated this result transmitted ref erence range: <=5.90. The reference range was not used to int erpret this result as normal/abnormal . RECOMMENDED COUMADIN/WARFARIN INR THERAPY RANGESSTANDARD DOSE: 2.0 - 3.0 Includes: PROPHYLAXIS for venous thrombosis, systemic embolization; TREATMENT for venous thrombosis and/or pulmonary embolus.HIGH RISK: Target INR is 2.5-3.5 for patients with mechanical heart valves.POC [id number] 04:32:32 Test Item Value Reference Range Interpretation Comments POC-Glucose (test code = 288 mg/dL 70-110 H : T ELIANA AT [facility] 3853) [address] [facility], [address]: Roofer Apprentice/Techni earnest ID = [id number] for TAJ COYNE ALD Lab Interpretation (test Abnormal code = 43105-7) [id number] 04:32:32 Test Item Value Reference Range Interpretation Comments POC-Hematocrit (test code 41 % 40-50 : Roofer Apprentice/Ornamental Ironworker = 1857) ID = [id number] for BAYANG, FITZGER ALD Lab Interpretation (test Normal code = 85259-5) [facility] [id number] 04:32:32 Test Item Value Reference Range Interpretation Comments POC-Glucose (test code = 288 mg/dL 70-110 H : T ESTED AT [facility] 1855) [address] [place] [address], [address]: Roofer Apprentice/Techni earnest ID = [id number] for BAYANG, FITZGER ALD Lab Interpretation (test Abnormal code = 21366-6) [facility] [id number] 04:32:32 Test Item Value Reference Range Interpretation Comments POC-Hematocrit (test code 41 % 40-50 : Roofer Apprentice/Ornamental Ironworker = 1857) ID = [id number] for BAYANG, FITZGER ALD Lab Interpretation (test Normal code = 84141-7) [facility] [id number] 04:32:32 Test Item Value Reference Range Interpretation Comments POC-Glucose (test code = 288 mg/dL 70-110 H : T ESTED AT [facility] 1855) [address] [facility], [address]: Roofer Apprentice/Techni earnest ID = [id number] for BAYANG, FITZGER ALD Lab Interpretation (test Abnormal code = 26366-3) [facility] [id number] 04:32:32 Test Item Value Reference Range Interpretation Comments POC-Hematocrit (test code 41 % 40-50 : Roofer Apprentice/Ornamental Ironworker = 1857) ID = [id number] for BAYANG, FITZGER ALD Lab Interpretation (test Normal code = 29651-5) [facility] [id number] 04:32:32 Test Item Value Reference Range Interpretation Comments POC-Glucose (test code = 288 mg/dL 70-110 H : T ESTED AT [facility] 1855) [address] [place] [address], [address]: Roofer Apprentice/Techni earnest ID = [id number] for BAYANG, FITZGER ALD Lab Interpretation (test Abnormal code = 28620-3) [facility]sswkcRPNS-[id number] 04:32:32 Test Item Value Reference Range Interpretation Comments POC-Hematocrit (test code 41 % 40-50 : Roofer Apprentice/Ornamental Ironworker = 1857) ID = [id number] for TAJ COYNE ALD Lab Interpretation (test Normal code = 17919-0) [facility] HospitalOyczvyVMDY-[id number] 04:32:32 Test Item Value Reference Range Interpretation Comments POC-HEMATOCRIT 41 % 40-50 : Roofer Apprentice/Te chnician ID = (JOSE) (test code = 638825 for STAN[place]ORD, 1857) ANTHONY [id number]-[id number] 04:32:32 Test Item Value Reference Range Interpretation Comments POC-GLUCOSE 288 mg/dL 70-110 H : TESTED AT [facility] 6720 (JOSE) (test code [facility], = 1855) [address]: Roofer Apprentice/Techni earnest ID = [id number] for ANTHONY CANNON ZJP-[id number] 04:32:31 Test Item Value Reference Range Interpretation Comments POC-Potassium (test code 3.8 meq/L 3.6-5.5 : T ESTED AT [facility] = 1540) [address] [facility], [address]: Roofer Apprentice/Techni earnest ID = [id number] for LUIS ALBERTO COYNEGER ALD Lab Interpretation (test Normal code = 93445-2) [facility]-[id number] 04:32:31 Test Item Value Reference Range Interpretation Comments POC-Sodium (test code = 137 meq/L 135-148 : TE STED AT [facility] 1542) [address] [facility], [address]: Roofer Apprentice/Techni earnest ID = [id number] for LUIS ALBERTO COYNEGER ALD Lab Interpretation (test Normal code = 56409-8) [facility]-[id number] 04:32:31 Test Item Value Reference Range Interpretation Comments POC-Hemoglobin (test 13.9 g/dL 13.0-16.8 : TESTE D AT [facility] code = 1856) [address] [facility], [address]: Roofer Apprentice/Techni earnest ID = [id number] for BAYANG, FITZGER ALD Lab Interpretation (test Normal code = 32247-9) [facility]Dcbrtcvrl0321-11-23 04:32:31 Test Item Value Reference Range Interpretation Comments POC-Potassium (test code 3.8 meq/L 3.6-5.5 : T ESTED AT [facility] = 1540) [address] [place] [address], [address]: Roofer Apprentice/Techni earnest ID = [id number] for BAYANG, FITZGER ALD Lab Interpretation (test Normal code = 52506-3) [facility] CenterMpqqwb9719-49-26 04:32:31 Test Item Value Reference Range Interpretation Comments POC-Sodium (test code = 137 meq/L 135-148 : TE STED AT [facility] 1542) [address] [place] [address], [address]: Roofer Apprentice/Techni earnest ID = [id number] for BAYANG, FITZGER ALD Lab Interpretation (test Normal code = 45010-8) [facility] HospitalAVPCDIHXUS3379-41-13 04:32:31 Test Item Value Reference Range Interpretation Comments POC-Hemoglobin (test 13.9 g/dL 13.0-16.8 : TESTE D AT [facility] code = 1856) [address] [place] [address], [address]: Roofer Apprentice/Techni earnest ID = [id number] for BAYANG, FITZGER ALD Lab Interpretation (test Normal code = 82110-1) [facility] CenterKyyacvsue0602-40-86 04:32:31 Test Item Value Reference Range Interpretation Comments POC-Potassium (test code 3.8 meq/L 3.6-5.5 : T ESTED AT [facility] = 1540) [address] [place] [address], [address]: Roofer Apprentice/Techni earnest ID = [id number] for BAYANG, FITZGER ALD Lab Interpretation (test Normal code = 04202-4) [facility] CenterNfmpog4718-46-97 04:32:31 Test Item Value Reference Range Interpretation Comments POC-Sodium (test code = 137 meq/L 135-148 : TE STED AT [facility] 1542) [address] [place] [address], [address]: Roofer Apprentice/Techni earnest ID = [id number] for BAYANG, FITZGER ALD Lab Interpretation (test Normal code = 69073-9) [facility]-[id number] 04:32:31 Test Item Value Reference Range Interpretation Comments POC-Hemoglobin (test 13.9 g/dL 13.0-16.8 : TESTE D AT [facility] code = 1856) [address] [facility], [address]: Roofer Apprentice/Techni earnest ID = [id number] for BAYANG, FITZGER ALD Lab Interpretation (test Normal code = 48704-1) [facility]-Ororrruxb9928-79-15 04:32:31 Test Item Value Reference Range Interpretation Comments POC-Potassium (test code 3.8 meq/L 3.6-5.5 : T ESTED AT [facility] = 1540) [address] [place] [address], [address]: Roofer Apprentice/Techni earnest ID = [id number] for BAYANG, FITZGER ALD Lab Interpretation (test Normal code = 59018-2) [facility]-Wqmhln7203-97-24 04:32:31 Test Item Value Reference Range Interpretation Comments POC-Sodium (test code = 137 meq/L 135-148 : TE STED AT [facility] 1542) [address] [place] [address], [address]: Roofer Apprentice/Techni earnest ID = [id number] for BAYANG, FITZGER ALD Lab Interpretation (test Normal code = 51163-6) [facility]-[id number] 04:32:31 Test Item Value Reference Range Interpretation Comments POC-Hemoglobin (test 13.9 g/dL 13.0-16.8 : TESTE D AT [facility] code = 1856) [address] [facility] [place], [address]: Roofer Apprentice/Techni earnest ID = [id number] for BAYANG, FITZGER ALD Lab Interpretation (test Normal code = 64740-4) [facility]-[id number] 04:32:31 Test Item Value Reference Range Interpretation Comments POC-SODIUM (BEAKER) 137 meq/L 135-148 : TESTED AT [facility] 6720 (test code = 1542) [facility] [place], [address]: Roofer Apprentice/Techni earnest ID = [id number] for BAYA NG, CRUZ JCWE-[id number] 04:32:31 Test Item Value Reference Range Interpretation Comments POC-POTASSIUM 3.8 meq/L 3.6-5.5 : TESTED AT [facility] 67 ([facility]) (test code [facility], = 1540) [address]: Roofer Apprentice/Techni earnest ID = [id number] for ANTHONY CANNON DRDY-[id number] 04:32:31 Test Item Value Reference Range Interpretation Comments POC-HEMOGLOBIN 13.9 g/dL 13.0-16.8 : TESTED AT [facility] 6720 ([facility]) (test code [facility], = 1856) [address]: Roofer Apprentice/Techni earnest ID = [id number] for ANTHONY CANNON POC-Blood gases, [id number] 04:32:30 Test Item Value Reference Range Interpretation Comments Temp. Celsius-POC (test 98.8 code = 1834) FIO2-POC (test code = 50 1835) pH, Arterial-POC (test 7.43 7.35-7.45 code = 2744-1) PCO2, Arterial-POC 35.7 See_Comment If pO2 is >180, pCO2 (test code = 1837) may be po sitively biased [Automat ed message] The sy stem which generated this result transmit leonel reference range : 35.0 - 45.0 mm Hg. The reference r sara was not used to interpret this result as normal/abnormal . PO2, Arterial-POC (test 71.0 See_Comment L [Au tomated message] code = 1838) The system [employer]Clip h generated this result transmit leonel reference range : 80.0 - 90.0 mm Hg. The reference r sara was not used to interpret this result as normal/abnormal . SO2, Arterial-POC (test 95.0 % 96.0-97.0 L code = 1839) HCO3, Arterilal-POC 23.4 meq/L 21.0-29.0 (test code = 1840) BE, Arterial-POC (test -1.0 meq/L -2.0-3.0 : JARVIS LEONEL AT [facility] code = 1841) [address] [place] [address], [address]: Roofer Apprentice/Techni earnest ID = [id number] for TAJ COYNE ALD Lab Interpretation Abnormal (test code = 37708-7) [facility]-Blood gases, [id number] 04:32:30 Test Item Value Reference Range Interpretation Comments Temp. Celsius-POC (test 98.8 code = 1834) FIO2-POC (test code = 50 1835) pH, Arterial-POC (test 7.43 7.35-7.45 code = 2744-1) PCO2, Arterial-POC 35.7 See_Comment If pO2 is >180, pCO2 (test code = 1837) may be po sitively biased [Automat ed message] The sy stem which generated this result transmit leonel reference range : 35.0 - 45.0 mm Hg. The reference r sara was not used to interpret this result as normal/abnormal . PO2, Arterial-POC (test 71.0 See_Comment L [Au tomated message] code = 1838) The system [employer] h generated this result transmit leonel reference range : 80.0 - 90.0 mm Hg. The reference r sara was not used to interpret this result as normal/abnormal . SO2, Arterial-POC (test 95.0 % 96.0-97.0 L code = 1839) HCO3, Arterilal-POC 23.4 meq/L 21.0-29.0 (test code = 1840) BE, Arterial-POC (test -1.0 meq/L -2.0-3.0 : JARVIS LEONEL AT [facility] code = 1841) [address] [place], [address]: Roofer Apprentice/Techni earnest ID = [id number] for TAJ COYNE ALD Lab Interpretation Abnormal (test code = 44295-2) [facility]-Blood gases, [id number] 04:32:30 Test Item Value Reference Range Interpretation Comments Temp. Celsius-POC (test 98.8 code = 1834) FIO2-POC (test code = 50 1835) pH, Arterial-POC (test 7.43 7.35-7.45 code = 2744-1) PCO2, Arterial-POC 35.7 See_Comment If pO2 is >180, pCO2 (test code = 1837) may be po sitively biased [Automat ed message] The sy stem which generated this result transmit leonel reference range : 35.0 - 45.0 mm Hg. The reference r sara was not used to interpret this result as normal/abnormal . PO2, Arterial-POC (test 71.0 See_Comment L [Au tomated message] code = 1838) The system [employer] generated this result transmit leonel reference range : 80.0 - 90.0 mm Hg. The reference r sara was not used to interpret this result as normal/abnormal . SO2, Arterial-POC (test 95.0 % 96.0-97.0 L code = 1839) HCO3, Arterilal-POC 23.4 meq/L 21.0-29.0 (test code = 1840) BE, Arterial-POC (test -1.0 meq/L -2.0-3.0 : JARVIS LEONEL AT [facility] code = 1841) [address] [facility], [address]: Roofer Apprentice/Techni earnest ID = [id number] for TAJ COYNE ALD Lab Interpretation Abnormal (test code = 60142-6) [facility]-Blood gases, [id number] 04:32:30 Test Item Value Reference Range Interpretation Comments Temp. Celsius-POC (test 98.8 code = 1834) FIO2-POC (test code = 50 1835) pH, Arterial-POC (test 7.43 7.35-7.45 code = 2744-1) PCO2, Arterial-POC 35.7 See_Comment If pO2 is >180, pCO2 (test code = 1837) may be po sitively biased [Automat ed message] The sy stem which generated this result transmit leonel reference range : 35.0 - 45.0 mm Hg. The reference r sara was not used to interpret this result as normal/abnormal . PO2, Arterial-POC (test 71.0 See_Comment L [Au tomated message] code = 1838) The system [employer] generated this result transmit leonel reference range : 80.0 - 90.0 mm Hg. The reference r sara was not used to interpret this result as normal/abnormal . SO2, Arterial-POC (test 95.0 % 96.0-97.0 L code = 1839) HCO3, Arterilal-POC 23.4 meq/L 21.0-29.0 (test code = 1840) BE, Arterial-POC (test -1.0 meq/L -2.0-3.0 : JARVIS LEONEL AT [facility] code = 1841) [address] [facility], [address]: Roofer Apprentice/Techni earnest ID = [id number] for TAJ COYNE ALD Lab Interpretation Abnormal (test code = 88855-0) [facility], [id number] 04:32:30 Test Item Value Reference Range Interpretation Comments TEMP, CELSIUS-POC 98.8 (BEAKER) (test code = 1834) FIO2-POC (BEAKER) 50 (test code = 1835) PH, ARTERIAL-POC 7.43 7.35-7.45 (BEAKER) (test code = 1836) PCO2, ARTERIAL-POC 35.7 mm Hg 35.0-45.0 If pO2 is >180, pCO2 may (BEAKER) (test code be posit ively biased = 1837) PO2, ARTERIAL-POC 71.0 mm Hg 80.0-90.0 L (BEAKER) (test code = 1838) SO2, ARTERIAL-POC 95.0 % 96.0-97.0 L (BEAKER) (test code = 1839) HCO3, ARTERIAL-POC 23.4 meq/L 21.0-29.0 (BEAKER) (test code = 1840) BASE EXCESS, -1.0 meq/L -2.0-3.0 : TESTED AT [place] [address] ARTERIAL-POC [facility], (BEAKER) (test code [address]: = 1841) Roofer Apprentice/Techni earnest ID = [id number] for ANTHONY CANNON [id number] 04:15:05 Test Item Value Reference Range Interpretation Comments POC-HEMATOCRIT 42 % 40-50 : Roofer Apprentice/Te chnician ID = (BEAKER) (test code = 506442 for [place], 185) ANTHONY [id number] 04:15:05 Test Item Value Reference Range Interpretation Comments POC-GLUCOSE 297 mg/dL 70-110 H : TESTED AT [facility] 6720 (BEAKER) (test code [facility], = 1855) [address]: Roofer Apprentice/Techni earnest ID = [id number] for ANTHONY CANNON [id number] 04:14:59 Test Item Value Reference Range Interpretation Comments POC-SODIUM (BEAKER) 138 meq/L 135-148 : TESTED AT [facility] 6720 (test code = 1542) [facility], [address]: Roofer Apprentice/Techni earnest ID = [id number] for ANTHONY CANNON [id number] 04:14:59 Test Item Value Reference Range Interpretation Comments POC-POTASSIUM 3.4 meq/L 3.6-5.5 L : TESTED AT [facility] 6720 (BEAKER) (test code [facility], = 1540) [address]: Roofer Apprentice/Techni earnest ID = [id number] for ANTHONY CANNON [id number] 04:14:59 Test Item Value Reference Range Interpretation Comments POC-HEMOGLOBIN 14.3 g/dL 13.0-16.8 : TESTED AT [facility] 6720 (BEAKER) (test code [facility], = 1856) [address]: Roofer Apprentice/Techni earnest ID = [id number] for ANTHONY CANNON POCT-BLOOD GASES, [id number] 04:14:58 Test Item Value Reference Range Interpretation Comments TEMP, CELSIUS-POC 97.0 (BEAKER) (test code = 1834) FIO2-POC (BEAKER) 100 (test code = 1835) PH, ARTERIAL-POC 7.18 7.35-7.45 LL (BEAKER) (test code = 1836) PCO2, ARTERIAL-POC 64.3 mm Hg 35.0-45.0 H If pO2 is >180, pCO2 may (BEAKER) (test code be posit ively biased = 1837) PO2, ARTERIAL-POC 86.0 mm Hg 80.0-90.0 (BEAKER) (test code = 1838) SO2, ARTERIAL-POC 94.0 % 96.0-97.0 L (BEAKER) (test code = 1839) HCO3, ARTERIAL-POC 24.3 meq/L 21.0-29.0 (BEAKER) (test code = 1840) BASE EXCESS, -4.0 meq/L -2.0-3.0 L : TESTED AT [facility] 6720 ARTERIAL-POC [facility], (BEAKER) (test code [address]: = 1841) Roofer Apprentice/Techni earnest ID = [id number] for ANTHONY CANNON RAD, CHEST, 1 VIEW, NON [id number] 03:44:00While IABP in place and following each repositioning of IABPReason for exam:->Post cardiotomyShould this be performed at the bedside?->Yes [facility] 1965 Sex: MFINAL REPORT CLINICAL INDICATION: Post cardiotomy Comparison: 04/05/2022 at 1113hours The cardiomediastinal contours are stable. Central pulmonary vascular prominent and bilateral parenchymal opacities are similar within variation of lung volumes and acquisition technique. There is no pneumothorax. Support lines are stable. Signed: Malia Leigh MDReport Verified Date/Time: 04/06/2022 03:44:04 [id number] 02:00:54 Test Item Value Reference Range Interpretation Comments PHOSPHORUS (BEAKER) (test code = 2.1 mg/dL 2.3-4.7 L 604) Roofer Apprentice ID - BSBASIC METABOLIC [id number] 02:00:53 Test Item Value Reference Range Interpretation Comments SODIUM (BEAKER) 137 meq/L 136-145 (test code = 381) POTASSIUM 3.5 meq/L 3.5-5.1 (BEAKER) (test code = 379) CHLORIDE (BEAKER) 104 meq/L 98-107 (test code = 382) CO2 (BEAKER) 19 meq/L 22-29 L (test code = 355) BLOOD UREA 24 mg/dL 7-21 H NITROGEN (BEAKER) (test code = 354) CREATININE 1.76 mg/dL 0.57-1.25 H (BEAKER) (test code = 358) GLUCOSE RANDOM 190 mg/dL 70-105 H (BEAKER) (test code = 652) CALCIUM (BEAKER) 8.7 mg/dL 8.4-10.2 (test code = 697) EGFR (BEAKER) 45 Interpretatio n of eGFR (test code = mL/min/1.73 values Stage De scription 1092) sq m Result G1 Idania l or high >=90 G2 Mildly decreased 60-89 G3a Mildl y to moderately 45-5 9 G3b Moderately to s everely 30-44 G4 Severl y decreased 15-29 G5 Kidney failure <15Reported eGF R is based on the CKD-EPI 2020 equation that d oes not use a race coefficientEsti mated GFR is not as accur ate as Creatinine Ai pato in predicting glom erular filtration rate . Estimated GFR is not appl icable for dialysis patien ts Roofer Apprentice ID - [id number] 02:00:53 Test Item Value Reference Range Interpretation Comments MAGNESIUM (BEAKER) (test code = 2.4 mg/dL 1.6-2.6 627) Roofer Apprentice ID - BSOXYGEN SATURATION, [id number] 01:23:08 Test Item Value Reference Range Interpretation Comments O2 SATURATION (MEASURED) (BEAKER) 68.8 % (test code = 1455) BLOOD GAS, [id number] 01:20:42 Test Item Value Reference Range Interpretation Comments PH ARTERIAL (BEAKER) (test code = 7.46 7.35-7.45 H 383) PCO2 ARTERIAL (BEAKER) (test code 29 mm Hg 35-45 L = 384) PO2 ARTERIAL (BEAKER) (test code 87 mm Hg 80-90 = 385) O2 SATURATION ARTERIAL (BEAKER) 96.9 % 96.0-97.0 (test code = 386) HCO3 ARTERIAL (BEAKER) (test code 20 mmol/L 21-29 L = 388) BASE EXCESS ARTERIAL (BEAKER) -2.2 mmol/L -2.0-3.0 L (test code = 387) PATIENT TEMPERATURE (BEAKER) 37.7 (test code = 1818) FIO2 (BEAKER) (test code = 1819) 21.0 CALCIUM, [id number] 01:19:08 Test Item Value Reference Range Interpretation Comments CALCIUM IONIZED (BEAKER) (test 1.12 mmol/L 1.12-1.27 code = 698) PH, BLOOD (BEAKER) (test code = 7.47 1810) POCT-GLUCOSE [id number] 17:33:06 Test Item Value Reference Range Interpretation Comments POC-GLUCOSE METER 201 mg/dL 70-110 H : [facility] (BEAKER[facility] (test code [facility], = 1538) [address]: Roofer Apprentice/Techni earnest ID = [id number] for ALANNA TO, CHRISTIMARIE LACTIC ACID, [id number] 11:40:36 Test Item Value Reference Range Interpretation Comments LACTATE BLOOD 1.4 mmol/L 0.5-2.2 Specimen marke dly ARTERIAL (2) (BEAKER) hemoly zed (test code = 2874) Roofer Apprentice ID - ROSALIO GRAD, CHEST, 1 VIEW, NON [id number] 11:29:00Reason for exam:->Left Lobe pnaShould this be performed at the bedside?->Yes [facility] 1965 Sex: MFINAL REPORT TECHNIQUE: Frontal view of the chest. INDICATION: Left Lobe pna. COMPARISON: 04/05/2022 at 1:36 AM. FINDINGS: LINES/TUBES: Right IJ [place]- [place] catheter with tip projected over the distal main pulmonary artery. Mediastinal tube and bilateral chest tubes are present, as before. HEART AND MEDIASTINUM: Cardiomediastinal contour is stable. Prior median sternotomy and CABG. LUNGS: Patchy bibasilar opacities, left greater than right, unchanged. No pulmonary edema. PLEURA: Nopneumothorax. No significant pleural effusion. SOFT TISSUES AND BONES: Unremarkable. IMPRESSION:Patchy bibasilar opacities, left greater than right, unchanged. No pulmonary edema. Lines and tubes, as described above. No pneumothorax. Signed: Kingsley Segal MDReport Verified Date/Time: 1:29:23 CALCIUM, [id number] 11:24:07 Test Item Value Reference Range Interpretation Comments CALCIUM IONIZED (BEAKER) (test 1.07 mmol/L 1.12-1.27 L code = 698) PH, BLOOD (BEAKER) (test code = 7.45 1810) HGB/HCT (H&H) - STAT [id number] 11:24:06 Test Item Value Reference Range Interpretation Comments HEMOGLOBIN (BEAKER) (test code = 13.2 GM/DL 13.0-16.8 410) HEMATOCRIT (BEAKER) (test code = 39.0 % 40.0-50.0 L 411) BLOOD GAS, [id number] 11:24:05 Test Item Value Reference Range Interpretation Comments PH ARTERIAL (BEAKER) (test code = 7.45 7.35-7.45 383) PCO2 ARTERIAL (BEAKER) (test code 25 mm Hg 35-45 L = 384) PO2 ARTERIAL (BEAKER) (test code 90 mm Hg 80-90 = 385) O2 SATURATION ARTERIAL (BEAKER) 97.3 % 96.0-97.0 H (test code = 386) HCO3 ARTERIAL (BEAKER) (test code 17 mmol/L 21-29 L = 388) BASE EXCESS ARTERIAL (BEAKER) -5.3 mmol/L -2.0-3.0 L (test code = 387) PATIENT TEMPERATURE (BEAKER) 37.0 (test code = 1818) FIO2 (BEAKER) (test code = 1819) 100.0 OXYGEN SATURATION, [id number] 11:22:32 Test Item Value Reference Range Interpretation Comments O2 SATURATION (MEASURED) (BEAKER) 62.0 % (test code = 1455) POTASSIUM-STAT [id number] 11:22:16 Test Item Value Reference Range Interpretation Comments POTASSIUM (BEAKER) (test code = 3.7 meq/L 3.6-5.5 379) GLUCOSE-STAT [id number] 11:22:15 Test Item Value Reference Range Interpretation Comments GLUCOSE RANDOM (BEAKER) (test code 162 mg/dL 70-110 H = 652) SODIUM NA-STAT [id number] 11:22:15 Test Item Value Reference Range Interpretation Comments SODIUM (BEAKER) (test code = 381) 136 meq/L 136-145 RAD, CHEST, 1 VIEW, NON [id number] 08:03:00While IABP in place and following each repositioning of IABPReason for exam:->Post cardiotomyShould this be performed at the bedside?->Yes [facility] : 1965 Sex: MFINAL REPORT Chest, one view. HISTORY: Post cardiotomy COMPARISON: Radiograph from yesterday IMPRESSION: Interval extubation and removal of the NG tube. Otherwise, the Support linesand tubes are unchanged in position. The interstitial pulmonary edema and trace bilateral pleural effusions are unchanged. No pneumothorax. The cardiac silhouette is unchanged in size. No acute bone abnormality. Signed: Balaji Kelly Verified Date/Time: 04/05/2022 08:03:46 Reading Location: [address] Body Reading Room (CELLAVISION MANUAL DIFF)2022-04-05 07:17:35 Test Item Value Reference Range Interpretation Comments NEUTROPHILS - REL 76 % (CELLAVISION)(BEAKER) (test code = 2816) LYMPHOCYTES - REL 5 % (CELLAVISION)(BEAKER) (test code = 2817) MONOCYTES - REL 7 % (CELLAVISION)(BEAKER) (test code = 2818) EOSINOPHILS - REL 7 % (CELLAVISION)(BEAKER) (test code = 2819) BANDS - REL (CELLAVISION)(BEAKER) 5 % 0-10 (test code = 2826) NEUTROPHILS - ABS 8.89 K/ul 1.78-5.38 H (CELLAVISION)(BEAKER) (test code = 2830) LYMPHOCYTES - ABS 0.59 K/ul 1.32-3.57 L (CELLAVISION)(BEAKER) (test code = 2831) MONOCYTES - ABS 0.82 K/uL 0.30-0.82 (CELLAVISION)(BEAKER) (test code = 2832) EOSINOPHILS - ABS 0.82 K/uL 0.04-0.54 H (CELLAVISION)(BEAKER) (test code = 2834) BANDS - ABS (CELLAVISION)(BEAKER) 0.59 K/uL 0.00-0.80 (test code = 2840) TOTAL COUNTED (BEAKER) (test code = 100 1351) WBC MORPHOLOGY (BEAKER) (test code Normal = 487) PLT MORPHOLOGY (BEAKER) (test code Normal = 486) POLYCHROMATOPHILLIC RBCS(BEAKER) 1+ few (test code = 478) POIKILOCYTES (BEAKER) (test code = 1+ few 966) ARTIFACT (CELLAVISION)(BEAKER) Present (test code = 3432) PLATELET CONCENTRATION Adequate (CELLAVISION)(BEAKER) (test code = 3438) Roofer Apprentice ID - Emily OverholtUser comments: Slide comments:CBC W/PLT COUNT & AUTO [id number] 07:17:34 Test Item Value Reference Range Interpretation Comments WHITE BLOOD CELL COUNT (BEAKER) 11.7 K/ L 3.5-10.5 H (test code = 775) RED BLOOD CELL COUNT (BEAKER) 4.11 M/ L 4.63-6.08 L (test code = 761) HEMOGLOBIN (BEAKER) (test code = 11.7 GM/DL 13.7-17.5 L 410) HEMATOCRIT (BEAKER) (test code = 38.3 % 40.1-51.0 L 411) MEAN CORPUSCULAR VOLUME (BEAKER) 93 fL 79-92 H (test code = 753) MEAN CORPUSCULAR HEMOGLOBIN 28.5 pg 25.7-32.2 (BEAKER) (test code = 751) MEAN CORPUSCULAR HEMOGLOBIN CONC 30.5 GM/DL 32.3-36.5 L (BEAKER) (test code = 752) RED CELL DISTRIBUTION WIDTH 17.8 % 11.6-14.4 H (BEAKER) (test code = 412) PLATELET COUNT (BEAKER) (test 273 K/CU MM 150-450 code = 756) MEAN PLATELET VOLUME (BEAKER) 10.6 fL 9.4-12.4 (test code = 754) NUCLEATED RED BLOOD CELLS 0 /100 WBC 0-0 (BEAKER) (test code = 413) POCT-GLUCOSE [id number] 06:40:46 Test Item Value Reference Range Interpretation Comments POC-GLUCOSE METER 158 mg/dL 70-110 H : TESTED A T [facility] 6720 (AKER) (test code = [facility], 153) 12182: Roofer Apprentice/Techni earnest ID = [id number] for MO RALES, ADYANY OXYGEN SATURATION, [id number] 05:47:18 Test Item Value Reference Range Interpretation Comments O2 SATURATION (MEASURED) (BEAKER) 95.3 % (test code = 1455) POCT-GLUCOSE [id number] 04:42:11 Test Item Value Reference Range Interpretation Comments POC-GLUCOSE METER 136 mg/dL 70-110 H : TESTED A T [facility] 6720 (BEAKER) (test code = [facility] [employer] [facility], 153) 74167: Roofer Apprentice/Techni earnest ID = [id number] for MO RALES, ADYANY POCT-GLUCOSE [id number] 04:41:18 Test Item Value Reference Range Interpretation Comments POC-GLUCOSE METER 130 mg/dL 70-110 H : TESTED A T [facility] 6720 (BEAKER) (test code = [place], 1538) 37434: Roofer Apprentice/Techni earnest ID = [id number] for ZELDA KRAUSE CALCIUM, [id number] 03:58:31 Test Item Value Reference Range Interpretation Comments CALCIUM IONIZED (BEAKER) (test 1.09 mmol/L 1.12-1.27 L code = 698) PH, BLOOD (BEAKER) (test code = 7.46 1810) BLOOD GAS, [id number] 03:58:31 Test Item Value Reference Range Interpretation Comments PH ARTERIAL (BEAKER) (test code = 7.44 7.35-7.45 383) PCO2 ARTERIAL (BEAKER) (test code 31 mm Hg 35-45 L = 384) PO2 ARTERIAL (BEAKER) (test code 140 mm Hg 80-90 H = 385) O2 SATURATION ARTERIAL (BEAKER) 98.8 % 96.0-97.0 H (test code = 386) HCO3 ARTERIAL (BEAKER) (test code 21 mmol/L 21-29 = 388) BASE EXCESS ARTERIAL (BEAKER) -2.3 mmol/L -2.0-3.0 L (test code = 387) PATIENT TEMPERATURE (BEAKER) 38.2 (test code = 1818) BASIC METABOLIC [id number] 03:09:30 Test Item Value Reference Range Interpretation Comments SODIUM (BEAKER) 138 meq/L 136-145 (test code = 381) POTASSIUM 3.7 meq/L 3.5-5.1 Specimen slight ly (BEAKER) (test hemolyzed code = 379) CHLORIDE (BEAKER) 104 meq/L 98-107 (test code = 382) CO2 (BEAKER) 19 meq/L 22-29 L (test code = 355) BLOOD UREA 20 mg/dL 7-21 NITROGEN (BEAKER) (test code = 354) CREATININE 1.51 mg/dL 0.57-1.25 H Specimen slight ly (BEAKER) (test hemolyzed code = 358) GLUCOSE RANDOM 127 mg/dL 70-105 H (BEAKER) (test code = 652) CALCIUM (BEAKER) 8.4 mg/dL 8.4-10.2 (test code = 697) EGFR (BEAKER) 54 Interpretatio n of eGFR (test code = mL/min/1.73 values Stage De scription 1092) sq m Result G1 Norm al or high >=90 G2 Mildly decreased 60-89 G3a Mildl y to moderately 45-5 9 G3b Moderately to s everely 30-44 G4 Severl y decreased 15-29 G5 Kidney failure <15Reported eGF R is based on the CKD-EPI 2020 equation that d oes not use a race coefficientEsti mated GFR is not as accur ate as Creatinine Ai pato in predicting glom erular filtration rate . Estimated GFR is not appl icable for dialysis patien ts Roofer Apprentice ID - BSHEPATIC FUNCTION [id number] 03:09:30 Test Item Value Reference Range Interpretation Comments TOTAL PROTEIN (BEAKER) 6.1 gm/dL 6.0-8.3 Speci men slightly (test code = 770) hemolyzed ALBUMIN (BEAKER) (test 2.6 g/dL 3.5-5.0 L Speci men slightly code = 1145) hemolyzed BILIRUBIN TOTAL 1.0 mg/dL 0.2-1.2 Specimen sli ghtly (BEAKER) (test code = hemoly zed 377) BILIRUBIN DIRECT 0.4 mg/dL 0.1-0.5 Specimen sl ightly (BEAKER) (test code = hemoly zed 706) ALKALINE PHOSPHATASE 126 U/L 40-150 (BEAKER) (test code = 346) AST (SGOT) (BEAKER) 80 U/L 5-34 H Specimen slightly (test code = 353) hemolyzed ALT (SGPT) (BEAKER) 40 U/L 6-55 Specimen slightly (test code = 347) hemolyzed Roofer Apprentice ID - [id number] 03:09:29 Test Item Value Reference Range Interpretation Comments MAGNESIUM (BEAKER) 2.1 mg/dL 1.6-2.6 Specimen slightly (test code = 627) hemolyzed Roofer Apprentice ID - [id number] 03:09:29 Test Item Value Reference Range Interpretation Comments PHOSPHORUS (BEAKER) 2.3 mg/dL 2.3-4.7 Specimen slightly (test code = 604) hemolyzed Roofer Apprentice ID - BSLACTIC ACID, [id number] 03:02:46 Test Item Value Reference Range Interpretation Comments LACTATE BLOOD 0.9 mmol/L 0.5-2.2 Specimen moder ately ARTERIAL (2) (BEAKER) hemoly zed (test code = 2874) Roofer Apprentice ID - BSVANCOMYCIN LEVEL, [id number] 02:04:56 Test Item Value Reference Range Interpretation Comments VANCOMYCIN TROUGH (BEAKER) (test 19.5 ug/mL 10.0-20.0 code = 522) Roofer Apprentice ID - BSPOCT-GLUCOSE [id number] 23:39:02 Test Item Value Reference Range Interpretation Comments POC-GLUCOSE METER 136 mg/dL 70-110 H : TESTED A T [facility] 6720 (BEAKER) (test code = [facility], 153) 08025: Roofer Apprentice/Techni earnest ID = [id number] for Jackie(contract ), Onurika POCT-GLUCOSE [id number] 21:26:56 Test Item Value Reference Range Interpretation Comments POC-GLUCOSE METER 160 mg/dL 70-110 H : TESTED A T [facility] 6720 (BEAKER) (test code = [facility], [facility]8) 77054: Roofer Apprentice/Techni earnest ID = [id number] for Jackie(contract ), Onurika POCT-GLUCOSE [id number] 18:34:24 Test Item Value Reference Range Interpretation Comments POC-GLUCOSE METER 142 mg/dL 70-110 H : TESTED A T [facility] 6720 (BEAKER) (test code = [facility], 1538) 39649: Roofer Apprentice/Techni earnest ID = [id number] for TRA CASTRO POCT-GLUCOSE [id number] 15:46:00 Test Item Value Reference Range Interpretation Comments POC-GLUCOSE METER 135 mg/dL 70-110 H : TESTED A T [facility] 6720 (BEAKER) (test code = [facility], 1538) 38737: Roofer Apprentice/Techni earnest ID = [id number] for JONATHAN DEL TORO BASIC METABOLIC [id number] 15:39:47 Test Item Value Reference Range Interpretation Comments SODIUM (BEAKER) 139 meq/L 136-145 (test code = 381) POTASSIUM 3.5 meq/L 3.5-5.1 (BEAKER) (test code = 379) CHLORIDE (BEAKER) 106 meq/L 98-107 (test code = 382) CO2 (BEAKER) 22 meq/L 22-29 (test code = 355) BLOOD UREA 22 mg/dL 7-21 H NITROGEN (BEAKER) (test code = 354) CREATININE 1.37 mg/dL 0.57-1.25 H (BEAKER) (test code = 358) GLUCOSE RANDOM 147 mg/dL 70-105 H (BEAKER) (test code = 652) CALCIUM (BEAKER) 8.7 mg/dL 8.4-10.2 (test code = 697) EGFR (BEAKER) 61 Interpretatio n of eGFR (test code = mL/min/1.73 values Stage De scription 1092) sq m Result G1 Idania l or high >=90 G2 Mildly decreased 60-89 G3a Mildl y to moderately 45-5 9 G3b Moderately to s everely 30-44 G4 Severl y decreased 15-29 G5 Kidney failure <15Reported eGF R is based on the CKD-EPI 2020 equation that d oes not use a race coefficientEsti mated GFR is not as accur ate as Creatinine Ai pato in predicting glom erular filtration rate . Estimated GFR is not appl icable for dialysis patien ts Roofer Apprentice ID - MITCHOXYGEN SATURATION, [id number] 15:24:21 Test Item Value Reference Range Interpretation Comments O2 SATURATION (MEASURED) (BEAKER) 64.7 % (test code = 1455) POCT-GLUCOSE [id number] 15:13:05 Test Item Value Reference Range Interpretation Comments POC-GLUCOSE METER 142 mg/dL 70-110 H : TESTED A T [facility] 6720 ([facility]) (test code = [facility] [employer] [facility], 153) 87806: Roofer Apprentice/Techni earnest ID = [id number] for GA LDROP, JONATHAN POCT-GLUCOSE [id number] 14:04:06 Test Item Value Reference Range Interpretation Comments POC-GLUCOSE METER 115 mg/dL 70-110 H : TESTED A T [facility] 6720 (BEAKER) (test code = [facility] [employer] [facility], 1538) 71383: Roofer Apprentice/Techni earnest ID = [id number] for [place] LDROP, JONATHAN BLOOD GAS, [id number] 14:03:30 Test Item Value Reference Range Interpretation Comments PH ARTERIAL (BEAKER) (test code = 7.42 7.35-7.45 383) PCO2 ARTERIAL (BEAKER) (test code 37 mm Hg 35-45 = 384) PO2 ARTERIAL (BEAKER) (test code 109 mm Hg 80-90 H = 385) O2 SATURATION ARTERIAL (BEAKER) 98.0 % 96.0-97.0 H (test code = 386) HCO3 ARTERIAL (BEAKER) (test code 24 mmol/L 21-29 = 388) BASE EXCESS ARTERIAL (BEAKER) -0.4 mmol/L -2.0-3.0 (test code = 387) PATIENT TEMPERATURE (BEAKER) 37.6 (test code = 1818) FIO2 (BEAKER) (test code = 1819) 36.0 POCT-GLUCOSE [id number] 13:24:58 Test Item Value Reference Range Interpretation Comments POC-GLUCOSE METER 68 mg/dL 70-110 L : [facility] ([facility] (test code = [place], 1538) 89826: Roofer Apprentice/Techni earnest ID = [id number] for JONATHAN HUTCHISON BLOOD GAS, [id number] 12:37:23 Test Item Value Reference Range Interpretation Comments PH ARTERIAL (BEAKER) (test code = 7.43 7.35-7.45 383) PCO2 ARTERIAL (BEAKER) (test code 41 mm Hg 35-45 = 384) PO2 ARTERIAL (BEAKER) (test code = 94 mm Hg 80-90 H 385) O2 SATURATION ARTERIAL (BEAKER) 97.4 % 96.0-97.0 H (test code = 386) HCO3 ARTERIAL (BEAKER) (test code 27 mmol/L 21-29 = 388) BASE EXCESS ARTERIAL (BEAKER) 2.1 mmol/L -2.0-3.0 (test code = 387) PATIENT TEMPERATURE (BEAKER) (test 37.1 code = 1818) FIO2 (BEAKER) (test code = 1819) 40.0 Urine [id number] 08:44:22 Test Item Value Reference Range Interpretation Comments Result (test code = 6463-4) [facility] [id number] 08:44:22 Test Item Value Reference Range Interpretation Comments Result (test code = 6463-4) No [facility] [id number] 08:44:22 Test Item Value Reference Range Interpretation Comments Result (test code = 6463-4) No growth [facility] [id number] 08:44:22 Test Item Value Reference Range Interpretation Comments Result (test code = 6463-4) No growth [facility](CELLAVISION MANUAL DIFF)2022-04-04 06:57:37 Test Item Value Reference Range Interpretation Comments NEUTROPHILS - REL 78 % (CELLAVISION)(BEAKER) (test code = 2816) LYMPHOCYTES - REL 9 % (CELLAVISION)(BEAKER) (test code = 2817) MONOCYTES - REL 9 % (CELLAVISION)(BEAKER) (test code = 2818) BASOPHILS - REL 1 % (CELLAVISION)(BEAKER) (test code = 2820) BANDS - REL (CELLAVISION)(BEAKER) 3 % 0-10 (test code = 2826) NEUTROPHILS - ABS 9.52 K/ul 1.78-5.38 H (CELLAVISION)(BEAKER) (test code = 2830) LYMPHOCYTES - ABS 1.10 K/ul 1.32-3.57 L (CELLAVISION)(BEAKER) (test code = 2831) MONOCYTES - ABS 1.10 K/uL 0.30-0.82 H (CELLAVISION)(BEAKER) (test code = 2832) BASOPHILS - ABS 0.12 K/uL 0.01-0.08 H (CELLAVISION)(BEAKER) (test code = 2835) BANDS - ABS (CELLAVISION)(BEAKER) 0.37 K/uL 0.00-0.80 (test code = 2840) TOTAL COUNTED (BEAKER) (test code = 100 1351) WBC MORPHOLOGY (BEAKER) (test code Normal = 487) PLT MORPHOLOGY (BEAKER) (test code Normal = 486) POLYCHROMATOPHILLIC RBCS(BEAKER) 1+ few (test code = 478) ARTIFACT (CELLAVISION)(BEAKER) Present (test code = 3432) PLATELET CONCENTRATION Adequate (CELLAVISION)(BEAKER) (test code = 3438) Roofer Apprentice ID - Emily OverholtUser comments: Slide comments:CBC W/PLT COUNT & AUTO [id number] 06:57:36 Test Item Value Reference Range Interpretation Comments WHITE BLOOD CELL COUNT (BEAKER) 12.2 K/ L 3.5-10.5 H (test code = 775) RED BLOOD CELL COUNT (BEAKER) 3.74 M/ L 4.63-6.08 L (test code = 761) HEMOGLOBIN (BEAKER) (test code = 10.8 GM/DL 13.7-17.5 L 410) HEMATOCRIT (BEAKER) (test code = 35.1 % 40.1-51.0 L 411) MEAN CORPUSCULAR VOLUME (BEAKER) 94 fL 79-92 H (test code = 753) MEAN CORPUSCULAR HEMOGLOBIN 28.9 pg 25.7-32.2 (BEAKER) (test code = 751) MEAN CORPUSCULAR HEMOGLOBIN CONC 30.8 GM/DL 32.3-36.5 L (BEAKER) (test code = 752) RED CELL DISTRIBUTION WIDTH 17.7 % 11.6-14.4 H (BEAKER) (test code = 412) PLATELET COUNT (BEAKER) (test 202 K/CU MM 150-450 code = 756) MEAN PLATELET VOLUME (BEAKER) 10.0 fL 9.4-12.4 (test code = 754) NUCLEATED RED BLOOD CELLS 0 /100 WBC 0-0 (BEAKER) (test code = 413) RAD, CHEST, 1 VIEW, NON [id number] 06:17:00While IABP in place and following each repositioning of IABPReason for exam:->Post cardiotomyShould this be performed at the bedside?->Yes [facility] 1965 Sex: MFINAL REPORT RAD, CHEST, 1 VIEW, NON DEPT CLINICAL STATEMENT: Post cardiac surgery. COMPARISON: 04/03/2022 FINDINGS: Heart is moderately enlarged. Status post median sternotomy. Endotracheal tube and enteric tube are in place. Bilateral chest tubes in place. No pneumothorax. No pleural effusions. IMPRESSION: Stable findings. Signed: Tc Hw[place]port Verified Date/Time: 04/04/2022 06:17:36 POCT-GLUCOSE [id number] 06:14:39 Test Item Value Reference Range Interpretation Comments POC-GLUCOSE METER 104 mg/dL 70-110 : TESTED A T [facility] 6720 (BEAKER) (test code = [facility], 1538) 74404: Roofer Apprentice/Techni earnest ID = [id number] for MIA SAEED POCT-GLUCOSE [id number] 04:29:36 Test Item Value Reference Range Interpretation Comments POC-GLUCOSE METER 113 mg/dL 70-110 H : TESTED A T [facility] 6720 (BEAKER) (test code = [facility] [employer] [facility], 1538) 75946: Roofer Apprentice/Techni earnest ID = [id number] for MIA SAEED [id number] 03:04:47 Test Item Value Reference Range Interpretation Comments PHOSPHORUS (BEAKER) (test code = 3.6 mg/dL 2.3-4.7 604) Roofer Apprentice ID - BSBASIC METABOLIC [id number] 03:04:46 Test Item Value Reference Range Interpretation Comments SODIUM (BEAKER) 140 meq/L 136-145 (test code = 381) POTASSIUM 3.6 meq/L 3.5-5.1 (BEAKER) (test code = 379) CHLORIDE (BEAKER) 108 meq/L 98-107 H (test code = 382) CO2 (BEAKER) 22 meq/L 22-29 (test code = 355) BLOOD UREA 22 mg/dL 7-21 H NITROGEN (BEAKER) (test code = 354) CREATININE 1.51 mg/dL 0.57-1.25 H (BEAKER) (test code = 358) GLUCOSE RANDOM 130 mg/dL 70-105 H (BEAKER) (test code = 652) CALCIUM (BEAKER) 8.8 mg/dL 8.4-10.2 (test code = 697) EGFR (BEAKER) 54 Interpretatio n of eGFR (test code = mL/min/1.73 values Stage De scription 1092) sq m Result G1 Idania l or high >=90 G2 Mildly decreased 60-89 G3a Mildl y to moderately 45-5 9 G3b Moderately to s everely 30-44 G4 Severl y decreased 15-29 G5 Kidney failure <15Reported eGF R is based on the CKD-EPI 2020 equation that d oes not use a race coefficientEsti mated GFR is not as accur ate as Creatinine Ai pato in predicting glom erular filtration rate . Estimated GFR is not appl icable for dialysis patien ts Roofer Apprentice ID - [id number] 03:04:46 Test Item Value Reference Range Interpretation Comments MAGNESIUM (BEAKER) (test code = 2.3 mg/dL 1.6-2.6 627) Roofer Apprentice ID - BSBLOOD GAS, [id number] 02:51:41 Test Item Value Reference Range Interpretation Comments PH ARTERIAL (BEAKER) (test code = 7.43 7.35-7.45 383) PCO2 ARTERIAL (BEAKER) (test code 39 mm Hg 35-45 = 384) PO2 ARTERIAL (BEAKER) (test code = 116 mm Hg 80-90 H 385) O2 SATURATION ARTERIAL (BEAKER) 98.5 % 96.0-97.0 H (test code = 386) HCO3 ARTERIAL (BEAKER) (test code 26 mmol/L 21-29 = 388) BASE EXCESS ARTERIAL (BEAKER) 1.4 mmol/L -2.0-3.0 (test code = 387) PATIENT TEMPERATURE (BEAKER) (test 36.0 code = 1818) FIO2 (BEAKER) (test code = 1819) 40.0 OXYGEN SATURATION, [id number] 02:46:23 Test Item Value Reference Range Interpretation Comments O2 SATURATION (MEASURED) (BEAKER) 73.8 % (test code = 1455) POCT-GLUCOSE [id number] 02:23:28 Test Item Value Reference Range Interpretation Comments POC-GLUCOSE METER 134 mg/dL 70-110 H : [facility] (BEAKER) (test code = [facility], 1538) 98811: Roofer Apprentice/Techni earnest ID = [id number] for MIA SAEED [id number] 00:58:07 Test Item Value Reference Range Interpretation Comments POTASSIUM (BEAKER) (test code = 3.9 meq/L 3.5-5.1 379) Roofer Apprentice ID - [id number] 00:58:06 Test Item Value Reference Range Interpretation Comments MAGNESIUM (BEAKER) (test code = 2.3 mg/dL 1.6-2.6 627) Roofer Apprentice ID - [id number] 00:58:06 Test Item Value Reference Range Interpretation Comments PHOSPHORUS (BEAKER) (test code = 3.3 mg/dL 2.3-4.7 604) Roofer Apprentice ID - BSCALCIUM, [id number] 23:37:44 Test Item Value Reference Range Interpretation Comments CALCIUM IONIZED (BEAKER) (test 1.11 mmol/L 1.12-1.27 L code = 698) PH, BLOOD (BEAKER) (test code = 7.45 1810) POCT-GLUCOSE [id number] 23:15:00 Test Item Value Reference Range Interpretation Comments POC-GLUCOSE METER 172 mg/dL 70-110 H : TESTED A T [facility] 6720 (BEAKER) (test code = [facility], 1538) 28501: Roofer Apprentice/Techni earnest ID = [id number] for MIA SAEED RAD, CHEST, 1 VIEW, NON [id number] 22:53:00Reason for exam:->chest tube air leakShould this be performed at the bedside?->Yes [facility] : 1965 Sex: MFINAL REPORT RAD, CHEST, 1 VIEW, NON DEPT 04/03/2022 at 2203 hours. CLINICAL STATEMENT: Chest tube air leak. COMPARISON: 04/03/2022 at 0020 hours. FINDINGS: Heart is moderately enlarged. Status post median sternotomy. Endotracheal tube and enteric tube are in appropriate placement.Bilateral chest tubes in place. Right IJ [place] catheter. No pneumothorax. No pleural effusions. IMPRESSION: Lines and tubes of life-support in place, stable. Signed: cT Hwangeport Verified Date/Time: 04/03/2022 22:53:04 LACTIC ACID, [id number] 21:04:36 Test Item Value Reference Range Interpretation Comments LACTATE BLOOD ARTERIAL (2) 0.9 mmol/L 0.5-2.2 ([employer] (test code = 2874) Roofer Apprentice ID - BSPOCT-GLUCOSE [id number] 20:46:29 Test Item Value Reference Range Interpretation Comments POC-GLUCOSE METER 166 mg/dL 70-110 H : TESTED A T [facility] 6720 ([employer] (test code = [facility], 1538) 85089: Roofer Apprentice/Techni earnest ID = [id number] for NG MIA BALDWIN POCT-GLUCOSE [id number] 18:37:00 Test Item Value Reference Range Interpretation Comments POC-GLUCOSE METER 171 mg/dL 70-110 H : TESTED A T [facility] 6720 ([employer] (test code = [facility], 1538) 82169: Roofer Apprentice/Techni earnest ID = [id number] for PU GA, MODESTA POCT-GLUCOSE [id number] 17:31:32 Test Item Value Reference Range Interpretation Comments POC-GLUCOSE METER 175 mg/dL 70-110 H : TESTED A T [facility] 6720 ([employer] (test code = [facility], 1538) 38835: Roofer Apprentice/Techni earnest ID = [id number] for PU GA, MODESTA POCT-GLUCOSE [id number] 16:06:01 Test Item Value Reference Range Interpretation Comments POC-GLUCOSE METER 140 mg/dL 70-110 H : TESTED A T [facility] 6720 (BEAKER) (test code = [place], 1538) 68917: Roofer Apprentice/Techni earnest ID = [id number] for MODESTA STRONG BASIC METABOLIC [id number] 15:49:59 Test Item Value Reference Range Interpretation Comments SODIUM (BEAKER) 140 meq/L 136-145 (test code = 381) POTASSIUM 4.1 meq/L 3.5-5.1 (BEAKER) (test code = 379) CHLORIDE (BEAKER) 108 meq/L 98-107 H (test code = 382) CO2 (BEAKER) 24 meq/L 22-29 (test code = 355) BLOOD UREA 21 mg/dL 7-21 NITROGEN (BEAKER) (test code = 354) CREATININE 1.39 mg/dL 0.57-1.25 H (BEAKER) (test code = 358) GLUCOSE RANDOM 117 mg/dL 70-105 H (BEAKER) (test code = 652) CALCIUM (BEAKER) 9.0 mg/dL 8.4-10.2 (test code = 697) EGFR (BEAKER) 59 Interpretatio n of eGFR (test code = mL/min/1.73 values Stage De scription 1092) sq m Result G1 Idania l or high >=90 G2 Mildly decreased 60-89 G3a Mildl y to moderately 45-5 9 G3b Moderately to s everely 30-44 G4 Severl y decreased 15-29 G5 Kidney failure <15Reported eGF R is based on the CKD-EPI 2020 equation that d oes not use a race coefficientEsti mated GFR is not as accur ate as Creatinine Ai pato in predicting glom erular filtration rate . Estimated GFR is not appl icable for dialysis patien ts Roofer Apprentice ID - BSBLOOD GAS, [id number] 15:25:31 Test Item Value Reference Range Interpretation Comments PH ARTERIAL (BEAKER) (test code = 7.45 7.35-7.45 383) PCO2 ARTERIAL (BEAKER) (test code 35 mm Hg 35-45 = 384) PO2 ARTERIAL (BEAKER) (test code = 112 mm Hg 80-90 H 385) O2 SATURATION ARTERIAL (BEAKER) 98.3 % 96.0-97.0 H (test code = 386) HCO3 ARTERIAL (BEAKER) (test code 24 mmol/L 21-29 = 388) BASE EXCESS ARTERIAL (BEAKER) 0.4 mmol/L -2.0-3.0 (test code = 387) PATIENT TEMPERATURE (BEAKER) (test 37.0 code = 1818) FIO2 (BEAKER) (test code = 1819) 100.0 OXYGEN SATURATION, [id number] 15:25:15 Test Item Value Reference Range Interpretation Comments O2 SATURATION (MEASURED) (BEAKER) 74.5 % (test code = 1455) POCT-GLUCOSE [id number] 15:11:56 Test Item Value Reference Range Interpretation Comments POC-GLUCOSE METER 106 mg/dL 70-110 : TESTED A T [facility] 6720 (BEAKER) (test code = [facility], 1538) [id number]: Roofer Apprentice/Techni earnest ID = [id number] for PU GA, MODESTA POCT-GLUCOSE [id number] 14:36:58 Test Item Value Reference Range Interpretation Comments POC-GLUCOSE METER 83 mg/dL 70-110 : TESTED A T [facility] 6720 (BEAKER) (test code = [facility], 1538) [id number]: Roofer Apprentice/Techni earnest ID = [id number] for THOMAS , MODESTA POCT-GLUCOSE [id number] 12:25:42 Test Item Value Reference Range Interpretation Comments POC-GLUCOSE METER 103 mg/dL 70-110 : TESTED A T [facility] 6720 (BEAKER) (test code = [facility], 1538) [id number]: Roofer Apprentice/Techni earnest ID = [id number] for PU GA, MODESTA BLOOD GAS, [id number] 10:19:36 Test Item Value Reference Range Interpretation Comments PH ARTERIAL (BEAKER) (test code = 7.47 7.35-7.45 H 383) PCO2 ARTERIAL (BEAKER) (test code 38 mm Hg 35-45 = 384) PO2 ARTERIAL (BEAKER) (test code = 106 mm Hg 80-90 H 385) O2 SATURATION ARTERIAL (BEAKER) 98.1 % 96.0-97.0 H (test code = 386) HCO3 ARTERIAL (BEAKER) (test code 27 mmol/L 21-29 = 388) BASE EXCESS ARTERIAL (BEAKER) 2.9 mmol/L -2.0-3.0 (test code = 387) PATIENT TEMPERATURE (BEAKER) (test 37.0 code = 1818) FIO2 (BEAKER) (test code = 1819) 21.0 POCT-GLUCOSE [id number] 10:16:01 Test Item Value Reference Range Interpretation Comments POC-GLUCOSE METER 118 mg/dL 70-110 H : [facility] (test code = [facility], 1538) [id number]: Roofer Apprentice/Techni earnest ID = [id number] for PU GA, MODESTA OXYGEN SATURATION, [id number] 10:13:34 Test Item Value Reference Range Interpretation Comments O2 SATURATION (MEASURED) (BEAKER) 78.4 % (test code = 1455) POCT-GLUCOSE [id number] 08:19:50 Test Item Value Reference Range Interpretation Comments POC-GLUCOSE METER 123 mg/dL 70-110 H : [facility] [facility] ([facility]) (test code = [facility], 1538) [id number]: Roofer Apprentice/Techni earnest ID = [id number] for PU GA, MODESTA RAD, CHEST, 1 VIEW, NON [id number] 07:10:00While IABP in place and following each repositioning of IABPReason for exam:->Post cardiotomyShould this be performed at the bedside?->Yes [facility] : 1965 Sex: MFINAL REPORT EXAM: Chest one view COMPARISON: April 02, 2022 CLINICAL HISTORY: Status post cardiotomy FINDINGS: The tubes and lines are unchanged in position. The cardiac size ismildly prominent. There is mild bilateral pulmonary edema. Small left pleural effusion also suspected. There is no evidence of pneumothorax. The regional osseous structures are unremarkable. Signed: Sushant Jesus MDReport Verified Date/Time: 04/03/2022 07:10:23 POCT-GLUCOSE [id number] 06:52:57 Test Item Value Reference Range Interpretation Comments POC-GLUCOSE METER 132 mg/dL 70-110 H : TESTED A T [facility] 6720 (BEAKER) (test code = [facility], 1538) [id number]: Roofer Apprentice/Techni earnest ID = [id number] for NG MIA BALDWIN POCT-GLUCOSE [id number] 04:22:35 Test Item Value Reference Range Interpretation Comments POC-GLUCOSE METER 140 mg/dL 70-110 H : TESTED A T [facility] 6720 (BEAKER) (test code = [facility], 1538) [id number]: Roofer Apprentice/Techni earnest ID = [id number] for NG MIA BALDWIN POCT-GLUCOSE [id number] 04:20:29 Test Item Value Reference Range Interpretation Comments POC-GLUCOSE METER 123 mg/dL 70-110 H : TESTED A T [facility] 6720 (BEAKER) (test code = [facility], 1538) 059[address]: Roofer Apprentice/Techni earnest ID = [id number] for MIA SAEED (CELLAVISION MANUAL DIFF)2022-04-03 03:53:39 Test Item Value Reference Range Interpretation Comments NEUTROPHILS - REL 82 % (CELLAVISION)(BEAKER) (test code = 2816) LYMPHOCYTES - REL 7 % (CELLAVISION)(BEAKER) (test code = 2817) MONOCYTES - REL 5 % (CELLAVISION)(BEAKER) (test code = 2818) EOSINOPHILS - REL 1 % (CELLAVISION)(BEAKER) (test code = 2819) BASOPHILS - REL 1 % (CELLAVISION)(BEAKER) (test code = 2820) BANDS - REL (CELLAVISION)(BEAKER) 3 % 0-10 (test code = 2826) ATYPICAL LYMPHOCYTES - REL 1 % 0-0 H (CELLAVISION)(BEAKER) (test code = 2829) NEUTROPHILS - ABS 11.32 K/ul 1.78-5.38 H (CELLAVISION)(BEAKER) (test code = 2830) LYMPHOCYTES - ABS 0.97 K/ul 1.32-3.57 L (CELLAVISION)(BEAKER) (test code = 2831) MONOCYTES - ABS 0.69 K/uL 0.30-0.82 (CELLAVISION)(BEAKER) (test code = 2832) EOSINOPHILS - ABS 0.14 K/uL 0.04-0.54 (CELLAVISION)(BEAKER) (test code = 2834) BASOPHILS - ABS 0.14 K/uL 0.01-0.08 H (CELLAVISION)(BEAKER) (test code = 2835) BANDS - ABS (CELLAVISION)(BEAKER) 0.41 K/uL 0.00-0.80 (test code = 2840) ATYPICAL LYMPHOCYTES - ABS 0.14 K/uL 0.00-0.00 H (CELLAVISION)(BEAKER) (test code = 2858) TOTAL COUNTED (BEAKER) (test code 100 = 1351) PLT MORPHOLOGY (BEAKER) (test Normal code = 486) SMUDGE CELLS (BEAKER) (test code Present = 1371) POLYCHROMATOPHILLIC RBCS(BEAKER) 2+ moderate (test code = 478) SCHISTOCYTES (BEAKER) (test code 1+ few = 765) ELLIPTOCYTES (BEAKER) (test code 2+ moderate = 962) OVALOCYTES (BEAKER) (test code = 3+ many 477) TEAR DROP CELLS (BEAKER) (test 1+ few code = 481) STOMATOCYTES (BEAKER) (test code 2+ moderate = 479) PLATELET CONCENTRATION Adequate (CELLAVISION)(BEAKER) (test code = 3438) Roofer Apprentice ID - Rosalio Mcgill comments: Slide comments:CBC W/PLT COUNT & AUTO [id number] 03:53:38 Test Item Value Reference Range Interpretation Comments WHITE BLOOD CELL COUNT (BEAKER) 13.8 K/ L 3.5-10.5 H (test code = 775) RED BLOOD CELL COUNT (BEAKER) 3.88 M/ L 4.63-6.08 L (test code = 761) HEMOGLOBIN (BEAKER) (test code = 11.3 GM/DL 13.7-17.5 L 410) HEMATOCRIT (BEAKER) (test code = 36.1 % 40.1-51.0 L 411) MEAN CORPUSCULAR VOLUME (BEAKER) 93 fL 79-92 H (test code = 753) MEAN CORPUSCULAR HEMOGLOBIN 29.1 pg 25.7-32.2 (BEAKER) (test code = 751) MEAN CORPUSCULAR HEMOGLOBIN CONC 31.3 GM/DL 32.3-36.5 L (BEAKER) (test code = 752) RED CELL DISTRIBUTION WIDTH 17.3 % 11.6-14.4 H (BEAKER) (test code = 412) PLATELET COUNT (BEAKER) (test 225 K/CU MM 150-450 code = 756) MEAN PLATELET VOLUME (BEAKER) 10.0 fL 9.4-12.4 (test code = 754) NUCLEATED RED BLOOD CELLS 0 /100 WBC 0-0 (BEAKER) (test code = 413) [id number] 02:35:05 Test Item Value Reference Range Interpretation Comments PHOSPHORUS (BEAKER) (test code = 2.7 mg/dL 2.3-4.7 604) Roofer Apprentice ID - BSHEPATIC FUNCTION [id number] 02:35:05 Test Item Value Reference Range Interpretation Comments TOTAL PROTEIN (BEAKER) (test code = 5.7 gm/dL 6.0-8.3 L 770) ALBUMIN (BEAKER) (test code = 1145) 2.7 g/dL 3.5-5.0 L BILIRUBIN TOTAL (BEAKER) (test code 1.2 mg/dL 0.2-1.2 = 377) BILIRUBIN DIRECT (BEAKER) (test 0.8 mg/dL 0.1-0.5 H code = 706) ALKALINE PHOSPHATASE (BEAKER) (test 78 U/L 40-150 code = 346) AST (SGOT) (BEAKER) (test code = 86 U/L 5-34 H 353) ALT (SGPT) (BEAKER) (test code = 34 U/L 6-55 347) Roofer Apprentice ID - BSBASIC METABOLIC [id number] 02:35:04 Test Item Value Reference Range Interpretation Comments SODIUM (BEAKER) 140 meq/L 136-145 (test code = 381) POTASSIUM 4.1 meq/L 3.5-5.1 (BEAKER) (test code = 379) CHLORIDE (BEAKER) 108 meq/L 98-107 H (test code = 382) CO2 (BEAKER) 22 meq/L 22-29 (test code = 355) BLOOD UREA 21 mg/dL 7-21 NITROGEN (BEAKER) (test code = 354) CREATININE 1.18 mg/dL 0.57-1.25 (BEAKER) (test code = 358) GLUCOSE RANDOM 129 mg/dL 70-105 H (BEAKER) (test code = 652) CALCIUM (BEAKER) 9.3 mg/dL 8.4-10.2 (test code = 697) EGFR (BEAKER) 72 Interpretatio n of eGFR (test code = mL/min/1.73 values Stage De scription 1092) sq m Result G1 Idania l or high >=90 G2 Mildly decreased 60-89 G3a Mildl y to moderately 45-5 9 G3b Moderately to s everely 30-44 G4 Severl y decreased 15-29 G5 Kidney failure <15Reported eGF R is based on the CKD-EPI 2020 equation that d oes not use a race coefficientEsti mated GFR is not as accur ate as Creatinine Ai pato in predicting glom erular filtration rate . Estimated GFR is not appl icable for dialysis patien ts Roofer Apprentice ID - [id number] 02:35:04 Test Item Value Reference Range Interpretation Comments MAGNESIUM (BEAKER) (test code = 2.0 mg/dL 1.6-2.6 627) Roofer Apprentice ID - BSVANCOMYCIN LEVEL, [id number] 02:20:19 Test Item Value Reference Range Interpretation Comments VANCOMYCIN TROUGH (BEAKER) (test 7.6 ug/mL 10.0-20.0 L code = 522) Roofer Apprentice ID - [id number] 02:15:17 Test Item Value Reference Range Interpretation Comments PROTIME (BEAKER) (test 15.9 seconds 11.9-14.2 H code = 759) INR (BEAKER) (test 1.35 See_Comment [Automat ed code = 370) message] The sy stem which generated this result transmitted reference range : <=5.90. The reference range was not used to interpret this result as normal/abnormal . PARTIAL THROMBOPLASTIN 35.5 seconds 22.5-36.0 TIME (BEAKER) (test code = 760) RECOMMENDED COUMADIN/WARFARIN INR THERAPY RANGESSTANDARD DOSE: 2.0 - 3.0 Includes: PROPHYLAXIS for venous thrombosis, systemic embolization; TREATMENT for venous thrombosis and/or pulmonary embolus.HIGH RISK: Target INR is 2.5-3.5 for patients with mechanical heart valves.BLOOD GAS, [id number] 01:58:21 Test Item Value Reference Range Interpretation Comments PH ARTERIAL (BEAKER) (test code = 7.46 7.35-7.45 H 383) PCO2 ARTERIAL (BEAKER) (test code 38 mm Hg 35-45 = 384) PO2 ARTERIAL (BEAKER) (test code = 106 mm Hg 80-90 H 385) O2 SATURATION ARTERIAL (BEAKER) 97.9 % 96.0-97.0 H (test code = 386) HCO3 ARTERIAL (BEAKER) (test code 26 mmol/L 21-29 = 388) BASE EXCESS ARTERIAL (BEAKER) 2.7 mmol/L -2.0-3.0 (test code = 387) PATIENT TEMPERATURE (BEAKER) (test 38.3 code = 1818) FIO2 (BEAKER) (test code = 1819) 40.0 OXYGEN SATURATION, [id number] 01:58:16 Test Item Value Reference Range Interpretation Comments O2 SATURATION (MEASURED) (BEAKER) 67.1 % (test code = 1455) CALCIUM, [id number] 01:58:15 Test Item Value Reference Range Interpretation Comments CALCIUM IONIZED (BEAKER) (test 1.20 mmol/L 1.12-1.27 code = 698) PH, BLOOD (BEAKER) (test code = 7.48 1810) POCT-GLUCOSE [id number] 22:29:13 Test Item Value Reference Range Interpretation Comments POC-GLUCOSE METER 151 mg/dL 70-110 H : TESTED A T [facility] 6720 (BEAKER) (test code = [place], 1538) 55983: Roofer Apprentice/Techni earnest ID = [id number] for NG LAMAR, MIA HGB/HCT (H&H) - STAT [id number] 22:28:56 Test Item Value Reference Range Interpretation Comments HEMOGLOBIN (BEAKER) (test code = 12.3 GM/DL 13.0-16.8 L 410) HEMATOCRIT (BEAKER) (test code = 36.0 % 40.0-50.0 L 411) BLOOD GAS, [id number] 22:28:55 Test Item Value Reference Range Interpretation Comments PH ARTERIAL (BEAKER) (test code = 7.42 7.35-7.45 383) PCO2 ARTERIAL (BEAKER) (test code 41 mm Hg 35-45 = 384) PO2 ARTERIAL (BEAKER) (test code = 128 mm Hg 80-90 H 385) O2 SATURATION ARTERIAL (BEAKER) 98.4 % 96.0-97.0 H (test code = 386) HCO3 ARTERIAL (BEAKER) (test code 26 mmol/L 21-29 = 388) BASE EXCESS ARTERIAL (BEAKER) 1.8 mmol/L -2.0-3.0 (test code = 387) PATIENT TEMPERATURE (BEAKER) (test 38.7 code = 1818) FIO2 (BEAKER) (test code = 1819) 40.0 CALCIUM, [id number] 22:28:45 Test Item Value Reference Range Interpretation Comments CALCIUM IONIZED (BEAKER) (test 1.21 mmol/L 1.12-1.27 code = 698) PH, BLOOD (BEAKER) (test code = 7.45 1810) SODIUM NA-STAT [id number] 22:28:24 Test Item Value Reference Range Interpretation Comments SODIUM (BEAKER) (test code = 381) 138 meq/L 136-145 POTASSIUM-STAT [id number] 22:28:24 Test Item Value Reference Range Interpretation Comments POTASSIUM (BEAKER) (test code = 4.3 meq/L 3.6-5.5 379) GLUCOSE-STAT [id number] 22:28:23 Test Item Value Reference Range Interpretation Comments GLUCOSE RANDOM (BEAKER) (test code 140 mg/dL 70-110 H = 652) POCT-GLUCOSE [id number] 20:39:58 Test Item Value Reference Range Interpretation Comments POC-GLUCOSE METER 166 mg/dL 70-110 H : TESTED A T [facility] 6720 (BEAKER) (test code = [place], 1538) 86214: Roofer Apprentice/Techni earnest ID = [id number] for MIA SAEED GLUCOSE-STAT [id number] 18:14:43 Test Item Value Reference Range Interpretation Comments GLUCOSE RANDOM (BEAKER) (test code 191 mg/dL 70-110 H = 652) OXYGEN SATURATION, [id number] 18:14:25 Test Item Value Reference Range Interpretation Comments O2 SATURATION (MEASURED) (BEAKER) 65.1 % (test code = 1455) [id number] 16:45:27 Test Item Value Reference Range Interpretation Comments MAGNESIUM (BEAKER) (test code = 1.9 mg/dL 1.6-2.6 627) Roofer Apprentice ID - [id number] 16:45:27 Test Item Value Reference Range Interpretation Comments PHOSPHORUS (BEAKER) (test code = 2.7 mg/dL 2.3-4.7 604) Roofer Apprentice ID - BSBASIC METABOLIC [id number] 16:45:26 Test Item Value Reference Range Interpretation Comments SODIUM (BEAKER) 140 meq/L 136-145 (test code = 381) POTASSIUM 4.8 meq/L 3.5-5.1 (BEAKER) (test code = 379) CHLORIDE (BEAKER) 109 meq/L 98-107 H (test code = 382) CO2 (BEAKER) 24 meq/L 22-29 (test code = 355) BLOOD UREA 20 mg/dL 7-21 NITROGEN (BEAKER) (test code = 354) CREATININE 1.12 mg/dL 0.57-1.25 (BEAKER) (test code = 358) GLUCOSE RANDOM 181 mg/dL 70-105 H (BEAKER) (test code = 652) CALCIUM (BEAKER) 9.8 mg/dL 8.4-10.2 (test code = 697) EGFR (BEAKER) 77 Interpretatio n of eGFR (test code = mL/min/1.73 values Stage De scription 1092) sq m Result G1 Idania l or high >=90 G2 Mildly decreased 60-89 G3a Mildl y to moderately 45-5 9 G3b Moderately to s everely 30-44 G4 Severl y decreased 15-29 G5 Kidney failure <15Reported eGF R is based on the CKD-EPI 2020 equation that d oes not use a race coefficientEsti mated GFR is not as accur ate as Creatinine Ai pato in predicting glom erular filtration rate . Estimated GFR is not appl icable for dialysis patien arslan Roofer Apprentice ID - BSPOCT-GLUCOSE [id number] 14:18:13 Test Item Value Reference Range Interpretation Comments POC-GLUCOSE METER 159 mg/dL 70-110 H : TESTED A T [facility] 6720 (BEAKER) (test code = [facility], 1538) 94746: Roofer Apprentice/Techni earnest ID = [id number] for TRA CASTRO GLUCOSE-STAT [id number] 09:02:46 Test Item Value Reference Range Interpretation Comments GLUCOSE RANDOM (BEATRIZAKER) (test code = 96 mg/dL 70-110 652) POTASSIUM-STAT [id number] 09:02:46 Test Item Value Reference Range Interpretation Comments POTASSIUM (BEAKER) (test code = 3.7 meq/L 3.6-5.5 379) RAD, CHEST, 1 VIEW, NON [id number] 07:57:00While IABP in place and following each repositioning of IABPReason for exam:->Post cardiotomyShould this be performed at the bedside?->Yes [facility] : 1965 Sex: MFINAL REPORT RAD, CHEST, 1 VIEW, NON DEPT INDICATION: Post cardiotomy COMPARISON: Prior day's exam FINDINGS: Portable frontal view of the chest. IMPRESSION: Support Lines: [place] overlies the pulmonary outflow tract. ET tube tip is 3 cm superior to guy. NG tube descends below the diaphragm. Bilateral chest tubes. Mediastinal drains. Lungs and pleura: Unchanged airspace and pleural opacities. No significant pneumothorax. Heart and mediastinum: Stable contours. Stable surgical changes. Additional findings: None. Signed: Sruthi Barahona Verified Date/Time: 04/02/2022 07:57:27 Reading Location: [address] Reading Room (CELLAVISION MANUAL DIFF)2022-04-02 07:17:23 Test Item Value Reference Range Interpretation Comments NEUTROPHILS - REL 81 % (CELLAVISION)(BEAKER) (test code = 2816) LYMPHOCYTES - REL 6 % (CELLAVISION)(BEAKER) (test code = 2817) MONOCYTES - REL 13 % (CELLAVISION)(BEAKER) (test code = 2818) NEUTROPHILS - ABS 10.61 K/ul 1.78-5.38 H (CELLAVISION)(BEAKER) (test code = 2830) LYMPHOCYTES - ABS 0.79 K/ul 1.32-3.57 L (CELLAVISION)(BEAKER) (test code = 2831) MONOCYTES - ABS 1.70 K/uL 0.30-0.82 H (CELLAVISION)(BEAKER) (test code = 2832) TOTAL COUNTED (BEAKER) (test code 100 = 1351) WBC MORPHOLOGY (BEAKER) (test code Normal = 487) GIANT PLATELETS (BEAKER) (test Present code = 313) ANISOCYTOSIS (BEAKER) (test code = 1+ few 961) ARTIFACT (CELLAVISION)(BEAKER) Present (test code = 3432) PLATELET CONCENTRATION Adequate (CELLAVISION)(BEAKER) (test code = 3438) Roofer Apprentice ID - samantha Larkin comments: Slide comments:CBC W/PLT COUNT & AUTO [id number] 07:17:22 Test Item Value Reference Range Interpretation Comments WHITE BLOOD CELL COUNT (BEAKER) 13.1 K/ L 3.5-10.5 H (test code = 775) RED BLOOD CELL COUNT (BEAKER) 3.90 M/ L 4.63-6.08 L (test code = 761) HEMOGLOBIN (BEAKER) (test code = 11.3 GM/DL 13.7-17.5 L 410) HEMATOCRIT (BEAKER) (test code = 36.6 % 40.1-51.0 L 411) MEAN CORPUSCULAR VOLUME (BEAKER) 94 fL 79-92 H (test code = 753) MEAN CORPUSCULAR HEMOGLOBIN 29.0 pg 25.7-32.2 (BEAKER) (test code = 751) MEAN CORPUSCULAR HEMOGLOBIN CONC 30.9 GM/DL 32.3-36.5 L (BEAKER) (test code = 752) RED CELL DISTRIBUTION WIDTH 17.1 % 11.6-14.4 H (BEAKER) (test code = 412) PLATELET COUNT (BEAKER) (test 258 K/CU MM 150-450 code = 756) MEAN PLATELET VOLUME (BEAKER) 10.5 fL 9.4-12.4 (test code = 754) NUCLEATED RED BLOOD CELLS 0 /100 WBC 0-0 (BEAKER) (test code = 413) POCT-GLUCOSE [id number] 06:14:47 Test Item Value Reference Range Interpretation Comments POC-GLUCOSE METER 121 mg/dL 70-110 H : TESTED A T [facility] 6720 (BEAKER) (test code = [place], 1538) 51554: Roofer Apprentice/Techni earnest ID = [id number] for REDD HART [id number] 04:02:22 Test Item Value Reference Range Interpretation Comments MAGNESIUM (BEAKER) (test code = 2.4 mg/dL 1.6-2.6 627) Roofer Apprentice ID - CRISTIAN [id number] 04:02:22 Test Item Value Reference Range Interpretation Comments PHOSPHORUS (BEAKER) (test code = 2.0 mg/dL 2.3-4.7 L 604) Roofer Apprentice ID - CRISTIAN MBASIC METABOLIC [id number] 04:02:20 Test Item Value Reference Range Interpretation Comments SODIUM (BEAKER) 140 meq/L 136-145 (test code = 381) POTASSIUM 3.9 meq/L 3.5-5.1 (BEAKER) (test code = 379) CHLORIDE (BEAKER) 108 meq/L 98-107 H (test code = 382) CO2 (BEAKER) 22 meq/L 22-29 (test code = 355) BLOOD UREA 18 mg/dL 7-21 NITROGEN (BEAKER) (test code = 354) CREATININE 1.11 mg/dL 0.57-1.25 (BEAKER) (test code = 358) GLUCOSE RANDOM 146 mg/dL 70-105 H (BEAKER) (test code = 652) CALCIUM (BEAKER) 9.2 mg/dL 8.4-10.2 (test code = 697) EGFR (BEAKER) 78 Interpretatio n of eGFR (test code = mL/min/1.73 values Stage De scription 1092) sq m Result G1 Idania l or high >=90 G2 Mildly decreased 60-89 G3a Mildl y to moderately 45-5 9 G3b Moderately to s everely 30-44 G4 Severl y decreased 15-29 G5 Kidney failure <15Reported eGF R is based on the CKD-EPI 2020 equation that d oes not use a race coefficientEsti mated GFR is not as accur ate as Creatinine Ai pato in predicting glom erular filtration rate . Estimated GFR is not appl icable for dialysis patien ts Roofer Apprentice ID - CRISTIAN [id number] 03:46:27 Test Item Value Reference Range Interpretation Comments PROTIME (BEAKER) (test 16.2 seconds 11.9-14.2 H code = 759) INR (BEAKER) (test 1.39 See_Comment [Automat ed code = 370) message] The sy stem which generated this result transmitted reference range : <=5.90. The reference range was not used to interpret this result as normal/abnormal . PARTIAL THROMBOPLASTIN 36.5 seconds 22.5-36.0 H TIME (BEAKER) (test code = 760) RECOMMENDED COUMADIN/WARFARIN INR THERAPY RANGESSTANDARD DOSE: 2.0 - 3.0 Includes: PROPHYLAXIS for venous thrombosis, systemic embolization; TREATMENT for venous thrombosis and/or pulmonary embolus.HIGH RISK: Target INR is 2.5-3.5 for patients with mechanical heart valves.[id number] 03:46:08 Test Item Value Reference Range Interpretation Comments FIBRINOGEN LEVEL (BEAKER) (test 886 mg/dl 225-434 H code = 658) Urinalysis w/Microscopic + Reflex to [id number] 03:40:55 Test Item Value Reference Range Interpretation Comments Color, UA (test code Mereta = 5778-6) Clarity, UA (test Cloudy code = 5767-9) Specific [place], UA 1.043 1.001-1.035 H (test code = 5811-5) pH, UA (test code = 6.0 5.0-8.0 5803-2) Protein, UA (test 300 mg/dL Negative A code = 44163-6) Glucose, UA (test >1000 mg/dL Negative A code = 365) Ketones, UA (test 40 mg/dL Negative A code = 2514-8) Bilirubin, UA (test Positive Negative A code = 46308-5) Blood, UA (test code Large Negative A = 42223-9) Nitrite, UA (test Negative Negative code = 5802-4) Leukocytes, UA (test Large Negative A code = 5799-2) Urobilinogen, UA 4 0.2-1.0 H (test code = 05200-6) RBC, UA (test code = 419 See_Comment [Autom ated 15316-0) message] The system which generated this result transmit leonel reference range : /HPF. The reference range was not used to interpret this result as normal/abnormal . WBC, UA (test code = 62 See_Comment [Autom ated 5821-4) message] The system which generated this result transmit leonel reference range : /HPF. The reference range was not used to interpret this result as normal/abnormal . Bacteria, UA (test Moderate code = 50542-1) Mucus (test code = Rare 8247-9) Squam Epithel, UA 1 See_Comment [Automate d (test code = 14207-1) messag e] The system which generated this result transmit leonel reference range : /HPF. The reference range was not used to interpret this result as normal/abnormal . Hyaline Casts, UA 58 See_Comment [Automate d (test code = 37236-7) messag e] The system which generated this result transmit leonel reference range : /LPF. The reference range was not used to interpret this result as normal/abnormal . Amorphous Crystals Few (test code = 88184-7) Specimen Source (test code = 2795) ADAM (test code = ADAM) Roofer Apprentice ID - [auto]Roofer Apprentice ID - tech Lab Interpretation Abnormal (test code = 53102-8) [facility] Reflex to Culture 2022-04-02 03:40:55 Test Item Value Reference Range Interpretation Comments Color, UA (test code Mereta = 5778-6) Clarity, UA (test Cloudy code = 5767-9) Specific [place], UA 1.043 1.001-1.035 H (test code = 5811-5) pH, UA (test code = 6.0 5.0-8.0 5803-2) Protein, UA (test 300 mg/dL Negative A code = 37175-8) Glucose, UA (test >1000 mg/dL Negative A code = 365) Ketones, UA (test 40 mg/dL Negative A code = 2514-8) Bilirubin, UA (test Positive Negative A code = 89813-6) Blood, UA (test code Large Negative A = 75537-0) Nitrite, UA (test Negative Negative code = 5802-4) Leukocytes, UA (test Large Negative A code = 5799-2) Urobilinogen, UA 4 0.2-1.0 H (test code = 28283-0) RBC, UA (test code = 419 See_Comment [Autom ated 88990-9) message] The system which generated this result transmit leonel reference range : /HPF. The reference range was not used to interpret this result as normal/abnormal . WBC, UA (test code = 62 See_Comment [Autom ated 5821-4) message] The system which generated this result transmit leonel reference range : /HPF. The reference range was not used to interpret this result as normal/abnormal . Bacteria, UA (test Moderate code = 75000-7) Mucus (test code = Rare 8247-9) Squam Epithel, UA 1 See_Comment [Automate d (test code = 94290-5) messag e] The system which generated this result transmit leonel reference range : /HPF. The reference range was not used to interpret this result as normal/abnormal . Hyaline Casts, UA 58 See_Comment [Automate d (test code = 06485-1) messag e] The system which generated this result transmit leonel reference range : /LPF. The reference range was not used to interpret this result as normal/abnormal . Amorphous Crystals Few (test code = 87251-5) Specimen Source (test code = 2795) ADAM (test code = ADAM) Roofer Apprentice ID - [auto]Roofer Apprentice ID - tech Lab Interpretation Abnormal (test code = 13974-2) [facility] + Reflex to Culture 2022-04-02 03:40:55 Test Item Value Reference Range Interpretation Comments Color, UA (test code Mereta = 5778-6) Clarity, UA (test Cloudy code = 5767-9) Specific [place], UA 1.043 1.001-1.035 H (test code = 5811-5) pH, UA (test code = 6.0 5.0-8.0 5803-2) Protein, UA (test 300 mg/dL Negative A code = 37901-8) Glucose, UA (test >1000 mg/dL Negative A code = 365) Ketones, UA (test 40 mg/dL Negative A code = 2514-8) Bilirubin, UA (test Positive Negative A code = 19226-7) Blood, UA (test code Large Negative A = 60941-2) Nitrite, UA (test Negative Negative code = 5802-4) Leukocytes, UA (test Large Negative A code = 5799-2) Urobilinogen, UA 4 0.2-1.0 H (test code = 64257-4) RBC, UA (test code = 419 See_Comment [Autom ated 84184-9) message] The system which generated this result transmit leonel reference range : /HPF. The reference range was not used to interpret this result as normal/abnormal . WBC, UA (test code = 62 See_Comment [Autom ated 5821-4) message] The system which generated this result transmit leonel reference range : /HPF. The reference range was not used to interpret this result as normal/abnormal . Bacteria, UA (test Moderate code = 85132-5) Mucus (test code = Rare 8247-9) Squam Epithel, UA 1 See_Comment [Automate d (test code = 79069-4) messag e] The system which generated this result transmit leonel reference range : /HPF. The reference range was not used to interpret this result as normal/abnormal . Hyaline Casts, UA 58 See_Comment [Automate d (test code = 31836-2) messag e] The system which generated this result transmit leonel reference range : /LPF. The reference range was not used to interpret this result as normal/abnormal . Amorphous Crystals Few (test code = 10006-3) Specimen Source (test code = 2795) ADAM (test code = ADAM) [employer] Apprentice ID - [auto]Ro[employer]er Apprentice ID - tech Lab Interpretation Abnormal (test code = 29600-9) [facility] Culture 2022-04-02 03:40:55 Test Item Value Reference Range Interpretation Comments Color, UA (test code Mereta = 5778-6) Clarity, UA (test Cloudy code = 5767-9) Specific [place], UA 1.043 1.001-1.035 H (test code = 5811-5) pH, UA (test code = 6.0 5.0-8.0 5803-2) Protein, UA (test 300 mg/dL Negative A code = 80839-0) Glucose, UA (test >1000 mg/dL Negative A code = 365) Ketones, UA (test 40 mg/dL Negative A code = 2514-8) Bilirubin, UA (test Positive Negative A code = 50840-1) Blood, UA (test code Large Negative A = 83423-0) Nitrite, UA (test Negative Negative code = 5802-4) Leukocytes, UA (test Large Negative A code = 5799-2) Urobilinogen, UA 4 0.2-1.0 H (test code = 62541-7) RBC, UA (test code = 419 See_Comment [Autom ated 20182-4) message] The system which generated this result transmit leonel reference range : /HPF. The reference range was not used to interpret this result as normal/abnormal . WBC, UA (test code = 62 See_Comment [Autom ated 5821-4) message] The system which generated this result transmit leonel reference range : /HPF. The reference range was not used to interpret this result as normal/abnormal . Bacteria, UA (test Moderate code = 09842-8) Mucus (test code = Rare 8247-9) Squam Epithel, UA 1 See_Comment [Automate d (test code = 05299-2) messag e] The system which generated this result transmit leonel reference range : /HPF. The reference range was not used to interpret this result as normal/abnormal . Hyaline Casts, UA 58 See_Comment [Automate d (test code = 79800-2) messag e] The system which generated this result transmit leonel reference range : /LPF. The reference range was not used to interpret this result as normal/abnormal . Amorphous Crystals Few (test code = 31643-0) Specimen Source (test code = 2795) ADAM (test code = ADAM) Roofer Apprentice ID - [auto]Roofer Apprentice ID - tech Lab Interpretation Abnormal (test code = 09101-6) [facility] [id number] 03:40:55 Test Item Value Reference Range Interpretation Comments COLOR (BEAKER) (test code = 470) Mereta CLARITY (BEAKER) (test code = Cloudy 469) SPECIFIC GRAVITY UA (BEAKER) 1.043 1.001-1.035 H (test code = 468) PH UA (BEAKER) (test code = 467) 6.0 5.0-8.0 PROTEIN UA (BEAKER) (test code = 300 mg/dL Negative A 464) GLUCOSE UA (BEAKER) (test code = >1000 mg/dL Negative A 365) KETONES UA (BEAKER) (test code = 40 mg/dL Negative A 371) BILIRUBIN UA (BEAKER) (test code Positive Negative A = 462) BLOOD UA (BEAKER) (test code = Large Negative A 461) NITRITE UA (BEAKER) (test code = Negative Negative 465) LEUKOCYTE ESTERASE UA (BEAKER) Large Negative A (test code = 466) UROBILINOGEN UA (BEAKER) (test 4 0.2-1.0 H code = 463) RBC UA (BEAKER) (test code = 519) 419 /HPF WBC UA (BEAKER) (test code = 520) 62 /HPF BACTERIA (BEAKER) (test code = Moderate 517) MUCUS (BEAKER) (test code = 1574) Rare SQUAMOUS EPITHELIAL (BEAKER) 1 /HPF (test code = 516) HYALINE CASTS (BEAKER) (test code 58 /LPF = 514) AMORPHOUS CRYSTALS (BEAKER) (test Few code = 1584) SOURCE(BEAKER) (test code = 2795) Roofer Apprentice ID - [auto]Roofer Apprentice ID - techBLOOD GAS, [id number] 02:54:50 Test Item Value Reference Range Interpretation Comments PH ARTERIAL (BEAKER) (test code = 7.42 7.35-7.45 383) PCO2 ARTERIAL (BEAKER) (test code 42 mm Hg 35-45 = 384) PO2 ARTERIAL (BEAKER) (test code = 106 mm Hg 80-90 H 385) O2 SATURATION ARTERIAL (BEAKER) 97.6 % 96.0-97.0 H (test code = 386) HCO3 ARTERIAL (BEAKER) (test code 26 mmol/L 21-29 = 388) BASE EXCESS ARTERIAL (BEAKER) 1.9 mmol/L -2.0-3.0 (test code = 387) PATIENT TEMPERATURE (BEAKER) (test 38.6 code = 1818) FIO2 (BEAKER) (test code = 1819) 40.0 POCT-GLUCOSE [id number] 02:54:17 Test Item Value Reference Range Interpretation Comments POC-GLUCOSE METER 147 mg/dL 70-110 H : TESTED A T [facility] 6720 (BEAKER) (test code = [facility], 1538) [address]: Roofer Apprentice/Techni earnest ID = [id number] for MIA SAEED CALCIUM, [id number] 02:54:16 Test Item Value Reference Range Interpretation Comments CALCIUM IONIZED (BEAKER) (test 1.18 mmol/L 1.12-1.27 code = 698) PH, BLOOD (BEAKER) (test code = 7.44 1810) OXYGEN SATURATION, [id number] 02:53:15 Test Item Value Reference Range Interpretation Comments O2 SATURATION (MEASURED) (BEAKER) 67.2 % (test code = 1455) POCT-GLUCOSE [id number] 01:18:23 Test Item Value Reference Range Interpretation Comments POC-GLUCOSE METER 162 mg/dL 70-110 H : TESTED A T [facility] 6720 (BEAKER) (test code = [employer] [facility], 1538) [address]: Roofer Apprentice/Techni earnest ID = [id number] for MIA SAEED POCT-GLUCOSE [id number] 00:16:45 Test Item Value Reference Range Interpretation Comments POC-GLUCOSE METER 160 mg/dL 70-110 H : TESTED A T [facility] 6720 (BEAKER) (test code = [facility], 1538) [address]: Roofer Apprentice/Techni earnest ID = [id number] for MIA SAEED [id number] 23:54:00 Test Item Value Reference Range Interpretation Comments Unit ABO (test code = A Pos 0052636) UNIT NUMBER (test code = [id number] 934-0) Status (test code = RETURNED FROM ISSUE 2864396) Blood Bank Product (test FFP code = 2263) PRODUCT CODE (test code = C4839B92 933-2) [facility] [id number] 23:54:00 Test Item Value Reference Range Interpretation Comments Unit ABO (test code = 1251433) O Neg UNIT NUMBER (test code = [id number] 934-0) Status (test code = 7724169) TX_TIMEINCHART Blood Bank Product (test code PLATELETS = 2263) PRODUCT CODE (test code = B2438H22 933-2) [facility] [id number] 23:54:00 Test Item Value Reference Range Interpretation Comments Unit ABO (test code = A Pos 3716301) UNIT NUMBER (test code = [id number] 934-0) Status (test code = RETURNED FROM ISSUE 3338261) Blood Bank Product (test FFP code = 2263) PRODUCT CODE (test code = A7115B82 933-2) [facility] [id number] 23:54:00 Test Item Value Reference Range Interpretation Comments Unit ABO (test code = 6651874) O Neg UNIT NUMBER (test code = [id number] 934-0) Status (test code = 4548964) TX_TIMEINCHART Blood Bank Product (test code PLATELETS = 2263) PRODUCT CODE (test code = N0522U24 933-2) [facility] [id number] 23:54:00 Test Item Value Reference Range Interpretation Comments Unit ABO (test code = A Pos 5189555) UNIT NUMBER (test code = [id number] 934-0) Status (test code = RETURNED FROM ISSUE 8385784) Blood Bank Product (test FFP code = 2263) PRODUCT CODE (test code = G0898B15 933-2) [facility] [id number] 23:54:00 Test Item Value Reference Range Interpretation Comments Unit ABO (test code = 6524272) O Neg UNIT NUMBER (test code = [id number] 934-0) Status (test code = 5826035) TX_TIMEINCHART Blood Bank Product (test code PLATELETS = 2263) PRODUCT CODE (test code = K8029P17 933-2) [facility] [id number] 23:54:00 Test Item Value Reference Range Interpretation Comments Unit ABO (test code = A Pos 3967494) UNIT NUMBER (test code = [id number] 934-0) Status (test code = RETURNED FROM ISSUE 6867995) Blood Bank Product (test FFP code = 2263) PRODUCT CODE (test code = B8016I77 933-2) [facility] [id number] 23:54:00 Test Item Value Reference Range Interpretation Comments Unit ABO (test code = 5594456) O Neg UNIT NUMBER (test code = [id number] 934-0) Status (test code = 2982432) TX_TIMEINCHART Blood Bank Product (test code PLATELETS = 2263) PRODUCT CODE (test code = Z6307A92 933-2) [facility]UM2022-[facility]-15 23:12:40 Test Item Value Reference Range Interpretation Comments MAGNESIUM (BEAKER) (test code = 2.1 mg/dL 1.6-2.6 627) Roofer Apprentice ID - BSLACTIC ACID, [id number] 23:07:38 Test Item Value Reference Range Interpretation Comments LACTATE BLOOD ARTERIAL (2) 1.1 mmol/L 0.5-2.2 (BEAKER) (test code = 2874) Roofer Apprentice ID - BSPOCT-GLUCOSE [id number] 22:58:13 Test Item Value Reference Range Interpretation Comments POC-GLUCOSE METER 170 mg/dL 70-110 H : TESTED A T [facility] 6720 (BEAKER) (test code = [place], 1538) [address]: Roofer Apprentice/Techni earnest ID = [id number] for MIA SAEED HGB/HCT (H&H) - STAT [id number] 22:50:57 Test Item Value Reference Range Interpretation Comments HEMOGLOBIN (BEAKER) (test code = 12.7 GM/DL 13.0-16.8 L 410) HEMATOCRIT (BEAKER) (test code = 37.0 % 40.0-50.0 L 411) BLOOD GAS, [id number] 22:50:56 Test Item Value Reference Range Interpretation Comments PH ARTERIAL (BEAKER) (test code = 7.38 7.35-7.45 383) PCO2 ARTERIAL (BEAKER) (test code 45 mm Hg 35-45 = 384) PO2 ARTERIAL (BEAKER) (test code = 96 mm Hg 80-90 H 385) O2 SATURATION ARTERIAL (BEAKER) 96.6 % 96.0-97.0 (test code = 386) HCO3 ARTERIAL (BEAKER) (test code 26 mmol/L 21-29 = 388) BASE EXCESS ARTERIAL (BEAKER) 0.8 mmol/L -2.0-3.0 (test code = 387) PATIENT TEMPERATURE (BEAKER) (test 38.7 code = 1818) FIO2 (BEAKER) (test code = 1819) 40.0 POTASSIUM-STAT [id number] 22:50:40 Test Item Value Reference Range Interpretation Comments POTASSIUM (BEAKER) (test code = 3.9 meq/L 3.6-5.5 379) CALCIUM, [id number] 22:50:40 Test Item Value Reference Range Interpretation Comments CALCIUM IONIZED (BEAKER) (test 1.23 mmol/L 1.12-1.27 code = 698) PH, BLOOD (BEAKER) (test code = 7.41 1810) GLUCOSE-STAT [id number] 22:50:39 Test Item Value Reference Range Interpretation Comments GLUCOSE RANDOM (BEAKER) (test code 138 mg/dL 70-110 H = 652) SODIUM NA-STAT [id number] 22:50:39 Test Item Value Reference Range Interpretation Comments SODIUM (BEAKER) (test code = 381) 139 meq/L 136-145 POCT-GLUCOSE [id number] 20:25:36 Test Item Value Reference Range Interpretation Comments POC-GLUCOSE METER 166 mg/dL 70-110 H : TESTED A T [facility] 6720 (BEAKER) (test code = [place], 1538) [address]: Roofer Apprentice/Techni earnest ID = [id number] for MIA SAEED POCT-GLUCOSE [id number] 18:26:37 Test Item Value Reference Range Interpretation Comments POC-GLUCOSE METER 151 mg/dL 70-110 H : TESTED A T [facility] 6720 (BEAKER) (test code = [facility], 1538) 55[address]: Roofer Apprentice/Techni earnest ID = [id number] for TRA CASTRO PLATELET AGGREGATION: EXTENDED [id number] 17:25:22 Test Item Value Reference Range Interpretation Comments ARACHADONIC ACID 72 % 65-100 RESULT(BEAKER) (test code = 2138) COLLAGEN 88 % 61-100 RESULT(BEAKER) (test code = 2139) EPINEPHRINE RESULT 100 % 54-100 (BEAKER) (test code = 2140) PLATELET AGG COMP Normal INTERPRETATION aggregation (BEAKER) (test code = results with all 2407) agonists. No evidence of platelet function disorders. [id number] Jovani Oneil, (BEAKER) (test code = M.D. (electonic 2612) signature) PLATELET COUNT AGG 286 K/CU MM 150-450 (BEAKER) (test code = 2656) STRONG RISTOCETIN 1.2 100 % 68-100 MG/DL (BEAKER) (test code = 4651) WEAK RISTOCETIN 0.6 3 % See_Comment [Automa leonel MG/DL (BEAKER) (test message ] The code = 7992) system which generated this result transmitted reference range : <=10. The reference range was not used to interpret this result as normal/abnormal . ADP (BEAKER) (test 100 % 62-100 code = 4844) PLATELET RICH 288 k/cu mm 200-300 PLASMA(BEAKER) (test code = 2134) Platelet function studies by aggregation methodology on samples with platelet count <75,000/CU MMare unreliable; platelet function assessment should not be based on a single test.Roofer Apprentice ID - [id number] 16:14:14 Test Item Value Reference Range Interpretation Comments PHOSPHORUS (BEAKER) (test code = 2.7 mg/dL 2.3-4.7 604) Roofer Apprentice ID - BSBASIC METABOLIC [id number] 16:14:13 Test Item Value Reference Range Interpretation Comments SODIUM (BEAKER) 141 meq/L 136-145 (test code = 381) POTASSIUM 4.2 meq/L 3.5-5.1 (BEAKER) (test code = 379) CHLORIDE (BEAKER) 107 meq/L 98-107 (test code = 382) CO2 (BEAKER) 24 meq/L 22-29 (test code = 355) BLOOD UREA 19 mg/dL 7-21 NITROGEN (BEAKER) (test code = 354) CREATININE 1.20 mg/dL 0.57-1.25 (BEAKER) (test code = 358) GLUCOSE RANDOM 177 mg/dL 70-105 H (BEAKER) (test code = 652) CALCIUM (BEAKER) 10.2 mg/dL 8.4-10.2 (test code = 697) EGFR (BEAKER) 71 Interpretatio n of eGFR (test code = mL/min/1.73 values Stage De scription 1092) sq m Result G1 Idania l or high >=90 G2 Mildly decreased 60-89 G3a Mildl y to moderately 45-5 9 G3b Moderately to s everely 30-44 G4 Severl y decreased 15-29 G5 Kidney failure <15Reported eGF R is based on the CKD-EPI 2020 equation that d oes not use a race coefficientEsti mated GFR is not as accur ate as Creatinine Ai pato in predicting glom erular filtration rate . Estimated GFR is not appl icable for dialysis patien ts Roofer Apprentice ID - [id number] 16:14:13 Test Item Value Reference Range Interpretation Comments MAGNESIUM (BEAKER) (test code = 1.9 mg/dL 1.6-2.6 627) Roofer Apprentice ID - BSPOCT-GLUCOSE [id number] 12:17:15 Test Item Value Reference Range Interpretation Comments POC-GLUCOSE METER 172 mg/dL 70-110 H : TESTED A T [facility] 6720 (BEAKER) (test code = [place], 1538) [address]: Roofer Apprentice/Techni earnest ID = [id number] for TRA CASTRO [id number] 11:04:10 Test Item Value Reference Range Interpretation Comments Scan Result (test code = See scanned report. [id number]) ADAM (test code = ADAM) See scanned report [facility] 11:04:10 Test Item Value Reference Range Interpretation Comments Scan Result (test code = See scanned report. [id number]) ADAM (test code = ADAM) See scanned report [facility] 11:04:10 Test Item Value Reference Range Interpretation Comments Scan Result (test code = See scanned report. [id number]) ADAM (test code = ADAM) See scanned report [facility] 11:04:10 Test Item Value Reference Range Interpretation Comments Scan Result (test code = See scanned report. [id number]) ADAM (test code = ADAM) See scanned report [facility] [id number] 11:04:10 Test Item Value Reference Range Interpretation Comments SCAN RESULT (test code = See scanned report. [id number]) See scanned reportPOCT-GLUCOSE [id number] 10:17:00 Test Item Value Reference Range Interpretation Comments POC-GLUCOSE METER 87 mg/dL 70-110 : TESTED A T [facility] 6720 (BEAKER) (test code = [facility], 1538) [address]: Roofer Apprentice/Techni earnest ID = [id number] for OLINDA WILSON C-REACTIVE [id number] 09:52:42 Test Item Value Reference Range Interpretation Comments C-REACTIVE PROTEIN (BEAKER) (test 37.68 mg/dL 0.00-0.50 H code = 676) Roofer Apprentice ID - CRISTIAN HARIS, CHEST, 1 VIEW, NON [id number] 09:42:00Reason for exam:->IABP position [facility] : 1965 Sex: MFINAL REPORT RAD, CHEST, 1 VIEW, NON DEPT INDICATION: IABP position COMPARISON:Prior day's exam FINDINGS: Portable frontal view of the chest. IMPRESSION: Support Lines: [place] tip overlies the pulmonary outflow tract. IABP marker is 2 cm without the aortic arch. Bilateral chest tubes. Mediastinal drains. Lungs and pleura: Unchanged airspace and pleural opacities. No significant pneumothorax. Heart and mediastinum: Stable contours. Stable surgical changes. Additional findings: None. Signed: Sruthi Barahonaepbianca Verified Date/Time: 04/01/2022 09:42:38 Reading Location: [address] Reading Room GLUCOSE-STAT [id number] 08:29:12 Test Item Value Reference Range Interpretation Comments GLUCOSE RANDOM (BEAKER) (test code 123 mg/dL 70-110 H = 652) POTASSIUM-STAT [id number] 08:29:12 Test Item Value Reference Range Interpretation Comments POTASSIUM (BEAKER) (test code = 3.8 meq/L 3.6-5.5 379) [id number] 06:46:44 Test Item Value Reference Range Interpretation Comments ACTIVATED CLOTTING TIME 121 sec : 74 -137 seconds, (BEAKER) (test code = Baseli ne: TESTED AT 441) [address], [address]: Roofer Apprentice/Techni earnest ID = [id number] for HILL RSHMAN, ZION [id number] 06:46:43 Test Item Value Reference Range Interpretation Comments ACTIVATED CLOTTING TIME 486 sec : 74 -137 seconds, (BEAKER) (test code = Baseli ne: TESTED AT 441) [facility] [address] [place] [address], [address]: Roofer Apprentice/Techni earnest ID = [id number] for HILL RSHMAN, ZION [id number] 06:46:17 Test Item Value Reference Range Interpretation Comments ACTIVATED CLOTTING TIME 526 sec : 74 -137 seconds, (BEAKER) (test code = Baseli ne: TESTED AT 441) [address], [address]: Roofer Apprentice/Techni earnest ID = [id number] for HILL RSHMAN, ZION [id number] 06:46:11 Test Item Value Reference Range Interpretation Comments ACTIVATED CLOTTING TIME 428 sec : 74 -137 seconds, (BEAKER) (test code = Baseli ne: TESTED AT 441) [address], [facility] 30: Roofer Apprentice/Techni earnest ID = [id number] for HILL RSHMAN, ZION [id number] 06:46:11 Test Item Value Reference Range Interpretation Comments ACTIVATED CLOTTING TIME 382 sec : 74 -137 seconds, (BEAKER) (test code = Baseli ne: TESTED AT 441) [address], [facility] 30: Roofer Apprentice/Techni earnest ID = [id number] for HILL RSHMAN, ZION [id number] 06:45:44 Test Item Value Reference Range Interpretation Comments ACTIVATED CLOTTING TIME 457 sec : 74 -137 seconds, (BEAKER) (test code = Baseli ne: TESTED AT 441) [address], [facility] 30: Roofer Apprentice/Techni earnest ID = [id number] for HILL RSHMAN, ZION [id number] 06:45:44 Test Item Value Reference Range Interpretation Comments ACTIVATED CLOTTING TIME 474 sec : 74 -137 seconds, (BEAKER) (test code = Baseli ne: TESTED AT 441) [address], [facility] 30: Roofer Apprentice/Techni earnest ID = [id number] for HILL RSHMAN, ZION [id number] 06:45:43 Test Item Value Reference Range Interpretation Comments ACTIVATED CLOTTING TIME 416 sec : 74 -137 seconds, (BEAKER) (test code = Baseli ne: TESTED AT 441) [address], [facility] 30: Roofer Apprentice/Techni earnest ID = [id number] for HILL RSHMAN, ZION [id number] 06:45:42 Test Item Value Reference Range Interpretation Comments ACTIVATED CLOTTING TIME 514 sec : 74 -137 seconds, (BEAKER) (test code = Baseli ne: TESTED AT 441) [address], [facility] 30: Roofer Apprentice/Techni earnest ID = [id number] for ZION [place] POCT-GLUCOSE [id number] 06:23:39 Test Item Value Reference Range Interpretation Comments POC-GLUCOSE METER 160 mg/dL 70-110 H : TESTED A T [facility] 6720 (BEAKER) (test code = [facility], 1538) [address]: Roofer Apprentice/Techni earnest ID = [id number] for MIA SAEED POCT-GLUCOSE [id number] 05:27:54 Test Item Value Reference Range Interpretation Comments POC-GLUCOSE METER 161 mg/dL 70-110 H : TESTED A T [facility] 6720 (BEAKER) (test code = [facility] Tabitha [facility], 1538) [address]: Roofer Apprentice/Techni earnest ID = [id number] for MIA SAEED BLOOD GAS, [id number] 05:23:02 Test Item Value Reference Range Interpretation Comments PH ARTERIAL (BEAKER) (test code = 7.41 7.35-7.45 383) PCO2 ARTERIAL (BEAKER) (test code 44 mm Hg 35-45 = 384) PO2 ARTERIAL (BEAKER) (test code = 111 mm Hg 80-90 H 385) O2 SATURATION ARTERIAL (BEAKER) 97.9 % 96.0-97.0 H (test code = 386) HCO3 ARTERIAL (BEAKER) (test code 27 mmol/L 21-29 = 388) BASE EXCESS ARTERIAL (BEAKER) 1.9 mmol/L -2.0-3.0 (test code = 387) PATIENT TEMPERATURE (BEAKER) (test 37.8 code = 1818) FIO2 (BEAKER) (test code = 1819) 40.0 HGB/HCT (H&H) - STAT [id number] 05:23:02 Test Item Value Reference Range Interpretation Comments HEMOGLOBIN (BEAKER) (test code = 12.9 GM/DL 13.0-16.8 L 410) HEMATOCRIT (BEAKER) (test code = 38.0 % 40.0-50.0 L 411) SODIUM NA-STAT [id number] 05:21:32 Test Item Value Reference Range Interpretation Comments SODIUM (BEAKER) (test code = 381) 137 meq/L 136-145 POTASSIUM-STAT [id number] 05:21:32 Test Item Value Reference Range Interpretation Comments POTASSIUM (BEAKER) (test code = 4.0 meq/L 3.6-5.5 379) GLUCOSE-STAT [id number] 05:21:31 Test Item Value Reference Range Interpretation Comments GLUCOSE RANDOM (BEAKER) (test code 171 mg/dL 70-110 H = 652) LACTATE DEHYDROGENASE (LDH)2022-04-01 05:02:22 Test Item Value Reference Range Interpretation Comments LACTATE DEHYDROGENASE (BEAKER) (test 447 U/L 125-220 H code = 635) Roofer Apprentice ID - CRISTIAN MPOCT-GLUCOSE [id number] 04:23:18 Test Item Value Reference Range Interpretation Comments POC-GLUCOSE METER 192 mg/dL 70-110 H : TESTED [place] [facility] 6720 (BEAKER) (test code = [place], 1538) [address]: Roofer Apprentice/Techni earnest ID = [id number] for MIA SAEED [id number] 04:06:39 Test Item Value Reference Range Interpretation Comments FIBRINOGEN LEVEL (BEAKER) (test 760 mg/dl 225-434 H code = 658) HEPATIC FUNCTION [id number] 04:01:37 Test Item Value Reference Range Interpretation Comments TOTAL PROTEIN (BEAKER) (test code = 6.0 gm/dL 6.0-8.3 770) ALBUMIN (BEAKER) (test code = 1145) 3.3 g/dL 3.5-5.0 L BILIRUBIN TOTAL (BEAKER) (test code 1.7 mg/dL 0.2-1.2 H = 377) BILIRUBIN DIRECT (BEAKER) (test 1.3 mg/dL 0.1-0.5 H code = 706) ALKALINE PHOSPHATASE (BEAKER) (test 58 U/L 40-150 code = 346) AST (SGOT) (BEAKER) (test code = 66 U/L 5-34 H 353) ALT (SGPT) (BEAKER) (test code = 27 U/L 6-55 347) Roofer Apprentice ID - CRISTIAN [id number] 04:01:36 Test Item Value Reference Range Interpretation Comments MAGNESIUM (BEAKER) (test code = 2.3 mg/dL 1.6-2.6 627) Roofer Apprentice ID - CRISTIAN [id number] 04:01:36 Test Item Value Reference Range Interpretation Comments PHOSPHORUS (BEAKER) (test code = 1.7 mg/dL 2.3-4.7 L 604) Roofer Apprentice ID - CRISTIAN MBASIC METABOLIC [id number] 04:01:35 Test Item Value Reference Range Interpretation Comments SODIUM (BEAKER) 137 meq/L 136-145 (test code = 381) POTASSIUM 4.2 meq/L 3.5-5.1 (BEAKER) (test code = 379) CHLORIDE (BEAKER) 106 meq/L 98-107 (test code = 382) CO2 (BEAKER) 21 meq/L 22-29 L (test code = 355) BLOOD UREA 18 mg/dL 7-21 NITROGEN (BEAKER) (test code = 354) CREATININE 1.19 mg/dL 0.57-1.25 (BEAKER) (test code = 358) GLUCOSE RANDOM 209 mg/dL 70-105 H (BEAKER) (test code = 652) CALCIUM (BEAKER) 10.2 mg/dL 8.4-10.2 (test code = 697) EGFR (BEAKER) 72 Interpretatio n of eGFR (test code = mL/min/1.73 values Stage De scription 1092) sq m Result G1 Idania l or high >=90 G2 Mildly decreased 60-89 G3a Mildl y to moderately 45-5 9 G3b Moderately to s everely 30-44 G4 Severl y decreased 15-29 G5 Kidney failure <15Reported eGF R is based on the CKD-EPI 2020 equation that d oes not use a race coefficientEsti mated GFR is not as accur ate as Creatinine Ai whyte in predicting glom erular filtration rate . Estimated GFR is not appl icable for dialysis patien ts Roofer Apprentice ID - CRISTIAN MPT/[id number] 03:45:30 Test Item Value Reference Range Interpretation Comments PROTIME (BEAKER) (test 16.0 seconds 11.9-14.2 H code = 759) INR (BEAKER) (test 1.37 See_Comment [Automat ed code = 370) message] The sy stem which generated this result transmitted reference range : <=5.90. The reference range was not used to interpret this result as normal/abnormal . PARTIAL THROMBOPLASTIN 38.3 seconds 22.5-36.0 H TIME (BEAKER) (test code = 760) RECOMMENDED COUMADIN/WARFARIN INR THERAPY RANGESSTANDARD DOSE: 2.0 - 3.0 Includes: PROPHYLAXIS for venous thrombosis, systemic embolization; TREATMENT for venous thrombosis and/or pulmonary embolus.HIGH RISK: Target INR is 2.5-3.5 for patients with mechanical heart valves.OXYGEN SATURATION, [id number] 03:37:10 Test Item Value Reference Range Interpretation Comments O2 SATURATION (MEASURED) (BEAKER) 71.7 % (test code = 1455) LACTIC ACID, [id number] 03:33:11 Test Item Value Reference Range Interpretation Comments LACTATE BLOOD ARTERIAL (2) 1.9 mmol/L 0.5-2.2 (BEAKER) (test code = 2874) [employer]ofer Apprentice ID - CRISTIAN Schreiber(CELLAVISION MANUAL DIFF)2022-04-01 03:28:12 Test Item Value Reference Range Interpretation Comments TOTAL COUNTED (BEAKER) (test code = 1351) RBC MORPHOLOGY (BEAKER) (test code = Normal 762) WBC MORPHOLOGY (BEAKER) (test code = Normal 487) PLT MORPHOLOGY (BEAKER) (test code = Normal 486) CBC W/PLT COUNT & AUTO [id number] 03:28:11 Test Item Value Reference Range Interpretation Comments WHITE BLOOD CELL COUNT (BEAKER) 15.2 K/ L 3.5-10.5 H (test code = 775) RED BLOOD CELL COUNT (BEAKER) 4.06 M/ L 4.63-6.08 L (test code = 761) HEMOGLOBIN (BEAKER) (test code = 11.7 GM/DL 13.7-17.5 L 410) HEMATOCRIT (BEAKER) (test code = 37.7 % 40.1-51.0 L 411) MEAN CORPUSCULAR VOLUME (BEAKER) 93 fL 79-92 H (test code = 753) MEAN CORPUSCULAR HEMOGLOBIN 28.8 pg 25.7-32.2 (BEAKER) (test code = 751) MEAN CORPUSCULAR HEMOGLOBIN CONC 31.0 GM/DL 32.3-36.5 L (BEAKER) (test code = 752) RED CELL DISTRIBUTION WIDTH 16.5 % 11.6-14.4 H (BEAKER) (test code = 412) PLATELET COUNT (BEAKER) (test 282 K/CU MM 150-450 code = 756) MEAN PLATELET VOLUME (BEAKER) 10.4 fL 9.4-12.4 (test code = 754) NUCLEATED RED BLOOD CELLS 0 /100 WBC 0-0 (BEAKER) (test code = 413) POCT-GLUCOSE [id number] 03:25:19 Test Item Value Reference Range Interpretation Comments POC-GLUCOSE METER 200 mg/dL 70-110 H : TESTED A T [facility] 6720 (BEAKER) (test code = [facility], 1538) [id number]: Roofer Apprentice/Techni earnest ID = [id number] for MIA SAEED BLOOD GAS, [id number] 03:21:27 Test Item Value Reference Range Interpretation Comments PH ARTERIAL (BEAKER) (test code = 7.38 7.35-7.45 383) PCO2 ARTERIAL (BEAKER) (test code 43 mm Hg 35-45 = 384) PO2 ARTERIAL (BEAKER) (test code 150 mm Hg 80-90 H = 385) O2 SATURATION ARTERIAL (BEAKER) 98.8 % 96.0-97.0 H (test code = 386) HCO3 ARTERIAL (BEAKER) (test code 25 mmol/L 21-29 = 388) BASE EXCESS ARTERIAL (BEAKER) -0.4 mmol/L -2.0-3.0 (test code = 387) PATIENT TEMPERATURE (BEAKER) 37.8 (test code = 1818) FIO2 (BEAKER) (test code = 1819) 60.0 CALCIUM, [id number] 03:19:46 Test Item Value Reference Range Interpretation Comments CALCIUM IONIZED (BEAKER) (test 1.27 mmol/L 1.12-1.27 code = 698) PH, BLOOD (BEAKER) (test code = 7.39 1810) POCT-GLUCOSE [id number] 02:29:34 Test Item Value Reference Range Interpretation Comments POC-GLUCOSE METER 198 mg/dL 70-110 H : TESTED A T [facility] 6720 (BEAKER) (test code = [facility], 153) [id number]: Roofer Apprentice/Techni earnest ID = [id number] for Ng Harsha baldwin POCT-GLUCOSE [id number] 01:44:37 Test Item Value Reference Range Interpretation Comments POC-GLUCOSE METER 210 mg/dL 70-110 H : TESTED A T [facility] 6720 (BEAKER) (test code = [place], 1538) [address]: Roofer Apprentice/Techni earnest ID = [id number] for MIA SAEED POCT-GLUCOSE [id number] 01:42:15 Test Item Value Reference Range Interpretation Comments POC-GLUCOSE METER 230 mg/dL 70-110 H : TESTED A T [facility] 6720 (BEAKER) (test code = [place], 1538) [address]: Roofer Apprentice/Techni earnest ID = [id number] for MIA SAEED BLOOD GAS, [id number] 00:28:47 Test Item Value Reference Range Interpretation Comments PH ARTERIAL (BEAKER) (test code = 7.38 7.35-7.45 383) PCO2 ARTERIAL (BEAKER) (test code 42 mm Hg 35-45 = 384) PO2 ARTERIAL (BEAKER) (test code 153 mm Hg 80-90 H = 385) O2 SATURATION ARTERIAL (BEAKER) 98.9 % 96.0-97.0 H (test code = 386) HCO3 ARTERIAL (BEAKER) (test code 24 mmol/L 21-29 = 388) BASE EXCESS ARTERIAL (BEAKER) -0.8 mmol/L -2.0-3.0 (test code = 387) PATIENT TEMPERATURE (BEAKER) 37.0 (test code = 1818) FIO2 (BEAKER) (test code = 1819) 60.0 Prepare [id number] 00:22:00 Test Item Value Reference Range Interpretation Comments CROSSMATCH (test code = COMPATIBLE 2263) Unit ABO (test code = A Pos 2025262) UNIT NUMBER (test code = [id number] 934-0) Status (test code = RETURNED FROM ISSUE 5680401) Blood Bank Product (test RED BLOOD CELLS code = 2263) PRODUCT CODE (test code = [id number] 933-2) [facility] [id number] 00:22:00 Test Item Value Reference Range Interpretation Comments CROSSMATCH (test code = COMPATIBLE 2263) Unit ABO (test code = A Pos 4080696) UNIT NUMBER (test code = [id number] 934-0) Status (test code = RETURNED FROM ISSUE 2934218) Blood Bank Product (test RED BLOOD CELLS code = 2263) PRODUCT CODE (test code = R8363N77 933-2) [facility] [id number] 00:22:00 Test Item Value Reference Range Interpretation Comments CROSSMATCH (test code = COMPATIBLE 4) Unit ABO (test code = A Pos 7287604) UNIT NUMBER (test code = [id number] 934-0) Status (test code = RETURNED FROM ISSUE 15100727) Blood Bank Product (test RED BLOOD CELLS code = 2263) PRODUCT CODE (test code = S8356O33 933-2) [facility] [id number] 00:22:00 Test Item Value Reference Range Interpretation Comments CROSSMATCH (test code = COMPATIBLE 4) Unit ABO (test code = A Pos 7071618) UNIT NUMBER (test code = [id number] 934-0) Status (test code = RETURNED FROM ISSUE 15100727) Blood Bank Product (test RED BLOOD CELLS code = 2263) PRODUCT CODE (test code = G4177U10 933-2) [facility], [id number] 23:36:36 Test Item Value Reference Range Interpretation Comments PH ARTERIAL (BEAKER) (test code = 7.30 7.35-7.45 L 383) PCO2 ARTERIAL (BEAKER) (test code 55 mm Hg 35-45 H = 384) PO2 ARTERIAL (BEAKER) (test code 142 mm Hg 80-90 H = 385) O2 SATURATION ARTERIAL (BEAKER) 98.5 % 96.0-97.0 H (test code = 386) HCO3 ARTERIAL (BEAKER) (test code 27 mmol/L 21-29 = 388) BASE EXCESS ARTERIAL (BEAKER) -0.7 mmol/L -2.0-3.0 (test code = 387) PATIENT TEMPERATURE (BEAKER) 37.2 (test code = 1818) FIO2 (BEAKER) (test code = 1819) 60.0 CALCIUM, [id number] 23:36:09 Test Item Value Reference Range Interpretation Comments CALCIUM IONIZED (BEAKER) (test 1.17 mmol/L 1.12-1.27 code = 698) PH, BLOOD (BEAKER) (test code = 7.30 1810) GLUCOSE-STAT [id number] 23:35:32 Test Item Value Reference Range Interpretation Comments GLUCOSE RANDOM (JOSE) (test code 230 mg/dL 70-110 H = 652) POCT-GLUCOSE [id number] 23:32:41 Test Item Value Reference Range Interpretation Comments POC-GLUCOSE METER 222 mg/dL 70-110 H : TESTED A T [facility] 6720 (JOSE) (test code = [place], 1538) [address]: Roofer Apprentice/Techni earnest ID = [id number] for NG MIA BALDWIN RAD, CHEST, 1 VIEW, NON [id number] 23:28:00Reason for exam:->IABP placementShould this be performed at the bedside?->Yes [facility] 1965 Sex: MFINAL REPORT RAD, CHEST, 1 VIEW, NON DEPT INDICATION: IABP placement COMPARISON:Exam from one hour prior FINDINGS: Portable frontal view of the chest. IMPRESSION: Support Lines: Stable. The intra-aortic balloon pump marker previously 8.5 cm caudal to the superior margin of the aortic arch is no longer seen. Lungs and pleura: Unchanged bilateral pulmonary edema. No pneumothorax. He art and mediastinum: Stable contours. Additional findings: None. Signed: Warren Mitchell Verified Date/Time: 03/31/2022 23:28:30 THROMBOELASTOGRAPH (TEG)2022-03-31 22:58:48 Test Item Value Reference Range Interpretation Comments TEG ACTIVATED CLOTTING TIME 5.7 minutes 4.0-7.0 (BEAKER) (test code = 1407) TEG FIBRINOGEN ACTIVITY (BEAKER) 70.1 degrees 61.0-73.0 (test code = 1408) TEG PLT. AGGREGATION (BEAKER) 69.3 MM 55.0-65.0 H (test code = 1409) TEG FIBRINOLYSIS (BEAKER) (test 0.0 % 0.0-5.0 code = 1410) TGH ACTIVATED CLOTTING TIME 5.6 minutes 4.0-7.0 (BEAKER) (test code = 1411) TGH FIBRINOGEN ACTIVITY (BEAKER) 71.0 degrees 61.0-73.0 (test code = 1412) TGH PLT. AGGREGATION (BEAKER) 72.7 MM 55.0-65.0 H (test code = 1413) TGH FIBRINOLYSIS (BEAKER) (test 0.0 % 0.0-5.0 code = 1414) HEPATIC FUNCTION [id number] 22:33:39 Test Item Value Reference Range Interpretation Comments TOTAL PROTEIN (BEAKER) (test code = 6.1 gm/dL 6.0-8.3 770) ALBUMIN (BEAKER) (test code = 1145) 3.5 g/dL 3.5-5.0 BILIRUBIN TOTAL (BEAKER) (test code 2.3 mg/dL 0.2-1.2 H = 377) BILIRUBIN DIRECT (BEAKER) (test 1.5 mg/dL 0.1-0.5 H code = 706) ALKALINE PHOSPHATASE (BEAKER) (test 61 U/L 40-150 code = 346) AST (SGOT) (BEAKER) (test code = 57 U/L 5-34 H 353) ALT (SGPT) (BEAKER) (test code = 25 U/L 6-55 347) Roofer Apprentice ID - MITCHOperator ID - CRISTIAN MRAD, CHEST, 1 VIEW, NON [id number] 22:33:00Reason for exam:->Post ACBReason for exam:->IABP placementShould this be performed at the bedside?->Yes [facility] : 1965 Sex: MFINAL REPORT TECHNIQUE: Frontal view of the chest. INDICATION: Post ACBIABP placement. COMPARISON: 03/31/2022 at 12:09 AM. FINDINGS: LINES/TUBES: Placement of an endotracheal tube with the tip terminating approximately 3.6 cm above the level of the guy. Esophagogastric tube tip projected over the distal esophagus at approximately the level of the GE junction. Right IJ [place]-Ganzcatheter with tip projected over the main pulmonary artery. There has been interval median sternotomy and CABG. Bibasilar chest tubes are present. HEART AND MEDIASTINUM: Status post median sternotomy and CABG. Slight increase in prominence of the superior mediastinum. No apical capping. LUNGS: Mild pul monary vascular congestion. Patchy left basilar opacity adjacent to the chest tube. PLEURA: No pneumothorax. No significant pleural effusion. SOFT TISSUES AND BONES: Unremarkable. IMPRESSION: 1. There has been interval median sternotomy and CABG. Lines and tubes, as described above. No pneumothorax.2.Mild interstitial edema. Patchy left basilar opacity adjacent to the chest tube favoring atelectaticchange. Signed: Kingsley Segal MDReport Verified Date/Time: 03/31/2022 22:33:58 Electronicallysigned by: KINGSLEY SEGAL MD on 03/31/2022 10:33 PMPOCT-GLUCOSE [id number] 22:23:15 Test Item Value Reference Range Interpretation Comments POC-GLUCOSE METER 227 mg/dL 70-110 H : TESTED A T [facility] 6720 (JOSE) (test code = [place], 1538) [id number]: Roofer Apprentice/Techni earnest ID = [id number] for NG MIA BALDWIN BASIC METABOLIC [id number] 22:20:56 Test Item Value Reference Range Interpretation Comments SODIUM (BEAKER) 136 meq/L 136-145 (test code = 381) POTASSIUM 4.0 meq/L 3.5-5.1 (BEAKER) (test code = 379) CHLORIDE (BEAKER) 104 meq/L 98-107 (test code = 382) CO2 (BEAKER) 23 meq/L 22-29 (test code = 355) BLOOD UREA 19 mg/dL 7-21 NITROGEN (BEAKER) (test code = 354) CREATININE 1.17 mg/dL 0.57-1.25 (BEAKER) (test code = 358) GLUCOSE RANDOM 248 mg/dL 70-105 H (BEAKER) (test code = 652) CALCIUM (BEAKER) 9.5 mg/dL 8.4-10.2 (test code = 697) EGFR (BEAKER) 73 Interpretatio n of eGFR (test code = mL/min/1.73 values Stage De scription 1092) sq m Result G1 Idania l or high >=90 G2 Mildly decreased 60-89 G3a Mildl y to moderately 45-5 9 G3b Moderately to s everely 30-44 G4 Severl y decreased 15-29 G5 Kidney failure <15Reported eGF R is based on the CKD-EPI 2020 equation that d oes not use a race coefficientEsti mated GFR is not as accur ate as Creatinine Ai whyte in predicting glom erular filtration rate . Estimated GFR is not appl icable for dialysis patien ts Roofer Apprentice ID - [id number] 22:20:56 Test Item Value Reference Range Interpretation Comments MAGNESIUM (BEAKER) (test code = 2.1 mg/dL 1.6-2.6 627) Roofer Apprentice ID - [id number] 22:20:56 Test Item Value Reference Range Interpretation Comments PHOSPHORUS (BEAKER) (test code = 2.7 mg/dL 2.3-4.7 604) Roofer Apprentice ID - MITCHLACTIC ACID, [id number] 22:14:32 Test Item Value Reference Range Interpretation Comments LACTATE BLOOD 1.8 mmol/L 0.5-2.2 Specimen sligh tly ARTERIAL (2) (BEAKER) hemoly zed (test code = 9354) Roofer Apprentice ID - MITCHCBC W/PLT COUNT & AUTO [id number] 22:07:40 Test Item Value Reference Range Interpretation Comments WHITE BLOOD CELL COUNT (BEAKER) 16.7 K/ L 3.5-10.5 H (test code = 775) RED BLOOD CELL COUNT (BEAKER) 4.17 M/ L 4.63-6.08 L (test code = 761) HEMOGLOBIN (BEAKER) (test code = 12.1 GM/DL 13.7-17.5 L 410) HEMATOCRIT (BEAKER) (test code = 39.1 % 40.1-51.0 L 411) MEAN CORPUSCULAR VOLUME (BEAKER) 94 fL 79-92 H (test code = 753) MEAN CORPUSCULAR HEMOGLOBIN 29.0 pg 25.7-32.2 (BEAKER) (test code = 751) MEAN CORPUSCULAR HEMOGLOBIN CONC 30.9 GM/DL 32.3-36.5 L (BEAKER) (test code = 752) RED CELL DISTRIBUTION WIDTH 16.5 % 11.6-14.4 H (BEAKER) (test code = 412) PLATELET COUNT (BEAKER) (test 224 K/CU MM 150-450 code = 756) MEAN PLATELET VOLUME (BEAKER) 10.2 fL 9.4-12.4 (test code = 754) NUCLEATED RED BLOOD CELLS 0 /100 WBC 0-0 (BEAKER) (test code = 413) [id number] 22:06:33 Test Item Value Reference Range Interpretation Comments PROTIME (BEAKER) (test 16.3 seconds 11.9-14.2 H code = 759) INR (BEAKER) (test 1.40 See_Comment [Automat ed code = 370) message] The sy stem which generated this result transmitted reference range : <=5.90. The reference range was not used to interpret this result as normal/abnormal . PARTIAL THROMBOPLASTIN 34.4 seconds 22.5-36.0 TIME (BEAKER) (test code = 760) RECOMMENDED COUMADIN/WARFARIN INR THERAPY RANGESSTANDARD DOSE: 2.0 - 3.0 Includes: PROPHYLAXIS for venous thrombosis, systemic embolization; TREATMENT for venous thrombosis and/or pulmonary embolus.HIGH RISK: Target INR is 2.5-3.5 for patients with mechanical heart valves.[id number] 22:06:12 Test Item Value Reference Range Interpretation Comments FIBRINOGEN LEVEL (BEAKER) (test 674 mg/dl 225-434 H code = 658) HGB/HCT (H&H) - STAT [id number] 21:56:02 Test Item Value Reference Range Interpretation Comments HEMOGLOBIN (BEAKER) (test code = 13.1 GM/DL 13.0-16.8 410) HEMATOCRIT (BEAKER) (test code = 39.0 % 40.0-50.0 L 411) SODIUM NA-STAT [id number] 21:55:51 Test Item Value Reference Range Interpretation Comments SODIUM (BEAKER) (test code = 381) 137 meq/L 136-145 POTASSIUM-STAT [id number] 21:55:51 Test Item Value Reference Range Interpretation Comments POTASSIUM (BEAKER) (test code = 3.9 meq/L 3.6-5.5 379) CALCIUM, [id number] 21:55:50 Test Item Value Reference Range Interpretation Comments CALCIUM IONIZED (BEAKER) (test 1.22 mmol/L 1.12-1.27 code = 698) PH, BLOOD (BEAKER) (test code = 7.25 1810) BLOOD GAS, [id number] 21:53:35 Test Item Value Reference Range Interpretation Comments PH ARTERIAL (BEAKER) (test code = 7.25 7.35-7.45 L 383) PCO2 ARTERIAL (BEAKER) (test code 64 mm Hg 35-45 H = 384) PO2 ARTERIAL (BEAKER) (test code 83 mm Hg 80-90 = 385) O2 SATURATION ARTERIAL (BEAKER) 94.2 % 96.0-97.0 L (test code = 386) HCO3 ARTERIAL (BEAKER) (test code 27 mmol/L 21-29 = 388) BASE EXCESS ARTERIAL (BEAKER) -1.4 mmol/L -2.0-3.0 (test code = 387) PATIENT TEMPERATURE (BEAKER) 36.9 (test code = 1818) FIO2 (BEAKER) (test code = 1819) 100.0 OXYGEN SATURATION, [id number] 21:52:49 Test Item Value Reference Range Interpretation Comments O2 SATURATION (MEASURED) (BEAKER) 74.0 % (test code = 1455) PROTHROMBIN [id number] 20:05:15 Test Item Value Reference Range Interpretation Comments PROTIME (BEAKER) 16.5 seconds 11.9-14.2 H (test code = 759) INR (BEAKER) (test 1.42 See_Comment [Automat ed message] code = 370) The system [employer] generated this result transmitted ref erence range: <=5.90. The reference range was not used to int erpret this result as normal/abnormal . RECOMMENDED COUMADIN/WARFARIN INR THERAPY RANGESSTANDARD DOSE: 2.0 - 3.0 Includes: PROPHYLAXIS for venous thrombosis, systemic embolization; TREATMENT for venous thrombosis and/or pulmonary embolus.HIGH RISK: Target INR is 2.5-3.5 for patients with mechanical heart valves.[id number] 20:05:15 Test Item Value Reference Range Interpretation Comments FIBRINOGEN LEVEL (BEAKER) (test 630 mg/dl 225-434 H code = 658) PLATELET [id number] 19:56:53 Test Item Value Reference Range Interpretation Comments PLATELET COUNT (BEAKER) (test 231 K/CU MM 150-450 code = 756) Roofer Apprentice ID - 6000HGB/HCT (H&H) - STAT [id number] 19:42:39 Test Item Value Reference Range Interpretation Comments HEMOGLOBIN (BEAKER) (test code = 12.3 GM/DL 13.0-16.8 L 410) HEMATOCRIT (BEAKER) (test code = 36.0 % 40.0-50.0 L 411) CALCIUM, [id number] 19:42:38 Test Item Value Reference Range Interpretation Comments CALCIUM IONIZED (BEAKER) (test 0.98 mmol/L 1.12-1.27 L code = 698) PH, BLOOD (BEAKER) (test code = 7.23 1810) BLOOD GAS, [id number] 19:42:38 Test Item Value Reference Range Interpretation Comments PH ARTERIAL (BEAKER) (test code = 7.24 7.35-7.45 L 383) PCO2 ARTERIAL (BEAKER) (test code 62 mm Hg 35-45 H = 384) PO2 ARTERIAL (BEAKER) (test code 160 mm Hg 80-90 H = 385) O2 SATURATION ARTERIAL (BEAKER) 98.7 % 96.0-97.0 H (test code = 386) HCO3 ARTERIAL (BEAKER) (test code 26 mmol/L 21-29 = 388) BASE EXCESS ARTERIAL (BEAKER) -2.6 mmol/L -2.0-3.0 L (test code = 387) PATIENT TEMPERATURE (BEAKER) 36.7 (test code = 1818) FIO2 (BEAKER) (test code = 1819) 100.0 SODIUM NA-STAT [id number] 19:42:07 Test Item Value Reference Range Interpretation Comments SODIUM (BEAKER) (test code = 381) 135 meq/L 136-145 L POTASSIUM-STAT [id number] 19:42:07 Test Item Value Reference Range Interpretation Comments POTASSIUM (BEAKER) (test code = 4.1 meq/L 3.6-5.5 379) GLUCOSE-STAT [id number] 19:42:06 Test Item Value Reference Range Interpretation Comments GLUCOSE RANDOM (BEAKER) (test code 273 mg/dL 70-110 H = 652) LACTIC ACID, [id number] 19:19:25 Test Item Value Reference Range Interpretation Comments LACTATE BLOOD ARTERIAL (2) 2.0 mmol/L 0.5-2.2 (BEAKER) (test code = 2874) Roofer Apprentice ID - CRISTIAN MLACTIC ACID, [id number] 19:16:18 Test Item Value Reference Range Interpretation Comments LACTATE BLOOD ARTERIAL (2) 1.2 mmol/L 0.5-2.2 (BEAKER) (test code = 2874) Roofer Apprentice ID - MITCHHGB/HCT (H&H) - STAT [id number] 18:58:30 Test Item Value Reference Range Interpretation Comments HEMOGLOBIN (BEAKER) (test code = 12.7 GM/DL 13.0-16.8 L 410) HEMATOCRIT (BEAKER) (test code = 37.0 % 40.0-50.0 L 411) SODIUM NA-STAT [id number] 18:58:28 Test Item Value Reference Range Interpretation Comments SODIUM (BEAKER) (test code = 381) 133 meq/L 136-145 L BLOOD GAS, [id number] 18:58:27 Test Item Value Reference Range Interpretation Comments PH ARTERIAL (BEAKER) (test code = 7.39 7.35-7.45 383) PCO2 ARTERIAL (BEAKER) (test code 41 mm Hg 35-45 = 384) PO2 ARTERIAL (BEAKER) (test code 354 mm Hg 80-90 H = 385) O2 SATURATION ARTERIAL (BEAKER) 99.8 % 96.0-97.0 H (test code = 386) HCO3 ARTERIAL (BEAKER) (test code 25 mmol/L 21-29 = 388) BASE EXCESS ARTERIAL (BEAKER) -0.5 mmol/L -2.0-3.0 (test code = 387) PATIENT TEMPERATURE (BEAKER) 36.6 (test code = 1818) FIO2 (BEAKER) (test code = 1819) 80.0 GLUCOSE-STAT [id number] 18:57:55 Test Item Value Reference Range Interpretation Comments GLUCOSE RANDOM (BEAKER) (test code 302 mg/dL 70-110 H = 652) POTASSIUM-STAT [id number] 18:57:55 Test Item Value Reference Range Interpretation Comments POTASSIUM (BEAKER) (test code = 5.1 meq/L 3.6-5.5 379) POTASSIUM-STAT [id number] 18:48:10 Test Item Value Reference Range Interpretation Comments POTASSIUM (BEAKER) (test code = 6.1 meq/L 3.6-5.5 HH 379) HGB/HCT (H&H) - STAT [id number] 18:47:54 Test Item Value Reference Range Interpretation Comments HEMOGLOBIN (BEAKER) (test code = 13.1 GM/DL 13.0-16.8 410) HEMATOCRIT (BEAKER) (test code = 39.0 % 40.0-50.0 L 411) BLOOD GAS, [id number] 18:47:53 Test Item Value Reference Range Interpretation Comments PH ARTERIAL (BEAKER) (test code = 7.35 7.35-7.45 383) PCO2 ARTERIAL (BEAKER) (test code 47 mm Hg 35-45 H = 384) PO2 ARTERIAL (BEAKER) (test code 290 mm Hg 80-90 H = 385) O2 SATURATION ARTERIAL (BEAKER) 99.6 % 96.0-97.0 H (test code = 386) HCO3 ARTERIAL (BEAKER) (test code 26 mmol/L 21-29 = 388) BASE EXCESS ARTERIAL (BEAKER) -0.7 mmol/L -2.0-3.0 (test code = 387) PATIENT TEMPERATURE (BEAKER) 36.2 (test code = 1818) FIO2 (BEAKER) (test code = 1819) 80.0 SODIUM NA-STAT [id number] 18:47:53 Test Item Value Reference Range Interpretation Comments SODIUM (BEAKER) (test code = 381) 131 meq/L 136-145 L GLUCOSE-STAT [id number] 18:47:16 Test Item Value Reference Range Interpretation Comments GLUCOSE RANDOM (BEAKER) (test code 324 mg/dL 70-110 H = 652) BLOOD GAS, [id number] 18:27:04 Test Item Value Reference Range Interpretation Comments PH ARTERIAL (BEAKER) (test code = 7.35 7.35-7.45 383) PCO2 ARTERIAL (BEAKER) (test code 43 mm Hg 35-45 = 384) PO2 ARTERIAL (BEAKER) (test code 290 mm Hg 80-90 H = 385) O2 SATURATION ARTERIAL (BEAKER) 99.6 % 96.0-97.0 H (test code = 386) HCO3 ARTERIAL (BEAKER) (test code 24 mmol/L 21-29 = 388) BASE EXCESS ARTERIAL (BEAKER) -2.5 mmol/L -2.0-3.0 L (test code = 387) PATIENT TEMPERATURE (BEAKER) 34.0 (test code = 1818) FIO2 (BEAKER) (test code = 1819) 70.0 SODIUM NA-STAT [id number] 18:27:04 Test Item Value Reference Range Interpretation Comments SODIUM (BEAKER) (test code = 381) 131 meq/L 136-145 L HGB/HCT (H&H) - STAT [id number] 18:27:04 Test Item Value Reference Range Interpretation Comments HEMOGLOBIN (BEAKER) (test code = 12.5 GM/DL 13.0-16.8 L 410) HEMATOCRIT (BEAKER) (test code = 37.0 % 40.0-50.0 L 411) POTASSIUM-STAT [id number] 18:26:27 Test Item Value Reference Range Interpretation Comments POTASSIUM (BEAKER) (test code = 5.0 meq/L 3.6-5.5 379) GLUCOSE-STAT [id number] 18:26:26 Test Item Value Reference Range Interpretation Comments GLUCOSE RANDOM (BEAKER) (test code 297 mg/dL 70-110 H = 652) BLOOD GAS, [id number] 17:59:54 Test Item Value Reference Range Interpretation Comments PH ARTERIAL (BEAKER) (test code = 7.27 7.35-7.45 L 383) PCO2 ARTERIAL (BEAKER) (test code 55 mm Hg 35-45 H = 384) PO2 ARTERIAL (BEAKER) (test code 334 mm Hg 80-90 H = 385) O2 SATURATION ARTERIAL (BEAKER) 99.7 % 96.0-97.0 H (test code = 386) HCO3 ARTERIAL (BEAKER) (test code 26 mmol/L 21-29 = 388) BASE EXCESS ARTERIAL (BEAKER) -2.5 mmol/L -2.0-3.0 L (test code = 387) PATIENT TEMPERATURE (BEAKER) 34.5 (test code = 1818) FIO2 (BEAKER) (test code = 1819) 80.0 SODIUM NA-STAT [id number] 17:59:54 Test Item Value Reference Range Interpretation Comments SODIUM (BEAKER) (test code = 381) 132 meq/L 136-145 L HGB/HCT (H&H) - STAT [id number] 17:59:54 Test Item Value Reference Range Interpretation Comments HEMOGLOBIN (BEAKER) (test code = 12.3 GM/DL 13.0-16.8 L 410) HEMATOCRIT (BEAKER) (test code = 36.0 % 40.0-50.0 L 411) GLUCOSE-STAT [id number] 17:59:25 Test Item Value Reference Range Interpretation Comments GLUCOSE RANDOM (BEAKER) (test code 275 mg/dL 70-110 H = 652) POTASSIUM-STAT [id number] 17:59:25 Test Item Value Reference Range Interpretation Comments POTASSIUM (BEAKER) (test code = 4.9 meq/L 3.6-5.5 379) LACTIC ACID, [id number] 17:57:23 Test Item Value Reference Range Interpretation Comments LACTATE BLOOD ARTERIAL (2) 1.0 mmol/L 0.5-2.2 (BEAKER) (test code = 2874) [employer] Apprentice ID - MITCHBLOOD GAS, [id number] 17:41:51 Test Item Value Reference Range Interpretation Comments PH ARTERIAL (BEAKER) (test code = 7.20 7.35-7.45 LL 383) PCO2 ARTERIAL (BEAKER) (test code 64 mm Hg 35-45 H = 384) PO2 ARTERIAL (BEAKER) (test code 344 mm Hg 80-90 H = 385) O2 SATURATION ARTERIAL (BEAKER) 99.6 % 96.0-97.0 H (test code = 386) HCO3 ARTERIAL (BEAKER) (test code 25 mmol/L 21-29 = 388) BASE EXCESS ARTERIAL (BEAKER) -4.5 mmol/L -2.0-3.0 L (test code = 387) PATIENT TEMPERATURE (BEAKER) 35.3 (test code = 1818) FIO2 (BEAKER) (test code = 1819) 80.0 Blood gas, [id number] 17:41:40 Test Item Value Reference Range Interpretation Comments pH, Reji (test code = 7.18 7.32-7.42 LL 2746-6) pCO2, Reji (test code = 66 See_Comment H [Aut omated 755) message] The sy stem which generated this result transmitted reference range : 41 - 51 mm Hg. The reference range was not used to interpret this result as normal/abnormal . pO2, Reji (test code = 51 See_Comment H [Auto mated 2705-2) message] The sy stem which generated this result transmitted reference range : 25 - 40 mm Hg. The reference range was not used to interpret this result as normal/abnormal . O2 Sat, Reji (test code 80.2 % 40.0-70.0 H = 2711-0) HCO3, Reji (test code = 25 mmol/L 21-29 88140-1) Base Excess, Reji (test -5.1 mmol/L -2.0-3.0 L code = 1927-3) Patient Temperature 35.3 (test code = 8310-5) FIO2 (test code = 1819) 80 Lab Interpretation Abnormal (test code = 51234-8) [id number] 17:41:40 Test Item Value Reference Range Interpretation Comments pH, Reji (test code = 7.18 7.32-7.42 LL 2746-6) pCO2, Reji (test code = 66 See_Comment H [Aut omated 755) message] The sy stem which generated this result transmitted reference range : 41 - 51 mm Hg. The reference range was not used to interpret this result as normal/abnormal . pO2, Reji (test code = 51 See_Comment H [Auto mated 2705-2) message] The sy stem which generated this result transmitted reference range : 25 - 40 mm Hg. The reference range was not used to interpret this result as normal/abnormal . O2 Sat, Reji (test code 80.2 % 40.0-70.0 H = 2711-0) HCO3, Reji (test code = 25 mmol/L 21-29 27762-0) Base Excess, Reji (test -5.1 mmol/L -2.0-3.0 L code = 1927-3) Patient Temperature 35.3 (test code = 8310-5) FIO2 (test code = 1819) 80 Lab Interpretation Abnormal (test code = 90324-8) [facility], [id number] 17:41:40 Test Item Value Reference Range Interpretation Comments pH, Reji (test code = 7.18 7.32-7.42 LL 2746-6) pCO2, Reji (test code = 66 See_Comment H [Aut omated 755) message] The sy stem which generated this result transmitted reference range : 41 - 51 mm Hg. The reference range was not used to interpret this result as normal/abnormal . pO2, Reji (test code = 51 See_Comment H [Auto mated 2705-2) message] The sy stem which generated this result transmitted reference range : 25 - 40 mm Hg. The reference range was not used to interpret this result as normal/abnormal . O2 Sat, Reji (test code 80.2 % 40.0-70.0 H = 2711-0) HCO3, Reji (test code = 25 mmol/L 21-29 56052-8) Base Excess, Reij (test -5.1 mmol/L -2.0-3.0 L code = 1927-3) Patient Temperature 35.3 (test code = 8310-5) FIO2 (test code = 1819) 80 Lab Interpretation Abnormal (test code = 23600-9) [facility], [id number] 17:41:40 Test Item Value Reference Range Interpretation Comments pH, Reji (test code = 7.18 7.32-7.42 LL 2746-6) pCO2, Reji (test code = 66 See_Comment H [Aut omated 755) message] The sy stem which generated this result transmitted reference range : 41 - 51 mm Hg. The reference range was not used to interpret this result as normal/abnormal . pO2, Reji (test code = 51 See_Comment H [Auto mated 2705-2) message] The sy stem which generated this result transmitted reference range : 25 - 40 mm Hg. The reference range was not used to interpret this result as normal/abnormal . O2 Sat, Reji (test code 80.2 % 40.0-70.0 H = 2711-0) HCO3, Reji (test code = 25 mmol/L 21-29 97205-1) Base Excess, Reji (test -5.1 mmol/L -2.0-3.0 L code = 1927-3) Patient Temperature 35.3 (test code = 8310-5) FIO2 (test code = 1819) 80 Lab Interpretation Abnormal (test code = 03289-5) [facility] [id number] 17:41:40 Test Item Value Reference Range Interpretation Comments PH VENOUS (BEAKER) (test code = 7.18 7.32-7.42 LL 701) PCO2 VENOUS (BEAKER) (test code = 66 mm Hg 41-51 H 755) PO2 VENOUS (BEAKER) (test code = 51 mm Hg 25-40 H 702) O2 SATURATION VENOUS (BEAKER) 80.2 % 40.0-70.0 H (test code = 703) HCO3 VENOUS (BEAKER) (test code = 25 mmol/L 21-29 705) BASE EXCESS VENOUS (BEAKER) (test -5.1 mmol/L -2.0-3.0 L code = 704) PATIENT TEMPERATURE (BEAKER) 35.3 (test code = 1818) FIO2 (BEAKER) (test code = 1819) 80.0 SODIUM NA-STAT [id number] 17:41:24 Test Item Value Reference Range Interpretation Comments SODIUM (BEAKER) (test code = 381) 130 meq/L 136-145 L HGB/HCT (H&H) - STAT [id number] 17:41:24 Test Item Value Reference Range Interpretation Comments HEMOGLOBIN (BEAKER) (test code = 12.3 GM/DL 13.0-16.8 L 410) HEMATOCRIT (BEAKER) (test code = 36.0 % 40.0-50.0 L 411) GLUCOSE-STAT [id number] 17:39:39 Test Item Value Reference Range Interpretation Comments GLUCOSE RANDOM (BEAKER) (test code 272 mg/dL 70-110 H = 652) POTASSIUM-STAT [id number] 17:39:39 Test Item Value Reference Range Interpretation Comments POTASSIUM (BEAKER) (test code = 5.3 meq/L 3.6-5.5 379) PLATELET AGGREGATION: FUNCTION [id number] 16:41:04 Test Item Value Reference Range Interpretation Comments [id number] Jovani Oneil M.D. (BEAKER) (test code = (electonic signature) 2231) PLATELET COUNT AGG 246 K/CU MM 150-450 (BEAKER) (test code = 2656) ADP (BEAKER) (test code 21 % 62-100 L = 4654) PLATELET RICH 247 k/cu mm 200-300 PLASMA(BEAKER) (test code = 2134) PLATELET FUNCTION Pattern of SCREEN INTERPRETATION disaggregation present (BEAKER) (test code = with ADP which may be 4655) characteristic of P2Y12 inhibitor effect. Correlation with medication history is required. Platelet Function Screen results may be falsely low with platelet counts<75,000/cu mm.Roofer Apprentice ID- [id number] NA-STAT [id number] 16:33:47 Test Item Value Reference Range Interpretation Comments SODIUM (BEAKER) (test code = 381) 126 meq/L 136-145 L BLOOD GAS, [id number] 16:33:46 Test Item Value Reference Range Interpretation Comments PH ARTERIAL (BEAKER) (test code = 7.22 7.35-7.45 L 383) PCO2 ARTERIAL (BEAKER) (test code 50 mm Hg 35-45 H = 384) PO2 ARTERIAL (BEAKER) (test code 139 mm Hg 80-90 H = 385) O2 SATURATION ARTERIAL (BEAKER) 98.3 % 96.0-97.0 H (test code = 386) HCO3 ARTERIAL (BEAKER) (test code 20 mmol/L 21-29 L = 388) BASE EXCESS ARTERIAL (BEAKER) -7.6 mmol/L -2.0-3.0 L (test code = 387) PATIENT TEMPERATURE (BEAKER) 37.0 (test code = 1818) FIO2 (BEAKER) (test code = 1819) 70.0 POTASSIUM-STAT [id number] 16:33:28 Test Item Value Reference Range Interpretation Comments POTASSIUM (BEAKER) (test code = 4.5 meq/L 3.6-5.5 379) HGB/HCT (H&H) - STAT [id number] 16:33:28 Test Item Value Reference Range Interpretation Comments HEMOGLOBIN (BEAKER) (test code = 15.0 GM/DL 13.0-16.8 410) HEMATOCRIT (BEAKER) (test code = 44.0 % 40.0-50.0 411) CALCIUM, [id number] 16:33:28 Test Item Value Reference Range Interpretation Comments CALCIUM IONIZED (BEAKER) (test 1.12 mmol/L 1.12-1.27 code = 698) PH, BLOOD (BEAKER) (test code = 7.22 0) GLUCOSE-STAT [id number] 16:33:22 Test Item Value Reference Range Interpretation Comments GLUCOSE RANDOM (BEAKER) (test code 223 mg/dL 70-110 H = 652) SODIUM NA-STAT [id number] 15:37:02 Test Item Value Reference Range Interpretation Comments SODIUM (BEAKER) (test code = 381) 128 meq/L 136-145 L CALCIUM, [id number] 15:37:01 Test Item Value Reference Range Interpretation Comments CALCIUM IONIZED (BEAKER) (test 1.07 mmol/L 1.12-1.27 L code = 698) PH, BLOOD (BEAKER) (test code = 7.27 0) BLOOD GAS, [id number] 15:37:01 Test Item Value Reference Range Interpretation Comments PH ARTERIAL (BEAKER) (test code = 7.27 7.35-7.45 L 383) PCO2 ARTERIAL (BEAKER) (test code 48 mm Hg 35-45 H = 384) PO2 ARTERIAL (BEAKER) (test code 121 mm Hg 80-90 H = 385) O2 SATURATION ARTERIAL (BEAKER) 97.9 % 96.0-97.0 H (test code = 386) HCO3 ARTERIAL (BEAKER) (test code 21 mmol/L 21-29 = 388) BASE EXCESS ARTERIAL (BEAKER) -5.9 mmol/L -2.0-3.0 L (test code = 387) PATIENT TEMPERATURE (BEAKER) 37.0 (test code = 1818) FIO2 (BEAKER) (test code = 1819) 40.0 HGB/HCT (H&H) - STAT [id number] 15:36:50 Test Item Value Reference Range Interpretation Comments HEMOGLOBIN (BEAKER) (test code = 15.4 GM/DL 13.0-16.8 410) HEMATOCRIT (BEAKER) (test code = 45.0 % 40.0-50.0 411) GLUCOSE-STAT [id number] 15:36:49 Test Item Value Reference Range Interpretation Comments GLUCOSE RANDOM (BEAKER) (test code 210 mg/dL 70-110 H = 652) POTASSIUM-STAT [id number] 15:36:49 Test Item Value Reference Range Interpretation Comments POTASSIUM (BEAKER) (test code = 4.5 meq/L 3.6-5.5 379) BLOOD GAS, [id number] 14:37:52 Test Item Value Reference Range Interpretation Comments PH ARTERIAL (BEAKER) (test code = 7.29 7.35-7.45 L 383) PCO2 ARTERIAL (BEAKER) (test code 49 mm Hg 35-45 H = 384) PO2 ARTERIAL (BEAKER) (test code 173 mm Hg 80-90 H = 385) O2 SATURATION ARTERIAL (BEAKER) 99.0 % 96.0-97.0 H (test code = 386) HCO3 ARTERIAL (BEAKER) (test code 23 mmol/L -29 = 388) BASE EXCESS ARTERIAL (BEAKER) -3.9 mmol/L -2.0-3.0 L (test code = 387) PATIENT TEMPERATURE (BEAKER) 37.4 (test code = 1818) FIO2 (BEAKER) (test code = 1819) 100.0 SODIUM NA-STAT [id number] 14:37:52 Test Item Value Reference Range Interpretation Comments SODIUM (BEAKER) (test code = 381) 127 meq/L 136-145 L CALCIUM, [id number] 14:37:46 Test Item Value Reference Range Interpretation Comments CALCIUM IONIZED (BEAKER) (test 1.11 mmol/L 1.12-1.27 L code = 698) PH, BLOOD (BEAKER) (test code = 7.30 1810) POTASSIUM-STAT [id number] 14:37:14 Test Item Value Reference Range Interpretation Comments POTASSIUM (BEAKER) (test code = 4.1 meq/L 3.6-5.5 379) HGB/HCT (H&H) - STAT [id number] 14:37:14 Test Item Value Reference Range Interpretation Comments HEMOGLOBIN (BEAKER) (test code = 15.0 GM/DL 13.0-16.8 410) HEMATOCRIT (BEAKER) (test code = 44.0 % 40.0-50.0 411) GLUCOSE-STAT [id number] 14:37:13 Test Item Value Reference Range Interpretation Comments GLUCOSE RANDOM (BEAKER) (test code 182 mg/dL 70-110 H = 652) 2D Echo W/Doppler(CW/PW/Color)2022-03-31 13:36:31Ejection FractionSLEH ECHO [facility](CW/PW/Color)2022-03-31 13:36:31Ejection FractionSLEH ECHO [facility]ARTLAB [facility] W/Doppler(CW/PW/Color) 2022-03-31 13:36:31Ejection FractionSLEH ECHO [facility]ARTLAB [facility] W/Doppler(CW/PW/Color)2022-03-31 13:36:31Ejection FractionSLEH ECHO HEARTLAB [facility] [id number] 11:26:21Ejection FractionSLEH ECHO HEARTLAB [facility] [id number] 11:26:21Ejection FractionSLEH ECHO HEARTLAB [facility] [id number] 11:26:21Ejection FractionSLEH ECHO HEARTLAB [facility] bilateral 2022-03-31 11:26:21Ejection FractionSLEH ECHO HEARTLAB [facility] [id number] 11:24:42Ejection FractionSLEH ECHO HEARTLAB [facility] [id number] 11:24:42Ejection FractionSLEH ECHO HEARTLAB [facility] [id number] 11:24:42Ejection FractionSLEH ECHO HEARTLAB [facility] [id number] 11:24:42Ejection FractionSLEH ECHO HEARTLAB MKCKESSON [facility] HospitalHEMOGLOBIN [id number] 10:53:49 Test Item Value Reference Range Interpretation Comments HEMOGLOBIN A1C 11.0 % See_Comment H [Automated m essage] ELECTROPHORESIS (JOSE) The system which (test code = 3811) generated this result transmitted ref erence range: <=5.6%. The reference range was not used to int erpret this result as normal/abnormal . "The A1c is measured using a NGSP-certified method. HbA1c value equal to or greater than 6.5% as thediagnosis cutoff for diabetes. An HbA1c value of 5.7- 6.4% indicates increased risk for diabetes (prediabetes)."Roofer Apprentice ID - ADMPOCT- GLUCOSE [id number] 09:17:10 Test Item Value Reference Range Interpretation Comments POC-GLUCOSE METER 247 mg/dL 70-110 H : TESTED A T [facility] [address] ([facility]) (test code = [place] ESTES ME, 1538) [address]: Roofer Apprentice/Techni earnest ID = [id number] for Mayte Mata RAD, CHEST, 1 VIEW, NON [id number] 08:20:00While IABP in place and following each repositioning of IABPReason for exam:->While IABP in placeand following each repositioning of IABPShould this be performed at the bedside?->Yes [facility] 1965 Sex: MFINAL REPORT RAD, CHEST, 1 VIEW, NON DEPT INDICATION: While IABP in place and following each repositioning of IABP COMPARISON: Prior day's exam FINDINGS: Portable frontal view of the chest. IMPRESSION: Support Lines: Overlying leads/monitors. IABP marker is 5.4 cm below the top of the aortic arch. Lungs and pleura: Lungs are predominantly clear. No significant pneumothorax. Heart and mediastinum: Stable contours. Additional findings: None. Signed: Sruthi Barahona MDReport Verified Date/Time: 03/31/2022 08:20:50 Reading Location: [address] Reading Room CBC W/PLT COUNT & AUTO [id number] 07:19:27 Test Item Value Reference Range Interpretation Comments WHITE BLOOD CELL COUNT (BEAKER) 14.6 K/ L 3.5-10.5 H (test code = 775) RED BLOOD CELL COUNT (BEAKER) 4.91 M/ L 4.63-6.08 (test code = 761) HEMOGLOBIN (BEAKER) (test code = 14.0 GM/DL 13.7-17.5 410) HEMATOCRIT (BEAKER) (test code = 44.0 % 40.1-51.0 411) MEAN CORPUSCULAR VOLUME (BEAKER) 90 fL 79-92 (test code = 753) MEAN CORPUSCULAR HEMOGLOBIN 28.5 pg 25.7-32.2 (BEAKER) (test code = 751) MEAN CORPUSCULAR HEMOGLOBIN CONC 31.8 GM/DL 32.3-36.5 L (BEAKER) (test code = 752) RED CELL DISTRIBUTION WIDTH 16.4 % 11.6-14.4 H (BEAKER) (test code = 412) PLATELET COUNT (BEAKER) (test 250 K/CU MM 150-450 code = 756) MEAN PLATELET VOLUME (BEAKER) 10.1 fL 9.4-12.4 (test code = 754) NUCLEATED RED BLOOD CELLS 0 /100 WBC 0-0 (BEAKER) (test code = 413) (CELLAVISION MANUAL DIFF)2022-03-31 07:19:27 Test Item Value Reference Range Interpretation Comments NEUTROPHILS - REL 69 % (CELLAVISION)(BEAKER) (test code = 2816) LYMPHOCYTES - REL 9 % (CELLAVISION)(BEAKER) (test code = 2817) MONOCYTES - REL 14 % (CELLAVISION)(BEAKER) (test code = 2818) BASOPHILS - REL 1 % (CELLAVISION)(BEAKER) (test code = 2820) BANDS - REL (CELLAVISION)(BEAKER) 5 % 0-10 (test code = 2826) ATYPICAL LYMPHOCYTES - REL 2 % 0-0 H (CELLAVISION)(BEAKER) (test code = 2829) NEUTROPHILS - ABS 10.07 K/ul 1.78-5.38 H (CELLAVISION)(BEAKER) (test code = 2830) LYMPHOCYTES - ABS 1.31 K/ul 1.32-3.57 L (CELLAVISION)(BEAKER) (test code = 2831) MONOCYTES - ABS 2.04 K/uL 0.30-0.82 H (CELLAVISION)(BEAKER) (test code = 2832) BASOPHILS - ABS 0.15 K/uL 0.01-0.08 H (CELLAVISION)(BEAKER) (test code = 2835) BANDS - ABS (CELLAVISION)(BEAKER) 0.73 K/uL 0.00-0.80 (test code = 2840) ATYPICAL LYMPHOCYTES - ABS 0.29 K/uL 0.00-0.00 H (CELLAVISION)(BEAKER) (test code = 2858) TOTAL COUNTED (BEAKER) (test code 100 = 1351) RBC MORPHOLOGY (BEAKER) (test code Normal = 762) WBC MORPHOLOGY (BEAKER) (test code Normal = 487) PLT MORPHOLOGY (BEAKER) (test code Normal = 486) ARTIFACT (CELLAVISION)(BEAKER) Present (test code = 3432) PLATELET CONCENTRATION Adequate (CELLAVISION)(BEAKER) (test code = 3438) Roofer Apprentice ID - Emily OverholtUser comments: Slide comments:[id number] 07:15:23 Test Item Value Reference Range Interpretation Comments PARTIAL THROMBOPLASTIN TIME 37.1 seconds 22.5-36.0 H (BEAKER) (test code = 760) COMPREHENSIVE METABOLIC [id number] 04:48:08 Test Item Value Reference Range Interpretation Comments TOTAL PROTEIN 6.4 gm/dL 6.0-8.3 Specimen sligh tly (BEAKER) (test hemolyzed code = 770) ALBUMIN (BEAKER) 3.3 g/dL 3.5-5.0 L Specimen sl ightly (test code = 1145) hemolyzed ALKALINE 62 U/L 40-150 PHOSPHATASE (BEAKER) (test code = 346) BILIRUBIN TOTAL 1.0 mg/dL 0.2-1.2 Specimen sli ghtly (BEAKER) (test hemolyzed code = 377) SODIUM (BEAKER) 127 meq/L 136-145 L (test code = 381) POTASSIUM (BEAKER) 4.7 meq/L 3.5-5.1 Specimen slightly (test code = 379) hemolyzed CHLORIDE (BEAKER) 96 meq/L 98-107 L (test code = 382) CO2 (BEAKER) (test 19 meq/L 22-29 L code = 355) BLOOD UREA 14 mg/dL 7-21 NITROGEN (BEAKER) (test code = 354) CREATININE 1.23 mg/dL 0.57-1.25 Specimen slight ly (BEAKER) (test hemolyzed code = 358) GLUCOSE RANDOM 264 mg/dL 70-105 H (BEAKER) (test code = 652) CALCIUM (BEAKER) 8.7 mg/dL 8.4-10.2 (test code = 697) AST (SGOT) 28 U/L 5-34 Specimen slight ly (BEAKER) (test hemolyzed code = 353) ALT (SGPT) 20 U/L 6-55 Specimen slight ly (BEAKER) (test hemolyzed code = 347) EGFR (BEAKER) 69 Interpretatio n of eGFR (test code = 1092) mL/min/1.[address] age Description sq m Result G1 Idania l or high >=90 G2 Mildly decreased 60-89 G3a Mildl y to moderately 45-5 9 G3b Moderately to s everely 30-44 G4 Severl y decreased 15-29 G5 Kidney failure <15Reported eGF R is based on the CKD-EPI 2020 equation that d oes not use a race coefficientEsti mated GFR is not as accur ate as Creatinine Ai pato in predicting glom erular filtration rate . Estimated GFR is not appl icable for dialysis patien ts Roofer Apprentice ID - CRISTIAN [id number] 04:48:07 Test Item Value Reference Range Interpretation Comments MAGNESIUM (BEAKER) 2.2 mg/dL 1.6-2.6 Specimen slightly (test code = 627) hemolyzed Roofer Apprentice ID - CRISTIAN MSARS-CoV2/RT-PCR (Asymptomatic ONLY)2022-03-31 04:47:23 Test Item Value Reference Interpretation Comments Range SARS-COV2/RT-PCR Negative Negative The SARS-Co V-2 (test code = target nucleic 90539-8) acids are not detected in thi s specimen. Negat allison results do not preclude SARS-C oV-2 infection and should not be u sed as the sole bas is for patient management decisions. Nega tive results must be combined with clinical observations, patient history , and epidemiolog ical information. A false negative result may occu r if a specimen is improperly collected, transported or handled. This S ARS CoV-2 test is a rapid, real-kat e RT-PCR test intended for th e qualitative detection of nucleic acid fr om SARS-CoV-2 in a nasopharyngeal swab [facility] from individual s suspected of COVID-19 by the ir healthcare provider. ADAM (test code = This test has been ADAM) authorized by FDA under an EUA for use by authorized laboratories. This test is only authorized for the duration of the declaration that circumstances exist justifying the authorization of emergency use of in vitro diagnostic tests for detection and/or diagnosis of COVID-19 under Section 564(b)(1) of the Federal Food, Drug and Cosmetic Act, 21 U.S.C. 360bbb-3(b)(1), unless the authorization is terminated or revoked sooner. Fact Sheet for Healthcare Providers: https://www.cephei d.com/Documents/Xp ert%20Xpress%20SAR S%20CoV-2/Fact%20S heets/302-3802%20S ARS-COV-2%20HEALTH CARE%20PROVIDERS%2 0FACT%20SHEET.pdf Fact Sheet for Healthcare Patients: https://www.[employer]/Documents/Xp ert%20Xpress%20SAR S%20CoV-2/Fact%20S heets/302-3801%20S ARS-COV-2%20PATIEN T%20FACT%20SHEET.p df Lab Interpretation Normal (test code = 65809-0) [facility]22-[facility]-31 04:47:23 Test Item Value Reference Interpretation Comments Range SARS-COV2/RT-PCR Negative Negative The SARS-Co V-2 (test code = target nucleic 81855-1) acids are not detected in thi s specimen. Negat allison results do not preclude SARS-C oV-2 infection and should not be u sed as the sole bas is for patient management decisions. Nega tive results must be combined with clinical observations, patient history , and epidemiolog ical information. A false negative result may occu r if a specimen is improperly collected, transported or handled. This S ARS CoV-2 test is a rapid, real-kat e RT-PCR test intended for th e qualitative detection of nucleic acid fr om SARS-CoV-2 in a nasopharyngeal swab specimen collec leonel from individual s suspected of COVID-19 by the ir healthcare provider. ADAM (test code = This test has been ADAM) authorized by FDA under an EUA for use by authorized laboratories. This test is only authorized for the duration of the declaration that circumstances exist justifying the authorization of emergency use of in vitro diagnostic tests for detection and/or diagnosis of COVID-19 under Section 564(b)(1) of the Federal Food, Drug and Cosmetic Act, 21 U.S.C. 360bbb-3(b)(1), unless the authorization is terminated or revoked sooner. Fact Sheet for Healthcare Providers: https://www.[employer]/Documents/Xp ert%20Xpress%20SAR S%20CoV-2/Fact%20S heets/302-3802%20S ARS-COV-2%20HEALTH CARE%20PROVIDERS%2 0FACT%20SHEET.pdf Fact Sheet for Healthcare Patients: https://www.[employer]/Documents/Xp ert%20Xpress%20SAR S%20CoV-2/Fact%20S heets/302-3801%20S ARS-COV-2%20PATIEN T%20FACT%20SHEET.p df Lab Interpretation Normal (test code = 74184-4) [facility]2022-[facility]-31 04:47:23 Test Item Value Reference Interpretation Comments Range SARS-COV2/RT-PCR Negative Negative The SARS-Co V-2 (test code = target nucleic 62611-0) acids are not detected in thi s specimen. Negat allison results do not preclude SARS-C oV-2 infection and should not be u sed as the sole bas is for patient management decisions. Nega tive results must be combined with clinical observations, patient history , and epidemiolog ical information. A false negative result may occu r if a specimen is improperly collected, transported or handled. This S ARS CoV-2 test is a rapid, real-kat e RT-PCR test intended for th e qualitative detection of nucleic acid fr om SARS-CoV-2 in a nasopharyngeal swab specimen collec leonel from individual s suspected of COVID-19 by the ir healthcare provider. ADAM (test code = This test has been ADAM) authorized by FDA under an EUA for use by authorized laboratories. This test is only authorized for the duration of the declaration that circumstances exist justifying the authorization of emergency use of in vitro diagnostic tests for detection and/or diagnosis of COVID-19 under Section 564(b)(1) of the Federal Food, Drug and Cosmetic Act, 21 U.S.C. 360bbb-3(b)(1), unless the authorization is terminated or revoked sooner. Fact Sheet for Healthcare Providers: https://www.[employer]/Documents/Xp ert%20Xpress%20SAR S%20CoV-2/Fact%20S heets/302-3802%20S ARS-COV-2%20HEALTH CARE%20PROVIDERS%2 0FACT%20SHEET.pdf Fact Sheet for Healthcare Patients: https://www.[employer]/Documents/Xp ert%20Xpress%20SAR S%20CoV-2/Fact%20S heets/302-3801%20S ARS-COV-2%20PATIEN T%20FACT%20SHEET.p df Lab Interpretation Normal (test code = 13720-9) [facility]2022-03-31 04:47:23 Test Item Value Reference Interpretation Comments Range SARS-COV2/RT-PCR Negative Negative The SARS-Co V-2 (test code = target nucleic 98377-9) acids are not detected in thi s specimen. Negat allison results do not preclude SARS-C oV-2 infection and should not be u sed as the sole bas is for patient management decisions. Nega tive results must be combined with clinical observations, patient history , and epidemiolog ical information. A false negative result may occu r if a specimen is improperly collected, transported or handled. This S ARS CoV-2 test is a rapid, real-kat e RT-PCR test intended for th e qualitative detection of nucleic acid fr om SARS-CoV-2 in a nasopharyngeal swab specimen collec leonel from individual s suspected of COVID-19 by the ir healthcare provider. ADAM (test code = This test has been ADAM) authorized by FDA under an EUA for use by authorized laboratories. This test is only authorized for the duration of the declaration that circumstances exist justifying the authorization of emergency use of in vitro diagnostic tests for detection and/or diagnosis of COVID-19 under Section 564(b)(1) of the Federal Food, Drug and Cosmetic Act, 21 U.S.C. 360bbb-3(b)(1), unless the authorization is terminated or revoked sooner. Fact Sheet for Healthcare Providers: https://www.[employer]/Documents/Xp ert%20Xpress%20SAR S%20CoV-2/Fact%20S heets/3023802%20S ARS-COV-2%20HEALTH CARE%20PROVIDERS%2 0FACT%20SHEET.pdf Fact Sheet for Healthcare Patients: https://www.[employer]/Documents/Xp ert%20Xpress%20SAR S%20CoV-2/Fact%20S heets/302-3801%20S ARS-COV-2%20PATIEN T%20FACT%20SHEET.p df Lab Interpretation Normal (test code = 84533-6) [facility]2022-03-31 04:47:23 Test Item Value Reference Range Interpretation Comments SARS-COV2/RT-PCR Negative Negative The SARS-Co V-2 target (test code = nucleic acids a re not 3618435) detected in thi s specimen. Negative result s do not preclude SARS-C oV-2 infection and s hould not be used as the junior e basis for patient managem ent decisions. Nega tive results must be combine d with clinical observ ations, patient history , and epidemiological information. A false negativ e result may occur if a spec imen is improperly emerita ected, transported or handled. This SARS CoV-2 test is a rapid, real-time RT-PC R test intended for th e qualitative detection of nu cleic acid from SARS-CoV-2 in a nasopharyngeal swab specimen collected from individuals suspected of CO VID-19 by their healthcar e provider. This test has been authorized by FDA under an EUA for use by authorized laboratories. This test is only authorized for the duration of the declaration that circumstances exist justifying the authorization of emergency use of in vitro diagnostic tests for detection and/or diagnosis of COVID-19 under Section 564(b)(1) of the Federal Food, Drug and Cosmetic Act, 21 U.S.C. 360bbb-3(b)(1), unless the authorization is terminated or revoked sooner. Fact Sheet for Healthcare Providers: https://www.[employer].co m/Documents/Xpert%20Xpress%20SARS%20CoV-2/Fact%20Sheets/302-3802%04DYRD-FIH-4%20 HEALTHCARE%20PROVIDERS%20FACT%20SHEET.pdf Fact Sheet for Healthcare Patients: https://www.[employer]/Documents/Xpert%20Xp ress%20SARS%20CoV-2/Fact%20Sheets/3023801%86TBJH-DOM-9%20PATIENT%20FACT%20SHEET .[id number] 04:28:19 Test Item Value Reference Range Interpretation Comments PARTIAL THROMBOPLASTIN TIME 34.9 seconds 22.5-36.0 (BEAKER) (test code = 760) PROTHROMBIN [id number] 04:27:41 Test Item Value Reference Range Interpretation Comments PROTIME (BEAKER) 13.4 seconds 11.9-14.2 (test code = 759) INR (BEAKER) (test 1.04 See_Comment [Automat ed message] code = 370) The system [employer] generated this result transmitted ref erence range: <=5.90. The reference range was not used to int erpret this result as normal/abnormal . RECOMMENDED COUMADIN/WARFARIN INR THERAPY RANGESSTANDARD DOSE: 2.0 - 3.0 Includes: PROPHYLAXIS for venous thrombosis, systemic embolization; TREATMENT for venous thrombosis and/or pulmonary embolus.HIGH RISK: Target INR is 2.5-3.5 for patients with mechanical heart valves.HIGH SENSITIVITY TROPONIN [id number] 00:34:21 Test Item Value Reference Range Interpretation Comments HIGH SENSITIVITY 7665 pg/ml See_Comment HH [Automated message] TROPONIN I (test code The sy stem which = [id number]) generated this result transmitted ref erence range: <=35. Th e reference range was not used to int erpret this result as normal/abnormal . Roofer Apprentice ID - [facility]IAN [facility] ASP NET PROGRAMMER STAT High Sensitivity Troponin-I results should be used in conjunction with other diagnostic information such as ECG, clinical observations and information, and patient symptoms to aid in the diagnosis of ME.Roofer Apprentice ID - CRISTIAN [id number] 00:02:07 Test Item Value Reference Range Interpretation Comments PARTIAL THROMBOPLASTIN TIME 33.1 seconds 22.5-36.0 (BEAKER) (test code = 760) POCT-GLUCOSE [id number] 22:53:51 Test Item Value Reference Range Interpretation Comments POC-GLUCOSE METER 236 mg/dL 70-110 H : TESTED A T [facility] 6720 (BEAKER) (test code = [place], 1538) [address]: Roofer Apprentice/Techni earnest ID = [id number] for Sarah Green PROTHROMBIN [id number] 22:14:12 Test Item Value Reference Range Interpretation Comments PROTIME (JOSE) 13.7 seconds 11.9-14.2 (test code = 759) INR (BEAKER) (test 1.11 See_Comment [Automat ed message] code = 370) The system [employer] generated this result transmitted ref erence range: <=5.90. The reference range was not used to int erpret this result as normal/abnormal . RECOMMENDED COUMADIN/WARFARIN INR THERAPY RANGESSTANDARD DOSE: 2.0 - 3.0 Includes: PROPHYLAXIS for venous thrombosis, systemic embolization; TREATMENT for venous thrombosis and/or pulmonary embolus.HIGH RISK: Target INR is 2.5-3.5 for patients with mechanical heart valves.POCT-GLUCOSE [id number] 19:57:55 Test Item Value Reference Range Interpretation Comments POC-GLUCOSE METER 270 mg/dL 70-110 H : TESTED A T [facility] 6720 (JOSE) (test code = [place], 1538) [address]: Roofer Apprentice/Techni earnest ID = [id number] for Sarah celeste RAD, CHEST, 1 VIEW, NON [id number] 18:24:00Reason for exam:->IABP placement verificationShould this be performed at the bedside?->Yes [facility] : 1965 Sex: MFINAL REPORT Chest one view. Clinical history: IABP placement verification Comparison: None Discussion: A frontal chest is provided. Cardiomediastinal contours are unremarkable. IABP marker is 1.2 cm below the top of aortic arch. Pulmonary vessels appear mildly prominent, no lissette interstitial edema. No consolidation, pneumothorax, or large effusion. Bony structures demonstrate degenerative changes. Deformity is noted at the left AC joint, likely posttraumatic. Signed: Brooke Harris MDReport Verified Date/Time: 03/30/2022 18:24:05 Reading Location: [facility] B1 C013X Ortho Consult Reading Room HIGH SENSITIVITY TROPONIN [id number] 17:46:03 Test Item Value Reference Range Interpretation Comments HIGH SENSITIVITY 4334 pg/ml See_Comment HH [Automated message] TROPONIN I (test code The sy stem which = [id number]) generated this result transmitted ref erence range: <=35. Th e reference range was not used to int erpret this result as normal/abnormal . Roofer Apprentice ID - PIAYA LThe ASP NET PROGRAMMER STAT High Sensitivity Troponin-I results should be used in conjunction with other diagnostic information such as ECG, clinical observations and information, and patient symptoms to aid in the diagnosis of ME.[id number] 17:37:25 Test Item Value Reference Range Interpretation Comments PARTIAL THROMBOPLASTIN TIME 52.2 seconds 22.5-36.0 H (BEAKER) (test code = 760) [id number] 15:11:40 Test Item Value Reference Range Interpretation Comments ACTIVATED CLOTTING TIME 283 sec : 74 -137 seconds, (BEAKER) (test code = Baseli ne: TESTED AT 441) [facility] [address] [facility], [address]: Roofer Apprentice/Techni earnest ID = [id number] for Tone urban (contract), Aar on COMPREHENSIVE METABOLIC [id number] 14:26:17 Test Item Value Reference Range Interpretation Comments TOTAL PROTEIN 6.8 gm/dL 6.0-8.3 Specimen sligh tly (BEAKER) (test hemolyzed code = 770) ALBUMIN (BEAKER) 3.5 g/dL 3.5-5.0 Specimen sl ightly (test code = 1145) hemolyzed ALKALINE 66 U/L 40-150 PHOSPHATASE (BEAKER) (test code = 346) BILIRUBIN TOTAL 1.1 mg/dL 0.2-1.2 Specimen sli ghtly (BEAKER) (test hemolyzed code = 377) SODIUM (BEAKER) 131 meq/L 136-145 L (test code = 381) POTASSIUM (BEAKER) 4.3 meq/L 3.5-5.1 Specimen slightly (test code = 379) hemolyzed CHLORIDE (BEAKER) 99 meq/L 98-107 (test code = 382) CO2 (BEAKER) (test 22 meq/L 22-29 code = 355) BLOOD UREA 11 mg/dL 7-21 NITROGEN (BEAKER) (test code = 354) CREATININE 0.91 mg/dL 0.57-1.25 Specimen slight ly (BEAKER) (test hemolyzed code = 358) GLUCOSE RANDOM 301 mg/dL 70-105 H (BEAKER) (test code = 652) CALCIUM (BEAKER) 8.9 mg/dL 8.4-10.2 (test code = 697) AST (SGOT) 34 U/L 5-34 Specimen slight ly (BEAKER) (test hemolyzed code = 353) ALT (SGPT) 21 U/L 6-55 Specimen slight ly (BEAKER) (test hemolyzed code = 347) EGFR (BEAKER) 99 Interpretatio n of eGFR (test code = 1092) mL/min/1.[address] age Description sq m Result G1 Idania l or high >=90 G2 Mildly decreased 60-89 G3a Mildl y to moderately 45-5 9 G3b Moderately to s everely 30-44 G4 Sever ly decreased 15-29 G5 Kidney failure <15Repo rted eGFR is based on the CKD-EPI 2020 equation t hat does not use a race coefficientEsti mated GFR is not as accur ate as Creatinine Ai pato in predicting glom erular filtration rate . Estimated GFR is not appl icable for dialysis patien ts Roofer Apprentice ID - LING LOperator ID - LING LHIGH SENSITIVITY TROPONIN [id number] 14:23:57 Test Item Value Reference Range Interpretation Comments HIGH SENSITIVITY 3083 pg/ml See_Comment HH [Automated message] TROPONIN I (test code The sy stem which = [id number]) generated this result transmitted ref erence range: <=35. Th e reference range was not used to int erpret this result as normal/abnormal . Roofer Apprentice ID - LING LThe ASP NET PROGRAMMER STAT High Sensitivity Troponin-I results should be used in conjunction with other diagnostic information such as ECG, clinical observations and information, and patient symptoms to aid in the diagnosis of ME.LIPID [id number] 14:11:11 Test Item Value Reference Range Interpretation Comments TRIGLYCERIDES (BEAKER) 85 mg/dL Speci men slightly (test code = 540) hemolyzed CHOLESTEROL (BEAKER) 159 mg/dL Specime n slightly (test code = 631) hemolyzed HDL CHOLESTEROL (BEAKER) 41 mg/dL (test code = 976) LDL CHOLESTEROL 101 mg/dL CALCULATED (BEAKER) (test code = 633) Triglyceride Reference Range: Low Risk <150 Borderline 150-199 High Risk 200-499 Very High Risk >=500Cholesterol Reference Range: Low Risk <200 Borderline 200-239 High Risk >240HDL Cholesterol Reference Range: Low Risk >=60 High Risk <40LDL Cholesterol Reference Range: Optimal <100 Near Optimal 100-129 Borderline 130-159 High 160-189 Very High >=190 Roofer Apprentice ID - LING [id number] 14:11:10 Test Item Value Reference Range Interpretation Comments MAGNESIUM (BEAKER) 1.9 mg/dL 1.6-2.6 Specimen slightly (test code = 627) hemolyzed Roofer Apprentice ID - LING [id number] 14:11:10 Test Item Value Reference Range Interpretation Comments PHOSPHORUS (BEAKER) 2.4 mg/dL 2.3-4.7 Specimen slightly (test code = 604) hemolyzed Roofer Apprentice ID - LING [id number] 14:09:30 Test Item Value Reference Range Interpretation Comments THYROID STIMULATING HORMONE 2.324 uIU/mL 0.350-4.940 (BEAKER) (test code = 772) Roofer Apprentice ID - LING LT4, [id number] 14:09:30 Test Item Value Reference Range Interpretation Comments FREE T4 (BEAKER) (test code = 655) 1.04 ng/dL 0.70-1.48 Roofer Apprentice ID - LING LB-TYPE NATRIURETIC FACTOR (BNP)2022-03-30 13:54:25 Test Item Value Reference Range Interpretation Comments B-TYPE NATRIURETIC PEPTIDE (BEAKER) 179 pg/mL 0-100 H (test code = 700) Roofer Apprentice ID - LING LCBC W/PLT COUNT & AUTO [id number] 13:25:27 Test Item Value Reference Range Interpretation Comments WHITE BLOOD CELL COUNT (BEAKER) 11.7 K/ L 3.5-10.5 H (test code = 775) RED BLOOD CELL COUNT (BEAKER) 5.43 M/ L 4.63-6.08 (test code = 761) HEMOGLOBIN (BEAKER) (test code = 15.7 GM/DL 13.7-17.5 410) HEMATOCRIT (BEAKER) (test code = 47.9 % 40.1-51.0 411) MEAN CORPUSCULAR VOLUME (BEAKER) 88 fL 79-92 (test code = 753) MEAN CORPUSCULAR HEMOGLOBIN 28.9 pg 25.7-32.2 (BEAKER) (test code = 751) MEAN CORPUSCULAR HEMOGLOBIN CONC 32.8 GM/DL 32.3-36.5 (BEAKER) (test code = 752) RED CELL DISTRIBUTION WIDTH 16.5 % 11.6-14.4 H (BEAKER) (test code = 412) PLATELET COUNT (BEAKER) (test 255 K/CU MM 150-450 code = 756) MEAN PLATELET VOLUME (BEAKER) 10.0 fL 9.4-12.4 (test code = 754) NUCLEATED RED BLOOD CELLS 0 /100 WBC 0-0 (BEAKER) (test code = 413) NEUTROPHILS RELATIVE PERCENT 72 % (BEAKER) (test code = 429) LYMPHOCYTES RELATIVE PERCENT 14 % (BEAKER) (test code = 430) MONOCYTES RELATIVE PERCENT 12 % (BEAKER) (test code = 431) EOSINOPHILS RELATIVE PERCENT 1 % (BEAKER) (test code = 432) BASOPHILS RELATIVE PERCENT 1 % (BEAKER) (test code = 437) NEUTROPHILS ABSOLUTE COUNT 8.39 K/ L 1.78-5.38 H (BEAKER) (test code = 670) LYMPHOCYTES ABSOLUTE COUNT 1.63 K/ L 1.32-3.57 (BEAKER) (test code = 414) MONOCYTES ABSOLUTE COUNT (BEAKER) 1.35 K/ L 0.30-0.82 H (test code = 415) EOSINOPHILS ABSOLUTE COUNT 0.16 K/ L 0.04-0.54 (BEAKER) (test code = 416) BASOPHILS ABSOLUTE COUNT (BEAKER) 0.09 K/ L 0.01-0.08 H (test code = 417) IMMATURE GRANULOCYTES-RELATIVE 0.50 % 0.00-1.00 PERCENT (BEAKER) (test code = 2801) [id number] 11:51:00 Test Item Value Reference Range Interpretation Comments GLUBED (test code = GLUBED) 164 mg/dL 60-125 H [id number] 07:07:00 Test Item Value Reference Range Interpretation Comments GLUBED (test code = GLUBED) 126 mg/dL 60-125 H Notes Date/Time Note Provider Source 2022-04-10 16:12:45-00:00 MARCUS LLANES [facility] OPERATIVE/PROCEDURE REPORT TREASURE ROACH FACILITY: [facility] Billing #: [id number] Room: [address] [place] [address] MR #: [id number] : 1965 DATE OF PROCEDURE: 04/10/2022 SURGEON: Marcus Llanes MD PREOPERATIVE DIAGNOSIS: Status post coronary art vamsi bypass grafting with postoperative ventricular tachycar celena arrhythmia, status post Impella placement through the groin, and pneumonia. POSTOPERATIVE DIAGNOSIS: Status post coronary ar ismael bypass grafting with postoperative ventricular tachycar celena arrhythmia, status post Impella placement through the groin, and pneumonia. FELLOW: Tc Grider OPERATIVE PROCEDURES: 1. Left common femoral artery dissection. 2. Removal of temporary left ventricular assist device from the groin and femoral artery repair, flexible bronch oscopy. FINDINGS: We had a good signal and pulse in the left lower extremity after removal of the Impella device. W e had good hemostasis and his function on the cardiac echo was improved without the Impella. He also had some mild purul ent secretions in the left lower lobe, which was suctioned out. BAL was sent. SPECIMENS: Bronchioloalveolar lavage. INDICATIONS: Mr. Roach is a 56-year-old gen tleman, who underwent coronary artery bypass grafting second amanda to severe LAD and triple-vessel disease. Unfortunately, he was quite ill at the time of the surgery with recent infarctio n of the left lateral wall, substantial angina, totally occlud ed RCA on an intra-aortic balloon pump loaded with Plavix and despite uneventful bypass grafting, Mr. Roach devbuffy oped postoperative ventricular tachycardia that was t hought to be secondary to ischemic tissue from his recent reuben cardial infarction. His coronary bypass grafts were baires nt by coronary angio. Impella was placed to decompress the vent ricle and reduce further V-tach burden. He no longer had a ny more V-tach after the Impella was placed, and so for this re ason and the fact that his heart has recovered function, he w as now taken to the operating room for removal of the Impella. PROCEDURE IN DETAIL: Mr. Roach was identifi ed in the Intensive Care Unit. He was transported to the o perating room, placed on the operating table in the supine posi tion. He was induced under general endotracheal anesthesia by the Anesthesia team. Transesophageal echo showed that his RV fu nction was moderately depressed, LV function moderately dep ressed with the Impella turned down the function if anything was slightly better. At this point, we performed universal ti me-out. He was prepped and draped in usual sterile fashion. We made an incision over the left Impella insertion site. W e dissected down to the level of the inguinal ligament. We g ot proximal and distal control of the common femoral artery. We placed two pursestring sutures around the adventitia and we removed the Impella. We allowed it to bleed slightly to azul ve any clot and debris, and we secured our sutures in place. We had good hemostasis. We irrigated the groin copiously and proceeded to close multiple layers of 0-Vicryl, 2-0 Vicryl, a nd gigi for the skin. We also removed his bilateral pleural chest tubes, which were no longer draining any further effusi ons. The transesophageal echo showed that he had good fun ction. We did a flexible bronchoscopy because we knew that he was going to be extubated soon, he had some evidence of mild pne umonia by chest x-ray and history of Pseudomonas from the trache al aspirate. We entered into the endotracheal tube with the f lexible bronchoscopy. We inspected all of the segments o f the right bronchial tree including the secondary and terti amanda segments. We suctioned out some mild purulence from the ri ght lower lobe as well as the left lower lobe and we sent these off for culture. We did a 20 mL bronchial lavage in the left lower lobe and sent this off for BAL, gram stain, and sensitivity. He tolerated the procedure well and was extubate d in the operating room. We inspected his pulses in the l eg, which were equal. A slightly diminished left lower extremit y, although improved from before the Impella catheter was in . Mr. Roach tolerated the procedure well and was transported back to the Cardiac CCU in stable condition. GL/MODL /[id number] 2022-03-31 23:53:10-00:00 MARCUS LLANES [facility] OPERATIVE/PROCEDURE REPORT TREASURE ROACH FACILITY: [facility] Billing #: [id number] Room: [place] [address] MR #: [id number] : 1965 DATE OF PROCEDURE: 03/31/2022 SURGEON: Marcus Llanes MD PREOPERATIVE DIAGNOSES: Multivessel coronary art vamsi disease, pericarditis, obesity, chronic obstructive pulmo nary disease, greater than 40 pack-year history of smoking, ca rdiac arrhythmias, intra-aortic balloon pump for cardi ogenic shock, diabetes, unstable angina, congestive heart fail ure, testicular cancer, status post orchiectomy, renal insuffici ency, thrombocytopenia, platelet dysfunction secondary to recent Plavix use. POSTOPERATIVE DIAGNOSES: Multivessel coronary ar ismael disease, pericarditis, obesity, chronic obstructive pulmo nary disease, greater than 40 pack-year history of smoking, ca rdiac arrhythmias, intra-aortic balloon pump for cardi ogenic shock, diabetes, unstable angina, congestive heart fail ure, testicular cancer, status post orchiectomy, renal insuffici ency, thrombocytopenia, platelet dysfunction secondary to recent Plavix use. FELLOW: Fabricio Patterson MD SLAG PRODUCTION WORKER: Yanick. OPERATIVE PROCEDURE: Median sternotomy, left int ernal mammary artery takedown, left lower extremity endoscopic vein harvest, left internal mammary artery to left anterior de scending artery bypass, reverse saphenous vein graft to obtuse m arginal 1 bypass. FINDINGS: Acute infarction of the left OM territ ory, was very fragile and thin tissue. Good RCA target, good L AD target and a good flow through both conduits at the end of the procedure. Good function at the end of the procedure. Peric arditis, pericardial adhesions. OPERATIVE DETAILS: Mr. Roach was identified in the intensive care unit. He was transported to the o perating room, placed on the operating table in supine position . All films were available. He was prepped and draped in the usual and sterile fashion. We began with a median sternotomy, left internal mammary artery takedown at the same time as the left lower extremity endoscopic vein harvest. We then gave full-dose heparin and divided the mammary artery distally in the chest wall. We had good flow through it. We then exami jaclyn our conduit to make sure that we had taken plenty of conduit for what we needed. We then opened the pericardium w ith adhesions and evidence of pericarditis. We then cannulated the ascending aorta after giving full-dose of heparin. We jacques ulated the right atrium and the coronary sinus. We initiate d cardiopulmonary bypass. We placed antegrade card ioplegia line. We crossclamped the ascending aorta and deliver ed a dose of antegrade cardioplegia, followed by retrograde. We had a good arrest. We used the temperature probe to monitor myocardial temperature. We made a small U-shaped incision i n the left pericardium for the passage of the left mammary artery to the LAD. We positioned the heart for the 1st anastom osis, which was the distal RCA. We dissected this area out, which was the largest segment of the right system. We made a s mall arteriotomy. We probed it distally. We had excel lent passage of the probe distally. We sewed a reverse saphen ous vein graft in a beveled fashion using a running 7-0 Prolene suture. We then secured hemostasis. We gave cardioplegia th rough the right side. We gave a retrograde cardioplegia. W e then positioned the heart for the next anastomosis, w hich was the OM. This territory was densely ischemic and infa rcted, so we did not want to dissect out this vessel. Instead , we turned our attention to the LAD, we made a small arteri otomy in the mid LAD. We sewed the beveled left internal mamm amanda artery using a running 7-0 Prolene suture. We probed th e lumens proximally distally to ensure that they were not narrowed as well as the mammary itself. We then got hemostas is. Gave another dose of cardioplegia and positioned the heart for the proximal anastomosis. We made a proximal aortoto my and sewed the reverse saphenous vein graft proximally with a running 6-0 Prolene suture. We delivered a dose of hotshot c ardioplegia retrograde, followed by antegrade. We released t he cross-clamp. We went through several rounds of h emostasis. We gradually weaned off cardiopulmonary bypass over 20-minute period of time to allow for gradual reperfusion. We packed the chest and went through additional rounds of hemo stasis. The patient had been on Plavix before. We gave some platelets and FFP to counteract this. We were happy with the h emostasis. All cannulas have been removed. We placed a medi astinal pericardial drain, pacing wires, bilateral pleur al chest tubes, and closed with multiple interrupted stainless s dae wires, followed by double-layer#1 Vicryl, 0 Vicryl, and a 3-0 Monocryl for the skin. GL/MODL /[id number] 2019-03-24 08:45:00-00:00 [id number] [place] [address] PATIENT NAME: TREASURE ROACH ADMIT DATE : 03/24/19 ACCOUNT NO: [id number] ROOM NO: AGE: 53 REPORT TYPE: OPERATIVE REPORT SEX: M ADMITTING PHYSICIAN: ATTENDING PHYSICIAN:Mauro Patel MD OPERATION DATE: 03/24/2019 PREOPERATIVE DIAGNOSES: 1. Left shoulder rotator cuff tendon tear. 2. Stage III impingement, left shoulder. 3. Acromioclavicular arthritis, left shoulder. POSTOPERATIVE DIAGNOSES: 1. A 2-cm tear of supraspinatus tendon, left gail ulder, M75.122. 2. Stage III impingement, left shoulder, M75.42. 3. Acromioclavicular arthritis, left shoulder, M 19.012. PROCEDURE PERFORMED: 1. Left shoulder diagnostic arthroscopy with an arthroscopic rotator cuff tendon repair, 87549. 2. Arthroscopic subacromial decompression, 46859 . 3. Arthroscopic distal clavicle resection, 69960 . ANESTHESIA: General. ESTIMATED BLOOD LOSS: None. SURGEON: Mauro Patel MD SOUVENIR AND NOVELTY MAKER: KARIME Briones CLINICAL INDICATIONS: Mr. Roach is a 53-yea r-old male from [place], [place], who is having progressive and severe pain involving his left shoulder. Pain awakens him at night. His clinical as well as radiographic evaluation demonstrated a full-thicknes s tear of the rotator cuff along with significant AC arthritis. He is admitted for arthroscopy, decom pression, distal clavicle resection, and cuff repair. PROCEDURE IN DETAIL: 1. LEFT SHOULDER DIAGNOSTIC ARTHROSCOPY WITH AN ARTHROSCOPIC ROTATOR CUFF TENDON REPAIR, 98516. 2. ARTHROSCOPIC SUBACROMIAL DECOMPRESSION, 88368 . 3. ARTHROSCOPIC DISTAL CLAVICLE RESECTION, 53342 . Mr. Roach was brought t o the operative suite, at which time, he was placed in supine position on the OR table. Rout ine monitors were established. General anesthesia was delivered. After satisfactory ind uction of general anesthesia, PATIENT NAME: TREASURE ROACH the patient was placed in the Semi-Fowle r position per Ms. Arshad and the left shoulder was appropriately position per Ms. Wes campos. The left shoulder was circumferentially prepped and draped in usual st erile fashion per Ms. Arshad. Posterior arthroscopic portal was established. S ystematic glenohumeral evaluation was performed. Gl enohumeral evaluation revealed no labral pathology. Bicipital tendon was intact. Axillary recess wa s unremarkable. Subscapularis tendon was intact. A full-thickness tear of the anterior border of the supraspinatus tendon was noted. The arthroscope was placed in subacromial space, 2 cm tear of the ante rior aspect of the supraspinatus tendon was present. A cuff footprint was debrid ed to bleeding cancellous bone utilizing a synovial resector and two #2 sutures were placed in leading border of the cuff. The cuff was then anatomically repaired utilizing a Stryk er anchor. At this time, the CA ligament was releas ed with electrocautery and an anterior inferior acromioplasty was performed with a 5.0 bur. The distal 10 mm of clavicle were then resected. A complete bursectomy was then performed. Thorough lavage was performed to subacromial spa ce with lactated Ringer solution. Arthroscopic jonathan ls were closed respectively with a 4-0 nylon suture per Ms. Arshad. Sterile dressing was applied by Ms. Arshad. The patient was then extubated and taken to the recovery room aw marilyn and alert without any anesthetic or operative complications. At the en d of the case, sponge and needle counts were correct x2. During the procedure, Ms. Arshad was invaluable in positioning the patient as well as in preparation and draping of extremity. She is also responsible for providing surgical exposure during the procedure which greatly expedited the performance of the procedure as well as protection of neurovascular structures. In addition, she is responsible for suture manag ement during the arthroscopic repair. Finally, she was responsible for closure of the postoperative incision and application of postoperative dressing. Dictated By: Mauro Patel MD WT: OP:MALLIKA/FLORESITA/MAXIMUS Conf#: [id number]/DID#: [id number] Authenticated by Mauro Patel MD On 09:59:52 AM at 1000 PATIENT NAME: TREASURE ROACH 2019-03-24 08:29:00-00:00 [facility] ([facility]) Brief Op Note REPORT#:[id number] REPORT STATUS: Signed DATE:03/24/19 TIME: 828 PATIENT: TREASURE ROACH UNIT #: [id number] ROOM/BED: : 63 AGE: 53 SEX: M ATTEND: Tommy Patel MD ADM AUTHOR: Mauro Patel MD * ALL edits or amendments must be made on the el ectronic/computer document * Op/Inv Proc Note - Brief Pre-procedure diagnosis: left shoulder cuff tear , impingement and a/c oa Post-procedure diagnosis: same as pre procedure dx Procedures performed: left shoulder arthroscopic cuff repair , decompr ession and disatl clavicle resection Primary Surgeon: dr patel Radio Interference Supervisor(s): mikaela castorena Findings: Portions of this note were transcribed by []. I, [] personally performed the history, physical exam and medical decis ion making; and confirmed the accuracy of the information in the transcribed note. Complications: none Estimated blood loss in ml's: none Specimens removed/altered: none Portions of this section were scribed by Deniz Castorena on 03/24/19 at 0829 Electronically Signed by Mauro Paetl MD on at 1552 [facility] #:[id number] END OF REPORT 2019-03-23 08:39:00-00:00 [id number] [facility] [address] [address] PATIENT NAME: TREASURE ROACH ADMIT DATE: 03/24/19 ACCOUNT NO: [id number] ROOM NO: AGE: 53 REPORT TYPE: HISTORY AND PHYSICAL SEX: M ADMITTING PHYSICIAN: ATTENDING PHYSICIAN:Mauro Patel MD ADMISSION DATE: 03/24/2019 ADMITTING DIAGNOSIS: Left shoulder rotator cuff tendon tear with stage III impingement and acromioclavicular arthritis. HISTORY OF PRESENT ILLNESS: Mr. Roach is a 53-year-old zjocf-zrzm-itkqzpad male, who has been having progressive pain in hi s left shoulder. Pain awakens him at night. He has severe difficulty with over head activity. His pain has persisted despite nonoperative treatment . His clinical as well as radiographic evaluation revealed a tear of the rotator cuff t endon along with stage III impingement and AC arthropathy. He is admitted f or diagnostic arthroscopy, decompression, distal clavicle resection, and cu ff repair. PAST MEDICAL HISTORY: Notabl e for anemia, carcinoma, diabetes, hypertension, as well as sleep apnea. PAST SURGICAL HISTORY: Previous surgeries includ e an appendectomy, knee arthroscopy, and orchiectomy. FAMILY HISTORY: Notable for arthritis as well as carcinoma. SOCIAL HISTORY: He is . He is a 20-pack-y ear smoker. He is employed as a highway maintenance crew worker. MEDICATIONS: Consist of glimepiride, metformin, losartan, omeprazole, montelukast, and baby aspirin. ALLERGIES: NO ALLERGIES ARE LISTED. REVIEW OF SYSTEMS: Negative. PHYSICAL EXAMINATION: VITAL SIGNS: Reveals him to be 5 feet 9 inches t all, 94 kilograms. HEENT: Within normal limits. CARDIAC: Regular rate and rhythm. No murmur. CHEST: Clear. ABDOMEN: Benign. BACK: No CVA tenderness. MUSCULOSKELETAL: Cervical spine is unremarkable. Examination of the left shoulder reveals a painful arc of motion. He has active elevation to 140 degrees. He has full passive motion. He has a po sitive crossover test. He has weakness with both abduction as well as external rotation. His distal PATIENT NAME: TREASURE ROACH neurovascular status is intact. DIAGNOSTIC DATA: Radiographic evaluation including a recent MRI demonstrates a full-thickness tear involvin g the rotator cuff tendon along with significant AC arthritis. ASSESSMENT: Left shoulder pa in secondary to an ongoing rotator cuff tendon tear with stage III impingement and acromioclavicular arthritis. SURGICAL PLAN: Arthroscopy, decompression, dista l clavicle resection, cuff repair. I have gone over at length with Mr. Gal franklin the associated risks involved with this procedure . He understands these include, but are not limited to bleeding, infection, neur ovascular damage, failure of repair, recurrent tear, implant failure, need for im plant removal, loss of motion, persistent pain, need for further operative intervention along with co mplications secondary to anesthesia. Mr. Roach further understands t hat there are absolutely no guarantees or warranties that he will be pain fr ee after the procedure. He accepts these risks and gives his informed conse nt to proceed. Dictated By: Mauro Patel MD WT: HP:MALLIKA/FLORESITA/MAXIMUS Conf#: [id number]/DID#: [id number] Authenticated by Mauro Patel MD On 9 09:59:49 AM at 1000 PATIENT NAME: TREASURE ROACH 2018-12-28 16:00:00-00:00 [id number] [address] PATIENT NAME: TREASURE ROACH ADMIT DATE: 12/09/18 ACCOUNT NO: [id number] ROOM NO: AGE: 53 REPORT TYPE: OPERATIVE REPORT SEX: M ADMITTING PHYSICIAN: ATTENDING PHYSICIAN:Mauro Patel MD OPERATION DATE: 12/09/2018 ADDENDUM TO THE OPERATIVE REPORT: Confirmation #[id number], DID #[id number]. SURGEON: Mauro Patel MD PROCEDURE IN DETAIL: Rotator cuff footprint was debrided to bleeding cancellous bone. Four #2 sutures were placed in the leading aspec t of the cuff. The cuff was then anatomically repaired utilizing 2 [place] s uture anchors. Anatomic and stable repair of the cuff was achieved. The lateral border of the clavicle was visualize d, and a 5.0 bur was used to resect the lateral 10 mm of the clavicle. The subacromial space was th en thoroughly lavaged with lactated Ringer solution. Arthroscopic portals were closed respec tively with a 4-0 nylon suture per Edmar Taverasbrunokayla. A sterile dressing was applied by Abdoul Castorena. The patient was then extubated, taken to recovery room awake and alert, without any anesthetic or operative complications. At the en d of the case, sponge and needle counts were correct x2. During the procedure, Mr. Maggie joe was invaluable in positioning the patient as well as in preparation an d draping of the extremity. He was also responsible for providing surgical exposure in order to expedite the procedure in addition to closure of the postoperative incisions and ap plication of postoperative dressing. Dictated By: Mauro Patel MD WT: OP:MALLIKA/FLORESITA/MAXIMUS Conf#: [id number]/DID#: [id number] Authenticated by Mauro Patel MD On 9 10:45:23 AM PATIENT NAME: VINNIE ROACHKATARINA Electronically Signed by Mauro Patel MD on 0 12/30/18 at 1045 PATIENT NAME: SHAANTREASURE 2018-12-09 08:44:00-00:00 [id number] [address] PATIENT NAME: TREASURE ROACH ADMIT DATE: 12/09/18 ACCOUNT NO: [id number] ROOM NO: AGE: 53 REPORT TYPE: OPERATIVE REPORT SEX: M ADMITTING PHYSICIAN: ATTENDING PHYSICIAN:Mauro Patel MD OPERATION DATE: 12/09/2018 PREOPERATIVE DIAGNOSES: Right shoulder r otator cuff tendon tear with stage III arthritis with stage III impingement and acromio clavicular arthritis. POSTOPERATIVE DIAGNOSES: 1. A 3-cm tear of supraspinatus tendon with retr action, right shoulder, M75.121. 2. Right shoulder stage III impingement, M75.41. 3. Right shoulder acromioclavicular arthritis, M 19.011. PROCEDURES PERFORMED: 1. Right shoulder diagnostic arthroscopy with an arthroscopic rotator cuff tendon repair, 49316. 2. Arthroscopic subacromial decompression, 37783 . 3. Arthroscopic distal clavicle resection, 76260 . ESTIMATED BLOOD LOSS: Less than 5 mL. SURGEON: Mauro Patel MD SOUVENIR AND NOVELTY MAKER: JAYDON Hightower, LSA ANESTHESIA: General. CLINICAL INDICATIONS: Mr. Roach is a 53-year-old olunh-jxgr-zboixcfb male from [place], [place], who is having progressive pain, decreased motion, and weakness involving his right shoulder. His sympt oms are occurring with daily activities. His symptoms have been refractory to extensive nonoperative intervention. He is admitted for diagnos tic arthroscopy, decompression, distal clavicle resection, arthroscopic cuff repair. PROCEDURE IN DETAIL: 1. RIGHT SHOULDER DIAGNOSTIC ARTHROSCOPY WITH AN ARTHROSCOPIC ROTATOR CUFF TENDON REPAIR, 76373. 2. ARTHROSCOPIC SUBACROMIAL DECOMPRESSION, 68790 . 3. ARTHROSCOPIC DISTAL CLAVICLE RESECTION, 27110 . Mr. Roach was brought t o the operative suite, at which time, he was placed in supine position on the OR table. Rout ine monitors were established. General anesthesia was delivered. After satisfactory ind uction of general anesthesia, the patient was placed in a Semi-Guzman position per Mr. Castorena and the PATIENT NAME: TREASURE ROACH right shoulder was positioned per Maggie joe. The right shoulder was then circumferentially prepped and draped in usual st erile fashion per Mr. Castorena. Posterior arthroscopic portal was e stablished. Systematic arthroscopic evaluation was performed. Glenohume ral evaluation revealed no labral pathology. Bicipital tendon was intact. S ubscapularis tendon was intact. Axillary recess unremarkable. Extensive retracted tear of the supraspinatus tendon was present. The arthroscop e was then placed in subacromial space, type 2 acromion was noted. Th pegugh bursectomy was performed. Anteroinferior acromioplasty was perf ormed. The CA ligament was left intact. The rotator cuff footprint w as debrided to bleeding cancellous bone and four #2 sutures were placed in the leading aspect of the cuff. The cuff was mobilized via electrocautery dissection. DICTATION ENDS HERE. Dictated By: Mauro Patel MD WT: OP:MALLIKA/FLORESITA/MAXIMUS Conf#: [id number]/DID#: [id number] Authenticated by Mauro Patel MD On 9 04:05:32 PM Electronically Signed by Mauro Patel MD on 0 12/09/18 at 1606 PATIENT NAME: TREASURE ROACH 2018-12-09 08:37:00-00:00 [facility] ([facility]) Brief Op Note REPORT#:[id number] REPORT STATUS: Signed DATE:12/09/18 TIME: 836 PATIENT: TREASURE ROACH UNIT #: [id number] ROOM/BED: : 63 AGE: 53 SEX: M ATTEND: Tommy Patel MD ADM AUTHOR: Mauro Patel MD * ALL edits or amendments must be made on the el Auto I.D.ronic/computer document * Op/Inv Proc Note - Brief Pre-procedure diagnosis: RT SHOULDER CUFF TEAR , IMPINGEMENT AND AC OA Post-procedure diagnosis: same as pre procedure dx Procedures performed: RT SHOULDER ARTHROSCOPIC CUFF REPAI R,ECOMPRESSI ON AND DISTAL CLAVICLE RESECTION Primary Surgeon: DR PATEL Radio Interference Supervisor(s): DENIZ MCGEE LSA Findings: Portions of this note were t ranscribed by a Scribe. I, personally performed the history, physical exam and medical decis ion making; and confirmed the accuracy of the information in the transcribed note. Complications: none Estimated blood loss in ml's: none Specimens removed/altered: none Portions of this section were scribed by Deniz Castorena on 12/09/18 at 0837 Electronically Signed by Mauro aPtel MD on at 0955 RPT #:[id number] END OF REPORT 2018-12-07 19:06:00-00:00 [id number] [facility] [place] [address] PATIENT NAME: TREASURE ROACH ADMIT DATE: ACCOUNT NO: [id number] ROOM NO: AGE: 53 REPORT TYPE: HISTORY AND PHYSICAL SEX: M ADMITTING PHYSICIAN: ATTENDING PHYSICIAN:Mauro Patel MD ADMISSION DATE: 12/09/2018 ADMITTING DIAGNOSIS: Right shoulder rotator cuff tendon tear with acromioclavicular arthritis. HISTORY OF PRESENT ILLNESS: Mr. Roach is a 53-year-old right-hand dominant male, who is a highway maintenance crew worker, who has bee n having progressive pain involving his right shoulder. The pain awakens h im at night. The pain is occurring with daily activities. His pain has be en refractory to extensive nonoperative intervention. His clinical as well as radiographic evaluation revealed a full-thickness te ar of the rotator cuff tendon along with significant AC arthropathy. Due to his severe and pr ogressive pain and lack of response to nonoperative treatment, Mr. Roach i s admitted for diagnostic arthroscopy, decompression, distal clavicle resection, and cu ff repair. PAST MEDICAL HISTORY: Anemia , carcinoma, diabetes, hypertension, hiatal hernia, and sleep apnea. PAST SURGICAL HISTORY: Previous surgeries includ e appendectomy, knee arthroscopy, orchiectomy. FAMILY HISTORY: Arthritis, carcinoma. SOCIAL HISTORY: He is . He is a 45-pack-y ear smoker. He does not drink. MEDICATIONS: Consist of glimepiride, metformin, montelukast, and losartan. ALLERGIES: NO ALLERGIES ARE LISTED. REVIEW OF SYSTEMS: Negative. PHYSICAL EXAMINATION: VITAL SIGNS: He is 5 feet 9 inches tall and weig hs 93.6 kilograms. HEENT: Within normal limits. CARDIAC: Regular rate and rhythm. No murmur. CHEST: Clear. ABDOMEN: Benign. BACK: No CVA tenderness. PERTINENT ORTHOPEDIC EVALUAT ION: Examination of the right shoulder demonstrates limited active elevation. Full passive motion is present. Weakness of both abduction as well as external rotation is noted. Positive crossover test. PATIENT NAME: TREASURE ROACH Negative Speed's test. Negative Spurling sign. DIAGNOSTIC STUDIES: Radiographic evaluation demo nstrates a type 2 acromion, moderate AC arthritis. MRI evaluation of the rig ht shoulder demonstrates significant AC arthropathy w ith full-thickness tear involving the rotator cuff. ASSESSMENT: Symptomatic rotator cuff tendon tear , right shoulder with associated acromioclavicular arthritis. SURGICAL PLAN: Arthroscopy, decompressio n, distal clavicle resection, and cuff repair. I have gone over at length with Mr. Gal franklin the associated risks involved with this procedure. He understands the se include but not limited to bleeding, infection, neurova scular damage, persistent pain, loss of motion, need for further operative intervention, fail ure of repair, recurrent tear, implant failure, implant removal along with comp lications secondary to anesthesia. Mr. Roach further understands that there are no guarantees or warranties he will be pain free after the procedure. He accept s these risks and gives his informed consent to proceed. Dictated By: Mauro Patel MD WT: HP:MALLIKA/FLORESITA/MAXIMUS Conf#: [id number]/DID#: [id number] Authenticated by Mauro Patel MD On 05:24:57 PM Electronically Signed by Mauro Patel MD on 0 12/08/18 at 1826 PATIENT NAME: TREASURE ROACH
[2022-10-12] MEDS ORDERED: ONDANSETRON 4 MG/2 ML VIAL ONE ×2 (00:18→04:42)
[2022-10-12] MEDS ORDERED: MORPHINE 4 MG/ML SYR ONE ×2 (00:18→04:42)
[2022-10-12 00:23] LABS: Absolute Lymphocytes (CBC) 1.7 K/uL (0.7-4.9); Hematocrit 42.6 % (39.6-49.0); Lymphocytes % 17.3 % (15.3-44.8); MCV 79.2 fL (80-100); MPV 7.6 fL (7.6-11.3); RBC Red Blood Cell Count 5.38 M/uL (4.33-5.43)
[2022-10-12 00:43] LABS: Protime INR 0.95
[2022-10-12 00:45] LABS: ALT/SGPT 20 U/L (16-61); AST/SGOT 13 U/L (15-37); Albumin 3.6 g/dL (3.4-5.0); Alkaline Phosphatase 85 U/L (45-117); BUN Blood Urea Nitrogen 17 mg/dL (7-18); Bicarbonate 27 mEq/L (21-32); Bilirubin Total 0.3 mg/dL (0.2-1.0); Glomerular Filtration Rate 56 ml/min (=/>90); Glucose Level 199 mg/dL (74-106); Magnesium 2.4 mg/dL (1.6-2.4); NT PRO-BNP 243 pg/mL (<125); Protein, Total 7.7 g/dL (6.4-8.2); Sodium Level 138 mEq/L (136-145); Troponin High Sensitivity 16.6 pg/mL (<58.9)
[2022-10-12 00:54] LABS: Bilirubin Direct < 0.1 mg/dL (0-0.2); Bilirubin Indirect, Calculated ND mg/dL (0.2-0.8)
--- NOTE | 2022-10-12 04:31 | EDPHYS ---
Physician Documentation [facility] Name: Arnold Roach Age: 57 yrs Sex: Male : 1965 Arrival Date: 10/11/2022 Time: 23:30 Bed 20 Private MD: ED Physician Jeremiah Randall HPI: 10/11 23:51 This 57 yrs old Male presents to ER via Unassigned with complaints of Chest sp4 Tightness, Shortness Of Breath. 10/12 04:25 History of 57-year-old male with extensive past medical history of congestive heart sp4 failure, CABG double bypass, iliac arrest during cardiac surgery. History of diabetes mellitus, hypertension, hyperlipidemia, testicular cancer, history of sigmoid diverticulitis, history of pacemaker presents today with EMS for worsening dyspnea, orthopnea, chest pressure. Patient's welfare visitor is Dr. Quintin Loo [facility]. Patient states he is on Plavix and Eliquis for associated cardiac conditions. Patient denied bilateral lower extremity swelling. Reports significant orthopnea. . Historical: - Home Meds: 00:30 losartan Oral [Active]; sitagliptin-metformin Oral [Active]; rv - PMHx: 00:30 BPH; Diabetes - NIDDM; Hypertension; rv - Immunization history:: Adult Immunizations up to date. - Social history:: Smoking status: Patient denies any tobacco usage or history of. - Family history:: not pertinent. ROS: 04:16 Constitutional: Negative for fever, chills, and weight loss, Eyes: Negative for injury, sp4 pain, redness, and discharge, ENT: Negative for injury, pain, and discharge, Neck: Negative for injury, pain, and swelling, Cardiovascular: Negative for palpitations, and edema, positive chest pain Respiratory: Negative for shortness of breath, cough, wheezing, and pleuritic chest pain, Abdomen/GI: Negative for abdominal pain, nausea, vomiting, diarrhea, and constipation, Back: Negative for injury and pain, : Negative for injury, bleeding, discharge, and swelling, MS/Extremity: Negative for injury and deformity, Skin: Negative for injury, rash, and discoloration, Neuro: Negative for headache, weakness, numbness, tingling, and seizure, Psych: Negative for depression, anxiety, Allergy/Immunology: Negative for hives, rash, and allergies Endocrine: Negative for neck swelling, polydipsia, polyuria, polyphagia, and weight changes Hematologic/Lymphatic: Negative for swollen nodes, abnormal bleeding, and unusual bruising Exam: 04:16 Constitutional: This is a well developed, well nourished patient who is awake, alert, sp4 and in no acute distress. Head/Face: Normocephalic, atraumatic. Eyes: Pupils equal round and reactive to light, extra-ocular motions intact. Lids and lashes normal. Conjunctiva and sclera are not injected. Cornea within normal limits. Periorbital areas with no swelling, redness, or edema. ENT: Nares patent. No nasal discharge, no septal abnormalities noted. Tympanic membranes are normal and external auditory canals are clear. Oropharynx with no redness, swelling, or masses, exudates, or evidence of obstruction, uvula midline. Mucous membranes moist. Neck: Trachea midline, no thyromegaly or masses palpated, and no cervical lymphadenopathy. Supple, full range of motion without nuchal rigidity, or vertebral point tenderness. No Meningismus. Chest/axilla: Normal chest wall appearance and motion. Nontender with no deformity. No lesions are appreciated. Cardiovascular: Regular rate and rhythm with a normal S1 and S2. No gallops, murmurs, or rubs. Normal PMI, no JVD. No pulse deficits. Respiratory: Lungs have equal breath sounds bilaterally, clear to auscultation and percussion. No rales, rhonchi or wheezes noted. No increased work of breathing, no retractions or nasal flaring. Abdomen/GI: Soft, non-tender, with normal bowel sounds. No distension or tympany. No guarding or rebound. No evidence of tenderness throughout. Back: No spinal tenderness. No costovertebral tenderness. Male : Normal genitalia with no discharge or lesions. Skin: Warm, dry with normal turgor. Normal color with no rashes, no lesions, and no evidence of cellulitis. MS/ Extremity: Pulses equal, no cyanosis. Neurovascular intact. Full, normal range of motion. Neuro: Awake and alert, GCS 15, oriented to person, place, time, and situation. Cranial nerves II-XII grossly intact. Motor strength 5/5 in all extremities. Sensory grossly intact. Psych: Awake, alert, with orientation to person, place and time. Behavior, mood, and affect are within normal limits 04:16 ECG was reviewed by the Attending Physician. There is normal sinus rhythm at the rate sp4 of 63, no ST elevation or depression. No ectopy. Overall unremarkable EKG Vital Signs: 00:27 BP 122 / 75; Pulse 64; Resp 16; Temp 98.1; Pulse Ox 96% on R/A; Weight 95.25 kg; Height rv 5 ft. 8 in. ; Pain 8/10; 01:00 BP 115 / 71; Pulse 64; Resp 18; Pulse Ox 91% on R/A; jb4 02:00 BP 116 / 75; Pulse 67; Resp 16; Pulse Ox 94% on R/A; jb4 03:09 BP 124 / 82; Pulse 60; Resp 16; Pulse Ox 98% ; rv 04:20 BP 115 / 86; Pulse 66; Resp 16; Pulse Ox 97% on R/A; jb4 00:27 Body Mass Index 31.93 (95.25 kg, 172.72 cm) rv 00:27 Pain Scale: Adult rv Mady Coma Score: 03:09 Eye Response: spontaneous(4). Motor Response: obeys commands(6). Verbal Response: rv oriented(5). Total: 15. MDM: 10/11 23:51 Patient medically screened. sp4 10/12 04:25 Differential diagnosis: abnormal EKG, acute myocardial infarction, acute pericarditis, sp4 anxiety, coronary artery disease chest wall pain, congestive heart failure cholecystitis, esophagitis, gastritis. HEART Score: History: Highly Suspicious (2), ECG: Non specific repolarization disturbance / LBTB / PM (1), Age: > 45 and < 65 years (1), Risk Factors: > or = 3 Risk factors for atherosclerotic disease (2), Troponin: < or = 1 x Normal Limit (0), Total Score = 6. The patient was not given aspirin in the Emergency Department. Not indicated due to patient's past medical history. Data reviewed: vital signs, nurses notes, EMS record, old medical records, lab test result(s), cardiac enzymes, CBC, electrolytes, hepatic panel, EKG, radiologic studies, plain films. ED course: EKG does not reveal acute ST elevation or depression. Patient is normal sinus rhythm. Chest x-ray revealed history of prior sternotomy. No pulmonary venous congestion. No pulmonary edema. No acute cardiopulmonary disease. Troponin today is normal. Patient has too many risk factors for discharge home safely. At this time we will pursue admission for rule out ACS and cardiology assessment in the morning. . 05:14 ED course: Repeat troponin is negative. Patient at this time wishes to go home instead sp4 of being admitted.. ED course: Recommend follow-up with welfare visitor Dr. Loo at [facility]. 10/11 23:51 Order name: Basic Metabolic Panel; Complete Time: :48 [facility] 10/11 23:51 Order name: CBC with Diff; Complete Time: 05: [facility] 10/11 23:51 Order name: LFT's; Complete Time: : [facility] 10/11 23:51 Order name: Magnesium; Complete Time: : [facility] 10/11 23:51 Order name: NT PRO-BNP; Complete Time: :48 [facility] 10/11 23:51 Order name: PT-INR; Complete Time: :48 [facility] 10/11 23:51 Order name: Troponin HS; Complete Time: :48 [facility] 10/12 04:20 Order name: Troponin High Sensitivity; Complete Time: 05: [facility] 10/12 04:49 Order name: CBC Smear Scan; Complete Time: 05:09 [facility] 10/11 23:51 Order name: XRAY Chest (1 view) [facility] 10/11 23:51 Order name: EKG; Complete Time: 23:52 [facility] 10/11 23:51 Order name: Cardiac monitoring; Complete Time: 00: [facility] 10/11 23:51 Order name: EKG - Nurse/Tech; Complete Time: 00: [facility] 10/11 23:51 Order name: IV Saline Lock; Complete Time: 00: [facility] 10/11 23:51 Order name: Labs collected and sent; Complete Time: 00: [facility] 10/11 23:51 Order name: O2 Per Protocol; Complete Time: 00: [facility] 10/11 23:51 Order name: O2 Sat Monitoring; Complete Time: 00: [facility] 10/12 00:01 Order name: EKG - Nurse/Tech: Repeat EKG please; Complete Time: 00:22 EC:16 Rate is 63 beats/min. Rhythm is regular, Normal Sinus Rhythm. QRS [place] is Normal. [place] sp4 interval is normal. QRS interval is normal. QT interval is normal. T waves are Normal. No ST changes noted. Clinical impression: No evidence of ischemia. Interpreted by me. Administered Medications: 00:22 Drug: morphine IVP or IV 4 mg Route: IVP; Infused Over: 4 mins; Site: left antecubital; rv 00:22 Drug: Ondansetron IVP 4 mg Route: IVP; Site: left antecubital; rv 04:49 Drug: morphine IVP or IV 4 mg Route: IVP; Infused Over: 4 mins; Site: left antecubital; jb4 04:49 Drug: Ondansetron IVP 4 mg Route: IVP; Site: left antecubital; jb4 Disposition Summary: 10/12/22 05:16 Discharge Ordered Location: Home(10/12/22 05:16) sp4 Problem: new(10/12/22 05:16) sp4 Symptoms: have improved(10/12/22 05:16) sp4 Condition: Stable(10/12/22 05:16) sp4 Diagnosis - Dyspnea sp4 - Orthopnea, dyspnea on exertion, chest pressure sp4 Followup: sp4 - With: Private Physician - When: 2 - 3 days - Reason: Recheck today's complaints Discharge Instructions: - Discharge Summary Sheet sp4 - Shortness of Breath, Adult, [id number] sp4 Signatures: Dispatcher [employer] EDMS Isaak Castro RN RN jb4 Harvey Castañeda RN RN Jeremiah Cabezas MD MD sp4 Corrections: (The following items were deleted from the chart) 05:14 04:30 Observation sp4 sp4 05:14 04:30 Tramaine Frias sp4 sp4 05:14 04:30 Telemetry/MedSurg (observation) sp4 sp4 05:14 04:30 Stable sp4 sp4 05:14 04:30 new sp4 sp4 05:14 04:30 have improved sp4 sp4 05:14 04:30 Standard sp4 sp4 05:14 04:30 sp4 sp4 05:14 04:30 Angina pectoris, unspecified sp4 sp4 05:14 04:30 Orthopnea sp4 sp4 05:14 04:30 Unstable angina, dyspnea on exertion, sp4 sp4
--- NOTE | 2022-10-12 04:31 | ER ---
Nurse's Notes [facility] Name: Arnold Roach Age: 57 yrs Sex: Male : 1965 Arrival Date: 10/11/2022 Time: 23:30 Bed 20 Private MD: Diagnosis: Dyspnea;Orthopnea, dyspnea on exertion, chest pressure Presentation: 10/12 00:27 Chief complaint: Patient states: CP and SOB last night. does not radiate. describing it rv as tightness. Coronavirus screen: Vaccine status: Patient reports having had a previously documented Covid positive illness. Ebola Screen: Patient negative for fever greater than or equal to 101.5 degrees Fahrenheit, and additional compatible Ebola Virus Disease symptoms Patient denies exposure to infectious person. Patient denies travel to an Ebola-affected area in the 21 days before illness onset. Initial Sepsis Screen: Does the patient meet any 2 criteria? RR > 20 per min. Does the patient have a suspected source of infection? No. Patient's initial sepsis screen is negative. Risk Assessment: Do you want to hurt yourself or someone else? Patient reports no desire to harm self or others. Onset of symptoms was October 11, 2022 at 19:00. 00:27 Method Of Arrival: Ambulatory rv 00:27 Acuity: JOJO 3 rv Historical: - Home Meds: 00:30 losartan Oral [Active]; sitagliptin-metformin Oral [Active]; rv - PMHx: 00:30 BPH; Diabetes - NIDDM; Hypertension; rv - Immunization history:: Adult Immunizations up to date. - Social history:: Smoking status: Patient denies any tobacco usage or history of. - Family history:: not pertinent. Screenin:25 [facility] ED Fall Risk Assessment (Adult) History of falling in the last 3 months, rv including since admission No falls in past 3 months (0 pts). Abuse screen: Denies threats or abuse. Denies injuries from another. Nutritional screening: No deficits noted. Tuberculosis screening: No symptoms or risk factors identified. Assessment: 00:22 General: Appears in no apparent distress. uncomfortable, Behavior is calm, cooperative. rv Pain: Complains of pain in chest Pain does not radiate. Pain began suddenly. Neuro: Level of Consciousness is awake, alert, obeys commands, Oriented to person, place, time, situation. Cardiovascular: Capillary refill < 3 seconds Rhythm is regular. Respiratory: Airway is patent Respiratory pattern is regular, symmetrical. GI: No signs and/or symptoms were reported involving the gastrointestinal system. : No deficits noted. No signs and/or symptoms were reported regarding the genitourinary system. 01:30 Reassessment: Patient appears in no apparent distress at this time. Patient and/or jb4 family updated on plan of care and expected duration. Pain level reassessed. Patient is alert, oriented x 3, equal unlabored respirations, skin warm/dry/pink. 02:26 Reassessment: Patient appears in no apparent distress at this time. Patient and/or jb4 family updated on plan of care and expected duration. Pain level reassessed. Patient is alert, oriented x 3, equal unlabored respirations, skin warm/dry/pink. 03:30 Reassessment: Patient appears in no apparent distress at this time. Patient and/or jb4 family updated on plan of care and expected duration. Pain level reassessed. Patient is alert, oriented x 3, equal unlabored respirations, skin warm/dry/pink. 04:20 Reassessment: Patient appears in no apparent distress at this time. Patient and/or jb4 family updated on plan of care and expected duration. Pain level reassessed. Patient is alert, oriented x 3, equal unlabored respirations, skin warm/dry/pink. 05:22 Reassessment: Patient appears in no apparent distress at this time. Patient and/or jb4 family updated on plan of care and expected duration. Pain level reassessed. Patient is alert, oriented x 3, equal unlabored respirations, skin warm/dry/pink. Patient states feeling better. Patient states symptoms have improved. Vital Signs: 00:27 BP 122 / 75; Pulse 64; Resp 16; Temp 98.1; Pulse Ox 96% on R/A; Weight 95.25 kg; Height rv 5 ft. 8 in. ; Pain 8/10; 01:00 BP 115 / 71; Pulse 64; Resp 18; Pulse Ox 91% on R/A; jb4 02:00 BP 116 / 75; Pulse 67; Resp 16; Pulse Ox 94% on R/A; jb4 03:09 BP 124 / 82; Pulse 60; Resp 16; Pulse Ox 98% ; rv 04:20 BP 115 / 86; Pulse 66; Resp 16; Pulse Ox 97% on R/A; jb4 00:27 Body Mass Index 31.93 (95.25 kg, 172.72 cm) rv 00:27 Pain Scale: Adult rv Mady Coma Score: 03:09 Eye Response: spontaneous(4). Motor Response: obeys commands(6). Verbal Response: rv oriented(5). Total: 15. ED Course: 10/11 23:31 Patient arrived in ED. jj6 23:50 Jeremiah Randall MD is Attending Physician. sp4 10/12 00:09 Harvey Castañeda RN is Primary Nurse. rv 00:10 Inserted saline lock: 20 gauge in left antecubital area, using aseptic technique. Blood rv collected. Patient maintains SpO2 saturation greater than 95% on room air. 00:13 XRAY Chest (1 view) In Process Unspecified. EDMS 00:30 Triage completed. rv 00:31 Arm band placed on right wrist. rv 00:31 Patient has correct armband on for positive identification. Client placed on continuous rv cardiac and pulse oximetry monitoring. NIBP monitoring applied. school bus monitor on. 00:32 No provider procedures requiring assistance completed. rv 04:29 Tramaine Frias MD is Hospitalizing Provider. sp4 05:22 IV discontinued, intact, bleeding controlled, No redness/swelling at site. Pressure jb4 dressing applied. Administered Medications: 00:22 Drug: morphine IVP or IV 4 mg Route: IVP; Infused Over: 4 mins; Site: left antecubital; rv 00:22 Drug: Ondansetron IVP 4 mg Route: IVP; Site: left antecubital; rv 04:49 Drug: morphine IVP or IV 4 mg Route: IVP; Infused Over: 4 mins; Site: left antecubital; jb4 04:49 Drug: Ondansetron IVP 4 mg Route: IVP; Site: left antecubital; jb4 Medication: 00:32 VIS not applicable for this client. rv Outcome: 04:30 Decision to Hospitalize by Provider. sp4 05:16 Discharge ordered by . sp4 05:22 Discharged to home ambulatory, with family. jb4 05:22 Condition: stable 05:22 Discharge instructions given to patient, Instructed on discharge instructions, follow up and referral plans. Demonstrated understanding of instructions, follow-up care. 05:23 Patient left the ED. jb4 Signatures: Dispatcher [employer] Isaak Ga RN RN jb4 Harvey Castañeda RN RN Paula [id number] Jeremiah Randall MD MD sp4
[2022-10-12 04:48] LABS: Anisocytosis 1+; Blood Morphology Comment NOTED (NOT SEEN); Platelet Estimate ADEQ; Polychromasia SLIGHT; White Blood Cell Scan OK (OK)
[2022-10-12 05:28] VITALS: TEMP 98.1
[2022-10-12 05:36] VITALS: BP 115/86; O2SAT 97
--- NOTE | 2022-10-13 11:18 | RAD REPORT ---
EXAM DESCRIPTION: RAD - Chest Single View - 10/12/2022 12:05 am CLINICAL HISTORY: 57 years Male, CHEST PAIN TECHNIQUE: 1 view (Single frontal view of the chest) COMPARISON: Prior imaging was not made available. FINDINGS: LINES AND TUBES: Left-sided pacemaker. CARDIOVASCULAR STRUCTURES: Normal heart size. Poststernotomy. No pulmonary venous congestion. LUNGS: No confluent areas of acute consolidation. PLEURA: No layering pleural effusions. No pneumothorax. BONES: No acute osseous abnormality of the thorax. IMPRESSION: 1. No acute cardiopulmonary disease. Electronically signed by: Pankaj Norwood MD 10/12/2022 12:45 AM CDT Due to temporary technical issues with the PACS/Fluency reporting system, reports are being signed by the in house radiologists without review as a courtesy to insure prompt reporting. The interpreting radiologist is fully responsible for the content of the report.
--- NOTE | 2022-10-15 07:16 | EKG ---
Test Date: 2022-10-11 Test Time: 23:41:03 Lead Business Analyst: MEASUREMENT RESULTS: Intervals: Rate: 70 [place]: 176 QRSD: 120 QT: 416 QTc: 449 [place]: P: 79 [place]: 176 QRS: 25 T: 77 INTERPRETIVE STATEMENTS: Normal sinus rhythm Nonspecific T wave abnormality Abnormal ECG Compared to ECG 03/30/2022 10:54:00 T-wave abnormality now present Electronically Signed On 10-15-22 07:07:53 CDT by Agapito Smith
--- NOTE | 2022-10-15 14:42 | EKG ---
Test Date: 2022-10-12 Test Time: 00:18:05 Sheet Rock Installer: MEASUREMENT RESULTS: Intervals: Rate: 63 MD: 178 QRSD: 128 QT: 454 QTc: 464 [place]: P: 71 MD: 178 QRS: 17 T: 74 INTERPRETIVE STATEMENTS: Normal sinus rhythm Nonspecific intraventricular block Abnormal ECG Compared to ECG 10/11/2022 23:41:03 T-wave abnormality no longer present Electronically Signed On 10-15-22 14:38:42 CDT by Flo Smith
== END 2022-10-12 05:23 | disposition home or self-care (01) ==
LOC: ER 23:30
DX: R07.89 Other chest pain (principal); R06.00 Dyspnea, unspecified; R06.01 Orthopnea; I10 Essential (primary) hypertension; E11.9 Type 2 diabetes mellitus without complications
CPT/HCPCS: 93005; 85025; 80048; 36415; 83735; 85610; 80076; 84484 ×2; 83880; 71045; 96375; 96374; 99285; J2405 ×2